=== PATIENT | male | born 1995 | race Caucasian/White ===

== ENCOUNTER 2021-12-22 12:35 | Emergency (ER) | payer OTHER, SELFPAY ==
--- NOTE | 2021-12-22 | CRLHL7_ITS ---
For Patients: As a result of the Cures Act, medical imaging exams and procedure reports are released immediately into your electronic medical record. You may view this report before your referring provider. If you have questions, please contact your health care provider. Indication: Foreign body localization Technique: Three views left thumb Comparison: Left hand films earlier today Findings: 1.8 cm linear radiodense foreign body in the radial soft tissues adjacent to the osseous structures. No fracture. Impression: Radiodense foreign body appears to not be located within the bony structures, lying adjacent to the base of the 1st metacarpal Dictated by Hair Mathew MD @ 12/22/2021 3:39:23 PM (Electronically Signed)
[2021-12-22 12:45] VITALS: BP 123/77; PULSE 82; RESP 18; TEMP 36; O2SAT 98
--- NOTE | 2021-12-22 12:52 | CRLHL7_ITS ---
For Patients: As a result of the Century Cures Act, medical imaging exams and procedure reports are released immediately into your electronic medical record. You may view this report before your referring provider. If you have questions, please contact your health care provider. Indication: Nail in hand 5 Comparison: None available. Technique: AP, lateral, and oblique views left hand were obtained. Findings: There is no displaced fracture or dislocation. The joint spaces are grossly preserved. There is demonstration of a linear metallic fragment projecting over the 1st carpometacarpal joint. Impression: Demonstration of a linear metallic fragment projecting over the 1st carpometacarpal joint likely lodged within the base of the 1st metacarpal. No evidence of displaced fracture. Dictated by David Gray MD @ 12/22/2021 1:56:01 PM (Electronically Signed)
--- NOTE | 2021-12-22 14:34 | ED_ITS ---
HPI - Wound/Laceration General Time Seen by Provider: 14:34 Date Seen: 12/22/21 Chief Complaint: Skin/Abscess/Foreign Body Stated Complaint: nail in left hand Time Seen by Provider: 12/22/21 14:17 Source: patient, family, RN notes reviewed and old records reviewed Mode of arrival: ambulatory Limitations: no limitations History of Present Illness HPI narrative: [place] is a very pleasant 26-year-old male who is healthy who notes that this morning at 0730 hours he was using a nail gun in order to put base on a wall. These nails are approximately 1 in and do not have heads on them. Unfortunately the nail gun went off and this went into his dorsal hand at the base of the thumb. He notes that there is some discomfort that increases with movement of the thumb. He denies any numbness or tingling at this time. He last ate at 1000 hours. He has not noticed excessive bleeding. Related Data Home Medications Medication Instructions Recorded Confirmed pantoprazole 40 mg tablet,delayed mg PO 12/22/21 release Allergies Allergy/AdvReac Type Severity Reaction Status Date / Time codeine Allergy Verified 12/22/21 12:48 penicillin G Allergy Verified 12/22/21 12:48 Review of Systems Status of ROS: Reports: 6 or more systems reviewed and unremarkable except as noted in History and below Const: Denies: fever or chills ENMT: Denies: throat pain or difficulty swallowing Cardio: Denies: chest pain or shortness of breath with exertion Resp: Denies: shortness of breath or cough GI: Denies: difficulty swallowing PFSH PFSH Social History Smoking Status: Never smoker Do you use any of these nicotine containing products: None Second hand tobacco smoke exposure: No How often do you have a drink containing alcohol: monthly or less How often do you have six or more drinks on one occasion: Never AUDIT-C Alcohol total score: 1 Non-prescribed substance use: denies use service: No Exam Const: Vital Signs, click to edit/add: Vital Signs - 24 hr 12/22/21 12:45 Temperature 96.8 F L Pulse Rate [Left P ulse Oximeter] 82 Respiratory Rate 18 Blood Pressure [Ri ght Upper Arm] 123/77 Pulse Oximetry 98 Oxygen Delivery Me thod Room Air Documenting provider has reviewed patient's vital signs: yes Common normals: no apparent distress, oriented x3, no limitations and healthy appearing General appearance: cooperative, comfortable and well kempt HENMT: Common normals: head/scalp atraumatic Head and scalp: atraumatic Eye: Common normals: PERRL General eye: normal appearance of both eyes Pupil: PERRL Neck & C-Spine: Common normals: full ROM Resp: Common normals: normal respiratory effort Extremity: Other: Small entrance wound at the base of the 1st metacarpal. Patient is able to move thumb distally but increases discomfort. Sensation is fully intact. I am unable to palpate head of the nail or the nail itself. Neuro: Common normals: oriented x3 Psych: Appearance: well kempt Course Course Hospital Course: At this time I suspect patient will need procedure for foreign body removal. I have spoken with the orthopedic PA. Currently awaiting call back for direction. Vital Signs Vital signs: Initial Vital Signs Temperature 96.8 F L 12/22/21 12:45 Temperature Source Tympanic 12/22/21 12:45 Pulse Rate 82 12/22/21 12:45 Pulse Rhythm 12/22/21 12:45 Pulse Strength 3+ Normal 12/22/21 12:45 Respiratory Rate 18 12/22/21 12:45 Blood Pressure 123/77 12/22/21 12:45 Blood Pressure Mean 92 12/22/21 12:45 Blood Pressure Position Sitting 12/22/21 12:45 Pulse Oximetry 98 12/22/21 12:45 Oxygen Delivery Method 12/22/21 12:45 Vital Signs Temperature 96.8 F L 12/22/21 12:45 Pulse Rate 82 12/22/21 12:45 Respiratory Rate 18 12/22/21 12:45 Blood Pressure 123/77 12/22/21 12:45 Pulse Oximetry 98 12/22/21 12:45 Oxygen Delivery Method 12/22/21 12:45 Temperature 96.8 F L 12/22/21 12:45 Pulse Rate 82 12/22/21 12:45 Respiratory Rate 18 12/22/21 12:45 Blood Pressure 123/77 12/22/21 12:45 Pulse Oximetry 98 12/22/21 12:45 Oxygen Delivery Method 12/22/21 12:45 MDM - Wound/Laceration MDM Narrative Medical decision making narrative: 1. Foreign body-patient appears to have headless nail in the soft tissue of the left wrist at the base of the 1st metacarpal. Patient will return tomorrow morning at 0930 for surgery. He is advised to be NPO after midnight. I did place a splint on him to limit movement. He will also start on Keflex 500 mg p.o. b.i.d. x7 days for prevention of infection. He did state that he and his sister who is here with him both have penicillin all allergies and he thought that maybe he became itchy but it was when he was a child that he had the allergy. He has had other antibiotics but he does not know what they are. His reaction does not sound like anaphylaxis and I feel that Keflex is the appropriate antibiotic for him. If he has any itching, shortness of breath he will seek medical attention immediately. 2. Disposition-patient is discharged home. Confirmed coming to the ED tomorrow morning 0930 for orthopedic surgery. Medical Records Attestation: I reviewed the patient's medical records. Lab Data Attestation: I reviewed the patient's lab results. Labs: Lab Results 12/22/21 Range/Units 15:30 SARS-CoV-2 (PCR) Negative SARS-CoV-2 (Negative) Influenza Type A (PCR) Negative PCR FLU A (Negative) Influenza Type B (PCR) Negative PCR FLU B (Negative) Imaging Data Hand x-ray: My impression: Foreign body noted over the base of the 1st metacarpal joint. Radiologist's impression: Findings: There is no displaced fracture or dislocation. The joint spaces are grossly preserved. There is demonstration of a linear metallic fragment projecting over the 1st carpometacarpal joint. Impression: Demonstration of a linear metallic fragment projecting over the 1st carpometac arpal joint likely lodged within the base of the 1st metacarpal. No evidence of displaced fracture. Discharge Plan Discharge Clinical Impression: Foreign body (FB) in soft tissue Patient Disposition: Home, Self-Care Condition: Improved Additional Instructions: Return at 930 tomorrow morning for surgery. Do not eat or drink after midnight Ibuprofen or Tylenol as needed for discomfort. Keep splint in place. Await COVID results. Keflex as directed for antibiotics. Prescriptions: No Action pantoprazole 40 mg tablet,delayed release (DR/EC) PO Label Comments: TAKE 1 TABLET BY MOUTH TWO TIMES A DAY Stand Alone Forms: MyHealth Info Instructions
[2021-12-22 16:11] LABS: PCR FLU A Negative PCR FLU A (Negative); PCR FLU B Negative PCR FLU B (Negative)
[2021-12-22 16:13] LABS: SARS PCR* Negative SARS-CoV-2 (Negative)
== END 2021-12-22 15:41 | disposition home or self-care (01) ==
PROVIDERS: Emergency Provider Family Medicine
DX: S61.042A Puncture wound with foreign body of left thumb without damage to nail, initial encounter (principal); W29.4XXA Contact with nail gun, initial encounter
CPT/HCPCS: 29125; 73130; 73140; 87631; 99283

== ENCOUNTER 2021-12-23 09:00 | Day surgery (SDC) | payer OTHER, SELFPAY ==
[2021-12-23] VITALS (12 sets, daily range): BP systolic 117–135; BP diastolic 86–102; PULSE 75–92; RESP 12–99; TEMP 36.1–36.9; O2SAT 94–99
--- NOTE | 2021-12-23 11:01 | CRLHL7_ITS ---
For Patients: As a result of the Cures Act, medical imaging exams and procedure reports are released immediately into your electronic medical record. You may view this report before your referring provider. If you have questions, please contact your health care provider. Indication: INTRAOP XRAY, FOREIGN BODY REMOVAL Technique: Two fluoroscopic images of the left hand. Fluoroscopic time 2.3 seconds. IMPRESSION: Fluoroscopic guidance for removal of foreign body. Dictated by Hair Mathew MD @ 12/25/2021 8:47:16 AM (Electronically Signed)
[2021-12-23] MEDS: LACTATED RINGERS 1000 ML 1,000 ML 100 ML IV (11:14)
[2021-12-23] MEDS: CEFAZOLIN 2 GM INJ IVP (11:21)
--- NOTE | 2021-12-23 11:26 | PC.NURSE ---
Shift Note pre-surgery: Patient pleasant and cooperative. Patient independent in room. Patient vitally stable, lungs clear, BS WNL, IV inserted in right AC 20 gauge, patent and intact. Patient changed into gown. Signed belongings sheet and contact sheet. Patient's left hand wrapped with perfecto bandage. Patient has left for surgery, and will have a new RN post-surgery.
--- NOTE | 2021-12-23 11:42 | PM.ORCN ---
History of Present Illness HPI Date Seen: 12/23/21 Requesting physician: Teodora Goodrich Chief complaint: Same Day Surgery Narrative: Dr. Candelaria is requested orthopedic consultation for left hand retained foreign body. Patient is a 26-year-old atwyd-snnp-ekydalyu gentleman. Yesterday while trimming a house he put a finishing nail into his left hand. This happened at 7:30 a.m. in the morning. He reported to the emergency department in the early afternoon. He has had this happen previously and pulled the nail out himself. Since this nail had no head he was unable to grasp it. He had eaten late in the morning. Therefore, we would not have been able to remove the foreign body in the operating room under anesthesia until early in the evening. Rather than do that, we elected to wait and do it the following morning. Review of Systems Narrative: The patient denies: Fever, night sweats, shaking chills, nausea, vomiting, diarrhea, chest pain, chest pressure, shortness of breath, no rash, no change in hearing or vision, no issues with bleeding or clotting PFSH PFS Social History Smoking Status: Never smoker Do you use any of these nicotine containing products: None Second hand tobacco smoke exposure: No How often do you have a drink containing alcohol: monthly or less How often do you have six or more drinks on one occasion: Never AUDIT-C Alcohol total score: 1 Non-prescribed substance use: denies use service: No Meds Home Medications and Allergies Home Medications Medication Instructions Recorded Confirmed Type pantoprazole 40 mg tablet,delayed mg PO 12/22/21 History release Allergies Allergy/AdvReac Type Severity Reaction Status Date / Time codeine Allergy Verified 12/22/21 12:48 penicillin G Allergy Verified 12/22/21 12:48 Ortho Exam Narrative Exam Narrative: Examination of the left hand shows a tiny puncture wound over the dorsum of the base of the thumb metacarpal. There are no signs of infection. There is no obvious palpable foreign body. CMS appears normal. Results Diagnostic results Additional Comments: Three views of the hand and three views of the thumb show a metallic foreign body over the soft tissues of the dorsum of the base of the thumb metacarpal. It does not appear to be within the bone or any of the surrounding joints. It is a very small, headless appearing nail approximally 1 or 2 mm in diameter and 15-20 mm in length. Assessment and Plan Assessment and plan (1) Foreign body (FB) in soft tissue: Status: Acute Plan Assessment: Retained metallic foreign body left hand Plan: He has been NPO since prior to midnight. He has been medically cleared for surgery. Therefore, we will plan to take him to the operating room now.
[2021-12-23] MEDS: BUPIVACAINE 0.5% 30 ML INJECTION (11:44)
--- NOTE | 2021-12-23 11:50 | P.ORPRC_ITS ---
Procedure Note Date of procedure: 12/23/21 Procedure: SURGEON: Placido Small MD GEAR AND SPLINE GRINDER: Blaise Ortega PA-C PREOPERATIVE DIAGNOSIS: Left hand retained foreign body POSTOPERATIVE DIAGNOSIS: Left hand retained foreign body NAME OF OPERATION: Left hand foreign body removal, superficial ANESTHESIA: General ESTIMATED BLOOD LOSS: 0 mL COMPLICATIONS: None SPECIMENS: None DRAINS: None PREOPERATIVE ANTIBIOTICS: Ancef 2 g INDICATIONS: The patient is a 89-vuqi-wbk-year-old male shot a nail through his left hand. Foreign body removal was recommended. The risks, benefits and expected outcomes were discussed in detail. These included but were not limited to: Infection, bleeding, injury to blood vessel or nerve, venous thromboembolism. All questions were answered to their satisfaction. PROCEDURE: The patient was placed supine on the operating room table. General anesthesia was administered. The left upper extremity was prepped and draped in the usual sterile fashion. The limb was exsanguinated with a Xiang bandage. The forearm pneumatic tourniquet was inflated to 250 mmHg. A longitudinal incision was made over the puncture site. Subcutaneous dissection was taken with tenotomy scissors to the foreign body which was only a few mm under the skin. It was removed intact. Intraoperative C-arm images were obtained which show the foreign body has been completely removed. The soft tissues were irrigated with 500 mL of normal saline via a bulb syringe. The wound was closed with a 3-0 Monocryl in a subcuticular fashion. The wound was infiltrated with several mL of 0.5% Marcaine with, without epinephrine. A Steri-Strip and soft dressing were applied. The tourniquet was released. Sponge needle counts were correct x2. The patient tolerated the procedure well. There were no apparent complications. He was awakened and extubated in the operating room, sent to the postanesthesia care unit in satisfactory condition. Plan: The patient will be discharged home. Use of the hand as tolerates. Ice, Tylenol and ibuprofen as needed for pain. He can discontinue the intraoperative dressing on postoperative day 3. He can follow-up p.r.n.
--- NOTE | 2021-12-24 21:26 | W.ANESCHARGE ---
Anesthesia Charges Start Date/Time Anesthesia Start Date: 12/23/21 Anesthesia Start Time: 11:14 Stop Date/Time Anesthesia Stop Date: 12/23/21 Anesthesia Stop Time: 12:02 Summary Emergency: Yes
== END 2021-12-23 12:35 | disposition home or self-care (01) ==
LOC: SS 09:02 → MEDSURG 10:30
PROVIDERS: Visit Provider Orthopaedic Surgery
PROC: (CPT 10120; principal; 2021-12-23 11:30)
DX: S61.442A Puncture wound with foreign body of left hand, initial encounter (principal); W45.0XXA Nail entering through skin, initial encounter; W27.8XXA Contact with other nonpowered hand tool, initial encounter; Y93.H3 Activity, building and construction; Y92.009 Unspecified place in unspecified non-institutional (private) residence as the place of occurrence of the external cause
CPT/HCPCS: 10120; 01810; 73120; 76000; 99140; J0690; J1100; J2250; J2405; J2704; J3010; J3490; J7120

== ENCOUNTER 2022-01-29 16:35 | Emergency (ER) | payer OTHER, SELFPAY ==
[2022-01-29 17:06] VITALS: BP 121/81; PULSE 96; TEMP 37.9; O2SAT 97
--- NOTE | 2022-01-29 17:58 | CRLHL7_ITS ---
For Patients: As a result of the Century Cures Act, medical imaging exams and procedure reports are released immediately into your electronic medical record. You may view this report before your referring provider. If you have questions, please contact your health care provider. INDICATION: Lower abdominal pain. TECHNIQUE: CT abdomen and pelvis acquired with 89 mL Isovue 370 IV contrast. Coronal and sagittal reformats were generated. COMPARISON: None. FINDINGS: Lower chest: Unremarkable. Liver: Unremarkable. Gallbladder and bile ducts: Unremarkable. No stones or inflammation. No biliary dilation. Spleen: Unremarkable. Pancreas: Unremarkable. Adrenal glands: Unremarkable. No nodules. Kidneys and Ureters: Unremarkable. No suspicious masses, stones, or hydronephrosis. Lymph Nodes and Retroperitoneum: Unremarkable. Vasculature: Incidentally noted retroaortic left renal vein, a normal variant. GI tract: Mucosal thickening and hyperemia of the sigmoid colon, without notable diverticula. Bowel loops are normal in caliber. The appendix is normal. Peritoneum/Abdominal Wall: Several small foci of extraluminal gas extend along the sigmoid colon. No free fluid. Pelvic Viscera: Unremarkable. Bladder: Unremarkable. Bones: Bilateral pars interarticularis defects at L5, with grade 1 anterolisthesis of L5 on S1. IMPRESSION: 1. Mucosal thickening with adjacent stranding of the sigmoid colon, without appreciable diverticula. This could be diverticulitis, but other etiologies of colitis such as infection or inflammation are also possible. 2. Small focus of extraluminal air, compatible with microperforation. No fluid collection. Please note that all CT scans at this facility use dose modulation, iterative reconstruction, and/or weight-based dosing when appropriate to reduce radiation dose to as low as reasonably achievable. Dictated by Jhonathan Angelo MD @ 01/29/2022 7:02:57 PM (Electronically Signed)
--- NOTE | 2022-01-29 17:59 | ED_ITS ---
HPI - General Adult General Chief complaint: Groin Pain Stated complaint: Groin pain Time Seen by Provider: 01/29/22 17:37 History of Present Illness HPI narrative: This 27-year-old male comes in reporting lower abdominal pain for the past couple days. He states that it is a constant pain and is worse with movement. He states that he had some constipation and did take milk of magnesia thinking this would help his symptoms. He reports pain in his rectum when attempting to have a bowel movement. He states that he has been urinating normally. He does not have any flank pain. He arrives with a temperature at 100.2? F but states that he has not felt feverish. He denies having any nausea or vomiting. Related Data Home Medications Medication Instructions Recorded Confirmed pantoprazole 40 mg tablet,delayed 40 mg PO BID 12/22/21 01/29/22 release Previous Rx's Medication Instructions Recorded amoxicillin 875 mg-potassium 1 tab PO Q12H #20 tabs 01/29/22 clavulanate 125 mg tablet ketorolac 10 mg tablet 10 mg PO TID 5 days #15 tabs 01/29/22 Allergies Allergy/AdvReac Type Severity Reaction Status Date / Time codeine Allergy Verified 01/29/22 18:35 penicillin G Allergy Verified 01/29/22 18:35 Review of Systems Status of ROS: Reports: 10 or more systems reviewed and unremarkable except as noted in History and below Narrative: Constitutional: No fevers, no weight gain or loss. Eyes: No discharge. No vision changes. HENT: No congestion, no sore throat, no ear pain. Cardiovascular: No chest pain, no palpitations. Respiratory: No shortness of breath, no wheezes, no cough. Gastrointestinal: No vomiting, no diarrhea. Abdominal pain as described above. Genitourinary: No dysuria, no hematuria. Musculoskeletal: Normal range of motion. Skin: No rashes, no pruritis. Neurological: No dizziness, weakness, sensory change, speech change. Endo/Heme/Allergies: No bruising or bleeding. No polydipsia. Pysch: no suicidality, no anxiety, no insomnia. All other systems reviewed and are negative. [facility] Social History Smoking Status: Former smoker What tobacco products do you use: cigarettes Years smoked: 10 Smoking quit date/years: <= 15 years ago Do you use any of these nicotine containing products: Other Second hand tobacco smoke exposure: No How often do you have a drink containing alcohol: monthly or less How many standard drinks containing alcohol do you have on a typical day: 5 or 6 How often do you have six or more drinks on one occasion: Never AUDIT-C Alcohol total score: 3 Non-prescribed substance use: denies use service: No Exam Narrative: Exam Narrative: Constitutional: Well-developed, well-nourished, no acute distress. HEENT: Normocephalic, atraumatic. Neck: Normal range of motion. Nontender. Supple. Heart: Regular. No murmurs. Normal rate. Intact distal pulses. Lungs: Clear to auscultation. No chest discomfort. No wheezes, rhonchi, or rales. Abdomen: Normal bowel sounds. Tenderness across the lower abdomen. Mild rebound tenderness. Genitalia: Deferred. Back: No midline tenderness. Normal range of motion. Extremities: Normal range of motion. No injury. Skin: Intact. No rash. Warm. No erythema or pallor. Neurologic: No altered sensation. No weakness. Alert and oriented. Psychiatric: No suicidality. No anxiety or depression. No insomnia. Nursing notes and vitals signs are reviewed. Const: Vital Signs, click to edit/add: Vital Signs - 24 hr 01/29/22 17:06 01/29/22 18:20 01/29/22 19:00 Temperature 100.2 F H Pulse Rate [Left P ulse Oximeter] 96 93 93 Respiratory Rate 20 Blood Pressure [Ri ght Upper Arm] 121/81 105/72 114/35 L Pulse Oximetry 97 95 95 Oxygen Delivery Me thod Room Air Room Air Room Air Course Vital Signs Vital signs: Initial Vital Signs Temperature 100.2 F H 01/29/22 17:06 Temperature Source Temporal Artery Scan 01/29/22 17:06 Pulse Rate 96 01/29/22 17:06 Blood Pressure 121/81 01/29/22 17:06 Blood Pressure Mean 94 01/29/22 17:06 Blood Pressure Position Sitting 01/29/22 17:06 Pulse Oximetry 97 01/29/22 17:06 Oxygen Delivery Method 01/29/22 17:06 Vital Signs Temperature 100.2 F H 01/29/22 17:06 Pulse Rate 96 01/29/22 17:06 Blood Pressure 121/81 01/29/22 17:06 Pulse Oximetry 97 01/29/22 17:06 Oxygen Delivery Method 01/29/22 17:06 Temperature 100.2 F H 01/29/22 17:06 Pulse Rate 93 01/29/22 19:00 Respiratory Rate 20 01/29/22 18:20 Blood Pressure 114/35 L 01/29/22 19:00 Pulse Oximetry 95 01/29/22 19:00 Oxygen Delivery Method 01/29/22 19:00 Medical Decision Making MDM Narrative Medical decision making narrative: This patient comes in with lower abdominal pain over the past couple days. His symptoms are suspicious for diverticulitis. He does have a borderline fever and white count returns slightly elevated. CT imaging of the abdomen and pelvis do not identify any particular diverticula but there are findings that are suspicious of diverticulitis. The patient received an oral dose of Augmentin. He also received an IV dose of Toradol 30 mg. Prescriptions for these 2 medicines are provided for him going forward also. Lab Data Labs: Lab Results 01/29/22 01/29/22 01/29/22 Range/Units 18:12 18:12 18:12 WBC 13.51 H (4.50-11.00) K/uL RBC 4.98 (4.30-5.90) m/uL Hgb 15.1 (13.5-17.5) gm/dL Hct 44.1 (37.0-53.0) % MCV 89 (80-100) fL MCH 30 (26-34) pg MCHC 34 (32-36) gm/dL RDW Coeff of Juma 12.4 (11.5-15.5) % Plt Count 268 (140-440) K/uL Neut % (Auto) 78.7 H (42.0-72.0) % Lymph % (Auto) 12.4 L (20-44) % Harnett % (Auto) 8.2 (0.0-11.0) % Eos % (Auto) 0.1 (0.0-7.0) % Baso % (Auto) 0.2 (0.0-3.0) % Neut # (Auto) 10.60 H (1.7-7.0) K/uL Lymph # (Auto) 1.70 (0.90-2.90) K/uL Harnett # (Auto) 1.10 H (0.00-0.90) K/UL Eos # (Auto) 0.00 (0.00-0.50) K/uL Baso # (Auto) 0.00 (0.00-0.30) K/uL Abs Immat Gran (auto) 0.06 (0.00-0.30) K/uL Sodium 137 (135-149) mmol/L Potassium 4.0 (3.6-5.1) mmol/L Chloride 100 (96-114) mmol/L Carbon Dioxide 25 (20-32) mmol/L BUN 10 (5-24) mg/dL Creatinine 0.9 (0.5-1.5) mg/dL Estimated Creat Clear 105.35 Estimated GFR 119 ml/min Glucose 112 (60-115) mg/dL Lactate 0.7 (0.5-1.9) mmol/L Calcium 9.6 (8.4-10.6) mg/dL Imaging Data CT scan - abdomen: Radiologist's impression: 1. Mucosal thickening with adjacent stranding of the sigmoid colon, without appreciable diverticula. This could be diverticulitis, but other etiologies of colitis such as infection or inflammation are also possible. 2. Small focus of extraluminal air, compatible with microperforation. No fluid collection. Discharge Plan Discharge Clinical Impression: Diverticulitis Patient Disposition: Home, Self-Care Condition: Stable Additional Instructions: Take medication as prescribed. Use stool softeners as directed. Follow up with MD or return if worsening. Prescriptions: New amoxicillin-pot clavulanate 875-125 mg tablet 1 tab PO Q12H Qty: 20 0RF ketorolac 10 mg tablet 10 mg PO TID 5 Days Qty: 15 0RF No Action pantoprazole 40 mg tablet,delayed release (DR/EC) 40 mg PO BID Label Comments: TAKE 1 TABLET BY MOUTH TWO TIMES A DAY Follow Up/Referrals: Provider,Not a Local [Primary Care Provider] - Stand Alone Forms: MyHealth Info Instructions
[2022-01-29 18:20] VITALS: BP 105/72; PULSE 93; RESP 20; O2SAT 95
[2022-01-29 18:23] LABS: Lactate* 0.7 mmol/L (0.5-1.9)
[2022-01-29 18:25] LABS: Basophils Percent Auto 0.2 % (0.0-3.0); Eosinophils Percent Auto 0.1 % (0.0-7.0); Hematocrit 44.1 % (37.0-53.0); Hemoglobin* 15.1 gm/dL (13.5-17.5); Immature Granulocytes Abs Auto 0.06 K/uL (0.00-0.30); Lymphocytes Percent Auto 12.4 % (20-44); Mean Corpuscular HGB Conc 34 gm/dL (32-36); Mean Corpuscular Hemoglobin 30 pg (26-34); Mean Corpuscular Volume 89 fL (80-100); Monocytes Percent Auto 8.2 % (0.0-11.0); Neutrophils Percent Auto 78.7 % (42.0-72.0); Platelet Count* 268 K/uL (140-440); RDW Coefficient of Variation % 12.4 % (11.5-15.5); Red Blood Count 4.98 m/uL (4.30-5.90); Slide Review Reflex No; White Blood Count* 13.51 K/uL (4.50-11.00)
[2022-01-29 18:38] LABS: Chloride* 100 mmol/L (96-114)
[2022-01-29 18:39] LABS: Sodium* 137 mmol/L (135-149)
[2022-01-29 18:41] LABS: Creatinine* 0.9 mg/dL (0.5-1.5); Est. Creatinine Clearance* 105.35; Estimated Glomerular Filt Rate 119 ml/min
[2022-01-29 18:42] LABS: Blood Urea Nitrogen* 10 mg/dL (5-24); Calcium* 9.6 mg/dL (8.4-10.6); Carbon Dioxide* 25 mmol/L (20-32); Glucose* 112 mg/dL (60-115)
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
--- OUTSIDE RECORDS SUMMARY | 2022-01-29 18:42 | XMS_ITS | Encounter Summary ---
:1995 Author Organization [facility] Address [address] [place] [address] Phone Care Team Providers Name Role Phone Pcp, No Primary Care Provider Unavailable Encounter Details Date Type Department Care Team Description 04/23/2019 Documentation Only Unspecified Departme nt Unknown, Provider [place] Social History Tobacco Use Types Packs/Day Years Used Date Smoking Tobacco: Every Day Cigarettes 0.3 Smokeless Tobacco: Never Alcohol Use Standard Drinks/Week Comments No 0 (1 standard drink = 0.6 oz pure alcoho l) Sex Assigned at Date Recorded Not on file documented as of this encounter Plan of Treatment Not on filedocumented as of this encounter Visit Diagnoses Not on filedocumented in this encounter Care Teams Cops Relationship Specialty Start Date End Date Pcp, No PCP - General 10/24/[place] [facility] [place] [address] documented as of this encounter
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
--- OUTSIDE RECORDS SUMMARY | 2022-01-29 18:42 | XMS_ITS | Encounter Summary ---
:1995 Author Organization [facility] Address [address] [place] [phone] Phone Care Team Providers Name Role Phone Pcp, No Primary Care Provider Unavailable Reason for Visit Reason Onset Date Comments Work Note 12/12/2014 Encounter Details Date Type Department Care Team Description 12/12/2014 Nurse Triage [facility] Contact Center Elana Bernal RN Work Note [facility] [address] [place] [address] [address] [place], [place] [address] Social History Tobacco Use Types Packs/Day Years Used Date Smoking Tobacco: Every Day Cigarettes 0.3 Smokeless Tobacco: Never Alcohol Use Standard Drinks/Week Comments No 0 (1 standard drink = 0.6 oz pure alcoho l) Sex Assigned at Date Recorded Not on file documented as of this encounter Miscellaneous Notes Telephone Encounter - Lisa Mathew RN - 12/13/2014 12:09 PM CDT Data: See messages below. Pt has no TBI symptoms and needs work note stating that it is okay to workfull time with no restrictions. 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 Note should be faxed to [phone] attn: Monica Mansfield. Action: Message routed to Dr Mohamud for review / RTW letter. Appt canceled on 01/05/15 and rescheduled on 03/04/15. Plan: Pending review. Telephone Encounter - Ed Barcenas RN - 12/13/2014 9:47 AM CDT Message will be routed to Dr. Mohamud of TBI as Neurosurgery has discharged pt. See last note by Bella Kim NP. Ed Barcenas, RN, 12/13/2014 9:48 AM Telephone Encounter - Elana Bernal RN - 12/12/2014 9:42 AM CDT D: Telephone call received from pt requesting a letter be faxed to his Employer [employer] stated that it is ok for him to reschedule his 01/05/2015 appointment in TBI clinic and itis safe for him to travel for the next 2 months. Fax number . A: Spoke with pt and advised him a message would be sent to the clinic on his behalf. R/P: Pending Message from Jose Antonio Saldaña sent at 12/12/2014 9:31 AM CDT ----- Regarding: questions about being able to travel after a tbi JOSE ANTONIO ASHLEY 12/12/2014 09:31 AM Is returning a call from needs to talk to neurosurgery about getting a letter to be able to travel, that is if he is safe to for his job Best number to call patient [phone] Best time of day to reach patient: anytime documented in this encounter Plan of Treatment Not on filedocumented as of this encounter Visit Diagnoses Not on filedocumented in this encounter Care Teams Director Data Relationship Specialty Start Date End Date Pcp, No PCP - General 10/24/14 [facility] [place] [address] documented as of this encounter
--- OUTSIDE RECORDS SUMMARY | 2022-01-29 18:42 | XMS_ITS | Encounter Summary ---
:1995 Author Organization [facility] Address [address] [place] [address] Phone Care Team Providers Name Role Phone Pcp, No Primary Care Provider Unavailable Reason for Visit Reason Onset Date Comments Letter for Work 12/14/2014 Needing a note to sel[place] rede the state... Encounter Details Date Type Department Care Team Description 12/14/2014 Telephone [facility] Surgery Clinic Debbie Dodson Letter for Work [address] Nik[address] Gonzales RN (Needing a note to .[phone]ANDA leave the state...) [place], [place] [address] [address] [place], [place] [phone] Social History Tobacco Use Types Packs/Day Years Used Date Smoking Tobacco: Every Day Cigarettes 0.3 Smokeless Tobacco: Never Alcohol Use Standard Drinks/Week Comments No 0 (1 standard drink = 0.6 oz pure alcoho l) Sex Assigned at Date Recorded Not on file documented as of this encounter Miscellaneous Notes Telephone Encounter - Lisa Mathew RN - 12/15/2014 9:19 AM CDT RTW letter written and faxed on 12/13/14. Pt's employer never received fax. Faxed RTW letter to Monica Mansfield @ [phone] and to pt's mother Clementine @ [phone] per pt's request. Received confirmation page that fax was received. Lisa Mathew RN, 12/15/2014 9:21 AM Telephone Encounter - Olman Espino RN - 12/15/2014 9:00 AM CDT D: Patient's mother called the Neurosurgery Clinic requesting a letter for work, and for a nurse to call the patient. Patient seen in Neurosurgery Clinic on 11/19/14, with a plan for follow up in TBI Clinic. Patient seen in TBI Clinic on 11/19/14, and a return to work letter written by Dr. Mohamud on 12/13/14 states that patient can return to work without restrictions, and may travel for the next two months for work. AR: Attempted to contact patient on the telephone. Patient does not have a mail box to leave a message. Called patient's mother Clementine. Nnamdi states that the patient's employer never received return to work letter. Faxed return to work letter to patient's mother. P: Route to [facility] for follow up. Olman Espino RN, 12/15/2014 9:06 AM . Telephone Encounter - Debbie Dodson RN - 12/14/2014 10:09 AM CDT Pt. States also needs a rtw letter. RTW Chanel Hennessy MA Sent: SatDecember 14, 2014 8:38 AM To: P Surgery Cl Staff/Refill Pool [facility] [place] Ho[place] : 1995 Pt Home: Entered: [phone] Message TELEPHONE MESSAGE Taken by: Chanel Hennessy MA, 12/14/2014 8:39 AM Direct to: Neurosurgery Problem: RTW Pt. Name: [place] Hoang : 1995 (home) Mobile Insurance: PCP: No PCP Comment: LM stating he needs a RTW slip SERA Expects Return Call at: [phone] Debbie oDdson RN, 12/14/2014 10:09 AM Telephone Encounter - Debbie Dodson RN - 12/14/2014 10:02 AM CDT Called pt back to see what kind of note requested. Received a message that pt requesting a note to leave the state. Called pt with no answer and no voicemail set up to leave message to call back. Routing message forward for note. Will call back with results. Debbie Dodson, RN, 12/14/2014 10:03 AM documented in this encounter Plan of Treatment Not on filedocumented as of this encounter Visit Diagnoses Not on filedocumented in this encounter Care Teams Spinning Operator Relationship Specialty Start Date End Date Pcp, No PCP - General 10/24/14 [facility] [place] [address] documented as of this encounter
--- OUTSIDE RECORDS SUMMARY | 2022-01-29 18:42 | XMS_ITS | Encounter Summary ---
:1995 Author Organization [facility] Address [address] [facility] [place] [address] Phone Care Team Providers Name Role Phone Pcp, No Primary Care Provider Unavailable Encounter Details Date Type Department Care Team Description 12/13/2014 Telephone [facility] [place] TBI Phys Med/Rehab Sandra Douglas CMA Clinic [address] [place] [address] [place], [place] [address] Social History Tobacco Use Types Packs/Day Years Used Date Smoking Tobacco: Every Day Cigarettes 0.3 Smokeless Tobacco: Never Alcohol Use Standard Drinks/Week Comments No 0 (1 standard drink = 0.6 oz pure alcoho l) Sex Assigned at Date Recorded Not on file documented as of this encounter Miscellaneous Notes Telephone Encounter - Miladys Douglas CMA - 12/13/2014 2:27 PM CDT Patient's work letter was faxed to Monica Mansfield using fax number [phone]. Miladys Douglas CMA, 12/13/2014 2:28 PM documented in this encounter Plan of Treatment Not on filedocumented as of this encounter Visit Diagnoses Not on filedocumented in this encounter Care Teams Bridal Gown Fitter Relationship Specialty Start Date End Date Pcp, No PCP - General 10/24/14 [facility] [place] [place] [address] documented as of this encounter
--- OUTSIDE RECORDS SUMMARY | 2022-01-29 18:42 | XMS_ITS | Encounter Summary ---
:1995 Author Organization [facility] Address [address] [place] [address] Phone Care Team Providers Name Role Phone Pcp, No Primary Care Provider Unavailable Encounter Details Date Type Department Care Team Description 12/22/2021 Travel Social History Tobacco Use Types Packs/Day Years Used Date Smoking Tobacco: Former Cigarettes 0.3 Smokeless Tobacco: Never Alcohol Use Standard Drinks/Week Comments Not Currently 0 (1 standard drink = 0.6 oz pure alcoho l) Sex Assigned at Date Recorded Not on file COVID-19 Exposure Response Date Recorded In the last 10 days, have you been in contact with No / Unsu re 12/22/2021 8:06 AM CDT someone who was confirmed or suspected to have Coronavirus/COVID-19? documented as of this encounter Plan of Treatment Not on filedocumented as of this encounter Visit Diagnoses Not on filedocumented in this encounter Care Teams Cylinder Worker Relationship Specialty Start Date End Date Pcp, Radha PCP - General 10/24/14 [facility] [place] [address] documented as of this encounter
--- OUTSIDE RECORDS SUMMARY | 2022-01-29 18:42 | XMS_ITS | Encounter Summary ---
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 athologist Signature Potassium 4.5 3.5 - 5.3 [facility] mEq/L Specimen Anatomical Collection Method Collection Time Receive d Time (Source) Location / / Volume Laterality Blood 04/24/2019 7:10 AM 0 7:22 [employer] AM [employer] Hakan Floyd MD LABORATORY Performing Organization Address City/State/ZIP Code Phon e Number [facility] [place] [place] [address] [address] [facility] [address] HEAD NO IV CONTRAST (04/23/2019 10:54 PM [employer]) Anatomical Region Laterality Modality Skull Computed Tomography Specimen (Source) Anatomical Collection Method Collection Time Re ceived Time Location / / Volume Laterality 04/23/2019 10:57 PM [employer] Impressions 04/24/2019 11:36 AM [employer] Impression: 1. Small volume subdural hemorrhage trina g the cerebral convexities, appearing relatively stable on the left and slightly decreased on the right. 2. No substantial change in appearance o f the small hemorrhagic contusions of the bilateral frontal and temporal lobes; no substantial change in associated vasogenic edema. 3. No substantial change in the mild bif rontal subarachnoid hemorrhage. [facility] Radiology offers CT scanning with t he latest innovations, including personalized dose modulation, iterative and model-based reconstructions, and spectral CT, all of which work to reduce radiation d ose to as low as reasonably achievable , and afford significant reductions in contrast media dose. I have personally reviewed the image(s) and initial interpretation, and I agree with the findings as documented by the resident/fellow. Reading Radiologist: Taqueria Nails Reading Resident: Jonathan Garber Narrative 04/24/2019 11:36 AM [employer] Head CT without contrast, 04/23/2019 Indication: Follow-up intracranial hemor rhages. Comparison: Head CT examinations from [facility] today (most recently from approximately 13.5 hours earlier) and from 10/25/2014. Technique: Thin-section CT images throug h the brain were obtained from the base of the skull through the vertex without intravenous contrast, reconstructed in axial, coronal, and sagittal planes, and reviewed in brain, bone and subdural windows. Dose: Total DLP = 1228.2 mGy*cm. ?? Findings: Persistent thin bilateral cere bral convexity subdural hemorrhage, slightly greater on the right and measuring 3-4 mm in thickness bilaterally; the component along the right frontoparietal conv exity appears decreased. Minimally incre ased conspicuity of a trace amount of subdural hemorrhage along the right mid to posterior falx. No substantial change in appearance of small anteroinferior front al hemorrhagic contusions, superimposed upon chronic gliosis/encephalomalacia and of small hemorrhagic contusions in the temporal lobes; associated vasogenic edema appears similar to prior. Mildly incre ased hypoattenuation in the left mild sc attered left greater than right bifrontal subarachnoid hemorrhage has not substantially changed. No ventriculomegaly, midline shift, or herniation. No definite ac qawalangin loss of coffman-white differentiation. Stable small foci of gliosis/encephalomalacia in the right superior temporal gyrus, the sequela of prior trauma. Unchanged right frontal calvarial fractu re with involvement of the anterior and posterior edgar of the right frontal sinus as well as extension posterior superiorly into the sagittal suture. Associated soft tissue swelling of the scalp is rel atively similar to prior. Trace hemorrhage in the right frontal sinus. Mild fluid and scattered ethmoid air cells. The remaining paranasal sinuses are relatively clear. No mastoid air cell effusion. The orbits are unremarkable. Trace atherosclerotic calcification of the supraclinoid internal carotid arteries. The residential living assistant topogram reviewed and is noncontributory. Procedure Note Taqueria Nails, DO - 04/24/2019Form atting of this note might be different from the original. Head CT without contrast, 04/23/2019 Indication: Follow-up intracranial hemor rhages. Comparison: Head CT examinations from [facility] today (most recently from approximately 13.5 hours earlier) and from 10/25/2014. Technique: Thin-section CT images throug h the brain were obtained from the base of the skull through the vertex without intravenous contrast, reconstructed in axial, coronal, and sagittal planes, and reviewed in brain, bone and subdural windows. Dose: Total DLP = 1228.2 mGy*cm. Findings: Persistent thin bilateral cere bral convexity subdural hemorrhage, slightly greater on the right and measuring 3-4 mm in thickness bilaterally; the component along the right frontoparietal convexity appears decreased. Minimally i ncreased conspicuity of a trace amount of subdural hemorrhage along the right mid to posterior falx. No substantial change in appearance of small anteroinferior frontal hemorrhagic contusions, superimposed upo n chronic gliosis/encephalomalacia and of small hemorrhagic contusions in the temporal lobes; associated vasogenic edema appears similar to prior. Mildly increased hypoattenuation in the left mild scattered left greater than right bifrontal subarachnoid hemorrhage has not substantially changed. No ventriculomegaly, midline shift, or herniation. No definite acute loss of coffman-white differentiation. Stable small foci of gl iosis/encephalomalacia in the right superior temporal gyrus, the sequela of prior trauma. Unchanged right frontal calvarial fractu re with involvement of the anterior and posterior edgar of the right frontal sinus as well as extension posterior superiorly into the sagittal suture. Associated soft tissue swelling of the scalp is relative ly similar to prior. Trace hemorrhage in the right frontal sinus. Mild fluid and scattered ethmoid air cells. The remaining paranasal sinuses are relatively clear. No mastoid air cell effusion. The orbits ar e unremarkable. Trace atherosclerotic calcification of the supraclinoid internal carotid arteries. The residential living assistant topogram reviewed and is noncontributory. IMPRESSION Impression: 1. Small volume subdural hemorrhage trina g the cerebral convexities, appearing relatively stable on the left and slightly decreased on the right. 2. No substantial change in appearance o f the small hemorrhagic contusions of the bilateral frontal and temporal lobes; no substantial change in associated vasogenic edema. 3. No substantial change in the mild bif rontal subarachnoid hemorrhage. [facility] Radiology offers CT scanning with t he latest innovations, including personalized dose modulation, iterative and model-based reconstructions, and spectral CT, all of which work to reduce radiation dose to as low as reasonably achievable, and afford signi ficant reductions in contrast media dose. I have personally reviewed the image(s) and initial interpretation, and I agree with the findings as documented by the resident/fellow. Reading Radiologist: Taqueria Nails Resident: Jonathan Garber Hakan Floyd MD CT NEURO XR ELBOW LEFT 3/4 VIEWS* (04/23/2019 9:43 AM [employer]) Anatomical Region Laterality Modality Lower Arm Computed Radiography Specimen (Source) Anatomical Collection Method Collection Time Re ceived Time Location / / Volume Laterality 04/23/2019 9:45 AM [employer] Impressions 04/23/2019 9:46 AM [employer] Impression: No fracture. Reading Radiologist: Holger Nunez Narrative 04/23/2019 9:46 AM [employer] Indication: ??trauma, pain ?? Findings: The alignment is normal. No fr acture or dislocation is seen. No other abnormality is noted. Procedure Note Holger Nunez MD - 04/23/2019Formatti ng of this note might be different from the original. Indication: trauma, pain Findings: The alignment is normal. No fr acture or dislocation is seen. No other abnormality is noted. IMPRESSION Impression: No fracture. Reading Radiologist: Holger Nunez Basia SUNSHINE-Lor X-RAY XR PELVIS AP* (04/23/2019 9:41 AM [employer]) Anatomical Region Laterality Modality Pelvis Computed Radiography Specimen (Source) Anatomical Collection Method Collection Time Re ceived Time Location / / Volume Laterality 04/23/2019 9:43 AM [employer] Impressions 04/23/2019 9:44 AM [employer] Impression: No acute findings. Reading Radiologist: Holger Nunez Narrative 04/23/2019 9:44 AM [employer] Indication: ??trauma ?? Comparison: None Findings: There is contrast within the u reters and urinary bladder. The bones and joint spaces are intact. There is no fracture or dislocation. No other abnormality is seen. Procedure Note Holger Nunez MD - 04/23/2019Formatti ng of this note might be different from the original. Indication: trauma Comparison: None Findings: There is contrast within the u reters and urinary bladder. The bones and joint spaces are intact. There is no fracture or dislocation. No other abnormality is seen. IMPRESSION Impression: No acute findings. Reading Radiologist: Holger Nunez Basia Alfonso PA-C X-RAY XR CHEST 1 VIEW AP OR PA* (04/23/2019 9:40 AM [employer]) Anatomical Region Laterality Modality Chest Computed Radiography Specimen (Source) Anatomical Collection Method Collection Time Re ceived Time Location / / Volume Laterality 04/23/2019 9:42 AM [employer] Impressions 04/23/2019 9:43 AM [employer] Impression: No acute findings. Reading Radiologist: Holger Nunez Narrative 04/23/2019 9:43 AM [employer] Indication: ??trauma ?? Findings: ??The heart and pulmonary vasc ulature are normal. ??The lungs are clear. ??There is no pleural effusion or pneumothorax. Postoperative changes are seen in the left scapula. No other abnormality is seen. Procedure Note Holger Nunez MD - 04/23/2019Formatti ng of this note might be different from the original. Indication: trauma Findings: The heart and pulmonary vascul ature are normal. The lungs are clear. There is no pleural effusion or pneumothorax. Postoperative changes are seen in the left scapula. No other abnormality is seen. IMPRESSION Impression: No acute findings. Reading Radiologist: Holger Nunez Basia Alfonso PA-C X-RAY CT HEAD - VENOGRAM-W/IV CON (04/23/2019 9:19 AM [employer]) Anatomical Region Laterality Modality Skull Computed Tomography Specimen (Source) Anatomical Collection Method Collection Time Re ceived Time Location / / Volume Laterality 04/23/2019 9:19 AM [employer] Impressions 04/23/2019 4:46 PM [employer] Impression: 1. No evidence of ??thrombus intracrania lly within the major intracranial venous sinuses and the deep and superficial cerebral veins. Mild extrinsic compression of the superior sagittal sinus near the v ertex from thin epidural hemorrhages und erlying the midline frontal bone and sagittal suture Gtz. 2. Subdural hemorrhage overlying the ant erior frontal lobes with possible small amount of bifrontal intraparenchymal hemorrhagic contusions that are slightly more pronounced from prior exam. There is al so small amount of subarachnoid hemorrha ge most pronounced within the left frontal lobe that is not significantly changed from prior exam. [facility] Rad[facility] offers CT scanning with t he latest innovations, including personalized dose modulation, iterative and model-based reconstructions, and spectral CT, all of which work to reduce radiation d ose to as low as reasonably achievable , and afford significant reductions in contrast media dose. I have personally reviewed the image(s) and initial interpretation, and I agree with the findings as documented by the resident/fellow. Reading Radiologist: Abisai Walker Resident: Connor Ellis 04/23/2019 4:46 PM [employer] Indication: ??known subdural, subarachnoid ??known subdural, subarachnoid ??. Comparison: ??none Technique: Head CT: Noncontrast thin section CT kristal ges were obtained from the skull base through the vertex and reviewed in brain, bone and subdural windows. CTV Head: Following intravenous bolus in jection of nonionic iodinated contrast medium and a delay of approximately 20-25 seconds, axial ??CT imaging with 1 mm collimation was obtained through the brain. Image data were sent to the [employer] sualization workstation and postprocessed by the radiologist using maximum intensity pixel (MIP), multiplanar and volume rendered 3D reconstruction programs. DOSE: ?Total DLP = 1803.8 mGy.cm. ?? Contrast Media: IOHEXOL 350 MG/ML IV SPEEDY UTION ??Dose: 80 mL ??Route: IV Push Findings: On the noncontrast images of the head, t here is redemonstration of the subdural hemorrhage overlying the bifrontal lobes with a small amount of bifrontal intraparenchymal hemorrhagic contusion that is s lightly more pronounced than prior. Smal l amount of subarachnoid hemorrhage is also present most prominent within the left frontal lobe. No mass effect, or midline shift. The ventricles are not enlarged . Coffman-white matter differentiation of b oth cerebral hemispheres is preserved. Unchanged fracture extending from the ri ght frontal sinus posteriorly and extending along the sagittal suture. Stable soft tissue hematoma overlying the fracture. Head CTV demonstrates no evident occlusi on or thrombus within the major intracranial dural venous sinuses and the major superficial and deep cerebral veins. There is thin epidural hemorrhage along the m idline frontal fracture near the vertex measuring 2 to 3 mm in thickness. Mild extrinsic compression of the superior sagittal sinus near the vertex. The major intracranial arteries are dimple sly patent without evidence of aneurysm or stenosis. Procedure Note Abisai Walker MD - 04/23/2019Formattin g of this note might be different from the original. Indication: known subdural, subarachnoid known subdural, subarachnoid . Comparison: none Technique: Head CT: Noncontrast thin section CT kristal ges were obtained from the skull base through the vertex and reviewed in brain, bone and subdural windows. CTV Head: Following intravenous bolus in jection of nonionic iodinated contrast medium and a delay of approximately 20-25 seconds, axial CT imaging with 1 mm collimation was obtained through the brain. Image data were sent to the advanced visualization workstation and postprocessed by the radiologist using maximum intensity pixel (MIP), multiplanar and volume rendered 3D reconstruction programs. DOSE: Total DLP = 1803.8 mGy.cm. Contrast Media: IOHEXOL 350 MG/ML IV SPEEDY UTION Dose: 80 mL Route: IV Push Findings: On the noncontrast images of the head, t here is redemonstration of the subdural hemorrhage overlying the bifrontal lobes with a small amount of bifrontal intraparenchymal hemorrhagic contusion that is slightly more pronounced than prior. Small amount of s ubarachnoid hemorrhage is also present most prominent within the left frontal lobe. No mass effect, or midline shift. The ventricles are not enlarged. Coffman-white matter differentiation of both cerebral hemisph eres is preserved. Unchanged fracture extending from the ri ght frontal sinus posteriorly and extending along the sagittal suture. Stable soft tissue hematoma overlying the fracture. Head CTV demonstrates no evident occlusi on or thrombus within the major intracranial dural venous sinuses and the major superficial and deep cerebral veins. There is thin epidural hemorrhage along the midline frontal fracture near the vertex measuri ng 2 to 3 mm in thickness. Mild extrinsic compression of the superior sagittal sinus near the vertex. The major intracranial arteries are dimple sly patent without evidence of aneurysm or stenosis. IMPRESSION Impression: 1. No evidence of thrombus intracraniall y within the major intracranial venous sinuses and the deep and superficial cerebral veins. Mild extrinsic compression of the superior sagittal sinus near the vertex from thin epidural hemorrhages underlying the midl ine frontal bone and sagittal suture Gtz. 2. Subdural hemorrhage overlying the ant erior frontal lobes with possible small amount of bifrontal intraparenchymal hemorrhagic contusions that are slightly more pronounced from prior exam. There is also small amount of subarachnoid hemorrhage most pronounced within the left frontal lobe that is not significantly changed from prior exam. [facility] offers CT scanning with t he latest innovations, including personalized dose modulation, iterative and model-based reconstructions, and spectral CT, all of which work to reduce radiation dose to as low as reasonably achievable, and afford signi ficant reductions in contrast media dose. I have personally reviewed the image(s) and initial interpretation, and I agree with the findings as documented by the resident/fellow. Reading Radiologist: Abisai Walker Resident: Connor Ellis Basia SUNSHINE-C CT NEURO CT SPINE CERVICAL NO IV CON (04/23/2019 9:19 AM [employer]) Anatomical Region Laterality Modality Cervical Spine Computed Tomography Specimen (Source) Anatomical Collection Method Collection Time Re ceived Time Location / / Volume Laterality 04/23/2019 9:11 AM [employer] Impressions 04/23/2019 9:26 AM [employer] Impression: ?? 1. No fracture or subluxation of the cer vical vertebrae. 2. No significant spinal canal or neural foraminal stenosis. [facility] offers CT scanning with t he latest innovations, including personalized dose modulation, iterative and model-based reconstructions, and spectral CT, all of which work to reduce radiation d ose to as low as reasonably achievable , and afford significant reductions in contrast media dose. I have personally reviewed the image(s) and initial interpretation, and I agree with the findings as documented by the resident/fellow. Reading Radiologist: Adelso James Resident: Connor Ellis 04/23/2019 9:26 AM [employer] Indication: trauma, known scalp fx ??. Comparison: ??none Technique: Using multidetector thin becky imation helical acquisition technique, axial, coronal and sagittal reconstructed CT images were obtained through the cervical spine without intravenous contrast. Images were reviewed in bone and soft ti ssue windows. Dose: Total DLP = 574.1 mGy.cm. ?? Findings: ??The lateral masses of C1 liana ear normally aligned on C2. Slight kyphotic curvature of the cervical spine, nonspecific. Alignment of the cervical spine otherwise appears intact. There is no ev idence of fracture or significant prever tebral soft tissue swelling. There is no significant disc space narrowing at any level. Findings on a level by level basis are a s follows: C2-3: ??The spinal canal and neural fora kay bilaterally are normal. C3-4: ??The spinal canal and neural fora kay bilaterally are normal. C4-5: ??The spinal canal and neural fora kay bilaterally are normal. C5-6: ??The spinal canal and neural fora kay bilaterally are normal. C6-7: ??The spinal canal and neural fora kay bilaterally are normal. C7-T1: The spinal canal and neural kailee alejandrina bilaterally are normal. No abnormality of the visualized paraspi nous tissues is noted. Procedure Note Adelso James MD - 04/23/2019Fo rmatting of this note might be different from the original. Indication: trauma, known scalp fx . Comparison: none Technique: Using multidetector thin becky imation helical acquisition technique, axial, coronal and sagittal reconstructed CT images were obtained through the cervical spine without intravenous contrast. Images were reviewed in bone and soft tissue wi ndows. Dose: Total DLP = 574.1 mGy.cm. Findings: The lateral masses of C1 appea r normally aligned on C2. Slight kyphotic curvature of the cervical spine, nonspecific. Alignment of the cervical spine otherwise appears intact. There is no evidence of fracture or significant prevertebral soft tissue swelling. There is no significant disc space narrowing at any level. Findings on a level by level basis are a s follows: C2-3: The spinal canal and neural forami na bilaterally are normal. C3-4: The spinal canal and neural forami na bilaterally are normal. C4-5: The spinal canal and neural forami na bilaterally are normal. C5-6: The spinal canal and neural forami na bilaterally are normal. C6-7: The spinal canal and neural forami na bilaterally are normal. C7-T1: The spinal canal and neural kailee alejandrina bilaterally are normal. No abnormality of the visualized paraspi nous tissues is noted. IMPRESSION Impression: 1. No fracture or subluxation of the cer vical vertebrae. 2. No significant spinal canal or neural foraminal stenosis. [facility] offers CT scanning with t he latest innovations, including personalized dose modulation, iterative and model-based reconstructions, and spectral CT, all of which work to reduce radiation dose to as low as reasonably achievable, and afford signi ficant reductions in contrast media dose. I have personally reviewed the image(s) and initial interpretation, and I agree with the findings as documented by the resident/fellow. Reading Radiologist: Adelso James Reading Resident: Connor Ellis Basia Alfonso PA-C CT NEURO (ABNORMAL) ED CHEMISTRY LABS(NA,K,CL,CO2,GLU,CREAT,CA-IONIZED,ANION GAP) (04/23/2019 8:49 AM [employer]) athologist Signature Sodium 137 135 - 148 [facility] mEq/L Chloride 110 (H) 92 - 108 [facility] mEq/L AnGap 1 (L) 8 - 16 [facility] mEq/L Glucose 99 70 - 100 [facility] mg/dL ICA, Actual 4.58 4.40 - [facility] 5.20 mg/dL ICA, pH 4.41 4.40 - [facility] Corrected 5.20 mg/dL Creatinine 0.88 0.70 - [facility] 1.25 mg/dL BICARB 25 22 - 26 [facility] mEq/L eGFR, High >120 >=60 [facility] ml/min/1.7 3m2 Comment: Calculated using CKD-EPI equati on eGFR, Low 119 >=60 ml/min/1.73m2 [facility] Comment: Calculated using CKD-EPI equati on Potassium 3.8 3.5 - 5.3 mEq/L [facility] Specimen Anatomical Collection Method Collection Time Receive d Time (Source) Location / / Volume Laterality Blood 04/23/2019 8:49 AM 0 8:52 [employer] AM [employer] Basia Alfonso PA-C LABORATORY Performing Organization Address City/State/ZIP Code Phon e Number [facility] [place] [address] (ABNORMAL) CBC WITH PLTS/AUTO DIFF (04/23/2019 8:49 AM [employer]) Patholo gist Method Time Signature WBC 17.72 (H) 4.00 - [facility] 10.00 k/cmm RBC 5.10 4.60 - [facility] 6.00 m/cmm Hgb 15.6 13.1 - [facility] 17.5 g/dL Hematocrit 44.8 40.0 - [facility] 51.0 % MCV 87.8 80.0 - [facility] 100.0 fL MCH 30.6 25.0 - [facility] 32.0 pg MCHC 34.8 31.0 - [facility] 36.0 g/dL RDW 12.1 11.5 - [facility] LAB 14.5 % Plt 266 150 - 400 [facility] k/cmm MPV 9.3 6.5 - 12.5 [facility] fL Automated Abs 15.53 (H) 1.70 - [facility] Neutrophil 6.50 k/cmm Comment: Preliminary ANC, final result t o follow. NRBC 0.0 0.0 - 0.0 % [facility] Abs Immature Granulocyte 0.12 (H) 0.00 - 0.09 k/cmm [facility] Comment: The Immature Granulocyte Absolu te count contains metamyelocytes and myelocytes. Abs Neutrophil 15.53 (H) 1.70 - 6.50 k/cmm [facility] B Abs Lymphocyte 1.20 0.80 - 4.00 k/cmm [facility] B Abs Monocyte 0.79 0.20 - 1.00 k/cmm [facility] Abs Eosinophil 0.02 0.00 - 0.60 k/cmm [facility] B Abs Basophil 0.06 0.00 - 0.20 k/cmm [facility] Specimen Anatomical Collection Method Collection Time Receive d Time (Source) Location / / Volume Laterality Blood 04/23/2019 8:49 AM 0 8:56 [employer] AM [employer] Basia Alfonso PA-C LABORATORY Performing Organization Address City/State/ZIP Code Phon e Number [facility] [place] [address] EXTRA TUBE - SST (04/23/2019 8:49 AM SL[employer] BASKET TOP MAKER) P athologist Signature SST TUBE Stored [facility] Comment: SST tubes (Serum Separator) are stored in the lab for 3 days from the collection date. Specimen Anatomical Collection Method Collection Time Receive d Time (Source) Location / / Volume Laterality Blood 04/23/2019 8:49 AM 0 8:50 [employer]KER AM [employer]ET TOP MAKER Andry Fuller MD LABORATORY Performing Organization Address [facility] Phon e Number [facility] [place] [address] EXTRA TUBE - BLUE (04/23/2019 8:49 AM [employer]ASKET TOP MAKER) P athologist Signature BLUE TUBE [facility] Comment: Blue top(Sodium citrate) tubes are kept for 3 days from the collection date. Specimen Anatomical Collection Method Collection Time Receive d Time (Source) Location / / Volume Laterality Blood 04/23/2019 8:49 AM 0 8:50 [employer]KER AM [employer] BASKET TOP MAKER Andry Fuller MD LABORATORY Performing Organization Address [facility] Phon e Number [facility] [place] [address] EXTRA TUBE - DARK GREEN (04/23/2019 8:49 AM [employer]ET [employer] MAKER) P athologist Signature DARK GREEN TUBE Stored [facility] Comment: Dark Green tubes (Lavaca Hepar in) are stored in the lab for 1 day from the collection date. Specimen Anatomical Collection Method Collection Time Receive d Time (Source) Location / / Volume Laterality Blood 04/23/2019 8:49 AM 0 8:50 [employer]KER AM [employer]ET [employer] MAKER Andry Fuller MD LABORATORY Performing Organization Address City/[facility] Code Phon e Number [facility] [place] [address] EXTRA TUBE - LIGHT GREEN (04/23/2019 8:49 AM SL[employer] BASKET TOP MAKER) P athologist Signature LIGHT GREEN Stored [facility] TUBE Comment: Green tubes (Lavaca Heparin) a re stored in the lab for 3 days from the collection date. Specimen Anatomical Collection Method Collection Time Receive d Time (Source) Location / / Volume Laterality Blood 04/23/2019 8:49 AM 0 8:50 [employer]KER AM SL[employer] BASKET TOP MAKER nAdry Fuller MD LABORATORY Performing Organization Address [facility] Phon e Number [facility] [place] [address] PRECAUTIONARY TUBE (04/23/2019 8:45 AM SL[employer]ET [employer]KER) [facility] gist Method Time Signature Prec Tube Precautionary [facility] blood bank specimen received. Typenex# [id number] Specimen Anatomical Collection Method Collection Time Receive d Time (Source) Location / / Volume Laterality Blood 04/23/2019 8:45 AM 0 9:21 [employer]KER AM [employer] BASKET TOP MAKER Basia Alfonso PA-C LAB TRANSFUSION SERVICES Performing Organization Address City/State/ZIP Code Phon e Number [facility] [place] [address] documented in this encounter Visit Diagnoses Diagnosis Nondisplaced right frontal skull fractur e, open, initial encounter () - Primary Nondisplaced right frontal skull fractur e, open, initial encounter () Subdural hematoma Subdural hemorrhage Subarachnoid hemorrhage () Subarachnoid hemorrhage Traumatic intracranial hemorrhage withou t loss of consciousness, initial encounter () Traumatic brain injury, without loss of consciousness, initial encounter () Closed fracture of frontal bone, initial encounter () TBI (traumatic brain injury) Intracranial injury of other and unspeci fied nature, without mention of open intracranial wound, unspecified state of consciousness Traumatic intraparenchymal hemorrhage Other and unspecified intracranial hemor rhage following injury, without mention of open intracranial wound, unspecified sta te of consciousness Skull fractures () Other closed skull fracture without ment ion of intracranial injury, unspecified state of consciousness Subarachnoid hemorrhage () Subarachnoid hemorrhage Subdural hematoma Subdural hemorrhage documented in this encounter Admitting Diagnoses Diagnosis Subdural hematoma Subdural hemorrhage Nondisplaced right frontal skull fractur e, open, initial encounter () documented in this encounter Administered Medications Inactive Administered Medications - up to 3 most recent administrations Medication Order MAR Action Action Date Dose Rate Site acetaminophen tablet 975 mg Given 04/24/2019 7:45 AM [employer]ET [employer] MAKER 975 mg 975 mg, Oral, TID, First dose on Dimple 04/23/19 at 1055, Until Discontinued Given 04/23/2019 7:59 PM [employer] MAKER 975 mg Given 04/23/2019 1:42 PM [employer]ET TOP MAKER 975 mg IA MED REC REVIEW BY PHARMACY Discharge Date: 04/24/2019, Discharge Loc ation: Home, Anticipated Discharge Time: 10 am - 2 pm, Discharge Medication Orders: DC Med Orders In Progress (meds to be added), Does not apply, PROTOCOL, Starti ng on Dimple 04/23/19 at 2203, Until Sat04/24/19 at 1700 dexamethasone (DECADRON) 20 mg/ 5mL injection Given 10:36 PM [employer]KER 10 mg 10 mg 10 mg, IV Push, ONE TIME, 1 dose, On Sat04/23/19 at 2105 divalproex sodium (DEPAKOTE SPRINKLES) Given 04/24/2019 7:44 AM [employer]ASKET TOP MAKER 500 mg capsule 500 mg 500 mg, Oral, BID, First dose on Sat04/24/19 at 0800, Until Discontinued hydrALAZINE (APRESOLINE) 20 mg/mL inject ion 10 mg 10 mg, IV Push, Q6H PRN, Starting on Dimple 04/23/19 at 1054, Until Sat04/24/19 at 1700, SBP greater than 140 mmHg HYDROmorphone PF (DILAUDID) 1 mg/mL injection 1 Given 04/23/2019 9:05 AM [employer]ET [employer] MAKER 1 mg mg 1 mg, IV Push, ONE TIME, 1 dose, On Sat04/23/19 at 0820 HYDROmorphone PF (DILAUDID) 1 mg/mL injection Given 10:28 AM [employer]ET [employer]KER 1 mg 1 mg 1 mg, IV Push, ONE TIME, 1 dose, On Sat04/23/19 at 1000 ibuprofen (MOTRIN;ADVIL) tablet Self Administered 04/24/2019 1:35 P M [employer]ET [employer] MAKER 600 mg 600 mg 600 mg, Oral, TID WM, First dose on Sat04/24/19 at 0800, Until Discontinued Given 04/24/2019 7:45 AM [employer]ET TOP MAKER 600 mg Given 04/23/2019 6:00 PM [employer]KER 600 mg iohexol (OMNIPAQUE) 350 mg/mL injection Given 04/23/2019 9:13 AM SL[employer] BASKET TOP MAKER 80 mL Left Arm IV Push, RAD ONE TIME AUTO ACKNOWLEDGE, 1 dose, On Sat04/23/19 at 0915 levetiracetam in NaCl (KEPPRA) 1000 New Bag 04/23/2019 9:36 AM [employer] BASKET TOP MAKER 2,000 mg mg/100 mL IVPB 2,000 mg 2,000 mg, Intravenous, ONE TIME, Administer over 15 Minutes, On Sat04/23/19 at 0910 nicotine (NICOTROL) 21 mg/ Patch applied 04/23/2019 9:59 AM [employer]ET TOP MAKER 1 pat ch Left Arm 24hr daily 1 patch 1 patch, Transdermal, ONE TIME, 1 dose, On Sat04/23/19 at 0950 nicotine (NICOTROL) 21 mg/ 24hr daily 1 patch 1 patch, Transdermal, DAILY, First dose on Sat04/23/19 at 1055, Until Discontinued ondansetron (ZOFRAN) tablet 4 mg Given 04/23/2019 10:44 PM [employer]ET [employer] MAKER 4 mg 4 mg, Oral, Q6H PRN, Starting on Sat04/23/19 at 1054, Until Sat04/24/19 at 1700, Nausea/Vomiting (Use First), Use if patient able to tolerate oral tablet oxyCODONE (ROXICODONE) tablet 10 mg Given 04/23/2019 11:45 PM [employer]ET [employer] MAKER 10 mg 10 mg, Oral, ONE TIME, 1 dose, On Sat04/23/19 at 2315 oxyCODONE (ROXICODONE) tablet 10 mg Given 04/24/2019 6:23 AM SL[employer]ASKET TOP MAKER 10 mg 10 mg, Oral, ONE TIME, 1 dose, On Sat04/24/19 at 0620 oxyCODONE (ROXICODONE) tablet 5 mg Given 04/24/2019 11:26 AM [employer]ET TOP MAKER 5 mg 5 mg, Oral, Q4H PRN, Starting on Sat04/23/19 at 1054, Until Sat04/24/19 at 1700, Moderate Pain (Use First) Given 04/24/2019 5:30 AM [employer]ET [employer] MAKER 5 mg Given 04/23/2019 7:59 PM [employer]ET TOP MAKER 5 mg VTE prophylaxis contraindicated Contraindication Reason: Intracranial Bl eeding, Does not apply, PROTOCOL, Starting on Sat04/23/19 at 1054, Until Sat04/24/19 at 1700 documented in this encounter Active and Recently Administered Medications Times are shown in [employer]ASKET [employer]KER. Scheduled Medication Order 04/22/2019 04/23/2019 04/24/2019 acetaminophen tablet 975 mg 1200 (Not Gi rebecca (removes Due time) - Provider: Enid Card RN - Reason: Patient sleeping)2138 (Given - Provider: Enid Card RN)1959 (Given - Provider: Ricci Jackman RN) 0745 (Given - Provider: Sidra Perdomo RN)1400 (Due) 975 mg, Oral, TID, First dose on Dimple 04/23/19 at 1055, Until Disco ntinued DC MED REC REVIEW BY PHARMACY(Linked Group 1) Discharge Date: 04/24/2019, Discharge Loc ation: Home, Anticipated Discharge Time: 10 am - 2 pm, Discharge Medication Orders: DC Med Orders In Progress (meds to be added), Does not apply, PROTOCOL, Starting Dimple 04/23/19 at 2203, Until Sat04/24/19 at 1700 dexamethasone (DECADRON) 20 mg/ 5mL injection 10 mg (COMPLET ED) 2236 (Given - Provider: Ricci Jackman RN) 10 mg, IV Push, ONE TIME, 1 dose, Dimple 04/23/19 at 2105 divalproex sodium (DEPAKOTE SPRINKLES) capsule 500 mg 0744 (Given - Provider: Sidra Perdomo RN) 500 mg, Oral, BID, First dose on Sat04/24/19 at 0800, Until Disc ontinued docusate sodium (COLACE) capsule 100 mg 1200 (Not Given (removes Due time) - Provider: Enid Card RN - Reason: Patient sleeping)1800 (Not Given (removes Due time) - Provider: Enid Card RN - Reason: Patient refused) 0746 (Not Given (removes Due time) - Provider: Sidra Perdomo RN - Reason: Patient refused) 100 mg, Oral, BID, First dose on Dimple 04/23/19 at 1055, Until Disco ntinued HYDROmorphone PF (DILAUDID) 1 mg/mL injection 1 mg (COMPLETE D) 0905 (Given - Provider: Melody Jain, ZENA) 1 mg, IV Push, ONE TIME, 1 dose, Dimple 04/23/19 at 0820 HYDROmorphone PF (DILAUDID) 1 mg/mL injection 1 mg (COMPLETE D) 1028 (Given - Provider: Melody Jain, ZENA) 1 mg, IV Push, ONE TIME, 1 dose, Dimple 04/23/19 at 1000 ibuprofen (MOTRIN;ADVIL) tablet 600 mg 1 800 (Given - Provider: Enid Card RN) 0745 (Given - Provider: Sidra Perdomo, ZENA)1335 (Self Administered - Provider: Sidra Perdomo RN) 600 mg, Oral, TID WM, First dose on Sat04/24/19 at 0800, Until D iscontinued iohexol (OMNIPAQUE) 350 mg/mL injection (COMPLETED) 09 (Given - Provider: Susi Ho, RT - Comment: lot#[id number]) IV Push, RAD ONE TIME AUTO ACKNOWLEDGE, 1 dose, Dimple 04/23/19 at 09 15 levetiracetam in NaCl (KEPPRA) 1000 mg/100 mL IVPB 2,000 mg (COMPLETED) 0936 (New Bag - Provider: Adelso Montes De Oca, ZENA)0951 (Due: Infusion completed - Provider: Adelso Montes De Oca, ZENA) 2,000 mg, Intravenous, ONE TIME, Administer over 15 Mi nutes, Sat04/23/19 at 0910 nicotine (NICOTROL) 21 mg/ 24hr daily 1 patch (CANCELED) 0959 (Patch applied - Provider: Adelso Montes De Oca, ZENA) 0959 (Patch removed - Provider: Sidra Perdomo RN) 1 patch, Transdermal, ONE TIME, 1 dose, On Sat04/23/19 at 0950 nicotine (NICOTROL) 21 mg/ 24hr daily 1 patch 1343 (Not Given (removes Due time) - Provider: Enid Card RN - Reason: Patient refused) 0746 (Not Given (removes Due time) - Provider: Sidra Perdomo RN - Reason: Patient refused) 1 patch, Transdermal, DAILY, First dose on Sat04/23/19 at 1055, Until Discontinued oxyCODONE (ROXICODONE) tablet 10 mg (COMPLETED) 2345 (Given - Provider: Ricci Jackman RN) 10 mg, Oral, ONE TIME, 1 dose, Sat04/23/19 at 2315 oxyCODONE (ROXICODONE) tablet 10 mg (COMPLETED) 0623 (Given - Provider: Ricci Jackman RN) 10 mg, Oral, ONE TIME, 1 dose, Sat04/24/19 at 0620 polyethylene glycol 3350 (MIRALAX;GLYCOLAX) packet 17 g 1200 (Not Given (removes Due time) - Provider: Enid Card RN - Reason: Patient sleeping) 0746 (Not Given (removes Due time) - Provider: Sidra Perdomo RN - Reason: Patient refused) 17 g, Oral, DAILY, First dose on Dimple 04/23/19 at 1055, Until Disco ntinued sennosides (SENOKOT) tablet 8.6 mg 1200 (Not Given (removes Due time) - Provider: Enid Card RN - Reason: Patient sleeping)1800 (Not Given (removes Due time) - Provider: Enid Card RN - Reason: Patient refused) 0746 (Not Given (removes Due time) - Provider: Sidra Perdomo RN - Reason: Patient refused) 8.6 mg, Oral, BID, First dose on Dimple 04/23/19 at 1055, Until Disco ntinued VTE prophylaxis contraindicated(Linked Group 2) Contraindication Reason: Intracranial Bl eeding, Does not apply, PROTOCOL, Starting Dimple 04/23/19 at 1054, Until Sat04/24/19 at 1700 PRN Medication Order 04/22/2019 04/23/2019 04/24/2019 hydrALAZINE (APRESOLINE) 20 mg/mL injection 10 mg 10 mg, IV Push, Q6H PRN, Starting Dimple 04/23/19 at 1054, Until Sat04/24/19 at 1700, SBP greater than 140 mmHg ondansetron (ZOFRAN) tablet 4 mg 2244 (Given - P rovider: Ricci Jackman RN) 4 mg, Oral, Q6H PRN, Starting Dimple 04/23/19 at 1054, Until Sat04/24/19 at 1700, Nausea/Vomiting (Use First), Use if patient able to tolerate oral tablet oxyCODONE (ROXICODONE) tablet 5 mg 1602 (Given - Provider: Enid Card RN)1959 (Given - Provider: Ricci Jackman RN) 0530 (Given - Provider: Ricci Jackman RN)1126 (Given - Provider: Sidra Perdomo RN) 5 mg, Oral, Q4H PRN, Starting Dimple 04/23/19 at 1054, Until Sat04/24/19 at 1700, Moderate Pain (Use First) Linked Groups Order Group 1: DC MED REC REVIEW BY PHARMACYJump to med Discharge Date: 04/24/2019
Discharge L ocation: Home
Anticipated Discharge Time: 10 am - 2 pm
Discharge Medication Orders: DC Med Orders In Progress (meds to be added)
Does not apply, PROTOCOL, Starting Dimple at 2203, Until Sat04/24/19 at 1700 And Discharge Med Rec Final Review by Pharmacy (COMPLETED) Routine, Order to be placed by provider after medications have been entered for discharge and are ready for review by Pharmacist. This order can be placed multiple times if changes or additions have bee n made to medications for discharge. Cho ose the Preliminary DC Med Rec review when placing orders prior to the day of discharge. Choose Final DC Med Rec when all medication changes have been entered. If DC Med Rec needed now, please page the Pharmacist covering the patient to inform them.
Discharge Date: 04/24/2019
Discharge Location: Home
Anticipated Discharge Time: 10 am - 2 pm Group 2: VTE prophylaxis contraindicatedJump to med Contraindication Reason: Intracranial Bl eeding
Does not apply, PROTOCOL, Starting Dimple 04/23/19 at 1054, Until Sat04/24/19 at 1700 And VTE - Prophylaxis Contraindication Communication (COMPLETED) Contraindication Reason: Intracranial Bl eeding documented in this encounter Care Teams Adaptive Physical Education Specialist Relationship Specialty Start Date End Date Pcp, No PCP - General 10/24/14 [facility] [place] [place] [address] documented as of this encounter
--- OUTSIDE RECORDS SUMMARY | 2022-01-29 18:42 | XMS_ITS | Encounter Summary ---
:1995 Author Organization [facility] Address [address] [place] [address] Phone Care Team Providers Name Role Phone Pcp, No Primary Care Provider Unavailable Reason for Visit Reason Comments Hand Injury Encounter Details Date Type Department Care Team Description 12/22/2021 Emergency [facility] Emergency Depar tmeJalil Zhou MD [address] [facility] [id number] [place] [address] [place], [place] [address] [phone] Social History Tobacco Use Types Packs/Day Years [...] have Coronavirus/COVID-19? documented as of this encounter Last Filed Vital Signs Vital Sign Reading Time Taken Comments Blood Pressure 129/78 12/22/2021 7:59 AM CDT Pulse 80 12/22/2021 7:59 AM CDT Temperature 36.3 ??C (97.3 ??F) 12/22/2021 7:59 AM CDT Respiratory Rate 18 12/22/2021 7:59 AM CDT Oxygen Saturation 98% 12/22/2021 7:59 AM CDT Inhaled Oxygen Concentration - - Weight - - Height - - Body Mass Index - - documented in this encounter Medications at Time of Discharge Medication Sig Dispensed Refills Start Date End Date ibuprofen (MOTRIN;ADVIL) Take 1 tablet (600 300 tablet 0 01/2020 600 mg oral tablet mg) by mouth three times daily with meals. acetaminophen 325 mg oral Take 3 tablets (975 300 tablet 0 0 04/24/2019 tablet mg) by mouth three times daily. documented as of this encounter ED Notes Obie Greenberg RN - 12/22/2021 8:07 AM CDT PT presents to the ED after he was at work when he shot himself in the hand with an automatic nailer. Pt states that there is a 22 gauge nail in his hand, but was not able to take it out. CMS is intact. documented in this encounter Miscellaneous Notes ED Faculty Note - Jalil Valdez MD - 12/22/2021 3:56 PM CDT ED Faculty Note [place] Hoang : 1995 Sex: male Patient Arrival Date and Time: 12/22/2021 7:55 AM Pt eloped. Not seen by MD. documented in this encounter Plan of Treatment Not on filedocumented as of this encounter Procedures Procedure Name Priority Date/Time Associated Diagnosis Comme nts XR HAND LEFT 3 V Routine 12/22/2021 8:18 AM Resul ts for this PA/OBL/LAT* CDT procedure are i n the results section. documented in this encounter Results XR HAND LEFT 3 V PA/OBL/LAT* (12/22/2021 8:18 AM CDT) Anatomical Region Laterality Modality Hand Computed Radiography Specimen (Source) Anatomical Collection Method Collection Time Re ceived Time Location / / Volume Laterality 12/22/2021 8:45 AM CDT Impressions 12/22/2021 8:48 AM CDT Impression: Radiopaque foreign body may be penetrati ng the proximal first metacarpal. Recommend additional views to better evaluate this finding. Reading Radiologist: Delmar Still Narrative 12/22/2021 8:48 AM CDT Indication: Nail gun injury ?? Comparison: None Findings: Images through the left hand o btained. Linear radiopaque foreign body noted within the soft tissues of the hand overlying the proximal first metacarpal. Based on the images provided of the alli l might be entering the distal metacarpa l bone. Consider additional oblique views to better delineate this finding. Procedure Note Delmar Still, MBBS - 12/22/2021Forma tting of this note might be different from the original. Indication: Nail gun injury Comparison: None Findings: Images through the left hand o btained. Linear radiopaque foreign body noted within the soft tissues of the hand overlying the proximal first metacarpal. Based on the images provided of the nail might be entering the distal metacarpal bone. Con production painter additional oblique views to better delineate this finding. IMPRESSION Impression: Radiopaque foreign body may be penetrati ng the proximal first metacarpal. Recommend additional views to better evaluate this finding. Reading Radiologist: Delmar Still Ed Richardson MD X-RAY documented in this encounter Visit Diagnoses Diagnosis Patient left before treatment completed - Primary Personal history of noncompliance with m edical treatment, presenting hazards to health documented in this encounter Care Teams Fretted String Instrument Repairer Relationship Specialty Start Date End Date Pcp, No PCP - General 10/24/14 [facility] [place] [address] documented as of this encounter
--- OUTSIDE RECORDS SUMMARY | 2022-01-29 18:42 | XMS_ITS | Encounter Summary ---
:1995 Author Organization [facility] Address [address] [place] [place] [address] Phone Care Team Providers Name Role Phone Pcp, No Primary Care Provider Unavailable Encounter Details Date Type Department Care Team Description 04/23/2019 Orders Only [facility] Film Room Provider, Outside Referral of patient [facility] OUTSIDE PROVIDER (Primary Dx) [place], [place] Radiology Department [id number] [facility] [address] [address] Social History Tobacco Use Types Packs/Day Years Used Date Smoking Tobacco: Every Day Cigarettes 0.3 Smokeless Tobacco: Never Alcohol Use Standard Drinks/Week Comments No 0 (1 standard drink = 0.6 oz pure alcoho l) Sex Assigned at Date Recorded Not on file documented as of this encounter Plan of Treatment Not on filedocumented as of this encounter Results CT HEAD OUTSIDE FILMS (04/23/2019 5:40 AM STOGY ROLLER) Specimen (Source) Anatomical Location Collection Method / Collectio n Time Received Time / Laterality Volume Narrative Dummy, [id number] - 0 7:27 AM STOGY ROLLER Outside Film Only Outside Provider OUTSIDE FILMS documented in this encounter Visit Diagnoses Diagnosis Referral of patient - Primary Referral of patient without examination or treatment documented in this encounter Care Teams Assistant Program Director Relationship Specialty Start Date End Date Pcp, No PCP - General 10/24/14 [facility] [place] [address] documented as of this encounter
--- OUTSIDE RECORDS SUMMARY | 2022-01-29 18:42 | XMS_ITS | Clinical Summary ---
:1995 Author Organization [facility] Address [address] [place] [address] Phone Care Team Providers Name Role Phone Pcp, No Primary Care Provider Unavailable Source Comments [employer] is fully rolled out on [employer]. Last update 09/17/08.[facility] Allergies Active Allergy Reactions Severity Noted Date Comments Codeine Unknown 10/24/2014 Penicillins Other (see comments) 05/20/2017 unknown Family members have had reaction, but p atient never had penicillin Medications Be aware that medications may not be up to date as of this document. Always verify current medications with patient. Medication Sig Dispensed Refills Start Date End Date Status ibuprofen Take 1 tablet 300 tablet 0 04/24/2019 Acti ve (MOTRIN;ADVIL) 600 mg (600 mg) by oral tablet mouth three times daily with meals. acetaminophen 325 mg Take 3 tablets 300 tablet 0 04/24/2019 Active oral tablet (975 mg) by mouth three times daily. Active Problems Problem Noted Date Subdural hematoma 04/23/2019 Nondisplaced right frontal skull fracture, open, initi al encounter 04/23/2019 TBI (traumatic brain injury) 11/19/2014 Traumatic intraparenchymal hemorrhage 11/08/2014 Overview: Bilateral inferior frontal lobes with in creased surrounding vasogenic edema. Horizontally oriented fracture involving the right parietal bone extending posteriorly into the right lambdoid suture. Skull fractures 11/08/2014 Overview: right parietal bone extending into the right lambdoid suture Subarachnoid hemorrhage 10/24/2014 Encounters Date Type Specialty Care Team Description 12/22/2021 Emergency EMERGENCY MEDICINE HoJalil MD 12/22/2021 Travel from Last 3 Months Social History Tobacco Use Types Packs/Day Years Used Date Smoking Tobacco: Former Cigarettes 0.3 Smokeless Tobacco: Never Alcohol Use Standard Drinks/Week Comments Not Currently 0 (1 standard drink = 0.6 oz pure alcoho l) Sex Assigned at Date Recorded Not on file Last Filed Vital Signs Vital Sign Reading Time Taken Comments Blood Pressure 129/78 12/22/2021 7:59 AM CDT Pulse 80 12/22/2021 7:59 AM CDT Temperature 36.3 ??C (97.3 ??F) 12/22/2021 7:59 AM CDT Respiratory Rate 18 12/22/2021 7:59 AM CDT Oxygen Saturation 98% 12/22/2021 7:59 AM CDT Inhaled Oxygen Concentration - - Weight 83.9 kg (185 lb) 05/04/2019 8:22 AM CONTROL AND RECOVERY COMBAT RESCUE Height 165.1 cm (5' 5) 11/19/2014 2:48 PM CDT Body Mass Index 30.79 11/19/2014 2:48 PM CDT Plan of Treatment Health Maintenance Due Date Last Done Comments Dental Oral Exam 1993 Dental Prophylaxis 1993 Dental X-Ray: Bitewings 1993 COVID-19 Vaccine (#1) 1993 Periodontal Maintenance 2007 HIV Screening 01/02/2008 PREVENTATIVE VISIT 2011 HEALTH MAINTENANCE PROTOCOL 01/02/2012 INFLUENZA VACCINE 12/14/2021 TD/TDAP ADULTS 09/03/2024 09/03/2014, 11/06/2005, 07/25/1998, Additional history exists HIB Completed 03/13/1994, 1993, 1993, Additional history exists HPV Aged Out No longer eligib le based on patient 's age to complete this topic Procedures Procedure Name Priority Date/Time Associated Diagnosis Comme nts XR HAND LEFT 3 V Routine 12/22/2021 8:18 AM Resul ts for this PA/OBL/LAT* CDT procedure are i n the results section. from Last 3 Months Results XR HAND LEFT 3 V PA/OBL/LAT* [...] be entering the distal metacarpal bone. Con vat overhauler additional oblique views to better delineate this finding. IMPRESSION Impression: Radiopaque foreign body may be penetrati ng the proximal first metacarpal. Recommend additional views to better evaluate this finding. Reading Radiologist: Delmar Still Ed Richardson MD X-RAY from Last 3 Months Advance Directives For more information, please contact: [phone] Latest Code Status on File Code Status Date Activated Date Inactivated Comments Full Code 04/23/2019 10:54 AM 04/24/2019 5:00 PM Question Answer Comments Does the Patient have preferences regarding life sustaining No measures (these options only apply when the patient has a pulse): Discussed Code Status With Whom? Not discussed Health Care Directive and/or Previous Code/End of Life Pref No Reviewed? Code Status History Code Status Date Activated Date Inactivated Comments Full Code 10/24/2014 1:19 PM 10/26/2014 6:15 PM Question Answer Comments Discussed Code Status With Whom? Not discussed Care Teams Outcomes Analyst Relationship Specialty Start Date End Date Pcp, No PCP - General 10/24/14 [facility] [place] [address]
--- OUTSIDE RECORDS SUMMARY | 2022-01-29 18:43 | XMS_ITS | Encounter Summary ---
:1995 Author Organization [facility] Address [address] [place] [address] Care Team Providers Name Role Phone Catracho Suh MD Primary Care Provider Reason for Visit Reason Onset Date Comments Refill Request 09/07/2008 Adderall Encounter Details Date Type Department Care Team Description 09/07/2008 Refill [facility] Catracho Suh MD Refill Request [address] (Adderall) [id number] [place] [address] [phone] Social History Tobacco Use Types Packs/Day Years Used Date Smoking Tobacco: Never Alcohol Use Standard Drinks/Week Comments Not Asked 0 (1 standard drink = 0.6 oz pure alcoho l) Sex Assigned at Date Recorded Not on file documented as of this encounter Miscellaneous Notes Telephone Encounter - Tati Osborne - 09/09/2008 2:27 PM CDT Rx completed and signed. LMOM for mom to come brass pickler at receptionist scheduler. Deepa Osborne LPN Telephone Encounter - Ирина Saxena - 09/07/2008 12:41 PM CDT Patient's mother called back. Rx was approved when was at ; rx probably printed there as well. Please reprint. Then we need to contact his mother. Ирина Saxena CMA Telephone Encounter - Ирина Saxena - 09/07/2008 12:26 PM CDT Staff Message copied by ИРИНА SAXENA on SatSeptember 07, 2008 12:26 PM ------ Message from: VEDA KING Created: SatSeptember 07, 2008 11:35 AM Regarding: -Adderal refill First and Last name of caller: Clementine Hoang Relationship to patient: mother Reason for call: pts mom requesting Adderal refill Is it in regards to a medication: yes Med Name: Adderal Pharmacy name and location: mom will brass pickler Provider they see: Viaksh Phone number they can be reached at: [phone] Ok to leave a message: yes Veda Vance documented in this encounter Plan of Treatment Not on filedocumented as of this encounter Visit Diagnoses Diagnosis ADHD (attention deficit hyperactivity di sorder) - Primary Attention deficit disorder with hyperact ivity documented in this encounter Care Teams Senior Center Manager Relationship Specialty Start Date End Date Catracho Suh MD PCP - General 12/23/02 05/08/12 [address] [place] [address] documented as of this encounter
--- OUTSIDE RECORDS SUMMARY | 2022-01-29 18:43 | XMS_ITS | Encounter Summary ---
:1995 Author Organization [facility] Address [address] [place] [address] Care Team Providers Name Role Phone No Ref-Primary, Physician Primary Care Provider Encounter Details Date Type Department Care Team Description 01/09/2021 Documentation Only INTERFACED REPORT Unknown, Provider Social History Tobacco Use Types Packs/Day Years Used Date Smoking Tobacco: Every Day Smokeless Tobacco: Never Alcohol Use Standard Drinks/Week Comments Yes 0 (1 standard drink = 0.6 oz pure Alcoho lic Drinks/day: beer 1-2 a alcohol) night Sex Assigned at Date Recorded Not on file documented as of this encounter Plan of Treatment Not on filedocumented as of this encounter Visit Diagnoses Not on filedocumented in this encounter Care Teams Adult Literacy Instructor Relationship Specialty Start Date End Date No Ref-Primary, Physician PCP - General 11/03/12 documented as of this encounter
--- OUTSIDE RECORDS SUMMARY | 2022-01-29 18:43 | XMS_ITS | Encounter Summary ---
:1995 Author Organization [facility] Address [facility] [place] [address] Care Team Providers Name Role Phone Catracho Suh MD Primary Care Provider Encounter Details Date Type Department Care Team Description 10/26/2009 Orders Only [facility] Catracho Suh, DIAGNO SIS NOT YET Clinic [place] MD DEFINED (Primary Dx) [address] [facility] [address] [place] [phone] [id number] Social History Tobacco Use Types Packs/Day Years Used Date Smoking Tobacco: Never Alcohol Use Standard Drinks/Week Comments Not Asked 0 (1 standard drink = 0.6 oz pure alcoho l) Sex Assigned at Date Recorded Not on file documented as of this encounter Plan of Treatment Not on filedocumented as of this encounter Procedures Procedure Name Priority Date/Time Associated Diagnosis Comme nts ABSTRACT [facility] REPORT Routine 10/26/2009 DIAGNOSIS NOT YET DEFINED documented in this encounter Results ABSTRACT [facility] REPORT (10/26/2009) Narrative This result has an attachment that is no t available. Catracho Suh MD LABORATORY Performing Organization Address City/State/ZIP Code Phon e Number MISYS documented in this encounter Visit Diagnoses Diagnosis DIAGNOSIS NOT YET DEFINED - Primary documented in this encounter Care Teams Diesel Lube Tech Relationship Specialty Start Date End Date Catracho Suh MD PCP - General 12/23/02 05/08/12 [address] [place], [place] [id number] documented as of this encounter
--- OUTSIDE RECORDS SUMMARY | 2022-01-29 18:43 | XMS_ITS | Encounter Summary ---
:1995 Author Organization [facility] Address [address] [place] [address] Care Team Providers Name Role Phone Catracho Suh MD Primary Care Provider Reason for Visit Reason Comments Pharyngitis on and off for about a jm h Encounter Details Date Type Department Care Team Description 03/21/2009 Office Visit [facility] Jess Pharyngiti s (Primary Dx); [facility] [place] [facility] Chronic Rhinitis [facility] [address] [place], [place] [phone] Social History Tobacco Use Types Packs/Day Years Used Date Smoking Tobacco: Never Alcohol Use Standard Drinks/Week Comments Not Asked 0 (1 standard drink = 0.6 oz pure alcoho l) Sex Assigned at Date Recorded Not on file documented as of this encounter Last Filed Vital Signs Vital Sign Reading Time Taken Comments Blood Pressure 92/54 03/21/2009 1:49 PM DERMATOLOGY TEACHER Pulse 79 03/21/2009 1:49 PM DERMATOLOGY TEACHER Temperature 37.1 ??C (98.7 ??F) 03/21/2009 1:49 PM DERMATOLOGY TEACHER Respiratory Rate 12 03/21/2009 1:49 PM DERMATOLOGY TEACHER Oxygen Saturation 97% 03/21/2009 1:49 PM DERMATOLOGY TEACHER Inhaled Oxygen Concentration - - Weight 56.2 kg (124 lb) 03/21/2009 1:49 PM DERMATOLOGY TEACHER Height - - Body Mass Index - - documented in this encounter Progress Notes Jennifer Florez - 03/21/2009 2:03 PM CST SUBJECTIVE: 14 year old male with sore throat x on-and-off x 1 month. Had chest cold about a month ago. Denies sxs of symptoms: runny nose, headache, facial pressure, earache, fever and chills. Pain is primarilary in the am, ST gets better during the day. Patient snores. Denies allergeries or stuffy feeling. Tried mucinex-D and APAP/ibu. Thinks that sore throat may date back to September when family got a new cat. OBJECTIVE: BP 92/54 Pulse 79 Temp (Src) 98.7 ??F (37.1 ??C) (Oral) Resp 12 Wt 124 lb (56.246 kg) UeT261% Appears healthy and alert. Ears: normal Oropharynx: tonsillar hypertrophy and post-nasal drainage; no exudate Neck: moderate anterior cervical lymph node on left neck superior to large bruise Heart: RRR Lungs: chest clear to IPPA and clear to IPPA Rapid Strep test is negative ASSESSMENT: 89Y Pharyngitis (primary encounter diagnosis) Plan: STREP GROUP A ANTIGEN (RAPID), BETA STREP CONFIRM, FLONASE INHA 50 MCG/DOSE NA, FLONASE INHA 50 MCG/DOSE NA 472.0 Chronic Rhinitis Plan: FLONASE INHA 50 MCG/DOSE NA, FLONASE INHA 50 MCG/DOSE NA Will start daily flonase. If sxs persist, call or RTC. Reviewed and agree. Sarah Mercado, PAC ATOLOGY TEACHER documented in this encounter Nursing Notes 03/21/2009 1:45 PM CST >> IVANNA BABCOCK Mon Mar 21, 2009 1:52 PM Patient presents with: Pharyngitis - on and off for about a month Initial BP 92/54 Pulse 79 Temp (Src) 98.7 ??F (37.1 ??C) (Oral) Resp 12 Wt 124 lb (56.246 kg) SpO2 97% Estimated Body mass index is 21.12 kg/(m^2) as calculated from: Height of 5' 4.25 (1.632 m) as of 10/06/08 Weight of 124 lb (56.246 kg) as of this encounter. BP completed using cuff size: regular Ivanna Babcock MA documented in this encounter Plan of Treatment Not on filedocumented as of this encounter Procedures Procedure Name Priority Date/Time Associated Diagnosis Comme nts HCL STREP GROUP A Routine 03/21/2009 2:01 PM Pharyngitis Resu lts for this ANTIGEN (RAPID) DERMATOLOGY TEACHER procedure ar e in the results section. HCL BETA STREP Routine 03/21/2009 2:01 PM Pharyngitis Results for this CONFIRM DERMATOLOGY TEACHER procedure are i n the results section. documented in this encounter Results BETA STREP CONFIRM (03/21/2009 2:01 PM DERMATOLOGY TEACHER) Component Value Ref Test Analysis Performed At [facility] gist Range Method Time Signature Specimen Throat [facility] Culture Micro No Beta [place] Streptococcus [facility] Report status FINAL 03/23/2009 [facility] Specimen Anatomical Collection Method Collection Time Receive d Time (Source) Location / / Volume Laterality 03/21/2009 2:01 PM 9 2:03 DERMATOLOGY TEACHER PM DERMATOLOGY TEACHER Authorizing Provider Result Kimberly Mercado PA-C LABORATORY Performing Organization Address City/[facility]/ZIP Code Phon e Number [address] [address] [facility] STREP GROUP A ANTIGEN (RAPID) (03/21/2009 2:01 PM DERMATOLOGY TEACHER) Component Value Ref Test Analysis Performed At [facility] Range Method Time Signature Specimen Throat [facility] Rapid Strep A NEGATIVE: No Group A strepto coccal antigen detected by immunoassay, await [place] Screen culture report. [facility] Report status FINAL 03/21/2009 [facility] Specimen Anatomical Collection Method Collection Time Receive d Time (Source) Location / / Volume Laterality 03/21/2009 2:01 PM 9 2:03 DERMATOLOGY TEACHER PM DERMATOLOGY TEACHER Sarah Mercado PA-C LABORATORY Performing Organization Address City/[facility]/ZIP Code Phon e Number [address] [address] [facility] documented in this encounter Visit Diagnoses Diagnosis Pharyngitis - Primary Acute pharyngitis Chronic rhinitis documented in this encounter Care Teams Actuarial Mathematician Relationship Specialty Start Date End Date Catracho Suh MD PCP - General 12/23/02 05/08/12 [address] [place] [address] documented as of this encounter
--- OUTSIDE RECORDS SUMMARY | 2022-01-29 18:43 | XMS_ITS | Encounter Summary ---
:1995 Author Organization [facility] Address [address] [facility] [place] [address] Care Team Providers Name Role Phone Catracho Suh MD Primary Care Provider Reason for Visit Reason Comments Pharyngitis Symptoms started last week: sore throat. Encounter Details Date Type Department Care Team Description 10/06/2008 Office Visit [facility] Bridget Garcia MD Pharyngitis (Primary Clinic [place] [address] Dx) [address] [place], [place] [address] [address] [place], [place] [phone] (Work) [phone] Social History Tobacco Use Types Packs/Day Years Used Date Smoking Tobacco: Never Alcohol Use Standard Drinks/Week Comments Not Asked 0 (1 standard drink = 0.6 oz pure alcoho l) Sex Assigned at Date Recorded Not on file documented as of this encounter Last Filed Vital Signs Vital Sign Reading Time Taken Comments Blood Pressure 120/88 10/06/2008 1:34 PM CDT Pulse 91 10/06/2008 1:34 PM CDT Temperature 36.8 ??C (98.3 ??F) 10/06/2008 1:34 PM CDT Respiratory Rate - - Oxygen Saturation 98% 10/06/2008 1:34 PM CDT Inhaled Oxygen Concentration - - Weight 59.1 kg (130 lb 6.4 oz) 10/06/2008 1:34 PM CDT Height 163.2 cm (5' 4.25) 10/06/2008 1:34 PM CDT Body Mass Index 22.21 10/06/2008 1:34 PM CDT Body Mass Index Percentile 72.28 % 10/06/2008 1:34 PM CD T Growth Chart: [facility] (Boys, 2-20 Years) documented in this encounter Progress Notes Bridget Garcia - 10/06/2008 2:49 PM CDT SUBJECTIVE:patient is a 13 yo boy came with sore throat,difficulty swallowing, headache for 7 days. No history of rheumatic fever. Other symptoms: cough. Past Medical History Diagnosis Date ??? Attention Deficit Disorder without Mention of Hyperactivity OBJECTIVE: Vitals as noted above. Appears healthy and alert. Ears: normal Oropharynx: tonsillar hypertrophy, marked erythema and exudates present Neck: few small anterior cervical nodes CVS:RRR, no murmur. Lungs: chest clear to IPPA, no tachypnea, retractions or cyanosis, S1, S2 normal, no murmur, no gallop, rate regular and clear to IPPA Abdomen ; soft, benign, no HSM Rapid Strep test is negative ASSESSMENT: Pharyngitis.exudative tonsillitis. PLAN: Per orders. Gargle, use acetaminophen or other OTC analgesic, Call or return to the clinic if the symptoms fail to improve or worsen. documented in this encounter Nursing Notes 10/06/2008 1:30 PM CDT >> MAYRA CUELLAR SatOct 06, 2008 1:38 PM Patient presents with: Pharyngitis - Symptoms started last week: sore throat. Initial BP 120/88 Pulse 91 Temp (Src) 98.3 ??F (36.8 ??C) (Oral) Ht 5' 4.25 (1.632 m) Wt 130 lb 6.4 oz (59.149 kg) SpO2 98% Body mass index is 22.21 kg/(m^2). BP completed using cuff size regular right arm. Mayra Cuellar CMA documented in this encounter Plan of Treatment Not on filedocumented as of this encounter Procedures Procedure Name Priority Date/Time Associated Diagnosis Comme nts HCL MONO TEST Routine 10/06/2008 2:01 PM Pharyngitis Results for this CDT procedure are i n the results section. HCL STREP GROUP A Routine 10/06/2008 1:43 PM Pharyngitis Resu lts for this ANTIGEN (RAPID) CDT procedure ar e in the results section. HCL BETA STREP Routine 10/06/2008 1:43 PM Pharyngitis Results for this CONFIRM CDT procedure are i n the results section. documented in this encounter Results MONO HETEROPHILE (10/06/2008 2:01 PM CDT) [facility] Method Time Signature Mononucleosis Negative NEG [place] Screen [facility] Specimen Anatomical Collection Method Collection Time Receive d Time (Source) Location / / Volume Laterality 10/06/2008 2:01 PM 9 2:03 CDT PM CDT Bridget Garcia MD LABORATORY Performing Organization Address City/[facility]/ZIP Code Phon e Number [address] [address] [facility] BETA STREP CONFIRM (10/06/2008 1:43 PM CDT) Component Value Ref Test Analysis Performed At [facility] Method Time Signature Specimen Throat [facility] Culture Micro No Beta [place] Streptococcus [facility] Report status FINAL 10/08/2008 [facility] Specimen Anatomical Collection Method Collection Time Receive d Time (Source) Location / / Volume Laterality 10/06/2008 1:43 PM 9 1:48 CDT PM CDT Bridget Garcia MD LABORATORY Performing Organization Address City/[facility]/ZIP Code Phon e Number [address] [address] [facility] STREP GROUP A ANTIGEN (RAPID) (10/06/2008 1:43 PM CDT) Component Value Ref Test Analysis Performed At [facility] Range Method Time Signature Specimen Throat [facility] Rapid Strep A NEGATIVE: No Group A strepto coccal antigen detected by immunoassay, await [facility] culture report. [facility] Report status FINAL 10/06/2008 [facility] Specimen Anatomical Collection Method Collection Time Receive d Time (Source) Location / / Volume Laterality 10/06/2008 1:43 PM 9 1:48 CDT PM CDT Bridget Garcia MD LABORATORY Performing Organization Address City/State/ZIP Code Phon e Number [facility] [place] [address] [facility] documented in this encounter Visit Diagnoses Diagnosis Pharyngitis - Primary Acute pharyngitis documented in this encounter Care Teams Recreation Leader Relationship Specialty Start Date End Date Catracho Suh MD PCP - General 12/23/02 05/08/12 [address] [place] [address] documented as of this encounter
--- OUTSIDE RECORDS SUMMARY | 2022-01-29 18:43 | XMS_ITS | Encounter Summary ---
:1995 Author Organization [facility] Address [address] [facility] [place] [address] Care Team Providers Name Role Phone Catracho Suh MD Primary Care Provider Reason for Visit Reason Onset Date Comments Refill Request 01/05/2009 adderall Encounter Details Date Type Department Care Team Description 01/05/2009 Refill [facility] Catracho Suh MD Refill Request [place] [id number] [place] [address] (adderall) [address] [place] [phone] Social History Tobacco Use Types Packs/Day Years Used Date Smoking Tobacco: Never Alcohol Use Standard Drinks/Week Comments Not Asked 0 (1 standard drink = 0.6 oz pure alcoho l) Sex Assigned at Date Recorded Not on file documented as of this encounter Miscellaneous Notes Telephone Encounter - Mayra Hutson - 01/05/2009 9:53 AM CDT Pt's Mom, Clementine, informed rx at front worker and that pt is overdue for med check. Clementine states pt will be seeing psychiatrist in the near future so will get refills through that doctor. Mayra Hutson RN Telephone Encounter - Kris Rascon - 01/05/2009 9:31 AM CDT Staff Message copied by KRIS RASCON on SatJan 05, 2009 9:31 AM ------ Message from: MARCELLE CHRISTIANSEN Created: SatJan 05, 2009 8:14 AM Regarding: - waiting for call back Contact: First and Last name of caller: Clementine Relationship to patient: Mother Reason for call: Called in for refill on Adderall meds pt is all out need today Is it in regards to a medication: Yes Med Name: Adderall Pharmacy name and location: [facility] Provider they see: Phone number they can be reached at: [phone] Ok to leave a message: Yes Marcelle documented in this encounter Plan of Treatment Not on filedocumented as of this encounter Visit Diagnoses Diagnosis ADHD (attention deficit hyperactivity di sorder) - Primary Attention deficit disorder with hyperact ivity documented in this encounter Care Teams Air Conditioning Technician Relationship Specialty Start Date End Date Catracho Suh MD PCP - General 12/23/02 05/08/12 [address] [place] [address] documented as of this encounter
--- OUTSIDE RECORDS SUMMARY | 2022-01-29 18:43 | XMS_ITS | Encounter Summary ---
:1995 Author Organization [facility] Address [address] [place] [address] Phone Care Team Providers Name Role Phone Pcp, No Primary Care Provider Unavailable Encounter Details Date Type Department Care Team Description 10/29/2014 Documentation Only [facility] Neuro[facility] Cl Magno Fink MD [address] [place] [address] Non Billable [address] [facility], Forms - Neurosurg [address] [phone] [place], [place] [address] Social History Tobacco Use Types Packs/Day Years Used Date Smoking Tobacco: Never Assessed Alcohol Use Standard Drinks/Week Comments Yes 0 (1 standard drink = 0.6 oz pure alcoho l) Sex Assigned at Date Recorded Not on file documented as of this encounter Progress Notes Mike Herman - 11/03/2014 9:36 AM CDT Date Completed: 11/03/2014 Forms completed & delivered per request as documented. Mike Herman, 11/03/2014 9:36 AM 11/03/2014 Mike Herman - 10/29/2014 2:22 PM CDT Form: [employer] Provider: Magno Crowder Date Arrived: 10/29/2014 Arrival Method: Fax Contact: Relationship to Contact: Date delivered to provider: 11/05/2014 Due Date: 11/12/2014 Completed Form Instructions: Fax when completed to [place] [employer] at [phone]. documented in this encounter Plan of Treatment Not on filedocumented as of this encounter Visit Diagnoses Not on filedocumented in this encounter Care Teams Medicine Teacher Relationship Specialty Start Date End Date Pcp, No PCP - General 10/24/14 [facility] [place] [address] documented as of this encounter
--- OUTSIDE RECORDS SUMMARY | 2022-01-29 18:43 | XMS_ITS | Encounter Summary ---
:1995 Author Organization [place] Address [address] [facility] [place] [address] Care Team Providers Name Role Phone Catracho Suh MD Primary Care Provider Reason for Visit Reason Onset Date Comments Refill Request 10/13/2008 adderall Encounter Details Date Type Department Care Team Description 10/12/2008 Refill [facility] Catracho Suh MD Refill Request [facility] [id number] [place] [address] (adderall) [id number] [place] [address] [phone] Social History Tobacco Use Types Packs/Day Years Used Date Smoking Tobacco: Never Alcohol Use Standard Drinks/Week Comments Not Asked 0 (1 standard drink = 0.6 oz pure alcoho l) Sex Assigned at Date Recorded Not on file documented as of this encounter Miscellaneous Notes Telephone Encounter - Mayra Hutson - 10/13/2008 11:15 AM CDT Lmom to inform, Mom, Clementine, signed rx at [facility]. Mayra Hutson RN Telephone Encounter - Tati Osborne - 10/12/2008 4:01 PM CDT Date of last office visit 10/06/08 Reason for visit phargynitis Date last filled 09/07/08 Labs pertaining to med none Deepa Osborne LPN Telephone Encounter - Tati Osborne - 10/12/2008 4:00 PM CDT Staff Message copied by TATI OSBORNE on SatOct 12, 2008 4:00 PM ------ Message from: EDMUNDO KAY Created: SatOct 12, 2008 2:51 PM Regarding: as Aderrall Prescription First and Last name of caller: Clementine Relationship to patient: Mother Reason for call: mother calling for Adderall refill Is it in regards to a medication: yes Med Name: Adderall Pharmacy name and location: [facility] Mother will garbage pick up worker prescription Provider they see: Vikash Phone number they can be reached at: [phone] Ok to leave a message: no documented in this encounter Plan of Treatment Not on filedocumented as of this encounter Visit Diagnoses Diagnosis ADHD (attention deficit hyperactivity di sorder) - Primary Attention deficit disorder with hyperact ivity documented in this encounter Care Teams Masonry Contractor Relationship Specialty Start Date End Date Catracho Suh MD PCP - General 12/23/02 05/08/12 [id number] [place] [address] documented as of this encounter
--- OUTSIDE RECORDS SUMMARY | 2022-01-29 18:43 | XMS_ITS | Encounter Summary ---
:1995 Author Organization [place] Address [address] [place] [address] Care Team Providers Name Role Phone Catracho Suh MD Primary Care Provider Reason for Visit Reason Comments RECHECK F/U visit regarding a med ch ata. Encounter Details Date Type Department Care Team Description 04/30/2008 Office Visit [facility] Catracho Suh, ADHD ( [facility] [place] Hyperactivity Disorder) [place] [address] [facility] (Primary Dx) [facility], [address] [place] [address] [id number] Social History Tobacco Use Types Packs/Day Years Used Date Smoking Tobacco: Never Alcohol Use Standard Drinks/Week Comments Not Asked 0 (1 standard drink = 0.6 oz pure alcoho l) Sex Assigned at Date Recorded Not on file documented as of this encounter Last Filed Vital Signs Vital Sign Reading Time Taken Comments Blood Pressure 94/70 04/30/2008 3:00 PM SOCIAL SERVICES AIDE Pulse 84 04/30/2008 3:00 PM SOCIAL SERVICES AIDE Temperature 36.6 ??C (97.9 ??F) 04/30/2008 3:00 PM SOCIAL SERVICES AIDE Respiratory Rate - - Oxygen Saturation - - Inhaled Oxygen Concentration - - Weight 60.1 kg (132 lb 8 oz) 04/30/2008 3:00 PM SOCIAL SERVICES AIDE Height 161.9 cm (5' 3.75) 04/30/2008 3:00 PM SOCIAL SERVICES AIDE Body Mass Index 22.92 04/30/2008 3:00 PM SOCIAL SERVICES AIDE Body Mass Index Percentile 80.57 % 04/30/2008 3:00 PM CS T Growth Chart: [facility] (Boys, 2-20 Years) documented in this encounter Progress Notes Catracho Suh - 05/06/2008 6:44 PM CST SUBJECTIVE: Chico Hoang, a 13 year old male scheduled an appointment to discuss the following issues: ADHD (ATTENTION DEFICIT HYPERACTIVITY DISORDER) Medical, social, surgical, and family histories reviewed. ROS: C: NEGATIVE for fever, chills, change in weight I: NEGATIVE for worrisome rashes, moles or lesions E/M: NEGATIVE for ear, mouth and throat problems R: NEGATIVE for significant cough or SOB CV: NEGATIVE for chest pain, palpitations or peripheral edema GI: NEGATIVE for nausea, abdominal pain, heartburn, or change in bowel habits : NEGATIVE for frequency, dysuria, or hematuria PSYCHIATRIC: NEGATIVE for changes in mood or affect OBJECTIVE: BP 94/70 Pulse 84 Temp (Src) 97.9 ??F (36.6 ??C) (Oral) Ht 5' 3.75 (1.619 m) Wt 132 lb 8 oz(60.102 kg) EXAM: GENERAL APPEARANCE: healthy, alert and no distress EYES: EOMI, PERRL HENT: ear canals and TM's normal and nose and mouth without ulcers or lesions RESP: lungs clear to auscultation - no rales, rhonchi or wheezes CV: regular rates and rhythm, normal S1 S2, no S3 or S4 and no murmur, click or rub - ABDOMEN: soft, nontender, no HSM or masses and bowel sounds normal NEURO: Normal strength and tone, sensory exam grossly normal, mentation intact and speech normal ASSESSMENT/PLAN: 314.01M ADHD (Attention Deficit Hyperactivity Disorder) (primary encounter diagnosis) Comment: his exam is normal and he is not showing any SE of the meds. Weight stable and no chest pain. He does feel that the med does help him focus. Plan: ADDERALL XR# 30 MG OR CP24 AL SERVICES AIDE documented in this encounter Nursing Notes 04/30/2008 3:00 PM CST >> MAYRA CUELLAR Fri Apr 30, 2008 3:16 PM Patient presents with: RECHECK - F/U visit regarding a med check. Initial BP 94/70 Pulse 84 Temp (Src) 97.9 ??F (36.6 ??C) (Oral) Ht 5' 3.75 (1.619 m) Wt 132lb 8 oz (60.102 kg) Body mass index is 22.92 kg/(m^2). BP completed using cuff size regular right arm. Mayra Cuellar CMA documented in this encounter Plan of Treatment Not on filedocumented as of this encounter Visit Diagnoses Diagnosis ADHD (attention deficit hyperactivity di sorder) - Primary Attention deficit disorder with hyperact ivity documented in this encounter Care Teams Medical Geneticist Relationship Specialty Start Date End Date Catracho Suh MD PCP - General 12/23/02 05/08/12 [id number] [place] [address] documented as of this encounter
--- OUTSIDE RECORDS SUMMARY | 2022-01-29 18:43 | XMS_ITS | Encounter Summary ---
:1995 Author Organization [place] Address [address] [facility] [place] [address] Care Team Providers Name Role Phone Catracho Suh MD Primary Care Provider Reason for Visit Reason Onset Date Comments Refill Request 06/29/2008 would like to pick u p adderall rx at [facility] on SATURDAY Encounter Details Date Type Department Care Team Description 06/29/2008 Refill [facility] Catracho Suh MD Refill Request (would [place] [id number] [place] [address] S like to pickling grader adderall [id number] [place], [place] rx at [facility] on SATURDAY) [place] [address] [phone] Social History Tobacco Use Types Packs/Day Years Used Date Smoking Tobacco: Never Alcohol Use Standard Drinks/Week Comments Not Asked 0 (1 standard drink = 0.6 oz pure alcoho l) Sex Assigned at Date Recorded Not on file documented as of this encounter Miscellaneous Notes Telephone Encounter - Le Pleitez - 06/30/2008 10:54 AM CDT Notified that we will have it transported to [facility] and they can pickling grader on Saturday. (Lucero silva rx) Le Pleitez RN Telephone Encounter - Kellie Edge - 06/29/2008 11:40 AM CDT Pt's mother is asking to pick this RX: ADDERALL ON June @ [facility]. Last OV: - FAINT LAST ADHD VISIT; 04/30/2008 RTC instructions: NONE Last filled: 04/30/2008 Unable to refill pso, will route to pcp. Gayle Edge RN documented in this encounter Plan of Treatment Not on filedocumented as of this encounter Visit Diagnoses Diagnosis ADHD (attention deficit hyperactivity di sorder) Attention deficit disorder with hyperact ivity documented in this encounter Care Teams Vitreo Retinal Surgeon Relationship Specialty Start Date End Date Catracho Suh MD PCP - General 12/23/02 05/08/12 [address] [place] [address] documented as of this encounter
--- OUTSIDE RECORDS SUMMARY | 2022-01-29 18:43 | XMS_ITS | Encounter Summary ---
:1995 Author Organization [place] Address [facility] [facility] [place] [address] Care Team Providers Name Role Phone Catracho Suh MD Primary Care Provider Reason for Visit Reason Onset Date Comments Medication Request 08/02/2008 adderall refill mail to pharmacy Encounter Details Date Type Department Care Team Description 08/02/2008 Telephone [facility] Catracho Suh, Medica tion Request Clinic Alfreda Christie MD (adderall refill mail [phone] [facility] [id number] [place] [address] S to pharmacy) [place] [address] [phone] Social History Tobacco Use Types Packs/Day Years Used Date Smoking Tobacco: Never Alcohol Use Standard Drinks/Week Comments Not Asked 0 (1 standard drink = 0.6 oz pure alcoho l) Sex Assigned at Date Recorded Not on file documented as of this encounter Miscellaneous Notes Telephone Encounter - Mayra Hutson - 08/04/2008 9:16 AM CDT Signed rx mailed to pharmacy at: [id number] [address] [place] [id number] Mayra Hutson RN Telephone Encounter - Tati Osborne - 08/02/2008 1:44 PM CDT Date of last office visit 04/30/08 MAIL RX TO [facility] Reason for visit ADHD Date last filled 06/29/08 Labs pertaining to med none Deepa Osborne LPN Telephone Encounter - Tati Osborne - 08/02/2008 1:41 PM CDT Staff Message copied by TATI OSBORNE on SatAug 02, 2008 1:41 PM ------ Message from: VEDA KING Created: SatAug 02, 2008 1:05 PM Regarding: - Adderal refill First and Last name of caller: Clementine Hoang Relationship to patient: mother Reason for call: requests Adderal refill Is it in regards to a medication: yes Med Name: Adderal Pharmacy name and location: [id number] rx [facility] Provider they see: Vikash Phone number they can be reached at: [phone] Ok to leave a message: yes Veda Vance documented in this encounter Plan of Treatment Not on filedocumented as of this encounter Visit Diagnoses Diagnosis ADHD (attention deficit hyperactivity di sorder) - Primary Attention deficit disorder with hyperact ivity documented in this encounter Care Teams Complex Director Relationship Specialty Start Date End Date Catracho Suh MD PCP - General 12/23/02 05/08/12 [address] [place] [address] documented as of this encounter
--- OUTSIDE RECORDS SUMMARY | 2022-01-29 18:43 | XMS_ITS | Encounter Summary ---
:1995 Author Organization [place] Address [address] [facility] [place] [address] Care Team Providers Name Role Phone No Ref-Primary, Physician Primary Care Provider Reason for Visit Reason Onset Date Comments CD Outpatient 10/02/2018 Encounter Details Date Type Department Care Team Description 10/02/2018 Telephone [facility] Generic, Behavioral CD Outpatient [facility] [place] Elizabeth MD [address] [place] [address] Social History Tobacco Use Types Packs/Day Years Used Date Smoking Tobacco: Every Day Smokeless Tobacco: Never Alcohol Use Standard Drinks/Week Comments Yes 0 (1 standard drink = 0.6 oz pure Alcoho lic Drinks/day: beer 1-2 a alcohol) night Sex Assigned at Date Recorded Not on file documented as of this encounter Miscellaneous Notes Telephone Encounter - Samantha Noonan - 10/02/2018 10:25 AM CDT Pt called to look into 48 hour treatment option. Clarified with [place] we do not offer that here at [facility]. Explained to patient and gave options of [facility] or [facility]. [facility] referred him to us here. Pt stated he wanted to go to [facility]. Reviewed options for appts - he will call us back. [facility] requiring him to attend treatment. Pt aware we are a IOP 4 eves a week. No [address] court. PO Dhruv Umana [phone] No prior trx. Reg updated, referral not made. Pt will call back. [facility] documented in this encounter Plan of Treatment Not on filedocumented as of this encounter Visit Diagnoses Not on filedocumented in this encounter Care Teams Athletic Coordinator Relationship Specialty Start Date End Date No Ref-Primary, Physician PCP - General 11/03/12 documented as of this encounter
--- OUTSIDE RECORDS SUMMARY | 2022-01-29 18:43 | XMS_ITS | Encounter Summary ---
:1995 Author Organization [place] Address [address] [facility] [place] [address] Care Team Providers Name Role Phone No Ref-Primary, Physician Primary Care Provider Reason for Visit Reason Comments Shoulder Pain Encounter Details Date Type Department Care Team Description 11/03/2012 Emergency [facility] Andry Winters Closed dislocation of [facility] Emergency Dep shi Gonzalez MD left shoulder (Primary [address] [facility]) [place], [place] [id number] [phone] [place], [place] [address] (Wo rk) Social History Tobacco Use Types Packs/Day Years Used Date Smoking Tobacco: Every Day Alcohol Use Standard Drinks/Week Comments Yes 0 (1 standard drink = 0.6 oz pure alcoho l) Sex Assigned at Date Recorded Not on file documented as of this encounter Last Filed Vital Signs Vital Sign Reading Time Taken Comments Blood Pressure 128/80 11/03/2012 10:47 PM CDT Pulse 100 11/03/2012 10:47 PM CDT Temperature 37.1 ??C (98.7 ??F) 11/03/2012 9:28 PM CDT Respiratory Rate 18 11/03/2012 10:47 PM CDT Oxygen Saturation 98% 11/03/2012 10:47 PM CDT Inhaled Oxygen Concentration - - Weight 59 kg (130 lb) 11/03/2012 9:28 PM CDT Height 162.6 cm (5' 4) 11/03/2012 9:28 PM CDT Body Mass Index 22.31 11/03/2012 9:28 PM CDT documented in this encounter Discharge Instructions Discharge InstructionsAndry Winters MD - 11/03/2012 10:37 PM CDT Images from the original note were not included. On the x-ray there appears to be a possible fracture although may be calcified tendon. You need to see an orthopedic doctor to re-evaluate your shoulder later this week or early next week. Home Back SP DISLOCATION: SHOULDER (Reduced) Dislocation of the shoulder joint occurs when a strong force tears the ligaments holding the joint together. This allows the bones to move apart and become stuck out of place. Once the joint is alignedagain, it will take about six weeks for the ligaments to heal. Since this injury may weaken the ligaments, you are at risk of another dislocation with less force. Therefore, care should be taken to avoid a similar injury in the future. Shoulder dislocation is treated with a shoulder immobilizer (special type of arm sling). This keeps your arm close to your body to prevent a recurrent dislocation while the ligaments heal. After a few weeks, an exercise program may be started. This will gradually restore range of motion and strength at the shoulder and decrease the risk of another dislocation. HOME CARE: ?? Until your next doctor visit, wear your shoulder immobilizer at all times . Do not take it off atnight to sleep. It is possible to dislocate your arm again in your sleep. You may take it off to bathe or dress, but do not move your arm away from your body. Keep your arm in the same position that the sling was holding it in, until you reapply the sling again. During your next visit, ask your doctorhow long you should wear the sling. ?? Apply an ice pack (ice cubes in a plastic bag, wrapped in a towel) over the injured area for 20 minutes every 1-2 hours the first day. Continue with ice packs 3-4 times a day for the next two days, then as needed for the relief of pain and swelling. ?? You may use acetaminophen (Tylenol) or ibuprofen (Motrin, Advil) to control pain, unless another pain medicine was prescribed. [NOTE: If you have chronic liver or kidney disease or ever had a stomach ulcer or GI bleeding, talk with your doctor before using these medicines.] ?? No sports or P.E. until cleared by your doctor. FOLLOW UP with your doctor within one week or as advised by our staff. Shoulder immobilizers and slings should not be worn continuously for more than a few weeks or you may lose some [id number] atthe shoulder joint. If you have had repeated dislocations of the same shoulder, that means there hasbeen permanent ligament damage. Ask the orthopedic doctor about surgery to prevent another dislocation. GET PROMPT MEDICAL ATTENTION if any of the following occur: ?? Another dislocation of your shoulder ?? Increasing swelling or pain in the shoulder or arm ?? Fingers become cold, blue, numb or tingly ?? [id number] [facility], [address] [place] [address], [place] [address]. All rights reserved. This information is not intended as a substitute for professional medical care. Always follow your healthcare professional's instructions. documented in this encounter Medications at Time of Discharge Medication Sig Dispensed Refills Start Date End Date ADDERALL XR# 20 MG OR CP24 VIVANCE 70 mg 0 0 2008 FLONASE INHA 50 MCG/DOSE INHALE 2 SPRAYS IN 1 11 10/2008 NAIndications: Chronic EACH NOSTRIL ONCE rhinitis, Pharyngitis DAILY PROZAC 20 MG OR CAPS 40 MG ONE DAILY 0 0 03/21/2009 documented as of this encounter ED Notes Andry Winters MD - 11/03/2012 9:49 PM CDT History Chief Complaint: Left Shoulder Pain HPI [place] Hoang is a 17 year old male who presents with left shoulder pain. The patient reports having sudden onset left shoulder pain at 5 pm today after jumping off of a rope swing and landed in water. He states that he was able to get it back into place immediately after. Following this, he states that he again landed in the water and states that it was dislocated and he was unable to pop itback into place. He rates his pain as 10/10 in severity and reports worsening of his pain with movement of the extremity. The patient currently reports having numbness and tingling in the affected extremity. He states that he had one beer after work but denies having any alcohol during this episode. He denies sustaining any other injuries. Allergies: Codeine sulfate Medications: Prozac Adderall Flonase Past Medical History: Attention deficit disorder without mention of hyperactivity Past Surgical History: History reviewed. No pertinent past surgical history. Family History: History reviewed. No pertinent family history. Marital Status: Single Social History: The patient is a current everyday smoker who reports alcohol use. Review of Systems Neurological: Positive for numbness. Negative for weakness. Positive for tingling. All other systems reviewed and are negative. Physical Exam First Vitals: BP: 135/90 mmHg Pulse: 91 Temp: 98.7 ??F (37.1 ??C) Resp: 18 Height: 162.6 cm (5' 4) Weight: 58.968 kg (130 lb) SpO2: 96 % Physical Exam Constitutional: He is oriented to person, place, and time. He appears well- developed and well-nourished. Mildly distressed. Leaning to the left with obvious deformity to the shoulder. HENT: Mouth/Throat: Oropharynx is clear and moist. No obvious visible trauma No bony deformities or tenderness. No trismus, soto signs, or raccoon's eyes. Eyes: Conjunctivae normal and EOM are normal. No scleral icterus. Non injected. Neck: Normal range of motion. No tracheal deviation present. Cardiovascular: Normal rate, regular rhythm and normal heart sounds. Exam reveals no friction rub. No murmur heard. Intact bilateral radial pulses Pulmonary/Chest: Effort normal and breath sounds normal. No stridor. No respiratory distress. He hasno wheezes. He has no rales. Abdominal: Soft. Bowel sounds are normal. He exhibits no distension. There is no tenderness. There is no rebound and no guarding. Musculoskeletal: Normal range of motion. He exhibits no edema. Tender to palpation of left shoulder with obvious deformity of the glenoid region below the acromion process. Decreased range of motion of the left shoulder secondary to pain. No edema distal to this.No definitive bony deformity otherwise. Neurological: He is alert and oriented to person, place, and time. No cranial nerve deficit. Normal strength throughout left upper extremity distally; however, unable to assess elbow secondaryto pain. Claimed decreased sensation that remains throughout although not vidal numbness over the left lateral shoulder or axillary nerve distribution. Normal sensation otherwise of the left upper extre mity. Normal Speech. Skin: Skin is warm and dry. No rash noted. No erythema. No petechiae, abscess, abrasions, or cellulitis. Psychiatric: He has a normal mood and affect. Judgment normal. Emergency Department Course Imaging: Radiographic findings were communicated with the patient who voiced understanding of the findings. Left shoulder x-ray: Shoulder reduced, no dislocation, no def fx although calcified tissue just above humeral head could represent avulsed bone. ED Preliminary Report. Procedures: Joint Reduction for Left Shoulder Dislocation Site: Left Shoulder Procedure Provider: Dr. Winters Reduction Comments: Patient asking to do it now, requesting an attempt without sedation. No pre-reduction film obtained because patient wanted rapid relief by non-sedation attempt. Initial attempt using gradual abduction with traction unsuccessful. Subsequent attempt using countertraction by vacuum technician with sheet around thorax and traction in 90 abducted shoulder was successful as deformity resolved,pain improved, and audible and felt click was detected. Post reductions x-rays were obtained and showed good reduction. Post-Procedure Assessment Note: Dislocation alignment improved post procedure. Claims slight sensation loss to light touch over axillary nerve distribution to lateral shoulder pre-procedure which was unchanged post-procedure. All other sensation intact pre and post-procedure. No strength loss pre-procedure and no change post-procedure distal to right shoulder. Complications: Initial attempt unsuccessful, 2nd attempt successful. Mild pain but otherwise tolerated well. Possible avulsion fracture seen superior to humerus although no source was identifiable andappeared to be more likely calcified soft tissue. Splint Placement A shoulder immobilizer was applied to the upper left extremity and after placement I checked and adjusted the fit to ensure proper positioning. The patient was more comfortable with the splint in place. Sensation and circulation are intact after splint placement. Interventions: Toradol 30 mg IV Emergency Department Course: I performed a thorough exam of the patient. IV inserted and blood drawn. The patient was placed on continuous blood pressure monitoring and pulse oximeter. The patient experienced no complications with the above procedure. The patient was sent for a left shoulder x-ray while here in the emergency department. Rechecked the patient, findings and plan explained to the patient. Patient discharged home, status improved, with instructions regarding supportive care, medications, and reasons to return as well as the importance of close follow-up was reviewed. Impression & Plan Medical decision Making: The patient is a 17 year old male who presents today with complaint of left shoulder injury consistent with dislocation. Prior to sending x-ray, the patient tolerated and requested that I try to reduceit as quickly as possible. I did so since there did not appear to be a definite fracture. There is no definite fracture from followup x-rays; although, I do see a calcification superior to the humeral head, however, with a screen with less resolution, I did not see this calcification. Hence, I have low suspicion that this is a definite avulsion fracture. I suspect that it is calcified soft tissue. Heis neurovascularly intact except for slight decreased sensation of the left axillary nerve region. The patient was placed in an immobilizer given that during my reduction her it seemed to be reduced and then popped out on its own. I felt that this would provide more stabilization that a sling. I will recommend that he followup with orthopedics later this week or early next week. He should return for any worsening symptoms; otherwise take Ibuprofen as needed. At discharge, he felt that his pain was much reduced. I did not feel that anything stronger than Tylenol or Ibuprofen was needed. Diagnosis: 1. Closed dislocation of left shoulder s/p reductoin 2. Possible soft tissue calcification versus avulsion fracture seen on x-ray I, Alden Virk, am serving as a scribe at 9:49 PM on 11/03/2012 to document services personally performed by Dr. Winters, based on my observations and the provider's statements to me. Alden Virk 11/03/2012 [facility] EMERGENCY DEPARTMENT Andry Winters MD 11/04/122120 Lidia Tong RN - 11/03/2012 9:26 PM CDT Pt Alert and oriented x3. Airway, breathing and circulation intact. Pt says he dislocated left shoulder earlier in the day when he jumped off a rope swing, was able to get it back in place. Jumped off rope swing again landed in water and when he was resurfacing he moved his left arm and dislocated it again documented in this encounter Plan of Treatment Not on filedocumented as of this encounter Procedures Procedure Name Priority Date/Time Associated Diagnosis Comme nts XR SHOULDER LEFT STAT 11/03/2012 10:13 PM Resu lts for this G/E 3 VIEWS CDT procedure are i n the results section. documented in this encounter Results Shoulder XR, G/E 3 views, left (11/03/2012 10:13 PM CDT) Anatomical Region Laterality Modality Left Shoulder Left Other Specimen (Source) Anatomical Collection Method Collection Time Re ceived Time Location / / Volume Laterality 11/03/2012 10:13 PM CDT Impressions 11/04/2012 7:32 AM CDT IMPRESSION: Overpenetrated views, grossly negative. CAROLIN PARRISH MD Narrative 11/04/2012 7:32 AM CDT LEFT SHOULDER, 2 VIEWS - ??11/03/2012 10: 13 PM HISTORY: ??Pain. COMPARISON: None. FINDINGS: AP and scapular-Y views are ov erpenetrated and it is not possible to accurately evaluate the soft tissues or AC joint. The glenohumeral joint is intact Procedure Note Carolin Parrish MD - 11/04/2012Forma tting of this note might be different from the original. LEFT SHOULDER, 2 VIEWS - 11/03/2012 10:13 PM HISTORY: Pain. COMPARISON: None. FINDINGS: AP and scapular-Y views are ov erpenetrated and it is not possible to accurately evaluate the soft tissues or AC joint. The glenohumeral joint is intact IMPRESSION IMPRESSION: Overpenetrated views, grossl y negative. CAROLIN PARRISH MD Andry Winters MD IMG DIAGNOSTIC IMAGING ORDER LATRICE documented in this encounter Visit Diagnoses Diagnosis Closed dislocation of left shoulder - Pr imary Closed dislocation of shoulder, unspecif ied site documented in this encounter Administered Medications Inactive Administered Medications - up to 3 most recent administrations Medication Order MAR Action Action Date Dose Rate Site ketorolac (TORADOL) injection 30 mg Given 11/03/2012 9:44 PM CDT 30 mg 30 mg, Intravenous, ONCE, On 11/03/12 at 2145, For 1 dose documented in this encounter Active and Recently Administered Medications Times are shown in CDT. Scheduled Medication Order 11/01/2012 11/02/2012 11/03/2012 ketorolac (TORADOL) injection 30 mg (COMPLETED) 2143 (Given - Provider: Ivan Li RN) 30 mg, Intravenous, ONCE, 11/03/12 at 2145, For 1 dose documented in this encounter Care Teams Photograph Developer Relationship Specialty Start Date End Date No Ref-Primary, Physician PCP - General 11/03/12 documented as of this encounter
--- OUTSIDE RECORDS SUMMARY | 2022-01-29 18:43 | XMS_ITS | Encounter Summary ---
:1995 Author Organization [facility] Address [address] [place] [address]. [place] [address] Care Team Providers Name Role Phone No Ref-Primary, Physician Primary Care Provider Encounter Details Date Type Department Care Team Description [facility]/23[facility]2017 [facility] OR [address] [facility] [address] [place] [address] [place], [place] [phone] (Wo rk) [phone] Social History Tobacco Use Types Packs/Day Years Used Date Smoking Tobacco: Every Day Alcohol Use Standard Drinks/Week Comments Yes 0 (1 standard drink = 0.6 oz pure alcoho l) Sex Assigned at Date Recorded Not on file documented as of this encounter Last Filed Vital Signs Vital Sign Reading Time Taken Comments Blood Pressure - - Pulse - - Temperature - - Respiratory Rate - - Oxygen Saturation - - Inhaled Oxygen Concentration - - Weight 69.4 kg (153 lb) 05/23/2017 11:50 PM DIRECTOR VACCINE Height 166.4 cm (5' 5.5) 05/23/2017 11:50 PM DIRECTOR VACCINE Body Mass Index 25.07 05/23/2017 11:50 PM DIRECTOR VACCINE documented in this encounter Plan of Treatment Not on filedocumented as of this encounter Visit Diagnoses Not on filedocumented in this encounter Care Teams Marine Rigger Relationship Specialty Start Date End Date No Ref-Primary, Physician PCP - General 11/03/12 documented as of this encounter
--- OUTSIDE RECORDS SUMMARY | 2022-01-29 18:43 | XMS_ITS | Encounter Summary ---
:1995 Author Organization [place] Address [address] [facility] [place] [address] Care Team Providers Name Role Phone Catracho Suh MD Primary Care Provider Reason for Visit Reason Onset Date Comments Nurse Advice Line 01/04/2009 Adderall Encounter Details Date Type Department Care Team Description 01/04/2009 Telephone [facility] Catracho Suh, Nurse Advice Line Clinic Carrier Mills MD (Adderall) [address] [place] [phone] Social History Tobacco Use Types Packs/Day Years Used Date Smoking Tobacco: Never Alcohol Use Standard Drinks/Week Comments Not Asked 0 (1 standard drink = 0.6 oz pure alcoho l) Sex Assigned at Date Recorded Not on file documented as of this encounter Miscellaneous Notes Telephone Encounter - Mayra Hutson - 01/05/2009 9:54 AM CDT See [id number] encounter--Mom informed rx ready. Mayra Hutson RN Telephone Encounter - Evi Gibbs - 01/04/2009 10:23 AM CDT See message below Last OV: 10/06/08 Reason for visit: pharyngitis Date last filled: 11/08/08 Not PSO, routed, need to contact pt at number below Evi Gibbs RN Telephone Encounter - Evi Gibbs - 01/04/2009 10:21 AM CDT Staff Message copied by EVI GIBBS on SatJan 04, 2009 10:21 AM ------ Message from: BECKI MANZANO Created: SatJan 03, 2009 4:19 PM Regarding: - REFILL Contact: First and Last name of caller: CLEMENTINE JOSI Relationship to patient: MOTHER Reason for call: REFILL ADDERALL Is it in regards to a medication: YES Med Name: ADDERALL Pharmacy name and location: [facility] Provider they see: CHRIS Phone number they can be reached at: [phone] Ok to leave a message: YES Becki documented in this encounter Plan of Treatment Not on filedocumented as of this encounter Visit Diagnoses Diagnosis ADHD (attention deficit hyperactivity di sorder) - Primary Attention deficit disorder with hyperact ivity documented in this encounter Care Teams Commercial Credit Head Relationship Specialty Start Date End Date Catracho Suh MD PCP - General 12/23/02 05/08/12 [id number] [place] [address] documented as of this encounter
--- OUTSIDE RECORDS SUMMARY | 2022-01-29 18:43 | XMS_ITS | Encounter Summary ---
:1995 Author Organization [place] Address [facility] [place] [address] Care Team Providers Name Role Phone No Ref-Primary, Physician Primary Care Provider [phone] Reason for Visit Reason Comments Hand Injury Encounter Details Date Type Department Care Team Description 01/09/2021 Emergency [facility] Adarsh Pimentel MD Laceration of right [place] Emergency Dep t [facility] index finger without [address] [place] foreign body without [place], [place] [address] damage to nail, [id number] [place] [address] initial encounter [phone] (Wo rk) Social History Tobacco Use Types [...] Sign Reading Time Taken Comments Blood Pressure 118/81 01/09/2021 12:00 AM CDT Pulse 77 01/09/2021 12:00 AM CDT Temperature 36.8 ??C (98.3 ??F) 01/09/2021 12:00 AM CDT Respiratory Rate 20 01/09/2021 12:00 AM CDT Oxygen Saturation 99% 01/09/2021 12:00 AM CDT Inhaled Oxygen Concentration - - Weight - - Height - - Body Mass Index - - documented in this encounter Discharge Instructions Discharge InstructionsAdarsh Pimentel MD - 01/09/2021 12:51 AM CDT Discharge Instructions Laceration (Cut) You were seen today for a laceration (cut). Your provider examined your laceration for any problems such a buried foreign body (like glass, a splinter, or gravel), or injury to blood vessels, tendons, and nerves. Your provider may have also rinsed and/or scrubbed your laceration to help prevent an infection. It may not be possible to find all problems with your laceration on the first visit; occasionally foreign bodies or a tendon injury can go undetected. Your laceration may have been closed in one of several ways: No closure: many wounds will heal just fine without closure. Stitches: regular stitches that require removal. [place]: skin guillermina are often used in the scalp/head. Wound adhesive (glue): skin glue can be used for certain lacerations and doesn???t require removal. Wound strips (aka Butterfly bandages or steri-strips): these are bandages that help to close a wound. Absorbable stitches: ???dissolving?? stitches that go away on their own and usually don???t requireremoval. A small percentage of wounds will develop an infection regardless of how well the wound is cared for. Antibiotics are generally not indicated to prevent an infection so are only given for a small number of high-risk wounds. Some lacerations are too high risk to close, and are left open to heal becauseclosure can increase the likelihood that an infection will develop. Remember that all lacerations, no matter how expertly repaired, will cause scarring. We consider many factors, techniques, and materials, in our efforts to provide the best possible cosmetic outcome. Generally, every Emergency Department visit should have a follow-up clinic visit with either a primary or a specialty clinic/provider. Please follow-up as instructed by your emergency provider today. Return to the Emergency Department right away if: You have more redness, swelling, pain, drainage (pus), a bad smell, or red streaking from your laceration as these symptoms could indicate an infection. You have a fever of 100.4??F or more. You have bleeding that you cannot stop at home. If your cut starts to bleed, hold pressure on the bleeding area with a clean cloth or put pressure over the bandage. If the bleeding does not stop after using constant pressure for 30 minutes, you should return to the Emergency Department for further treatment. An area past the laceration is cool, pale, or blue compared with the other side, or has a slower return of color when squeezed. Your dressing seems too tight or starts to get uncomfortable or painful. For children, signs of a problem might be irritability or restlessness. You have loss of normal function or use of an area, such as being unable to straighten or bend a finger normally. You have a numb area past the laceration. Return to the Emergency Department or see your regular provider if: The laceration starts to come open. You have something coming out of the cut or a feeling that there is something in the laceration. Your wound will not heal, or keeps breaking open. There can always be glass, wood, dirt or other things in any wound. They will not always show up, even on x-rays. If a wound does not heal, this may bewhy, and it is important to follow- up with your regular provider. Home Care: Take your dressing off in 12-24 hours, or as instructed by your provider, to check your laceration. Remove the dressing sooner if it seems too tight or painful, or if it is getting numb, tingly, or pale past the dressing. Gently wash your laceration 1-2 times daily with clean water and mild soap. It is okay to shower or run clean water over the laceration, but do not let the laceration soak in water (no swimming). If your laceration was closed with wound adhesive or strips: pat it dry and leave it open to the air. For all other repairs: after you wash your laceration, or at least 2 times a day, apply antibiotic ointment (such as Neosporin?? or Bacitracin??) to the laceration, then cover it with a Band-Aid?? or gauze. Keep the laceration clean. Wear gloves or other protective clothing if you are around dirt. Follow-up for removal: If your wound was closed with guillermina or regular stitches, they need to be removed according to the instructions and timeline specified by your provider today. If your wound was closed with absorbable (???dissolving?? ) sutures, they should fall out, dissolve,or not be visible in about one week. If they are still visible, then they should be removed according to the instructions and timeline specified by your provider today. Scars: To help minimize scarring: Wear sunscreen over the healed laceration when out in the sun. Massage the area regularly once healed. You may apply Vitamin E to the healed wound. Wait. Scars improve in appearance over months and years. If you were given a prescription for medicine here today, be sure to read all of the information (including the package insert) that comes with your prescription. This will include important information about the medicine, its side effects, and any warnings that you need to know about. The pharmacist who fills the prescription can provide more information and answer questions you may have about the medicine. If you have questions or concerns that the pharmacist cannot address, please call or return to the Emergency Department. Remember that you can always come back to the Emergency Department if you are not able to see your regular provider in the amount of time listed above, if you get any new symptoms, or if there is anything that worries you. documented in this encounter Medications at Time [...] documented as of this encounter ED Notes Adarsh Pimentel MD - 01/09/2021 12:54 AM CDT Visit Date: 01/09/2021 CHIEF COMPLAINT: Finger laceration. HISTORY OF PRESENT ILLNESS: This 26-year-old male was cleaning the vida out of his smoker when he cuthis right index finger on the vida plate. He was able to apply direct pressure and stop the bleeding.His last tetanus was 4 years ago. He is right-handed. No numbness. No other complaints at this time. PAST MEDICAL HISTORY: ADD. PAST SURGICAL HISTORY: 1. Left shoulder arthroscopy. 2. Left shoulder arthrotomy. MEDICATIONS: 1. Adderall. 2. Flonase. 3. Prozac. ALLERGIES: 1. CODEINE. 2. PENICILLIN. SOCIAL HISTORY: The patient presents to the Emergency Department by himself. He smokes. REVIEW OF SYSTEMS: A pertinent 10-point review of systems is negative except for that noted in the HPI. PHYSICAL EXAMINATION: GENERAL: The patient is sitting up comfortably in a chair. VITAL SIGNS: Blood pressure 118/81, heart rate 77, respiratory rate 20, oxygen 99% on room air, temperature 98.3 degrees. CARDIOVASCULAR: Regular rhythm, normal rate, 2+ right radial pulse. Normal perfusion in the right second finger. RESPIRATORY: Normal effort. SKIN: There is a laceration to the right finger on the palmar aspect overlying the radial side of the DIP. MUSCULOSKELETAL: Normal flexion and extension of the right finger against resistance. PSYCHIATRIC: The patient has normal mood and affect. LABORATORY EVALUATION AND DIAGNOSTIC STUDIES: None. PROCEDURE NOTE: Laceration repair. LOCATION: Right finger. DESCRIPTION: A 1.1 cm laceration. Anesthesia was obtained using 1% lidocaine with epinephrine was infiltrated. The wound was then cleaned with Shur-Clens scrubbing. The wound was repaired using 2 simple interrupted 4-0 nylon sutures. The wound was hemostatic following repair with good cosmetic outcome. No complications. EMERGENCY DEPARTMENT COURSE AND MEDICAL DECISION MAKING: This is a 26-year-old gentleman who is up to date on his tetanus who presents with a simple laceration to his right second finger. No evidence of neurologic or tendon involvement. It was repaired in a primary fashion as per the procedure. He will be discharged home with wound care instructions. DIAGNOSES: Right finger laceration. PLAN OF CARE: As above. Adarsh Pimentel MD MT: [id number] Name: CHICO PRATER MRN: [id number] Account: [id number] : 1995 Visit Date: 01/09/2021 Document: [id number] Amandeep Tobin RN - 01/08/2021 11:59 PM CDT Pt states wound to 2nd digit RUE around 1700 while cleaning smoker. ABCs intact GCS 15 documented in this encounter Plan of Treatment Not on filedocumented as of this encounter Visit Diagnoses Diagnosis Laceration of right index finger without foreign body without damage to nail, initial encounter documented in this encounter Care Teams Administrative Office Specialist Relationship Specialty Start Date End Date No Ref-Primary, Physician PCP - General 11/03/12 documented as of this encounter
--- OUTSIDE RECORDS SUMMARY | 2022-01-29 18:43 | XMS_ITS | Encounter Summary ---
:1995 Author Organization [facility] Address [address] [place] [address] Phone Care Team Providers Name Role Phone Pcp, No Primary Care Provider Unavailable Encounter Details Date Type Department Care Team Description 10/25/2014 Orders Only [facility] Film Room Provider, Outside Referral of patient [facility] OUTSIDE PROVIDER (Primary Dx) [place], [place] Radiology Department [id number] [facility] [address] [address] Social History Tobacco Use Types Packs/Day Years Used Date Smoking Tobacco: Never Assessed Alcohol Use Standard Drinks/Week Comments Yes 0 (1 standard drink = 0.6 oz pure alcoho l) Sex Assigned at Date Recorded Not on file documented as of this encounter Plan of Treatment Pending Results Name Type Priority Associated Diagnoses Date/Ti me CT HEAD OUTSIDE FILMS Imaging Routine Referral of patient 10/24/2014 7:03 AM CDT Scheduled Orders Name Type Priority Associated Diagnoses Order S chedule CT HEAD OUTSIDE FILMS Imaging Routine Referral of patient Expected: 10/25/2014, Expires: 2014 documented as of this encounter Visit Diagnoses Diagnosis Referral of patient - Primary Referral of patient without examination or treatment documented in this encounter Care Teams Litigation Services Manager Relationship Specialty Start Date End Date Pcp, No PCP - General 10/24/14 [facility] [place] [address] documented as of this encounter
--- OUTSIDE RECORDS SUMMARY | 2022-01-29 18:43 | XMS_ITS | Encounter Summary ---
:1995 Author Organization [place] Address [address] [place] [address] Care Team Providers Name Role Phone No Ref-Primary, Physician Primary Care Provider Encounter Details Date Type Department Care Team Description 05/22/2017 Anesthesia - [facility] Fritz Dixon, [facility] [place] [address] [place] [id number] [place], [place] [phone] [id number] Social History Tobacco Use Types Packs/Day Years Used Date Smoking Tobacco: Every Day Alcohol Use Standard Drinks/Week Comments Yes 0 (1 standard drink = 0.6 oz pure alcoho l) Sex Assigned at Date Recorded Not on file documented as of this encounter OR Notes Anesthesia Postprocedure Evaluation - Román Lopez APRN CONTOUR GRINDER - 05/23/2017 1:15 PM CST Patient: Chico Hoang LEFT SHOULDER DIAGNOSTIC ARTHROSCOPY, EXTENSIVE DEBRIDEMENT, CHONDROPLASTY, SYNOVECTOMY, REMPLISSAGE, OPEN GLENOID RECONSTRUCTION WITH DISTAL TIBIAL ALLOGRAFT, OPEN GENOID RECONSTRCTION WITH DISTAL TIBIA OSTEOCHONDRAL ALLOGRAFT Anesthesia type: general Patient location: PACU Last vitals: Vitals: 05/23/17 1310 BP: 112/60 Pulse: 88 Resp: 16 Temp: 36.6 ??C (97.9 ??F) SpO2: 93% Post vital signs: stable Level of consciousness: awake and responds to simple questions Post-anesthesia pain: pain controlled Post-anesthesia nausea and vomiting: no Pulmonary: unassisted, return to baseline Cardiovascular: stable and blood pressure at baseline Hydration: adequate Anesthetic events: no QCDR Measures: ASA# 11 - Agnes-op Cardiac Arrest: ASA11B - Patient did NOT experience unanticipated cardiac arrest ASA# 12 - Agnes-op Mortality Rate: ASA12B - Patient did NOT ASA# 13 - PACU Re-Intubation Rate: ASA13B - Patient did NOT require a new airway mgmt ASA# 10 - Composite Anes Safety: ASA10A - No serious adverse event Additional Notes: RAFT LANDING GEAR INSPECTOR Anesthesia Procedure Notes - Román Lopez APRN CRNA - 05/23/2017 8:00 AM AIRCRAFT LANDING GEAR INSPECTOR Peripheral Block Patient location during procedure: pre-op Start time: 05/23/2017 6:47 AM End time: 05/23/2017 6:53 AM post-op analgesia per surgeon order as noted in medical record Staffing: Performing Anesthesiologist: ROMÁN LOPEZ Preanesthetic Checklist Completed: patient identified, site marked, risks, benefits, and alternatives discussed, timeout performed, consent obtained, airway assessed, oxygen available, suction available, emergency drugs available and hand hygiene performed Peripheral Block Block type: brachial plexus, interscalene Prep: ChloraPrep Patient position: sitting Patient monitoring: color television console monitor, continuous pulse oximetry, heart rate and blood pressure Laterality: left Injection technique: ultrasound guided Ultrasound used to visualize needle placement in proximity to nerve being blocked: yes Permanent ultrasound image captured for medical record Sterile gel and probe cover used for ultrasound. lidocaine 1% local anesthesia used for local skin prep Needle Needle type: Stimuplex Needle gauge: 22 G Needle length: 2 in no peripheral nerve catheter placed Assessment Injection assessment: no difficulty with injection RAFT LANDING GEAR INSPECTOR Anesthesia Preprocedure Evaluation - Román Lopez MD - 05/23/2017 7:00 AM AIRCRAFT LANDING GEAR INSPECTOR Images from the original note were not included. Anesthesia Preprocedure Evaluation by Román Lopez MD at 05/23/2017 7:00 AM Author: Román Lopez MD Service: -- Author Type: Physician Filed: 05/23/2017 7:59 AM Date of Service: 05/23/2017 7:00 AM Status: Signed Retail Sales Associate: Román Lopez MD (Physician) Anesthesia Evaluation Patient summary reviewed No history of anesthetic complications Airway Mallampati: I Neck ROM: full Pulmonary - normal exam breath sounds clear to auscultation (+) a smoker Cardiovascular - negative ROS and normal exam Rhythm: regular Rate: normal, Neuro/Psych Endo/Other - negative ROS GI/Hepatic/Renal - negative ROS (-) GERD Other findings: ADHD Dental (+) chipped Anesthesia Plan Planned anesthetic: general endotracheal and peripheral nerve block ASA 2 Induction: intravenous Anesthetic plan and risks discussed with: patient Anesthesia plan special considerations: antiemetics, Post-op plan: routine recovery RAFT LANDING GEAR INSPECTOR documented in this encounter Miscellaneous Notes Anesthesia Care Transfer Note - Be Clay APRN CRNA - 05/23/2017 12:21 PM CST Last vitals: Vitals: 05/23/17 1219 BP: 128/81 Pulse: 99 Resp: 16 Temp: 36.6 ??C (97.9 ??F) SpO2: 100% Patient's level of consciousness is drowsy Spontaneous respirations: yes Maintains airway independently: yes Dentition unchanged: yes Oropharynx: oropharynx clear of all foreign objects QCDR Measures: ASA# 20 - Surgical Safety Checklist: WHO surgical safety checklist completed prior to induction PQRS# 430 - Adult PONV Prevention: 4558F - Pt received => 2 anti-emetic agents (different classes) preop & intraop ASA# 8 - Peds PONV Prevention: NA - Not pediatric patient, not GA or 2 or more risk factors NOT present PQRS# 424 - Agnes-op Temp Management: 4559F - At least one body temp DOCUMENTED => 35.5C or 95.9F within required timeframe PQRS# 426 - PACU Transfer Protocol:G9655 - Transfer of care checklist used ASA# 14 - Acute Post-op Pain: ASA14B - Patient did NOT experience pain >= 7 out of 10 RAFT LANDING GEAR INSPECTOR documented in this encounter Plan of Treatment Not on filedocumented as of this encounter Visit Diagnoses Not on filedocumented in this encounter Care Teams Airplane Refueler Relationship Specialty Start Date End Date No Ref-Primary, Physician PCP - General 11/03/12 documented as of this encounter
--- OUTSIDE RECORDS SUMMARY | 2022-01-29 18:43 | XMS_ITS | Encounter Summary ---
:1995 Author Organization [place] Address [address] [facility] [place] [address] Care Team Providers Name Role Phone Catracho Suh MD Primary Care Provider Reason for Visit Reason Onset Date Comments Refill Request 09/02/2008 adderall Encounter Details Date Type Department Care Team Description 09/02/2008 Refill [facility] Catracho Suh MD Refill Request [place] [id number] [place] [address] (adderall) [id number] [place] [phone] Social History Tobacco Use Types Packs/Day Years Used Date Smoking Tobacco: Never Alcohol Use Standard Drinks/Week Comments Not Asked 0 (1 standard drink = 0.6 oz pure alcoho l) Sex Assigned at Date Recorded Not on file documented as of this encounter Miscellaneous Notes Telephone Encounter - Georgie Erazo - 09/02/2008 5:17 PM CDT Date of last OV: 06/02/08 Reason for visit: fainting Date last filled: 08/02/08 Labs pertaining to med: none Alejandro Erazo CMA Telephone Encounter - Joyce Vargas - 09/02/2008 2:45 PM CDT Staff Message copied by JOYCE VARGAS on SatSeptember 02, 2008 2:45 PM ------ Message from: VEDA KING Created: Dimple September 02, 2008 1:57 PM Regarding: -Adderal refill First and Last name of caller: Clementine Hoang Relationship to patient: mom Reason for call: Adderal refill request Is it in regards to a medication: yes Med Name: Adderal Pharmacy name and location: Pts mom will nut picker Provider they see: Vikash Phone number they can be reached at: [phone] Ok to leave a message: yes Veda Vance documented in this encounter Plan of Treatment Not on filedocumented as of this encounter Visit Diagnoses Diagnosis ADHD (attention deficit hyperactivity di sorder) Attention deficit disorder with hyperact ivity documented in this encounter Care Teams Template Layout Worker Relationship Specialty Start Date End Date Catracho Suh MD PCP - General 12/23/02 05/08/12 [id number] [place] [address] documented as of this encounter
--- OUTSIDE RECORDS SUMMARY | 2022-01-29 18:43 | XMS_ITS | Encounter Summary ---
:1995 Author Organization [facility] Address [address] [place] [address]. [place] [address] Care Team Providers Name Role Phone No Ref-Primary, Physician Primary Care Provider Encounter Details Date Type Department Care Team Description 05/23/2017 - Hospital Encounter [facility] Tran Strauss MD S/P shoulder 05/24/2017 [facility] [place] [facility] [address] [place] [address] [address] [place] [id number] [phone] Social History Tobacco Use Types Packs/Day Years [...] 69.4 kg (153 lb) 05/23/2017 11:50 PM EQUIPMENT PLANNER Height 166.4 cm (5' 5.5) 05/23/2017 11:50 PM EQUIPMENT PLANNER Body Mass Index 25.07 05/23/2017 11:50 PM EQUIPMENT PLANNER documented in this encounter Medications at Time [...] 0 03/21/2009 documented as of this encounter Progress Notes Blanche Leonardo PT - 05/24/2017 10:18 AM CST Per OT patient ambulating independently. Patient declining PT needs. Thanks for referral. Blanche Leonardo PT, DPT PMENT PLANNER Noreen Day PA-C - 05/24/2017 10:11 AM CST Orthopedic Progress Note Post-operative Day: 1 Day Post-Op S/P LEFT SHOULDER DIAGNOSTIC ARTHROSCOPY, EXTENSIVE DEBRIDEMENT, CHONDROPLASTY, SYNOVECTOMY, REMPLISSAGE, OPEN GLENOID RECONSTRUCTION WITH DISTAL TIBIAL ALLOGRAFT, OPEN GENOID RECONSTRCTION WITH DISTALTIBIA OSTEOCHONDRAL ALLOGRAFT Subjective: [place] is doing well this morning; pain is largely well-controlled, block appears to have worn off. He's ready to discharge. Pain: moderate Fever, Chills: No Chest pain, SOB: No Nausea, Vomiting: No Lightheadedness, Dizziness: No Neuro: Patient denies new onset numbness or paresthesias Objective: Vitals: 05/24/17 0815 BP: 128/72 Pulse: 92 Resp: 16 Temp: 98.6 ??F (37 ??C) SpO2: 97% Gen: A&O x 3. NAD. Appears comfortable. Wound status: Dressing overlying incision is clean, dry, and intact Circulation, motion and sensation: Full sensation of left hand, 5/5 utility person strength, radial pulse palpable Swelling: Moderate Calf tenderness: calves are soft and non-tender bilaterally Doug's Sign: negative to bilateral lower extremities Drains: none Pertinent Labs Lab Results: personally reviewed. No results found for: INR, PROTIME No results found for: WBC, HGB, HCT, MCV, PLT No results found for: NA, K, CL, CO2 Assessment: S/P LEFT SHOULDER DIAGNOSTIC ARTHROSCOPY, EXTENSIVE DEBRIDEMENT, CHONDROPLASTY, SYNOVECTOMY, REMPLISSAGE, OPEN GLENOID RECONSTRUCTION WITH DISTAL TIBIAL ALLOGRAFT, OPEN GENOID RECONSTRCTIONWITH DISTAL TIBIA OSTEOCHONDRAL ALLOGRAFT - Dr. Strauss/Dr. Browning, [facility], 05/23/17 Plan: Continue PT/OT and pain management regimen; continue to advance weight bearing as tolerated. Weightbearing status: NWB to LUE, AROM of elbow, wrist, and hand. Passive pendulums at 2-4 weeks post-op. Anticoagulation: No chemical DVT ppx in addition to SCDs, travis stockings and early ambulation. 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 MARKETING TEAM LEAD Med List Medication Sig Note Last Dose ??? ibuprofen (ADVIL,MOTRIN) 200 MG tablet Take 800-1,000 mg by mouth daily as needed for pain. 05/23/2017: Recommended patient take no more than 4 tabs at a time 05/20/2017 ??? omeprazole (PRILOSEC) 20 MG capsule Take 20 mg by mouth daily as needed. 05/21/2017 Information source(s): Patient and Clinic records Patient was asked about OTC/herbal products specifically. MARKETING TEAM LEAD med list reflects this. Based on the pharmacist???s assessment, the MARKETING TEAM LEAD med list information appears reliable Allergies were reviewed, assessed, and updated with the patient. Patient does not use any multi-dose medications prior to admission. Thank you for the opportunity to participate in the care of this patient. Marilyn Tanner PharmD 05/23/2017 7:12 AM PMENT PLANNER documented in this encounter H&P Notes Jerry Strauss MD - 05/23/2017 6:27 AM CST I have performed an assessment and examined the patient, as necessary, to update the patient's current status that may have changed since the prior History and Physical. The History & Physical has been reviewed and the patient's status is unchanged. PMENT PLANNER documented in this encounter Miscellaneous Notes Op Note - Jerry Strauss MD - 05/23/2017 4:03 PM CST Name: Chico Hoang Locations: [facility] Main OR Procedure date: 05/23/2017 PREOPERATIVE DIAGNOSIS: 1. 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 2. Left shoulder very large Hill-Sachs humeral head defect. POSTOPERATIVE DIAGNOSIS: 1. 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 2. Left shoulder very large Hill-Sachs humeral head defect. 3. Left shoulder diffuse synovitis. 4. 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 5. Left shoulder intact rotator cuff. 6. Left shoulder mild biceps tendinopathy. 7. Left shoulder low-grade degenerative tearing of the posterior and superior labrum. Near complete attritional loss of the anteroinferior capsulolabral tissues. OPERATIVE PROCEDURES: 1. Left shoulder open glenoid reconstruction with fresh distal tibia osteochondral allograft. 2. Left shoulder arthroscopic Remplissage. 3. Left shoulder arthroscopic extensive debridement. 4. Left shoulder arthroscopic glenohumeral chondroplasty. 5. Left shoulder arthroscopic synovectomy. SURGEON: Jerry Strauss M.D. CO-SURGEON: Raji Browning M.D. BUSINESS ANALYTICS MANAGER(S): Deysi Soliman PA-C Skilled assistance and 2 surgeons were necessary for this procedure due to its high degree of complexity, as well as the need for accurate sizing and positioning of the osteochondral allograft. Dr. Browning assisted both with the Remplissage as well as with preparation of the graft and its implantation on the anterior aspect of the glenoid. ANESTHESIA: General endotracheal with combined regional block ESTIMATED BLOOD LOSS: 50 mL SPECIMENS: None. DRAINS: None. COMPLICATIONS: None apparent at conclusion of the procedure. DISPOSITION: Stable on transfer to PACU. Implants: ?? Implant Name Type Inv. Item Serial No. Fast Food Shift Supervisor Lot No. LRB No. Used Action CORKSCREW COMP THREAD 4.5 [id number] - [id number] 93-Soft Tissue Attach Device CORKSCREW COMP THREAD 4.5 [id number] ?? [employer] [id number] Left 1 Implanted TIBIAL DISTAL RT FSH ? [id number] ?? Left 1 Implanted SUTURE FIBERWIRE #2 CT-1 AR-[id number] - [id number] 93-Soft Tissue Attach Device SUTURE FIBERWIRE #2 CT-1 AR-[id number] ?? [employer] XX Left 2 Implanted SUTURE FIBERWIRE #2 CT-1 AR-7206 - [id number] 93-Soft Tissue Attach Device SUTURE FIBERWIRE #2 CT-1 [id number] ?? [employer] [id number] Left 2 Implanted SUTURE ANCHOR, BIOCOMPOSITE SUTURETAK ? [employer] [id number] Left 1 Implanted SUTURE WASHER, TITANIUM ? [employer] [id number] Left 2 Implanted 3.75MM PARTIALLY THREADED CANNULATED SCREW ? [employer] N/A Left 1 Implanted 3.75MM PARTIALLY THREADED CANNULATED SCREW ? 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 He has never undergone surgery for this in the past. Despite that, he was found on imaging to have massive attritional glenoid bone loss. On 3D reconstruction CT scans, this was estimated to be nearly 40% of the glenoid articular surface. In addition, he was found to have a very large Hill-Sachs lesion which extended to the far superior surface of the humeral head. It was felt, with the extensive bipolar bone involvement, that a simple stabilization procedure would be inadequate. We therefore discussed reconstruction of the glenoid, with options including coracoid transfer and allograft reconstructions. With the extensive articular surface loss, it was felt that restoring the cartilage would be of substantial benefit especially in this young patient. Therefore, we elected to pursue the use of distal tibia osteoarticular allograft. Additionally, we discussed that there was a high likelihood for need to perform a Remplissage as well, advancing the rotator cuff into the large Hill-Sachs defect and avoiding engagement of this even despite the glenoid graft. A thorough discussion of the risks, benefits, and alternatives to surgery, as well as the expected postoperative course was had, and the patient indicated a desire to proceed. Informed consent was obtained. OPERATIVE FINDINGS: 3+ anteroinferior shoulder instability on preoperative exam. Otherwise full passive motion. Diagnostic arthroscopy confirmed a massive Hill-Sachs lesion nearly 2.5 cm in width at its posterior extent. This extended superiorly nearly to the bicipital groove, and at that location was roughly 14 mm in width. There was extensive attritional glenoid bone loss, estimated at roughly 40 o f the glenoid articular surface. The anterior 1 cm of the remnant anterior glenoid had extensive chondral wear, grade 3-4. The humeral head was also notable for a 1-2 degenerative change diffusely. There was diffuse synovitis. The rotator cuff was intact throughout. Biceps tendon was intact. There was mild degenerative fraying of the superior and posterior glenoid labrum. Anteriorly, there was attrition of the anterior capsulolabral tissues. Following arthroscopic debridement, chondroplasty, and synovectomy, anchors were placed in the Hill-Sachs lesion in a percutaneous fashion in order to complete a Remplissage and advance the infraspinatus into the midportion of the large Hill-Sachs lesion. Subsequently, through ananterior deltopectoral approach the glenoid was exposed and a 10 x 22.5 mm osteochondral allograft block harvested from a fresh distal tibia allograft was used to perform glenoid reconstruction. This was secured with 2 x 3.75 mm partially threaded cannulated screws. PROCEDURE IN DETAIL: The patient was identified in the preoperative holding area, where the surgical extremity was markedby va and operative consent was confirmed. Regional block was administered by anesthesia with the appropriate affect. The patient was then transported to the operating room and positioned supine on theOR table. General anesthesia was induced, and subsequently, the patient was inclined into beach chair position. The head was secured, and all bony and neural prominences were padded appropropriately. The shoulder was then prepped and draped in the usual, sterile fashion. I confirmed that preoperative IV antibiotics had been administered appropriately. A pre-surgical timeout was completed to confirm the correct patient, operative site, allergies, and availability of all necessary equipment, grafts, and implants. Preoperative exam under anesthesia was completed at this time. There was no evidence forposterior instability. However, on very limited abduction and external rotation of the shoulder it dislocated anteriorly consistent with high grade 3+ instability. I then began by establishing a standard posterior arthroscopic portal. A small skin incision was made with a #11 blade scalpel, and the trocar was carefully guided into the glenohumeral space. An anterior rotator interval portal was also established under spinal needle localization and a smooth cannula was placed. Thorough, routine diagnostic arthroscopy of the shoulder was then completed with findings as noted above. There was diffuse synovitis within the joint, which appeared rust colored consistent with being quite chronic. On inspection of the rotator cuff and the articular surface appeared to be completely intact. Biceps tendon was intact and well although did have some synovitic/tendon empathic change. The superior labrum was grossly intact, with some mild fraying of its insertion to the superior glenoid. This fraying extended throughout essentially the entirety of the posterior labrum. The glenoid was then inverted pear-shaped, with massive anterior inferior loss. Using a calibrated probe, we estimated that this loss was roughly 40% of the articular surface. The anterior 1 cm of cartilage adjacent to the area of bone loss had rather extensive degenerative changes well, grade 3-4. The more posterior half of the glenoid was grossly intact. Inspecting the humeral head, we found a very large Hill-Sachs lesion, which extended far superior, nearly to the level of the bicipital groove. At th is more superior extent measured about 14 mm in width. More posteriorly, this reached almost 25 mm in width. I began by performing extensive debridement, resecting frayed tissue within the rotator interval, and resecting scar and adhesion formation along the anterior aspect of the remnant glenoid. A rasp and elevator were used to mobilize this anterior inferior capsule labral tissue, of which there was fairly minimal remaining. The superior and posterior labrum were debrided. The Hill-Sachs lesion was also debrided with the shaver to create a healthy bleeding bone surface. Areas of chronic synovitis were identified, and synovectomy was completed with the shaver and the radio frequency device to eliminate this abnormal tissue. Chondroplasty of both the humeral head and the remnant glenoid was then also completed with the shaver, smoothing/stabilizing unstable chondral flaps and removing loose intra-articular chondral debris. The arthroscope was entered through the anterior cannula, a Maura cannula was placed through the posterior portal site. Looking down over the top of the humeral head, we then had a better vantage point to inspect the Hill-Sachs defect. When we estimated the amount of bone that could be reconstructed on the anterior glenoid, we felt that Hill-Sachs lesion still had a high risk for engagement, and therefore we did elect to proceed with the Remplissage. However, given the very large width of this defect, we did not feel we could safely place anchors at the medial aspect of the Hill-Sachs defect, as this would have required tenodesing a very large portion of the rotator cuff, and would also have likely required passage of sutures through the muscular cuff tissue as opposed to through the tendon. Therefore, we instead opted to place the anchors within the middle aspect of the defect, about 12-15 mm away from the rotator cuff insertion to the humeral head. Working through the posterior Maura cannula , 2 bio composite 4.5 mm corkscrew anchors were placed, one essentially as far inferior as possible and the other more superiorly about 15-20 mm. We did not wish to tenodesis the supraspinatus, and so were careful to place this anchor so that will need the more posterior cuff would be reduced down into the defect. Each of these anchors was double loaded, and pairs of sutures were shuttled through therotator cuff tendon by percutaneously passing a spinal needle and shuttling a 0 PDS suture through it, which was then used to pass the fiber wires. Each pair of FiberWire sutures were retrieved and then clamped with a hemostat for later identification. We felt that it would be case to hold off on tensioning the sutures until after the glenoid reconstruction had been completed, given the retraction ofthe humeral head be necessary to achieve that. Once the Remplissage sutures were all passed, the arthroscopic instruments were then removed from the shoulder and attention was turned anteriorly. A standard deltopectoral approach was then utilized. The cephalic vein was identified in the deltopectoral interval and retracted laterally with the deltoid. The clavipectoral fascia was incised along the lateral margin of the conjoined tendon, and then a self-retaining retractor was placed. To accessthe glenohumeral joint, we elected to take down the upper half of the subscapularis tendon, performing a tenotomy of this portion of the tendon leaving a small cuff of tissue attached to the lesser tuberosity. Two #2 FiberWire tag sutures were placed into the tendon itself to be used for traction. A Fukuda retractor was then passed across the joint and used to gently retract the humeral head posteriorly and exposed the glenoid. Visualizing it directly, again the remaining glenoid articular surface was an inverted pear shape. There was no remaining capsular or labral tissue attached to the anterior inferior glenoid until essentially the 6 o'clock position. On the deep surface subscapularis, some remnant capsular tissue was however identifiable, and seemed to be of sufficient quality to potentiallyhold sutures. With good exposure of the anterior glenoid then achieved, an arthroscopic bur was usedto prepare the anterior glenoid neck, creating a healthy bleeding bony surface that was flat and smooth. The Arthrex distal tibia allograft preparation set was used to assist in the next portion of theprocedure. We trialed several of the sizing blocks, and found that the 10 mm x 5?? block would most accurately re- create/match the normal curvature to this patient's glenoid articular surface. The Arthrex cutting guides in the set were then used to harvest a 10 mm width by 22.5 mm height x 5?? wedge trapezoidal block from the lateral aspect of a fresh distal tibia allograft. Great care was taken during preparation of the graft to keep it cooled with saline while the cuts were made. After the block was harvested, it was then extensively pulse lavaged with sterile saline to remove the marrow elementsas much as possible. The aiming guide from the congruent arc Latarjet set was then used to deliver the graft and positionit on the anterior aspect of the remnant glenoid. Just prior to positioning this graft, we elected to place a 2.4 mm bio composite suture tack anchor at the 6 o'clock position in the [place] glenoid. Sutures from this anchor were then passed through the remnant anterior inferior capsular labral tissue,which we felt would provide some soft tissue bumper inferior to the graft. The tibial allograft was then positioned properly, and two guidewires were advanced through predrilled holes in the bone block, advancing them bicortically through the glenoid neck. We felt that the graft was positioned well and was flushed to the remnant articular surface with good [place] of [place] curvature. Pleased with this, the guidewires were then overdrilled with the cannulated drill bit. 3.75 mm partially threaded cannulated screws of appropriate length with included suture washers were then advanced over the zenaida dewires to secure the osteoarticular allograft piece. Screw fixation was quite good, and the bone block appear to be securely fixed. #2 FiberWire from the suture washers were then passed with a free needle through remnant capsular tissue on the deep surface of the subscapularis. This served as the medial sided capsular closure, allowing the graft to remain in an intra- articular location. Sutures from the inferior suture tack anchorwere also tied, which did restore a bit of inferior soft tissue bumper below the graft. The intra-articular space was then extensively irrigated with sterile saline. We then proceeded to subscapularis repair. Two 4.5 mm double loaded bio composite corkscrew anchors were placed at the lesser tuberosityarticular margin, and sutures were passed through the tendon which seemed to be of excellent quality. These were tied to affect a single row repair at the articular margin. The more lateral aspect of the tendon was then sutured back to the small stump of tendon left at the lateral aspect of the lessertuberosity, passing these #2 FiberWire sutures through small bone tunnels. The lateral aspect of therotator interval was also closed with a #2 FiberWire [id number] stitch to further improve stability. The shoulder was then placed into internal rotation and a deltoid retractor was placed, which allowed for visualization and retrieval of our previously passed Remplissage sutures. To complete the Remplissage, the pairs of same colored sutures from each of the anchors were tied to each other to create a double brian bridging construct over the top of the pierced infraspinatus tendon, advancing it down into the Hill-Sachs defect as desired when the knots were tensioned/tied. The arm was then brought up into abduction and external rotation, which had been previously noted tocause immediate anteroinferior dislocation. Now, the shoulder remained stable. Very pleased with this, the incision was extensively irrigated with sterile saline. 1 g of IV vancomycin power was then sprinkled into the wound for infection prophylaxis. The deltopectoral interval was reapproximated with #2 FiberWire. The skin was closed in layers with 2-0 Vicryl and 3-0 running subcuticular Monocryl. Sterile gauze bandages were then applied. The drapes taken down and the arm was carefully placed into asling. Anesthesia was then reversed, and the patient was taken recovery in stable condition. There were no complications noted. All sponge and needle counts were correct. POSTOPERATIVE PLAN: The patient will be admitted for overnight observation and to titrate proper pain control. He will be strictly nonweightbearing for > 6 weeks in the left upper extremity. Pendulum exercises are to be avoided until 2-4 weeks. He is allowed early active motion of elbow, wrist, and hand. Shoulder motion will be advanced per provided physical therapy protocol. No chemical DVT prophylaxis is indicated for this ambulatory, upper extremity procedure in a young and healthy patient. We will utilize SCDs and TRAVIS hose while he remains in the hospital. PMENT PLANNER Brief Op Note - Jerry Strauss MD - 05/23/2017 12:00 PM CST Brief Operative Note Name: [place] Hoang Location: [facility] Main OR Procedure Date: 05/23/2017 PCP: Ben Griffin MD LEFT SHOULDER DIAGNOSTIC ARTHROSCOPY, EXTENSIVE DEBRIDEMENT, CHONDROPLASTY, SYNOVECTOMY, REMPLISSAGE, OPEN GLENOID RECONSTRUCTION WITH DISTAL TIBIAL ALLOGRAFT (Left), OPEN GENOID RECONSTRCTION WITH DISTAL TIBIA OSTEOCHONDRAL ALLOGRAFT (Left) Pre-Procedure Diagnosis: Recurrent shoulder instability with massive Hill-Sachs defect and advanced attritional glenoid bone loss. Post-Procedure Diagnosis: * No post-op diagnosis entered * Surgeon(s): MD Raji Davis MD Findings: 3+ anteroinferior shoulder instability on preoperative exam. Diagnostic arthroscopy confirmed a massive Hill-Sachs lesion greater than 2 cm in width at its posterior extent. This extended superiorly nearly to the bicipital groove, and at that location was roughly 14 mm in width. There was extensive attritional glenoid bone loss, estimated at between 40 and 45% of the glenoid articular surface. The anterior 1 cm of the remnant anterior glenoid had extensive chondral wear, grade 3-4. The humeral head was also notable for a 1-2 degenerative change diffusely. There was diffuse synovitis. The rotator cuff was intact throughout. Biceps tendon was intact. There was mild degenerative fraying of the superior and posterior glenoid labrum. Anteriorly, there was attrition of the anterior capsulolabral tissues. Following arthroscopic debridement, chondroplasty, and synovectomy, anchors were placed in the Hill-Sachs lesion in a percutaneous fashion in order to complete a Remplissage and advance the infraspinatus into the midportion of the large Hill-Sachs lesion. Subsequently, through an anterior deltopectoral approach the glenoid was exposed and a 10 x 22.5 mm osteochondral allograft block harvested from a fresh distal tibia allograft was used to perform glenoid reconstruction. This was secured with 2 x 3.5 mm partially threaded screws. Estimated Blood Loss: 50 mL from 05/23/2017 7:32 AM to 05/23/2017 12:00 PM Specimens: * No specimens in log * Drains: None Implants: Implant Name Type Inv. Item Serial No. Fast Food Shift Supervisor Lot No. LRB No. Used Action CORKSCREW COMP THREAD 4.5 [id number] - [id number] 93-Soft Tissue Attach Device CORKSCREW COMP THREAD 4.5 [id number] [employer] [id number] Left 1 Implanted TIBIAL DISTAL RT FSH [id number] Left 1 Implanted SUTURE FIBERWIRE #2 CT-1 [id number] - [id number] 93-Soft Tissue Attach Device SUTURE FIBERWIRE #2 CT-1 [id number] [employer] [id number] Left 2 Implanted SUTURE FIBERWIRE #2 CT-1 [id number] - [id number] 93-Soft Tissue Attach Device SUTURE FIBERWIRE #2 CT-1 [id number] [employer] [id number] Left 2 Implanted SUTURE ANCHOR, BIOCOMPOSITE SUTURETAK ARTHEX [id number] Left 1 Implanted SUTURE WASHER, TITANIUM [employer]HEX [id number] Left 2 Implanted 3.75MM PARTIALLY THREADED CANNULATED SCREW ARTHEX N/A Left 1 Implanted 3.75MM PARTIALLY THREADED CANNULATED SCREW ARTHEX N/A Left 1 Implanted CORKSCREW COMP THREAD 4.5 [id number] - [id number] 93-Soft Tissue Attach Device CORKSCREW COMP THREAD 4.5 [id number] [employer] [id number] Left 4 Implanted Complications: None Jerry Strauss Date: 05/23/2017 Time: 12:00 PM PMENT PLANNER documented in this encounter Plan of Treatment Not on filedocumented as of this encounter Procedures Procedure Name Priority Date/Time Associated Diagnosis Comme nts XR SHOULDER LEFT Routine 05/23/2017 1:09 PM Resul ts for this PORT G/E 2 VIEWS EQUIPMENT PLANNER procedure a re in the results section. LAB RESULT - HIM 05/23/2017 SCAN documented in this encounter Results XR Shoulder Left Port G/E 2 Views (05/23/2017 1:09 PM EQUIPMENT PLANNER) Anatomical Region Laterality Modality Shoulder, Left Shoulder Left Other Specimen (Source) Anatomical Location Collection Method / Collectio n Time Received Time / Laterality Volume Narrative 05/23/2017 4:53 PM EQUIPMENT PLANNER XR SHOULDER LEFT 2 OR MORE VWS PORTABLE 05/23/2017 1:09 PM INDICATION: Post shoulder operation. COMPARISON: Shoulder CT 04/01/2017. FINDINGS: Postop lag screw fixation acro ss the anterior glenoid. No definitive acute left shoulder fracture or dislocation. Hill-Sachs impaction fracture. Normal acromioclavicular joint. Expected postoperative soft tissue gas. Procedure Note Blaise Rowell MD - 09/20/2020 XR SHOULDER LEFT 2 OR MORE VWS PORTABLE 05/23/2017 1:09 PM INDICATION: Post shoulder operation. COMPARISON: Shoulder CT 04/01/2017. FINDINGS: Postop lag screw fixation acro ss the anterior glenoid. No definitive acute left shoulder fracture or dislocation. Hill-Sachs impaction fracture. Normal acromioclavicular joint. Expected postoperative soft tissue gas. Deysi Foster PA-C [facility] ORDER LATRICE LAB RESULT - HIM SCAN (05/23/2017) Narrative This result has an attachment that is no t available. Historical Provider MH NON-BEAKER LAB TESTING documented in this encounter Visit Diagnoses Diagnosis S/P shoulder surgery Other postprocedural status documented in this encounter Care Teams Skein Straightener Relationship Specialty Start Date End Date No Ref-Primary, Physician PCP - General 11/03/12 documented as of this encounter
--- OUTSIDE RECORDS SUMMARY | 2022-01-29 18:43 | XMS_ITS | Encounter Summary ---
:1995 Author Organization [place] Address [facility] [place] [address] Care Team Providers Name Role Phone Catracho Suh MD Primary Care Provider Reason for Visit Reason Onset Date Comments Refill Request 11/08/2008 Encounter Details Date Type Department Care Team Description 11/08/2008 Refill [facility] Catracho Suh MD Refill Request [id number] [place] [address] [phone] Social History Tobacco Use Types Packs/Day Years Used Date Smoking Tobacco: Never Alcohol Use Standard Drinks/Week Comments Not Asked 0 (1 standard drink = 0.6 oz pure alcoho l) Sex Assigned at Date Recorded Not on file documented as of this encounter Miscellaneous Notes Telephone Encounter - Kris Rascon - 11/09/2008 3:29 PM CDT Up front for pt mom to p/u. Pt mom informed. Kris Rascon CMA Telephone Encounter - Kris Rascon - 11/08/2008 4:30 PM CDT DATE OF LAST VISIT: 10/06/08 REASON FOR LAST VISIT: pharyngitis DATE OF LAST REFILL: 10/12/08 DATE OF LAST LABS: NA (pretaining to refill) Kris Rascon CMA Telephone Encounter - Kris Rascon - 11/08/2008 4:28 PM CDT Staff Message copied by KRIS RASCON on SatNov 08, 2008 4:28 PM ------ Message from: NUZHAT LEWIS Created: SatNov 08, 2008 3:07 PM Regarding: as needs written script First and Last name of caller: clementine Relationship to patient: mother Reason for call: written script Is it in regards to a medication: yes Med Name: adderall Pharmacy name and location: na Provider they see: dmitriy Phone number they can be reached at: [phone] Ok to leave a message: no documented in this encounter Plan of Treatment Not on filedocumented as of this encounter Visit Diagnoses Diagnosis ADHD (attention deficit hyperactivity di sorder) Attention deficit disorder with hyperact ivity documented in this encounter Care Teams Wastewater Treatment Plant Attendant Relationship Specialty Start Date End Date Catracho Suh MD PCP - General 12/23/02 05/08/12 [address] [place] [address] documented as of this encounter
--- OUTSIDE RECORDS SUMMARY | 2022-01-29 18:43 | XMS_ITS | Encounter Summary ---
:1995 Author Organization [place] Address [address] [facility] [place] [address] Care Team Providers Name Role Phone Catracho Suh MD Primary Care Provider Reason for Visit Reason Comments Viral Syndrome Patient fainted in school to day. Patient has been sick the last few days: weak, sore throat, and also a migraine. Encounter Details Date Type Department Care Team Description 06/02/2008 Office Visit [facility] Alejandra Garcia MD Faint (Primary Dx) [place] [address] [address] [place], [place] [address] [address] [place], [place] [phone] [phone] (Work) [phone] Social History Tobacco Use Types Packs/Day Years Used Date Smoking Tobacco: Never Alcohol Use Standard Drinks/Week Comments Not Asked 0 (1 standard drink = 0.6 oz pure alcoho l) Sex Assigned at Date Recorded Not on file documented as of this encounter Last Filed Vital Signs Vital Sign Reading Time Taken Comments Blood Pressure 92/70 06/02/2008 10:45 AM SENIOR SOFTWARE SYSTEMS ENGINEER Pulse 92 06/02/2008 10:45 AM SENIOR SOFTWARE SYSTEMS ENGINEER Temperature 36.7 ??C (98.1 ??F) 06/02/2008 10:45 AM SENIOR SOFTWARE SYSTEMS ENGINEER Respiratory Rate - - Oxygen Saturation - - Inhaled Oxygen Concentration - - Weight 57.2 kg (126 lb 3.2 oz) 06/02/2008 10:45 AM SENIOR SOFTWARE SYSTEMS ENGINEER Height 161.9 cm (5' 3.75) 06/02/2008 10:45 AM SENIOR SOFTWARE SYSTEMS ENGINEER Body Mass Index 21.83 06/02/2008 10:45 AM SENIOR SOFTWARE SYSTEMS ENGINEER Body Mass Index Percentile 71.08 % 06/02/2008 10:[address] Growth Chart: [facility] (Boys, 2-20 Years) documented in this encounter Progress Notes Bridget Garcia - 06/03/2008 9:47 AM CST HPI Comments: Pt fainted today in school, Story started about 3 to 4 days ago with headaches, runny nose, sore throat, cough, and fatigue. Today went to school when he felt lightheaded the whole day then when he was walking he felt week and fainted for seconds, no chest, no paliptaion, no seizure activity. Syncope The history is provided by the patient and parent. This is a new problem. The current episode started today. There has been headaches. There has been no chest pain, no abdominal pain and no shortness of breath. Review of Systems Constitutional: Positive for fever, chills and malaise/fatigue. Skin: Negative for rash and itching. HENT: Positive for headaches. Eyes: Negative for blurred vision. Cardiovascular: Positive for syncope. Negative for chest pain, palpitations, orthopnea and leg swelling. Respiratory: Positive for cough. Is not experiencing shortness of breath. Gastrointestinal: Negative for abdominal pain. Musculoskeletal: Positive for myalgias. Neurological: Negative for tremors, sensory change, speech change, focal weakness and seizures. Physical Exam Constitutional: He is oriented and developed, nourished, and not distressed. HENT: Head: Normocephalic and atraumatic. Right Ear: Tympanic membrane normal. Left Ear: Tympanic membrane normal. Nose: Rhinorrhea present. Erythema mild. Eyes: Conjunctivae are normal. Pupils are equal, round, and reactive to light. Neck: Normal range of motion. Neck supple. No thyromegaly present. Cardiovascular: Normal rate, regular rhythm, normal heart sounds and intact distal pulses. No murmur heard. Pulmonary/Chest: Effort normal and breath sounds normal. No respiratory distress. Abdominal: Bowel sounds are normal. He exhibits no distension. No tenderness. Musculoskeletal: He exhibits no edema. Neurological: He is alert and oriented. He has normal sensation, normal strength, normal reflexes and intact cranial nerves. Gait normal. ASSESSMENT: Syncope, mostly related to viral syndrom. Mom expressed concerns about drug use, pt is a smoker, pt denies any drugs, suggested urine drug screen, pt agreed. He couldn't go to the bathroom today, mom to bring him back after his head CT is done. PLAN: Check labs. Rest , fluids, watchful monitoring, especially for the next [address] head : negative. OR SOFTWARE SYSTEMS ENGINEER documented in this encounter Nursing Notes 06/02/2008 10:45 AM CST >> MAYRA CUELLAR Wed Jun 02, 2008 10:57 AM Patient presents with: Viral Syndrome - Patient fainted in school today. Patient has been sick the last few days: weak, sore throat, and also a migraine. Initial BP 92/70 Pulse 92 Temp (Src) 98.1 ??F (36.7 ??C) (Oral) Ht 5' 3.75 (1.619 m) Wt 126lb 3.2 oz (57.244 kg) Body mass index is 21.83 kg/(m^2). BP completed using cuff size regular right arm. Mayra Cuellar CMA documented in this encounter Plan of Treatment Not on filedocumented as of this encounter Procedures Procedure Name Priority Date/Time Associated Diagnosis Comme nts HC CT HEAD WO Routine 06/02/2008 12:53 PM Faint Results for this CONTRAST SENIOR SOFTWARE SYSTEMS ENGINEER procedure are i n the results section. CL AFF CBC WITH Routine 06/02/2008 11:41 AM Faint Resul ts for this PLATELETS, DIFF SENIOR SOFTWARE SYSTEMS ENGINEER procedure ar e in the results section. HCL BASIC METABOLIC Routine 06/02/2008 11:41 AM Faint R esults for this PANEL SENIOR SOFTWARE SYSTEMS ENGINEER procedure are i n the results section. documented in this encounter Results CT SCAN HEAD/BRAIN (06/02/2008 12:53 PM SENIOR SOFTWARE SYSTEMS ENGINEER) Anatomical Region Laterality Modality Other Specimen (Source) Anatomical Collection Method Collection Time Re ceived Time Location / / Volume Laterality 06/02/2008 12:53 PM SENIOR SOFTWARE SYSTEMS ENGINEER Impressions 06/02/2008 1:11 [address]ENIOR SOFTWARE SYSTEMS ENGINEER CT HEAD W/O CONTRAST* ?? Jun 02, 2008 12 :53:00 PM HISTORY: ??Syncope, hit his head when he fainted. ??Read and call to Dr. Garcia at [phone]. ??pt going back to clinic TECHNIQUE: ??5 mm thick axial images of the head. COMPARISON: None. FINDINGS: There is no evidence of intrac ranial hemorrhage, mass, acute infarct or anomaly. Visualized sinuses a re clear. IMPRESSION: Negative CT scan of the head . Bridget Garcia MD SPECIAL IMAGING STUDIES A.M.A. BASIC METABOLIC PANEL (06/02/2008 11:41 AM SENIOR SOFTWARE SYSTEMS ENGINEER) athologist Signature Sodium 143 133 - 143 [place] mmol/L [facility] Potassium 4.3 3.4 - 5.3 [place] mmol/L [facility] Chloride 102 98 - 110 [place] mmol/L [facility] Carbon Dioxide 25 20 - 32 [place] mmol/L [facility] Anion Gap 16 6 - 17 [place] mmol/L [facility] Glucose 90 60 - 99 [place] mg/dL [facility] Urea Nitrogen 16 5 - 24 [place] mg/dL [facility] Creatinine 0.89 0.50 - [place] 1.00 mg/dL [facility] Comment: New IDMS-traceable calibration beginning 08/14/07 GFR Estimate GFR not calculated, mL/min/1.7m2 [facility] patient <16 years old. [facility] GFR Estimate If GFR not calculated, mL/min/1.7m2 [facility] Black patient <16 years old. CLINIC LAB Calcium 9.3 8.7 - 10.8 mg/dL [place] [facility] Specimen Anatomical Collection Method Collection Time Receive d Time (Source) Location / / Volume Laterality 06/02/2008 11:41 06/02/2008 AM SENIOR SOFTWARE SYSTEMS ENGINEER 11:42 AM SENIOR SOFTWARE SYSTEMS ENGINEER Bridget Garcia MD LABORATORY Performing Organization Address City/State/ZIP Code Phon e Number [facility] [address] [place] [address] [facility] (ABNORMAL) CBC WITH PLATELETS, DIFF (06/02/2008 11:41 AM SENIOR SOFTWARE SYSTEMS ENGINEER) athologist Signature WBC 3.9 (L) 4.0 - 11.0 [place] 10e9/L [facility] RBC Count 5.48 (H) 3.7 - 5.3 [place] 10e12/L [facility] Hemoglobin 16.7 (H) 11.7 - [facility] 15.7 g/dL [facility] Hematocrit 45.6 35.0 - [facility] 47.0 % [facility] MCV 83 77 - 100 [place] [facility] MCH 30.5 26.5 - [facility] 33.0 pg [facility] MCHC 36.6 (H) 31.5 - [facility] 36.5 g/dL [facility] Comment: Results confirmed by repeat jody t RDW 12.1 10.0 - 15.0 % [facility] Platelet Count 148 (L) 150 - 450 10e9/L [facility] Comment: Results confirmed by repeat jody t Diff Method Automated Method [facility] % Neutrophils 60 32 - 64 % [facility] % Lymphocytes 22 (L) 26 - 50 % [facility] % Monocytes 18 (H) 0 - 12 % [facility] % Eosinophils 0 0 - 6 % [facility] % Basophils 0 0 - 2 % [facility] Absolute Neutrophil 2.3 1.3 - 7.0 10e9/L [facility] Absolute Lymphocytes 0.9 (L) 1.0 - 5.8 10e9/L [facility] Absolute Monocytes 0.7 0.0 - 1.3 10e9/L [facility] Absolute Eosinophils 0.0 0.0 - 0.7 10e9/L [facility] Absolute Basophils 0.0 0.0 - 0.2 10e9/L [facility] Specimen Anatomical Collection Method Collection Time Receive d Time (Source) Location / / Volume Laterality 06/02/2008 11:41 06/02/2008 AM SENIOR SOFTWARE SYSTEMS ENGINEER 11:42 AM SENIOR SOFTWARE SYSTEMS ENGINEER Bridget Garcia MD LABORATORY Performing Organization Address City/State/ZIP Code Phon e Number [facility] [place] [address] [facility] documented in this encounter Visit Diagnoses Diagnosis Faint - Primary Syncope and collapse documented in this encounter Care Teams Privacy Analyst Relationship Specialty Start Date End Date Catracho Suh MD PCP - General 12/23/02 05/08/12 [address] [place] [address] documented as of this encounter
--- OUTSIDE RECORDS SUMMARY | 2022-01-29 18:43 | XMS_ITS | Encounter Summary ---
:1995 Author Organization [place] Address [address] [facility] [address] Care Team Providers Name Role Phone Catracho Suh MD Primary Care Provider Encounter Details Date Type Department Care Team Description 08/10/2008 [facility] [place] Auth Form [address] [place] [id number] [place] [phone] [place] [address] Social History Tobacco Use Types Packs/Day Years Used Date Smoking Tobacco: Never Alcohol Use Standard Drinks/Week Comments Not Asked 0 (1 standard drink = 0.6 oz pure alcoho l) Sex Assigned at Date Recorded Not on file documented as of this encounter Plan of Treatment Not on filedocumented as of this encounter Visit Diagnoses Not on filedocumented in this encounter Care Teams Weaver Needle Loom Relationship Specialty Start Date End Date Catracho Suh MD PCP - General 12/23/02 05/08/[id number] [place] [address] documented as of this encounter
--- OUTSIDE RECORDS SUMMARY | 2022-01-29 18:43 | XMS_ITS | Encounter Summary ---
:1995 Author Organization [place] Address [address] [place] [address]. [place] [address] Care Team Providers Name Role Phone Catracho Suh MD Primary Care Provider Encounter Details Date Type Department Care Team Description 06/11/[address] [facility] Faint Laboratory [address] [place] [address] Social History Tobacco Use Types Packs/Day Years Used Date Smoking Tobacco: Never Alcohol Use Standard Drinks/Week Comments Not Asked 0 (1 standard drink = 0.6 oz pure alcoho l) Sex Assigned at Date Recorded Not on file documented as of this encounter Progress Notes Angeles Garcia - 06/11/2008 4:58 PM PHARMACIST ASSISTANT Addended by: ANGELES GARCIA on: 06/11/2008 4:58:45 PM Modules accepted: Level of Service MACIST ASSISTANT documented in this encounter Plan of Treatment Not on filedocumented as of this encounter Procedures Procedure Name Priority Date/Time Associated Diagnosis Comme nts DRUGS OF ABUSE Routine 06/11/2008 3:07 PM Faint Results for this (DAU8) PHARMACIST ASSISTANT procedure are i n the results section. CL AFF CBC WITH Routine 06/11/2008 3:04 PM Faint Result s for this PLATELETS PHARMACIST ASSISTANT procedure are i n the results section. documented in this encounter Results DRUGS OF ABUSE (DAU8) (06/11/2008 3:07 PM PHARMACIST ASSISTANT) Component Value Ref Test Analysis Performed At [facility] Range Method Time Signature Amphetamine Qual Negative NEG [facility] Urine Cutoff for a negative amphetamine is 500 ng/mL or less. [facility] Barbiturates Qual Negative NEG [facility] Ur Cutoff for a negative barbiturate is 200 ng/mL or less. [facility] Benzodiazepine Negative NEG [facility] Urine Cutoff for a negative benzodiazepine is 200 ng/mL or less. [facility] Cannabinoids Negative NEG [facility] Urine Cutoff for a negative cannabinoid is 50 ng/mL or less. [facility] Cocaine Qual Negative NEG [facility] Urine Cutoff for a negative cocaine is 300 ng/mL or less. [facility] Ethanol Qual Negative NEG [facility] Urine Cutoff for a negative urine ethanol is 50 mg/mL or less. [facility] Opiates Negative NEG [facility] Qualitative Urine Cutoff for a negative opiate is 300 ng/mL or less. [facility] PCP Qual Urine Negative NEG [facility] Cutoff for a negative PCP is 25 ng/mL or less. [facility] Specimen Anatomical Collection Method Collection Time Receive d Time (Source) Location / / Volume Laterality 06/11/2008 3:07 PM 9 3:09 PHARMACIST ASSISTANT PM PHARMACIST ASSISTANT Angeles Garcia MD LABORATORY Performing Organization Address City/State/ZIP Code Phon e Number [facility] [address] [place] [address] [facility] CBC WITH PLATELETS (06/11/2008 3:04 PM PHARMACIST ASSISTANT) P athologist Signature WBC 6.8 4.0 - 11.0 [facility] 10e9/L [facility] RBC Count 4.83 3.7 - 5.3 [facility] 10e12/L [facility] Hemoglobin 14.6 11.7 - [facility] 15.7 g/dL [facility] Hematocrit 40.3 35.0 - [facility] 47.0 % [facility] MCV 83 77 - 100 [facility] MCH 30.2 26.5 - [facility] 33.0 pg [facility] MCHC 36.2 31.5 - [facility] 36.5 g/dL [facility] RDW 11.6 10.0 - [facility] 15.0 % [facility] Platelet Count 235 150 - 450 [place] 10e9/L [facility] Specimen Anatomical Collection Method Collection Time Receive d Time (Source) Location / / Volume Laterality 06/11/2008 3:04 PM 9 3:06 PHARMACIST ASSISTANT PM PHARMACIST ASSISTANT Angeles Garcia MD LABORATORY Performing Organization Address City/State/ZIP Code Phon e Number [facility] [place] [address] [facility] documented in this encounter Visit Diagnoses Diagnosis Faint Syncope and collapse documented in this encounter Care Teams Security Guard Dispatcher Relationship Specialty Start Date End Date Catracho Suh MD PCP - General 12/23/02 05/08/12 [address] [place] [address] documented as of this encounter
--- OUTSIDE RECORDS SUMMARY | 2022-01-29 18:43 | XMS_ITS | Clinical Summary ---
:1995 Author Organization [place] Address [facility] [place] [address] Care Team Providers Name Role Phone No Ref-Primary, Physician Primary Care Provider [phone] Allergies Active Allergy Reactions Severity Noted Date Comments Codeine Sulfate 11/03/2012 Penicillins GI Disturbance 05/20/2017 Family member s have had reaction, but patient nev er had penicillin unknown Medications Medication Sig Dispensed Refills Start Date End Date Status PROZAC 20 MG OR CAPS 40 MG ONE DAILY 0 0 03/21/2009 Active ADDERALL XR# 20 MG OR VIVANCE 70 mg 0 0 03/21/2009 Active CP24 FLONASE INHA 50 INHALE 2 SPRAYS IN 1 11 03/21/2009 Active MCG/DOSE EACH NOSTRIL ONCE NAIndications: Chronic DAILY rhinitis, Pharyngitis Immunizations Name Administration Dates Next Due HepB 1993, 1993, 1993 Hib (PRP-T) 03/13/1994, 1993, 1993, 02/13 Historical DTP/aP 07/25/1998, 03/13/1994, 1993, 04/16, 1993 MMR 07/25/1998, 03/13/1994 OPV, trivalent, live 07/25/1998, 03/03/1994, 1993, Tdap (Adacel,Boostrix) 11/06/2005 Varicella 07/25/1998 Social History Tobacco Use Types Packs/Day Years [...] CDT Inhaled Oxygen Concentration - - Weight 69.4 kg (153 lb) 05/23/2017 11:50 PM MANAGED CARE ANALYST Height 166.4 cm (5' 5.5) 05/23/2017 11:50 PM MANAGED CARE ANALYST Body Mass Index 25.07 05/23/2017 11:50 PM MANAGED CARE ANALYST Plan of Treatment Health Maintenance Due Date Last Done Comments ADVANCE CARE PLANNING 1993 ANNUAL REVIEW OF HM ORDERS 1993 COVID-19 Vaccine (#1) 1993 Pneumococcal Vaccine: 1999 Pediatrics (0 to 5 Years) and At-Risk Patients (6 to 64 Years) (1 - PCV) YEARLY PREVENTIVE VISIT 11/06/2006 11/06/2005 HIV SCREENING 01/02/2008 HEPATITIS C SCREENING 2011 PHQ-2 (once per calendar 04/15/2021 year) INFLUENZA VACCINE (#1) 2021 DTAP/TDAP/TD IMMUNIZATION 09/03/2024 09/03/2014, 11/06/2005 , (5 - Td or Tdap) 07/25/1998, Additional history exists HEPATITIS B IMMUNIZATION Completed 1993, 1993, 1993 IPV IMMUNIZATION Completed 07/25/1998, 03/03/1994, 1993, Additional history exists MENINGITIS IMMUNIZATION Aged Out No longe r eligible based on patient 's age to complete this topic Medical Devices Implanted Type Area After School Program Teacher Device Shelf Model / Identifier Expiration Serial / Date Lot Corarabellacrew Comp Thread 4.5 [id number] Metallic Left: [employer] 06/12/2018 [id number] / Implanted: Qty: 4 on 05/23/2017 Hardware/An Shoulder / chor [id number] 3.75mm Partially Threaded Cannulated Screw Left: [employer] [id number] / Implanted: Qty: 1 on 05/23/2017 Shoulder / N/A Insurance Payer Benefit Plan / Subscriber ID Effective Dates Phone Addre ss Type Group [employer] [id number] 2020-Present [address] [address] [place] [address] [phone] [place] [address] (Home) RENA Mckeon [address] [facility] 1995 [phone] (Home) RENA Mckeon [phone] 1 Care Teams Brake Operator Sheet Metal Relationship Specialty Start Date End Date No Ref-Primary, Physician PCP - General 11/03/12
--- OUTSIDE RECORDS SUMMARY | 2022-01-29 18:43 | XMS_ITS | Encounter Summary ---
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 10/24/14 2200 10/24/14 2318 10/25/14 0417 BP: 121/67 126/67 108/57 133/69 Pulse: 85 57 60 62 Temp: 37 ??C (98.6 ??F) 37.5 ??C (99.5 ??F) 37.2 ??C (99 ??F) 36.2 ??C (97.2 ??F) Resp: 17 16 18 18 General: in no acute distress Resp: no increased WOB Neuro: - AO X 3 - EOMI, PERRL at 3mm and briskly reactive, CN II-XII intact - RUE: strength 5/5 in wrist flex/ext, hand md psychiatry, elbow flex/ext, shoulder abduction - LUE: strength 5/5 in wrist flex/ext, hand md psychiatry, elbow flex/ext, shoulder abduction - RLE: Strength 5/5 in hip flexion, knee flex/ext, ankle plantar/dorsiflexion, EHL - LLE: Strength 5/5 in hip flexion, knee flex/ext, ankle plantar/dorsiflexion, EHL - no pronator drift, finger to nose intact - sensation in touch to light touch Intake/Output Summary (Last 24 hours) at 10/26/14 0824 Last data filed at 10/26/14 0700 Gross per 24 hour Intake 1502.92 ml Output 0 ml Net 1502.92 ml Patient Active Problem List Diagnosis ??? Subarachnoid hemorrhage LABS/Imaging: I have reviewed the labs and imaging. Alanna Gregory MD, 10/26/2014 8:22 AM EM Resident- G2 Neurosurgery Service Magno Crowder MD - 10/26/2014 7:03 [place] [address] MEDREC#: [id number] PATIENT: CHICO HOANG : 1995 DATE DICTATED: 10/25/2014 SURGERY STAFF DAILY PROGRESS NOTE DATE OF SERVICE: 10/25/2014 I saw and evaluated the patient. I discussed management with resident and agree with documented findings and plan. This 19-year-old was apparently found outside his apartment 2 days ago by his friends and presented yesterday with a headache. I agree with the resident's history and physical as written yesterday and consultation. He is neurologically intact. He has the typical postconcussive syndrome symptoms. This was reviewed with the patient. He needs TBI followup and work with Physical Therapy and Occupational Therapy. His head CT did show some right posterior frontal and anterior bifrontal contusions. He will need to be observed closely. We are monitoring his sodium closely. He remains under close neurologic observation. We are watching him closely for delayed brain swelling. Magno Crowder MD Staff Physician Neurosurgery Service Received in [employer]ink[employer]per: 10/25/2014 22:50 M: 10/26/2014 07:03 mr GALVEZ/ Voice ID: [id number] Document ID: [id number] Kerri Malone, ZENA - 10/26/2014 5:19 AM CDT Progress Note D: Prabhjot is somnolent, oriented x4. VSS - at 0448 anne down to 38-40 with 2.2 second pause in heartbeat - notified by CARE, requested ECG strip, placed in chart for review. Neuros remain intact. Patientreported increasing FREEMAN pain at 0230. Notified Provider Dr. Aries Ribera, requested increase in PRN oxycodone to 5- 10 mg Q4H, orders received and medication administered. Patient is photophobic, and prefers room quiet. IV site lost at 0530, IV infusion stopped. New IV placed at 0645, new rate begun at 0655. A: Scheduled medications administered per JUN. PRN medications administered per JUN and patient request. Routine nursing cares and assessments. Ice pack provided for headache pain. R: Sleeping between cares. P: Continue to closely monitor and follow POC. Alma Candelaria RN - 10/25/2014 1:53 PM CDT Nursing Note D: Pt is A/O x 4. Having c/o head pain of a 6/10. Light sensitivity. Pt sleeping between cares. Up independently with no s/sx dizziness or impaired gait. Neurologically stable. LS clear. BS present. Ptvoiding without difficulty. A: Pt receiving oxycodone and tylenol for pain management R: Pt sleeping between cares P: Continue with POC Alma Candelaria, ZENA, 10/25/2014 1:55 PM July Stephens OTR/L - 10/25/2014 10:04 AM CDT OT Progress Note OT evaluation orders received. Chart review completed. Attempted cognitive screen this AM X3 howeverpt was complaining of significant headache and could not participate, though he tried. Patient's pain increasing substantially with sitting EOB. Will reschedule OT evaluation for later this afternoon or tomorrow as scheduling allows. Pt does not appear safe for d/c home independently at this time. July Stephens OTR/Sergio 10/25/2014 Pager: [phone] Teodora Dove RN - 10/25/2014 8:32 AM CDT Problem: Discharge Planning Goal: Discharge planning for a safe and timely discharge Safe and timely discharge with patient/family/guardian participation in planning. Outcome: In Progress Clinical Coordinator Screening: No Case Management Needs Identified After review of the patient's electronic health record and discussion with the treatment team, no triggers for case management have been identified at this time. The patient's plan of care and progress towards discharge will be followed by the Clinical Coordinator. Please contact the service Clinical Coordinator if new issues or barriers to discharge arise. Patient will likely dc to home following OT cog screen. Follow up in TBI clinic as ordered on dc. Recommend TBI guidelines; no work, no school, no driving, no exercise until cleared by TBI physicians; no alcohol for 6 months. Teodora Dove RN, 10/25/2014 8:32 AM Rachana Mcintyre CHW - 10/25/2014 7:33 AM CDT This patients chart has been reviewed for SMRT. This patient has private health insurance and it maynot be in the patients best interest to start a State Medical Review Team application this patient will only be assessed for SMRT at the patients or other clinical staffs request. Rachana Mcintyre [facility] [id number] Alanna Gregory MD - 10/25/2014 6:35 AM CDT NEUROSURGERY PROGRESS NOTE - G2 Chico Hoang : 1995 Sex: male Date of Service: 10/25/2014 06:35 ASSESSMENT: 19 y.o. male with traumatic right posterior frontal and anterior bifrontal contusions with blossoming cerebral edema. Patient doing well. PLAN: - Frequent neuro checks - Repeat HCT stable - SBP < 160 - Keep Na > 145, Na 139 yesterday so will start 2% 50 cc/hr - Continue salt tabs 2g TID - Up ad nikos - PT/OT cog screen Dispo: likely discharge to home tomorrow SUBJECTIVE: No acute events overnight. Minimal headache. PHYSICAL EXAM: Filed Vitals: 10/24/14 1442 10/24/14 2200 10/24/14 2318 10/25/14 0417 BP: 121/67 126/67 108/57 133/69 Pulse: 85 57 60 62 Temp: 37 ??C (98.6 ??F) 37.5 ??C (99.5 ??F) 37.2 ??C (99 ??F) 36.2 ??C (97.2 ??F) Resp: 17 16 18 18 General: in no acute distress Resp: no increased WOB Neuro: - AO X 3 - EOMI, PERRL at 3mm and briskly reactive, CN II-XII intact - RUE: strength 5/5 in wrist flex/ext, hand md psychiatry, elbow flex/ext, shoulder abduction - LUE: strength 5/5 in wrist flex/ext, hand md psychiatry, elbow flex/ext, shoulder abduction - RLE: Strength 5/5 in hip flexion, knee flex/ext, ankle plantar/dorsiflexion, EHL - LLE: Strength 5/5 in hip flexion, knee flex/ext, ankle plantar/dorsiflexion, EHL - no pronator drift - sensation in touch to light touch Intake/Output Summary (Last 24 hours) at 10/25/14 0635 Last data filed at 10/24/14 2200 Gross per 24 hour Intake 700 ml Output 0 ml Net 700 ml Patient Active Problem List Diagnosis ??? Subarachnoid hemorrhage LABS/Imaging: I have reviewed the labs and imaging. Alanna Gregory MD, 10/25/2014 6:35 AM EM Resident- G2 Neurosurgery Service Lisa Regalado RN - 10/25/2014 4:02 AM CDT Problem: Pain, Acute (Adult, Obstetrics) Goal: Identify Signs and Symptoms and Related Risk Factors Signs and symptoms and related risk factors are identified upon initiation of Human Response Clinical Practice Guideline (CPG) D/ Pt appears to be sleeping well between checks. Pt continues to report headache. Taking tylenol for pain along with Roxicodone, 5 mg po. Neuro checks WNL. A/ Medicated with tylenol and Roxicodone for pain. P/ continue medical POC. Continue to assess. Medicate for pain as needed. Encourage rest and sleep. July Stephens OTR/L - 10/24/2014 4:36 PM CDT OT evaluation orders received. Pt currently on bedrest. Will see for evaluation when activity ordersare upgraded. YAW Ellis 10/24/2014 Pager: [phone] Eyad Singletary RN - 10/24/2014 2:00 PM CDT Progress Note D/A: Pt arrives from ED with c/o severe headache after fall two days ago while intoxicated. A&Ox4, PERRLA. VSS. PRN tylenol given (see MAR). Cardiac monitoring initiated. Abrasions BLE. K+ protocolinitiated. R: Pt resting quietly between cares. P: Continue to monitor and assess closely. Update POC as needed. BP 114/64 mmHg Pulse 69 Temp(Src) 36.9 ??C (98.4 ??F) (Tympanic) Resp 16 Ht 1.651 m (5' 5) Wt 61.236 kg (135 lb) BMI 22.47 kg/m2 SpO2 95% Eyad Singletary, 10/24/2014 2:01 PM documented in this encounter H&P Notes Peter Elizalde MD - 10/24/2014 12:53 PM CDT NEUROSURGERY ADMISSION HISTORY AND PHYSICAL Chcio Hoang : 1995 Sex: male Date of Service: 10/24/2014 12:54 ASSESSMENT: Chico Hoang is a 19 y.o. with traumatic right posterior frontal and anterior bifrontal contusions with blossoming cerebral edema. PLAN: - Frequent neuro checks - Repeat HCT in AM, unless declines - SBP <160 - keep Na >145 - start salt tabs 2g TID - 2% hypertonic saline - regular diet - up ad nikos - PT/OT - cog screen Code Status: full Dispo: Likely tomorrow CHIEF COMPLAINT: headache HISTORY OF PRESENT ILLNESS: Patient is a 19yo male with no medical history who was found by friends unconscious by his apartmentafter a night of drinking on 10/22. They were able to get him up and get him to his apartment, where he did regain consciousness. On 10/23, he complained of continuing headache and 2 episodes of vomiting. HE awoke on 10/24 early am with excruciating headache and came to ED for eval. In ED, HCT showed contusions blossoming in right post frontal lobe and bifrontal anterior lobes. Denies any nausea at thispoint, vision changes, dizzienss, imbalance, bowel.bladder changes, weakness or sensation changes. Past Medical History: Past Medical History Diagnosis Date ??? Adult ADHD Past Surgical History: None Medications Prior to Admission: none Allergies: Allergies Allergen Reactions ??? 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 Review of Systems: 10 point ROS reviewed and negative except as noted above OBJECTIVE: Physical Exam: BP 110/79 mmHg Pulse 90 Temp(Src) 36.7 ??C (98.1 ??F) Resp 18 SpO2 97% General: Alert, non-toxic appearing HEENT: Head with some abrasion on left occiput. Left temporal birthmark Neurologic: Awake, alert, and oriented. PERRL, EOMI. Vision grossly intact. Face symmetric. Sensation intact, tongue midline, shoulder shrug 5/5 b/l. Strength normal 5/5 in all extremities proximally and distally. Sensation intact to light touch throughout. No drift. Gait not assessed. Labs: Results for orders placed or performed during the hospital encounter of 10/24/14 (from the past 24 hour(s)) CBC WITH PLATELET Result Value Ref Range WBC 11.98 (H) 4.00 - 10.00 k/cmm RBC 4.91 4.60 - 6.00 m/cmm Hgb 15.0 13.1 - 17.5 g/dL Hematocrit 43.6 40.0 - 51.0 % MCV 88.8 80.0 - 100.0 fL MCH 30.5 25.0 - 32.0 pg MCHC 34.4 31.0 - 36.0 g/dL RDW 12.4 11.5 - 14.5 % Plt 217 150 - 400 k/cmm MPV 9.2 6.5 - 12.5 fL NRBC 0.0 0.0 - 0.0 % CBC Plt Performed at: [facility] CHEMISTRY LABS(NA,K,CL,CO2,GLU,CREAT,CA-IONIZED,ANION GAP) Result Value Ref Range Sodium 139 135 - 148 mEq/L Potassium 3.7 3.5 - 5.3 mEq/L Chloride 103 100 - 108 mEq/L CO2 26 22 - 30 mEq/L AnGap 10 7 - 14 mEq/L Glucose 97 70 - 100 mg/dL ICA, Actual 4.82 4.40 - 5.20 mg/dL ICA, pH Corrected 4.79 4.40 - 5.20 mg/dL Creatinine 0.78 0.70 - 1.25 mg/dL GFR, 162 ml/min/1.73m2 GFR, Non- 134 ml/min/1.73m2 PROTHROMBIN (PT) & INR Result Value Ref Range INR 1.1 0.8 - 1.2 PT 11.3 9.0 - 12.5 sec PTT (APTT) Result Value Ref Range APTT 30.8 25.0 - 37.0 sec Imaging: HCT: With R posterior frontal and anterior bifrontal contusions with blossoming cerebral edema. Peter Elizalde Neurosurgery, PGY3 documented in this encounter Consult Notes Lenny Pool PharmD - 10/26/2014 12:02 PM CDTAssociated Order(s): DISCHARGE MED REC FINAL REVIEW BY PHARMACY Images from the original note were not included. PHARMACY DISCHARGE NOTE Chico Hoang : 1995 Sex: male Date of Service: 10/26/2014 12:02 Pharmacy service was consulted for review of patient's discharge medications. Planned discharge medications are: Chico Hoang Discharge Medications BUNNY:[id number] Printed on:10/26/14 1202 Medication acetaminophen (TYLENOL) 325 mg oral tablet Take 650 mg by mouth every six hours as needed. Amphetamine-Dextroamphetamine (ADDERALL ORAL) Take 10 mg by mouth daily. divalproex (DEPAKOTE ER) 500 mg oral 24 HR tablet Take 1 tablet (500 mg) by mouth at bedtime. levETIRAcetam (KEPPRA) 1000 mg oral tablet Take 1 tablet (1,000 mg) by mouth twice daily for 6 days. oxyCODONE (ROXICODONE) 5 mg oral tablet Take 1-2 tablets (5-10 mg) by mouth every four hours as needed. sennosides (SENOKOT) 8.6 mg oral tablet Take 2 tablets (17.2 mg) by mouth at bedtime. Assessment: I have reviewed the patient's medications for discharge and have discussed the necessary changes with the provider. Changes have been made and medication list updated and complete. Please call with any questions. Lenny Pool PharmD, 10/26/2014 12:02 PM Pager: [phone] Pushpa Brown OTR/Sergio - 10/26/2014 8:45 AM CDT OCCUPATIONAL THERAPY FUNCTIONAL COGNITIVE ASSESSMENT Chico Hoang : 1995 AGE: 19 y.o. TODAY'S DATE: 10/26/2014 DIAGNOSIS: Patient Active Problem List Diagnosis ??? Subarachnoid hemorrhage Treatment Diagnosis: TBI Restrictions/Precautions: Full code; H2H precautions Activity: up with assistance Hospital Course: Per Neurosurgery progress note (10/25/14): 19 y.o. male with traumatic right posterior frontal and anterior bifrontal contusions with blossoming cerebral edema. Patient doing well. PLAN: - Frequent neuro checks - Repeat HCT stable - SBP < 160 - Keep Na > 145, Na 139 yesterday so will start 2% 50 cc/hr - Continue salt tabs 2g TID - Up ad nikos - PT/OT cog screen Dispo: likely discharge to home tomorrow Per MD H&P (10/25/14): Patient is a 19yo male with no medical history who was found by friends unconscious by his apartmentafter a night of drinking on 10/22. They were able to get him up and get him to his apartment, where he did regain consciousness. On 10/23, he complained of continuing headache and 2 episodes of vomiting. HE awoke on 10/24 early am with excruciating headache and came to ED for eval. In ED, HCT showed contusions blossoming in right post frontal lobe and bifrontal anterior lobes. Denies any nausea at thispoint, vision changes, dizzienss, imbalance, bowel.bladder changes, weakness or sensation changes. Past Medical History: Past Medical History Diagnosis Date ??? 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 Patient reported he only drives to work and back; occupational license. Pain Before Session: 0/10 Action: No action needed Appearance: Pt supine in bed upon arrival, agreeable to OT evaluation. In no apparent distress, appeared tired Portable Telemetry PIV Mental Status and Orientation: Alert and cooperative Oriented x 4 Affect appeared flat and mood appeared congruent Follows 1-2 step directions accurately. Asking appropriate questions, completes routine problem solving without difficulties. Visual/Perceptual: Self Report: Yes Glasses: No Acuity Changes: No c/o blurriness or diplopia this date. Denied photophobia with light on in room. Tracking: WFL Visual Scanning/Cancellation Task: + 18 Pt demonstrated organized, horizontal scanning pattern from L > R. Pt's attention and concentration noted to be WFL. Attention: Short Blessed Test Screens STM, Attention Span, and Concentration The patient scored: 0 Norms are as follows: 0 - 8 normal = minimal impairment 9 -19 = moderate impairment 20 - 28 = severe impairment Pt was able to recall 5 / 5 items after apx 3 minutes. Pt completed reverse numerical sequencing andreverse sequencing of the months of the year without difficulty. Pt's attention and concentration was noted to be WNL this date. Memory: Contextual Memory Test (visual) Version used: ADL Immediate recall: . Delayed recall: after 15 minutes by verbalizing Pt. states using the following strategies: categorizing Recall scores converted to standard scores - Immediate recall: 164 Delayed recall: 172 Math/Money: C.A.M. Simple Money Assessment (Addition/Calculation of money <$1.00) Calculation: +3 / 3 trials accurate Pt demonstrated processing skills WFL during task; completed mental manipulation of coins accuratelyand quickly. Safety Knows 911: Yes Hand Dominance: Right Motor: BUE AROM: WFL BUE Strength: WFL Senior Physical Therapist Strength: WFL and grossly equal bilaterally Coordination: NT formally this date, however no overt functional BUE coordination deficits noted during ADLs. Sensation: Light touch intact. No c/o paresthesia in BUEs this date. ADLs: Eating: Complete [place] (7) Grooming: Complete [place] (7) Lower body dressing: Complete [place] (7) Toileting: Complete [place] (7) Functional Mobility: Supine (HOB raised) > EOB: independent Sit <> stand from EOB: independent Sit <> stand from toilet: independent EOB <> BR with: independent Pt's functional mobility appeared steady and no LOB were noted this date. Patient returned supine at end of evaluation to sleep. All needs were within reach. RN present to administer AM medications. Interdisciplinary communication - RN: okay to see patient, d/c recs Additional Treatment: The information below was taught to the patient and/or caregiver(s) and added to the after visit summary: GOAL: Pt will verbalize understanding of energy conservation techniques to utilize after discharge with both physical and cognitive tasks. GOAL MET 10/26/14 Pt educated re: energy conservation principles such as scheduling rest breaks for both cognitive andphysical tasks throughout the day, saving needed energy, not over scheduling your day, being self-aware re: amount of energy you have, recording/monitoring your own energy reserves and what specific activites are fatiguing, reducing stress, asking for assistance. Pt instructed that cognitive rest breaks need to be in a quiet low stimulation environment. Pt educated on sitting vs standing at the sink to engage in g/h tasks if patient too fatigued or in too much pain to stand to assist with energy conservation. Pt verbalized understanding. Educated on energy conservation strategies for home environment: ?? utilizing and planning rest breaks throughout day (ie 10 minutes every hour) ?? planning out day/week according to exertion level, spacing out high exertion activities ?? sitting vs standing for ADLs to conserve energy (ie chair at sink for grooming, EOB for dressing,shower chair for bathing, etc) ?? completing high exertion ADLs (ie bathing routine) in morning vs evening when increased fatigue ?? placement of frequently used ADL items at waist/counter height to avoid excessive bending and reaching ?? delegating tasks and receiving assistance as needed from family & friends Pt verbalized understanding of education GOAL: Pt will verbalize understanding of +LOC/TBI recommendations and follow-up. GOAL MET 10/26/14 Pt educated at length re: post-TBI/+LOC protocol and recommendations, including follow-up in TBI clinic, and no work, school, and/or driving until cleared by TBI MD. Pt also issued written handout of post-TBI D/C recommendations and precautions, including common signs/symptoms of mild TBI. Patient verbalized understanding of both written and verbal education re: TBI and TBI follow-up. Pain After Session Session: 0/10 Action: No action needed Assessment: Pt presents to OT with traumatic right posterior frontal and anterior bifrontal contusions with blossoming cerebral edema. Patient currently demonstrates complete independence with ADLs and ADL mobility. Patient tolerating activity and functional cognitive tasks well without c/o FREEMAN pain, photophobia and/or dizziness. Pt's functional cognition appears to be at baseline as pt scored WFL - WNL in the following areas: immediate recall and delayed recall; STM, attention and concentration; processing and problem-solving skills, as well as safety awareness. Pt educated at length re: TBI and TBI follow-up,as well as energy conservation techniques to utilize after discharge. No further skilled OT interventions are indicated at this time. Will complete OT order. Barriers to Learning: N/A Recommendations: Home once medically stable for discharge. Recommend TBI clinic follow-up; no returnto work or driving until cleared by TBI MD. Plan: D/C skilled OT services as: no further interventions indicated and met goals during session Participated in goal setting and treatment planning: Patient Agrees with goals and treatment plan: Patient - Yes Evaluation time: x 25 minutes Treatment time: x 10 minutes TODAY'S DATE: 10/26/2014 Pushpa Brown OTR/L, 10/26/2014 8:22 AM Pager: [phone] Occupational Therapy Department Mickie Lopez, PT - 10/25/2014 1:36 PM CDT PHYSICAL THERAPY INPATIENT ACUTE/ICU EVALUATION Chico Hoang was seen 10/25/2014 for a Physical Therapy Evaluation. DIAGNOSIS Patient Active Problem List Diagnosis ??? Subarachnoid hemorrhage PT Treatment Diagnosis: decreased activity tolerance d/t headache pain PRECAUTIONS H2H SBP <160 ACTIVITY Up with assist Physical Therapy Orders: Orders Placed This Encounter Procedures ??? PT Evaluation and Treatment Standing Status: Standing Number of Occurrences: 1 Standing Expiration Date: Scheduling Instructions: When choosing a priority, choose [facility] only when the patient is being discharged today. Routine willbe acted upon within 24 hours. You may indicate a preferred treatment frequency in the comment section. HISTORY Pertinent History: Per H&P: Patient is a 19yo male with no medical history who was found by friends unconscious by his apartment after a night of drinking on 10/22. They were able to get him up andget him to his apartment, where he did regain consciousness. On 10/23, he complained of continuing headache and 2 episodes of vomiting. HE awoke on 10/24 early am with excruciating headache and came to ED for eval. In ED, HCT showed contusions blossoming in right post frontal lobe and bifrontal anteriorlobes. Denies any nausea at this point, vision changes, dizzienss, imbalance, bowel.bladder changes,weakness or sensation changes. Medical History Past Medical History Diagnosis Date ??? Adult ADHD SOCIAL HISTORY Prior level of function: Indep with mobility/ambulation without assistive device. Indep ADLs/IADLs Assist available at home : Yes Stairs required at home: Inside - how many? 1 flight Has 1 hand rail (s) Previous assistive device used: None. SUBJECTIVE Patient's Stated Goals: To go home, decrease headache pain Pain: Headache pain rated 10/10. Denies any other pain. Mental Status: Oriented X 4, Alert and Cooperative Follows Direction: Yes, 2 step OBJECTIVE General Appearance: In no apparent distress Braces/Splints: None Lines: Peripheral IV Portable telemetry Restraints: None Vital Signs: Pre-treatment With activity Post -Treatment Heart rate 58 Resp rate BP 116/67 O2 Sat Sensation: UE: Light touch: Within Normal Limits: Yes Sharp /Dull: Within Normal Limits: Not tested Proprioception: Within Normal Limits: Yes LE: Light touch: Within Normal Limits: Yes Sharp /Dull: Within Normal Limits: Not tested Proprioception: Within Normal Limits: Yes Motor ROM/Strength: (Deficits only) A = Active P = Passive AA = Assisted Upper Ext Right ROM Right MMT Left ROM Left MMT WFL X X Shoulder Flexion Shoulder ABDuction Shoulder EXT Rotation Shoulder INT Rotation Elbow Flexion Elbow Extension Wrist Flexion Wrist [facility] [employer] Therap[employer] Lower Ext Right ROM Right MMT Left ROM Left MMT WFL X X X X Hip Flexion with Knee Extension Hip Flexion with Knee Flexion Hip extension Hip ABDuction Knee Flexion Knee Extension Dorsiflexion Inversion Eversion Plantar Flexion Muscle Tone: WNL Coordination: BLE GMC intact Transfers & Bed Mobility: Roll Left: Complete [place] (7) Roll Right: Complete [place] (7) Supine to Sit: Complete [place] (7) Sit to Supine: Complete [place] (7) Sit to Stand: Complete [place] (7) Stand to Sit: Complete [place] (7) Gait Evaluation: Distance: 5 m- only short distance tested d/t headache pain level at this time Assistive Device: No assistive devices Assistance (Level): Complete [place]- Patient walks w/o assistive devices. Patient performs theactivity safely. Gait Deviations: None Stairs: Not tested this date d/t pain level Balance: Sitting: Unsupported: WNL Standing Unsupported: WNL Interdisciplinary Communication: RN: Notified RN pt requesting pain medication. Treatment rendered: Evaluation, Gait training, Transfer training and Bed mobility training Total treatment time: 15 minutes ASSESSMENT Pt demonstrates independent functional transfers and ambulation short distance around room today without balance or strength deficits, and without need for assistive device. Pt safe for discharge home with family when medically stable. If remains in hospital will continue PT x 1 treatment to test gaitfurther distance and stair mobility. See Care Plan for goals. PLAN PT daily x 1 more treatment to complete gait and stair training. Anticipated Discharge: Home __ The patient does and the family is unavailable to understand the evaluation, goals and treatment plan. The patient does and the family is unavailable to agree with the evaluation, goals and treatment plan. . __ Mickie Lopez, PT License #[id number] Pager [phone] documented in this encounter ED Notes Adarsh Fregoso MD - 10/24/2014 10:12 PM CDT ED Faculty Attestation and Note [place] Hair Viktor : 1995 Sex: male Patient Arrival Date and Time: 10/24/2014 8:43 AM FACULTY ATTESTATION I Adarsh Fregoso MD, took a HPI and PE independently of the Physician Ticket Clerk. Management decisions as documented in this chart were independently approved by me. Please see my note for further detail.. CRITICAL CARE No . RN and ANCILLARY NOTES I have reviewed nursing and ancillary notes, and agree with protocol as initiated. PROCEDURES Not applicable MEDICAL DECISION MAKING The medical record discussed and medical record reviewed and interpreted plus images: young male intoxicated and reported loss of consciousness several days ago. KENED WITH HEADACHE> Vomited 2 days ago and because of persistent headache, and went to an outside hospital where traumatic SAH was foundon CAT scan. Patient transferred here for monitoring by neurosurgery. Patient alert and apopriate inno distress does state he has a mild to moderate headache. No other issues. Tammi Rivera PA-C - 10/24/2014 10:33 AM CDT ED Provider Note [place] Hoang : 1995 Sex: male Date of Service: 10/24/2014 10:33 Patient Arrival Date and Time: 10/24/2014 8:43 AM CHIEF COMPLAINT Chief Complaint Patient presents with ??? Headache HPI HPI Comments: 19 yo male - transferred from [facility] for subarachnoid head bleed. Pt fell,2 days ago, while intoxicated. States does not remember the event well but woke up the next day witha severe persiistant Freeman. States was taking Ibuprofen with no improvement, then yesterday Freeman cont andvomited. Today, went into Ed and had head CT showing R side SA and pt was transferred to [facility] for eval. Pt received Tylenol prior to transfer and states that helped freeman a little. In ED, pt cont to c/o 8/ generalized Freeman with mild nausea. No focal weakness. Pt offered stronger pain medication for freeman- declined , states is allergic to codeine , states I went blind and deaf for 15 minutes when I got years ago. Pt really doesn't know if the med he received was codeine, Oxycodone, morphine.... And states doesn't want anything stronger than tylenol Patient is a 19 y.o. male presenting with headaches. Headache Pertinent negatives include no fever and no shortness of breath. PAST MEDICAL HISTORY Past Medical History Diagnosis Date ??? Adult ADHD SOCIAL HISTORY Social History Occupational History ??? Not on file. Social History Main Topics ??? Smoking status: Not on file ??? Smokeless tobacco: Not on file ??? Alcohol Use: Yes ??? Drug Use: Not on file ??? Sexual Activity: Not on file FAMILY HISTORY No family history on file. CURRENT MEDICATIONS Patient's Medications No medications on file ALLERGIES Allergies Allergen Reactions ??? Codeine Unknown REVIEW OF SYSTEMS Review of Systems Constitutional: Negative for fever and chills. HENT: Negative for hearing loss and tinnitus. Eyes: Positive for photophobia. Negative for pain and visual disturbance. Respiratory: Negative for shortness of breath. Cardiovascular: Negative for chest pain. Gastrointestinal: Negative for abdominal pain. Musculoskeletal: Negative for back pain and neck pain. Neurological: Positive for headaches. Negative for dizziness, tremors, seizures, weakness and light-headedness. Hematological: Does not bruise/bleed easily. Psychiatric/Behavioral: Negative. PHYSICAL EXAM Vitals: BP 125/84 mmHg Pulse 90 Temp(Src) 36.7 ??C (98.1 ??F) Resp 18 SpO2 99% Physical Exam Constitutional: He is oriented to person, place, and time. He appears well- developed and well-nourished. No distress. Pt pleasant, NAD, convesant HENT: Head: Normocephalic. Eyes: EOM are normal. Pupils are equal, round, and reactive to light. Neck: Normal range of motion. Neck supple. No midline tenderness Cardiovascular: Normal rate and regular rhythm. Pulmonary/Chest: Breath sounds normal. Abdominal: Soft. There is no tenderness. Musculoskeletal: Normal range of motion. Neurological: He is alert and oriented to person, place, and time. No cranial nerve deficit. He exhibits normal muscle tone. Coordination normal. Skin: Skin is warm and dry. MEDICATIONS ORDERED (with documentation status as of note signing time, please correlate with the MAR) Medications Before Time of ED Departure - No data to display LABS Labs Resulted Before Time of ED Departure - No data to display DIFFERENTIAL DIAGNOSIS AND PLAN Closed head injury Pt was transferred from [place] for jen of subarachnoid head bleed. Pt stable in ED, VSS, afebrile. Neurosurgery consulted on pts arrival and saw pt in ED. Recommend check basic labs and admit to Neurosurgery. FINAL CLINICAL IMPRESSION Subarachnoid head bleed Tammi Rivera PA, 10/24/2014 10:33 AM Amber Ross RN - 10/24/2014 10:30 AM CDT Pt has been asleep most of the time he's been in ED, answers questions appropriately when spoken to,mom called and is in route to this facility, pt awaiting bed assignment. Amber Ross RN - 10/24/2014 8:39 AM CDT Pt fell Saturday and hit head with witnessed LOC, went to [place] ED this am transferred here for subarachnoid hemorrhage, c/o constant FREEMAN and photophobia. No vomiting or visual disturbances. documented in this encounter Miscellaneous Notes Discharge non-MD/non-ROSE MARY Summaries - Mickie Lopez, PT - 10/26/2014 10:43 AM CDT Physical Therapy Inpatient Discharge Summary [id number] [place] Hoang Diagnosis Patient Active Problem List Diagnosis ??? Subarachnoid hemorrhage Problem: Decreased Ambulatory Skills Goal: Improve gait Ambulate 100 meters using No assistive devices with (7) Complete [place] by 10/26/14 to allow progression of functional mobility towards baseline . Outcome: Met Date Met: 10/26/14 . Goal: Improve gait on stairs Ascend/descend 12 stairs using No assistive devices with (6) Modified [place] by 10/26/14 to allow progression of functional mobility towards baseline . Outcome: Met Date Met: 10/26/14 S: Agreeable to treatment, wants to go home. Denies pain today. Pain Pain Rating With Activity (Numeric): 0 Participation Significantly Limited?: No O: Mental Status: Oriented x 3;Alert;Cooperative Transfer & Bed Mobility Roll Left - FIM: Independent Roll Right - FIM: Independent Supine to/from Sit - FIM: Independent Sit to/from Stand - FIM: Independent Sit to/from Stand - Method: From standard seat height;w/o Assistive device Gait Distance (meters): 100 m Device: None Assistance: Independent Gait Quality (General): WNL Stairs Stair Rails: None Stairs : Independent Stairs Method: Ascend reciprocal pattern;Descend reciprocal pattern Assistive Devices Used: None Interventions Performed: Gait training;Transfer training A: Pt tolerated treatment very well without c/o dizziness and no unsteadiness or impairment seen in standing balance or gait. Pt indep with all functional transfers and ambulation without need of assistive device. No further PT indicated at this time, pt safe to discharge home when medically stable. PT Discharge Recommendation: Safe for discharge to home when medically ready;No further PT indicated PT Equipment Status: no equipment needed P: Discharge inpatient PT. Mickie Lopez, PT License #[id number] Pager [phone] documented in this encounter Plan of Treatment Not on filedocumented as of this encounter Procedures Procedure Name Priority Date/Time Associated Comments Diagnosis SODIUM Timed 10/26/2014 1:31 PM Results f or this CDT procedure are i n the results section. POTASSIUM Timed 10/26/2014 1:31 PM Results f or this CDT procedure are i n the results section. SODIUM Timed 10/26/2014 9:13 AM Results f or this CDT procedure are i n the results section. POTASSIUM Timed 10/26/2014 9:13 AM Results f or this CDT procedure are i n the results section. SODIUM Routine 10/25/2014 8:54 PM Results f or this CDT procedure are i n the results section. MRSA SURVEILLANCE Routine 10/25/2014 8:28 PM Resu lts for this SCREEN CDT procedure are i n the results section. SODIUM Timed 10/25/2014 4:10 PM Results f or this CDT procedure are i n the results section. POTASSIUM Timed 10/25/2014 4:10 PM Results f or this CDT procedure are i n the results section. PANEL BASIC METABOLIC Routine 10/25/2014 9:16 AM Results for this (BMP) CDT procedure are i n the results section. CT HEAD NO IV Timed 10/25/2014 5:16 AM Results for this CONTRAST CDT procedure are i n the results section. POTASSIUM Routine 10/24/2014 3:08 PM Results f or this CDT procedure are i n the results section. ED CHEMISTRY STAT 10/24/2014 12:13 Results for this LABS(NA,K,CL,CO2,GLU, PM CDT proced ure are in CREAT,CA-IONIZED,ANIO the re sults N GAP) section. PROTHROMBIN (PT) & STAT 10/24/2014 12:13 Resul ts for this INR PM CDT procedure are i n the results section. CBC WITH PLATELET STAT 10/24/2014 12:13 Result s for this PM CDT procedure are i n the results section. PTT (APTT) STAT 10/24/2014 12:13 Results for this PM CDT procedure are i n the results section. documented in this encounter Results SODIUM (10/26/2014 1:31 PM CDT) athologist Signature Sodium 138 135 - 148 [facility] mEq/L Sodium [facility] Performed at: Comment: [facility] [address] [place] [id number] Specimen Anatomical Collection Method Collection Time Receive d Time (Source) Location / / Volume Laterality Blood 10/26/2014 1:31 PM 5 1:31 CDT PM CDT Magno Crowder MD LABORATORY Performing Organization Address [facility] Phon e Number [facility] [place] [address] POTASSIUM (10/26/2014 1:31 PM CDT) athologist Signature Potassium 3.8 3.5 - 5.3 [facility] mEq/L Potassium [facility] Performed at: Comment: [facility] [address] [place] [address] Specimen Anatomical Collection Method Collection Time Receive d Time (Source) Location / / Volume Laterality Blood 10/26/2014 1:31 PM 5 2:51 CDT PM CDT Magno Crowder MD LABORATORY Performing Organization Address City/[facility]/ZIP Code Phon e Number [facility] [place] [address] SODIUM (10/26/2014 9:13 AM CDT) athologist Signature Sodium 141 135 - 148 [facility] mEq/L Sodium [facility] Performed at: Comment: [facility] [address] [place] [address] Specimen Anatomical Collection Method Collection Time Receive d Time (Source) Location / / Volume Laterality Blood 10/26/2014 9:13 AM 5 9:38 CDT AM CDT Magno Crowder MD LABORATORY Performing Organization Address City/[facility] Code Phon e Number [facility] [place] [address] POTASSIUM (10/26/2014 9:13 AM CDT) athologist Signature Potassium 3.8 3.5 - 5.3 [facility] mEq/L Potassium [facility] Performed at: Comment: [facility] [address] [place] [address] Specimen Anatomical Collection Method Collection Time Receive d Time (Source) Location / / Volume Laterality Blood 10/26/2014 9:13 AM 5 9:38 CDT AM CDT Magno Crowder MD LABORATORY Performing Organization Address City/[facility] Code Phon e Number [facility] [place] [address] SODIUM (10/25/2014 8:54 PM CDT) athologist Signature Sodium 139 135 - 148 [facility] mEq/L Sodium [facility] Performed at: Comment: [facility] [address] [place] [address] Specimen Anatomical Collection Method Collection Time Receive d Time (Source) Location / / Volume Laterality Blood 10/25/2014 8:54 PM 5 9:16 CDT PM CDT Magno Crowder MD LABORATORY Performing Organization Address City/[facility] Phon e Number [facility] [place] [address] MRSA SURVEILLANCE SCREEN (10/25/2014 8:28 PM CDT) athologist Signature Final Report No MRSA [facility] isolated. Specimen Anatomical Collection Method Collection Time Receive d Time (Source) Location / / Volume Laterality Swab (Nose) 10/25/2014 8:28 PM 5 8:40 CDT PM CDT Adarsh Fregoso MD LAB MICROBIOLOGY Performing Organization Address City/[facility]/ZIP Code Phon e Number [facility] [place] [address] SODIUM (10/25/2014 4:10 PM CDT) athologist Signature Sodium 139 135 - 148 [facility] mEq/L Sodium [facility] Performed at: Comment: [facility] [address] [place] [address] Specimen Anatomical Collection Method Collection Time Receive d Time (Source) Location / / Volume Laterality Blood 10/25/2014 4:10 PM 5 4:59 CDT PM CDT Magno Crowder MD LABORATORY Performing Organization Address City/[facility]/ZIP Code Phon e Number [facility] [place] [address] POTASSIUM (10/25/2014 4:10 PM CDT) athologist Signature Potassium 4.2 3.5 - 5.3 [facility] mEq/L Potassium [facility] Performed at: Comment: [facility] [address] [place] [address] Specimen Anatomical Collection Method Collection Time Receive d Time (Source) Location / / Volume Laterality Blood 10/25/2014 4:10 PM 5 4:59 CDT PM CDT Magno Crowder MD LABORATORY Performing Organization Address City/[facility]/ZIP Code Phon e Number [facility] [place] [address] (ABNORMAL) PANEL BASIC METABOLIC (BMP) (10/25/2014 9:16 AM CDT) athologist Signature Sodium 139 135 - 148 [facility] mEq/L Potassium 3.9 3.5 - 5.3 [facility] mEq/L Chloride 101 100 - 108 [facility] mEq/L CO2 24 22 - 30 [facility] mEq/L Glucose 112 (H) 70 - 100 [facility] mg/dL BUN 8 6 - 20 [facility] mg/dL Creatinine 0.72 0.70 - [facility] 1.25 mg/dL Calcium 9.5 8.6 - 10.0 [facility] mg/dL eGFR, High 177 ml/min/1.7 [facility] 3m2 eGFR, Low 146 ml/min/1.7 [facility] 3m2 Basic Metabolic [facility] Panel Performed at: Comment: [facility] [address] [place] [id number] AnGap 14 7 - 14 mEq/L [facility] Specimen Anatomical Collection Method Collection Time Receive d Time (Source) Location / / Volume Laterality Blood 10/25/2014 9:16 AM 5 CDT 10:07 AM CDT Adarsh Fregoso MD LABORATORY Performing Organization Address City/State/ZIP Code Phon e Number [facility] [place] [address] [place] [address] (ABNORMAL) CT HEAD NO IV CONTRAST (10/25/2014 5:16 AM CDT) Anatomical Region Laterality Modality Skull Computed Tomography Specimen (Source) Anatomical Collection Method Collection Time Re ceived Time Location / / Volume Laterality 10/25/2014 5:18 AM CDT Impressions 10/25/2014 11:22 AM CDT Impression: 1. Evolving intraparenchymal contusions in the bilateral inferior frontal lobes and posterior lateral right frontal lobe with associated traumatic subarachnoid hemorrhage. Tiny hemorrhagic contusion in the right parietal cortex. 2. Small subdural hemorrhage measuring u p to 5 millimeters in maximal thickness adjacent to the right posterior lateral frontal lobe contusion. No significant midline shift or evidence of hydrocephalus. 3. Horizontally oriented fracture involv ing the right parietal bone extending posteriorly into the right lambdoid suture. This finding was added to the report by the staff radiologist at 11:00 AM. A yellow alert was sent to [facility]. [place] Traumatic Brain Injury Scale: D iffuse Injury 2 [place] DIAGNOSTIC CATEGORIES OF ABNORM ALITIES VISUALIZED ON CT SCANNING FOR TRAUMATIC BRAIN INJURY: Diffuse Injury 1: No visible intracrania l pathology seen on CT scan. Diffuse Injury 2: Cisterns are present w ith shift 0-5 mm and/or lesion densities present. No high or mixed density lesion >25ml. May include bone fragments and foreign bodies. Diffuse Injury 3 (swelling): Cisterns co mpressed or absent with shift 0-5mm. No high or mixed density lesion > 25ml. ? Diffuse Injury 4 (shift): Shift > 5mm. N o high or mixed density lesion > 25ml. Evacuated mass lesion: Any surgically ev acuated lesion. ?? Non evacuated mass lesion: High or mixed -density lesion > 25ml. Not surgically evacuated. I have personally reviewed the image(s) and initial interpretation, and I agree with the findings as documented by the resident/fellow. Reading Radiologist: Fernanda Dorman Reading Resident: Hakan Reagan 10/25/2014 11:[address] without contrast History: R frontal contusion ??. Traumat ic subarachnoid hemorrhage on outside study per chart. Comparison: Outside CT performed on 10/24 Technique: Axial thin section CT images through the brain were obtained from the base of the skull through the vertex without intravenous contrast and reviewed in brain, bone and subdural windows. Dose: CTDIvol = 65.9 ??mGy. (Total DLP) = 1470.2 mGy*cm. Findings: Evolving intraparenchymal contusions in the bilateral inferior frontal lobes with increased surrounding vasogenic edema. Associated traumatic subarachnoid hemorrhage. Additional intraparenchymal contusi on in the posterior lateral right fronta l lobe with associated subarachnoid hemorrhage and small subdural component measuring approximately 5 millimeters in thickness. There is also increased surroundin g halo of vasogenic edema. Additional fo ci of subdural hemorrhage within the interhemispheric fissure. Tiny cortical contusion in the right parietal cortex, best seen on coronal image 46. There is no si gnificant midline shift. The basilar cis terns are patent. The ventricles are not dilated out of proportion to the cerebral sulci. The valladares-white matter differentiation is maintained. Evidence of a nondisplaced right parieta l skull fracture which extends posteriorly into the right lambdoid suture. Anteriorly it does not definitely involve the coronal suture. The paranasal sinuses and mastoid air cells are clear. Procedure Note Fernanda Dorman MD - 10/25/2014Formattin g of this note might be different from the original. Head CT without contrast History: R frontal contusion . Traumatic subarachnoid hemorrhage on outside study per chart. Comparison: Outside CT performed on 10/24 Technique: Axial thin section CT images through the brain were obtained from the base of the skull through the vertex without intravenous contrast and reviewed in brain, bone and subdural windows. Dose: CTDIvol = 65.9 mGy. (Total DLP) = 1470.2 mGy*cm. Findings: Evolving intraparenchymal contusions in the bilateral inferior frontal lobes with increased surrounding vasogenic edema. Associated traumatic subarachnoid hemorrhage. Additional intraparenchymal contusion in the posterior lateral right frontal lobe wit h associated subarachnoid hemorrhage and small subdural component measuring approximately 5 millimeters in thickness. There is also increased surrounding halo of vasogenic edema. Additional foci of subd ural hemorrhage within the interhemispheric fissure. Tiny cortical contusion in the right parietal cortex, best seen on coronal image 46. There is no significant midline shift. The basilar cisterns are patent. The ventricles are not dilated out of proportion to the cerebral sulci. The valladares-white matter differentiation is maintained. Evidence of a nondisplaced right parieta l skull fracture which extends posteriorly into the right lambdoid suture. Anteriorly it does not definitely involve the coronal suture. The paranasal sinuses and mastoid air cells are clear. IMPRESSION Impression: 1. Evolving intraparenchymal contusions in the bilateral inferior frontal lobes and posterior lateral right frontal lobe with associated traumatic subarachnoid hemorrhage. Tiny hemorrhagic contusion in the right parietal cortex. 2. Small subdural hemorrhage measuring u p to 5 millimeters in maximal thickness adjacent to the right posterior lateral frontal lobe contusion. No significant midline shift or evidence of hydrocephalus. 3. Horizontally oriented fracture involv ing the right parietal bone extending posteriorly into the right lambdoid suture. This finding was added to the report by the staff radiologist at 11:00 AM. A yellow alert was sent to [facility]. [place] Traumatic Brain Injury Scale: D iffuse Injury 2 [place] DIAGNOSTIC CATEGORIES OF ABNORM ALITIES VISUALIZED ON CT SCANNING FOR TRAUMATIC BRAIN INJURY: Diffuse Injury 1: No visible intracrania l pathology seen on CT scan. Diffuse Injury 2: Cisterns are present w ith shift 0-5 mm and/or lesion densities present. No high or mixed density lesion >25ml. May include bone fragments and foreign bodies. Diffuse Injury 3 (swelling): Cisterns co mpressed or absent with shift 0-5mm. No high or mixed density lesion > 25ml. Diffuse Injury 4 (shift): Shift > 5mm. N o high or mixed density lesion > 25ml. Evacuated mass lesion: Any surgically ev acuated lesion. Non evacuated mass lesion: High or mixed -density lesion > 25ml. Not surgically evacuated. I have personally reviewed the image(s) and initial interpretation, and I agree with the findings as documented by the resident/fellow. Reading Radiologist: Fernanda Dorman Reading Resident: Hakan Reagan Adarsh Fregoso MD CT NEURO POTASSIUM (10/24/2014 3:08 PM CDT) athologist Signature Potassium 3.7 3.5 - 5.3 [facility] mEq/L Potassium [facility] Performed at: Comment: [facility] [address] [place] [id number] Specimen Anatomical Collection Method Collection Time Receive d Time (Source) Location / / Volume Laterality Blood 10/24/2014 3:08 PM 5 3:20 CDT PM CDT Magno Crowder MD LABORATORY Performing Organization Address City/[facility] [place] Phon e Number [facility] [place] [address] PTT (APTT) (10/24/2014 12:13 PM CDT) athologist Signature APTT 30.8 25.0 - 37.0 [facility] sec Specimen Anatomical Collection Method Collection Time Receive d Time (Source) Location / / Volume Laterality Blood 10/24/2014 12:13 10/24/2014 PM CDT 12:25 PM CDT Tammi Rivera PA-C LABORATORY Performing Organization Address City/[facility]/ZIP Code Phon e Number [facility] [place] [address] PROTHROMBIN (PT) & INR (10/24/2014 12:13 PM CDT) athologist Signature INR 1.1 0.8 - 1.2 [facility] PT 11.3 9.0 - 12.5 [facility] sec Specimen Anatomical Collection Method Collection Time Receive d Time (Source) Location / / Volume Laterality Blood 10/24/2014 12:13 10/24/2014 PM CDT 12:25 PM CDT Tammi Rivera PA-C LABORATORY Performing Organization Address City/[facility]/ZIP [facility] Phon e Number [facility] [place] [address] ED CHEMISTRY LABS(NA,K,CL,CO2,GLU,CREAT,CA-IONIZED,ANION GAP) (10/24/2014 12:13 PM CDT) P athologist Signature Sodium 139 135 - 148 [facility] mEq/L Potassium 3.7 3.5 - 5.3 [facility] mEq/L Chloride 103 100 - 108 [facility] mEq/L CO2 26 22 - 30 [facility] mEq/L AnGap 10 7 - 14 [facility] mEq/L Glucose 97 70 - 100 [facility] mg/dL ICA, Actual 4.82 4.40 - [facility] 5.20 mg/dL ICA, pH 4.79 4.40 - [facility] Corrected 5.20 mg/dL Creatinine 0.78 0.70 - [facility] 1.25 mg/dL eGFR, High 162 ml/min/1.7 [facility] 3m2 eGFR, Low 134 ml/min/1.7 [facility] 3m2 Specimen Anatomical Collection Method Collection Time Receive d Time (Source) Location / / Volume Laterality Blood 10/24/2014 12:13 10/24/2014 PM CDT 12:24 PM CDT Tammi Rivera PA-C LABORATORY Performing Organization Address City/State/ZIP Code Phon e Number [facility] [place] [address] [place] [address] (ABNORMAL) CBC WITH PLATELET (10/24/2014 12:13 PM CDT) Patholo gist Method Time Signature WBC 11.98 (H) 4.00 - [facility] 10.00 k/cmm RBC 4.91 4.60 - [facility] 6.00 m/cmm Hgb 15.0 13.1 - [facility] 17.5 g/dL Hematocrit 43.6 40.0 - [facility] 51.0 % MCV 88.8 80.0 - [facility] 100.0 fL MCH 30.5 25.0 - [facility] 32.0 pg MCHC 34.4 31.0 - [facility] 36.0 g/dL RDW 12.4 11.5 - [facility] 14.5 % Plt 217 150 - 400 [facility] k/cmm MPV 9.2 6.5 - 12.5 [facility] fL NRBC 0.0 0.0 - 0.0 [facility] % CBC Plt [facility] Performed at: Comment: [facility] [address] [place] [address] Specimen Anatomical Collection Method Collection Time Receive d Time (Source) Location / / Volume Laterality Blood 10/24/2014 12:13 10/24/2014 PM CDT 12:25 PM CDT Tammi Rivera PA-C LABORATORY Performing Organization Address City/State/ZIP Code Phon e Number [facility] [place] [address] [place] [address] documented in this encounter Visit Diagnoses Diagnosis Subarachnoid hemorrhage () - Primary Subarachnoid hemorrhage Subarachnoid hemorrhage () Subarachnoid hemorrhage documented in this encounter Admitting Diagnoses Diagnosis Subarachnoid hemorrhage () Subarachnoid hemorrhage documented in this encounter Administered Medications Inactive Administered Medications - up to 3 most recent administrations Medication Order MAR Action Action Date Dose Rate Site acetaminophen tablet 650 mg Given 10/26/2014 12:00 PM CDT 650 mg 650 mg, Oral, Q4H, First dose on Sat10/24/14 at 1400, Until Discontinued Given 10/26/2014 4:04 AM CDT 650 mg Given 10/26/2014 12:39 AM CDT 650 mg divalproex (DEPAKOTE ER) 24 HR tablet 50 0 mg Given 10/25/2014 9:37 PM CDT 500 mg 500 mg, Oral, BEDTIME, First dose on Sat10/25/14 at 2100, Until Discontinued levETIRAcetam (KEPPRA) 1,250 mg New Bag 10/25/2014 9:58 AM CDT 1,250 mg 450 mL/hr in NaCl 0.9% 100 mL IVPB 1,250 mg, Intravenous, ONE TIME, Administer over 15 Minutes, On Sat10/25/14 at 0610 levETIRAcetam (KEPPRA) tablet 1,000 mg Given 10/26/2014 8:19 AM CDT 1,000 mg 1,000 mg, Oral, BID, First dose on Sat10/25/14 at 2000, Until Discontinued Given 10/25/2014 8:25 PM CDT 1,000 mg NaCl 2% (HYPERTONIC) Infusing 10/26/2014 11:04 AM CDT 25 mL/hr Intravenous, CONTINUOUS, Starting on Sat10/25/14 at 0640, Until Sat10/26/14 at 1339 New Bag 10/26/2014 6:55 AM CDT 75 mL/hr New Bag 10/25/2014 9:58 AM CDT 50 mL/hr oxyCODONE (ROXICODONE) tablet 5 mg Given 10/26/2014 12:39 AM CDT 5 mg 5 mg, Oral, Q6H PRN, Starting on Sat10/24/14 at 1319, Until Sat10/26/14 at 0231, Moderate Pain Given 10/25/2014 6:07 PM CDT 5 mg Given 10/25/2014 1:40 PM CDT 5 mg oxyCODONE (ROXICODONE) tablet 5-10 mg Given 10/26/2014 2:23 PM CDT 10 mg 5-10 mg, Oral, Q4H PRN, Starting on Sat10/26/14 at 0235, Until Sat10/26/14 at 1815, Moderate Pain Given 10/26/2014 8:18 AM CDT 10 mg Given 10/26/2014 4:03 AM CDT 10 mg potassium chloride (K-CHRISTEN) 20 mEq Given 10/25/2014 12:00 PM CDT 20 mEq 20 mEq, Oral, ONE TIME, 1 dose, On Sat10/25/14 at 1130 potassium chloride 10 mEq, lidocaine 1% 1 New 2014 10:50 AM CDT 10 mEq mL in dextrose 5% IVPB 10 mEq, Intravenous, ONE TIME, 1 dose, On Sat10/26/14 at 1030 sennosides (SENOKOT) tablet 17.2 mg Given 10/25/2014 9:40 PM CDT 17.2 mg 17.2 mg, Oral, BEDTIME, First dose on Sat10/24/14 at 2100, Until Discontinued sodium chloride tablet 2 g Given 10/26/2014 2:23 PM CDT 2 g 2 g, Oral, TID, First dose on Sat10/25/14 at 0815, Until Discontinued Given 10/26/2014 8:18 AM CDT 2 g Given 10/25/2014 9:40 PM CDT 2 g documented in this encounter Active and Recently Administered Medications Times are shown in CDT. Scheduled Medication Order 10/24/2014 10/25/2014 10/26/2014 acetaminophen tablet 650 mg (CANCELED) 1321 (Given - P rovider: Eyad Singletary RN)1800 (Given - Provider: Sarah Valdez, ZENA)2200 (Due) 0236 (Given - Provider: Lisa Regalado, ZENA)0826 (Given - Provider: Alma Candelaria RN)1200 (Given - Provider: Alma Candelaria, RN)1558 (Given - Provider: Alma Candelaria RN)2025 (Given - Provider: Kerri Gomez, ZENA) 0039 (Given - Provider: Kerri Gomez, ZENA)0404 (Given - Provider: Kerri Gomez, ZENA)0819 (Not Given (removes Due time) - Provider: Alma Candelaria RN - Reason: Held per nurse - Comment: Max dose of acetaminophen reached per 24 hours) 650 mg, Oral, Q4H, First dose on Sat10/24/14 at 1400, Until Disc ontinued 1200 (Given - Provider: Alma Candelaria RN) divalproex (DEPAKOTE ER) 24 HR tablet 500 mg 2136 (Given - Provider: Kerri Gomez, ZENA) 500 mg, Oral, BEDTIME, First dose on Sat10/25/14 at 2100, Until Discontinued levETIRAcetam (KEPPRA) 1,250 mg in NaCl 0.9% 100 mL IVPB (CO MPLETED) 0958 (New Bag - Provider: Alma Candelaria RN)1013 (Infusion completed - Provider: Alma Candelaria RN) 1,250 mg, Intravenous, ONE TIME, for 15 Minutes, Sat10/25/14 at 0610 levETIRAcetam (KEPPRA) tablet 1,000 mg 2 025 (Given - Provider: Kerri Gomez, ZENA) 0819 (Given - Provider: Alma Candelaria, ZENA) 1,000 mg, Oral, BID, First dose on Sat10/25/14 at 2000, Until Di scontinued potassium chloride (K-CHRISTEN) 20 mEq (COMPLETED) 1200 (Given - Provider: Alma Candelaria RN) 20 mEq, Oral, ONE TIME, 1 dose, Sat10/25/14 at 1130 potassium chloride 10 mEq, lidocaine 1% 1 mL in dextrose 5% IVPB (COMPLETED) 1050 (New Bag - Provider: Alma Candelaria RN)1200 (Stopped - Provider: Alma Candelaria RN) 10 mEq, Intravenous, ONE TIME, 1 dose, Sat10/26/14 at 1030 sennosides (SENOKOT) tablet 17.2 mg 2226 (Not Given (r emoves Due time) - Provider: Sarah Valdez RN - Reason: Patient refused) 2140 (Given - Provider: Kerri Gomez, ZENA) 17.2 mg, Oral, BEDTIME, First dose on Sat10/24/14 at 2100, Until Discontinued sodium chloride tablet 2 g (CANCELED) 08 26 (Given - Provider: Alma Candelaria RN)1400 (Given - Provider: Alma Candelaria RN)2140 (Given - Provider: Kerri Gomez, ZENA) 0818 (Given - Provider: Alma Candelaria RN)1423 (Given - Provider: Alma Candelaria RN) 2 g, Oral, TID, First dose on Sat10/25/14 at 0815, Until Discont inued Continuous Medication Order 10/24/2014 10/25/2014 10/26/2014 NaCl 2% (HYPERTONIC) (CANCELED) 0958 (New Bag - Provider: Alma Candelaria RN) 0530 (Stopped - Provider: Kerri Gomez RN)0654 (Canceled Entry - Provider: Alma Candelaria RN)0655 (New Bag - Provider: Kerri Gomez RN)1104 (Infusing - Provider: Alma Candelaria RN) Intravenous, CONTINUOUS, Starting Sat10/25/14 at 0640, Until Dis continued PRN Medication Order 10/24/2014 10/25/2014 10/26/2014 oxyCODONE (ROXICODONE) tablet 5 mg (CANCELED) 1721 (Gi rebecca - Provider: Sarah Valdez, RN) 0237 (Given - Provider: Lisa Regalado RN)0910 (Given - Provider: Alma Candelaria RN)0911 (Canceled Entry - Provider: Alma Candelaria RN)1339 (Canceled Entry - Provider: Alma Candelaria RN)1340 (Given - Provider: Alma Candelaria RN) 0039 (Given - Provider: Kerri lyons RN) 5 mg, Oral, Q6H PRN, Starting Sun 5 at 1319, Until Discontinued, Moderate Pain 1807 (Given - Provider: Alma Candelaria, ZENA) oxyCODONE (ROXICODONE) tablet 5-10 mg 0403 (Given - Provider: Kerri Gomez, ZENA)0818 (Given - Provider: Alma Candelaria, RN)1423 (Given - Provider: Alma Candelaria, RN) 5-10 mg, Oral, Q4H PRN, Starting Tue 10/13 07/28 at 0235, Until Discontinued, Moderate Pain documented in this encounter Care Teams Chemical Manager Relationship Specialty Start Date End Date Pcp, No PCP - General 10/24/14 [facility] [place] [address] documented as of this encounter
--- OUTSIDE RECORDS SUMMARY | 2022-01-29 18:43 | XMS_ITS | Encounter Summary ---
:1995 Author Organization [facility] Address [address] [place] [address] Phone Care Team Providers Name Role Phone Pcp, No Primary Care Provider Unavailable Reason for Visit Reason Onset Date Comments Letter for Work 10/28/2014 Airline Encounter Details Date Type Department Care Team Description 10/28/2014 Telephone [facility] NeuroSurgery Cl Lisa Mayers, Letter for Work [address] RN (Airline) P5.620 [address] [place], [place] [address] [place], [place] [phone] Social History Tobacco Use Types Packs/Day Years Used Date Smoking Tobacco: Never Assessed Alcohol Use Standard Drinks/Week Comments Yes 0 (1 standard drink = 0.6 oz pure alcoho l) Sex Assigned at Date Recorded Not on file documented as of this encounter Miscellaneous Notes Telephone Encounter - Lisa Brown RN - 10/28/2014 11:45 AM CDT Faxed ([phone]) and mailed letter for pt. Lisa Brown RN, 10/28/2014 11:45 AM Telephone Encounter - Lisa Brown RN - 10/28/2014 9:22 AM CDT D: Mother of pt is calling requesting a letter addressed to the Airline stating that the pt is unable to fly for work to [place] from now until follow up appointment due to brain injury. She states this is the only way the airlines will allow the ticket to placed in some one else's name. Pt was seen by Dr. Crowder in the ER on 10/24/14 A: Routing this request to Bella Kim CNP R: Pending P: Letter to be written Lisa Brown RN, 10/28/2014 9:27 AM documented in this encounter Plan of Treatment Not on filedocumented as of this encounter Visit Diagnoses Not on filedocumented in this encounter Care Teams Chalk Extruding Machine Operator Relationship Specialty Start Date End Date Pcp, No PCP - General 10/24/14 [facility] [place] [address] documented as of this encounter
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
--- OUTSIDE RECORDS SUMMARY | 2022-01-29 18:43 | XMS_ITS | Encounter Summary ---
:[address] [facility] Address [address] [place] [address] Phone Care Team Providers Name Role Phone Pcp, No Primary Care Provider Unavailable Encounter Details Date Type Department Care Team Description 10/26/2014 Documentation Only Unspecified Departme nt Unknown, Provider [...] Name Priority Date/Time Associated Diagnosis Comme nts EXTERNAL MED 10/28/2014 10:18 AM Results for this REC-IMAGING CDT procedure are i n the results section. documented in this encounter Results EXTERNAL MED REC-IMAGING (10/28/2014 10:18 AM CDT) Anatomical Region Laterality Modality Other Narrative 10/28/2014 10:18 AM CDT This result has an attachment that is no t available. Ordered by an unspecified provider. Provider Unknown CT BODY documented in this encounter Visit Diagnoses Not on filedocumented in this encounter Care Teams Betting Agency Counter Clerk Relationship Specialty Start Date End Date Pcp, No PCP - General 10/24/14 [facility] [place] [address] documented as of this encounter
--- OUTSIDE RECORDS SUMMARY | 2022-01-29 18:44 | XMS_ITS | Encounter Summary ---
:1995 Author Organization [facility] Address [address] [place] [address] Care Team Providers Name Role Phone Catracho Suh MD Primary Care Provider Reason for Visit Reason Comments RECHECK Med check. Encounter Details Date Type Department Care Team Description 10/06/2007 Office Visit [facility] Catracho Suh Attent ion Deficit Clinic Lynne EVERETT Disorder without Mention [address] [address] [facility] (Primary Dx) [place] [address] [id number] Social History Tobacco Use Types Packs/Day Years Used Date Smoking Tobacco: Never Alcohol Use Standard Drinks/Week Comments Not Asked 0 (1 standard drink = 0.6 oz pure alcoho l) Sex Assigned at Date Recorded Not on file documented as of this encounter Last Filed Vital Signs Vital Sign Reading Time Taken Comments Blood Pressure 100/70 10/06/2007 8:30 AM CDT Pulse 72 10/06/2007 8:30 AM CDT Temperature 36.7 ??C (98 ??F) 10/06/2007 8:30 AM CDT Respiratory Rate - - Oxygen Saturation - - Inhaled Oxygen Concentration - - Weight 57.3 kg (126 lb 6.4 oz) 10/06/2007 8:30 AM CDT Height 164.5 cm (5' 4.75) 10/06/2007 8:30 AM CDT Body Mass Index 21.2 10/06/2007 8:30 AM CDT Body Mass Index Percentile 69.66 % 10/06/2007 8:30 AM CD T Growth Chart: [facility] (Boys, 2-20 Years) documented in this encounter Progress Notes Catracho Suh - 10/06/2007 8:42 AM CDT SUBJECTIVE: Chico Hoang, a 12 year old male scheduled an appointment to discuss the following issues: ATTENTION DEFICIT DISORDER WITHOUT MENTION OF HYPERACTIVITY Medical, social, surgical, and family histories reviewed. [...] NEGATIVE for frequency, dysuria, or hematuria PSYCHIATRIC: doing well with medication OBJECTIVE: BP 100/70 Pulse 72 Temp (Src) 98 ??F (36.7 ??C) (Oral) Ht 5' 4.75 (1.645 m) Wt 126 lb 6.4 oz (57.335 kg) EXAM: GENERAL APPEARANCE: healthy, alert and [...] grossly normal, mentation intact and speech normal PSYCH: mentation appears normal. and affect normal/bright ASSESSMENT/PLAN: 314.00 Attention Deficit Disorder without Mention of Hyperactivity (primary encounter diagnosis) Comment: doing well with med, no SE. Pysical exam did appear to be normal. Plan: ADDERALL XR# 30 MG OR CP24 Rtc in 6 months. documented in this encounter Nursing Notes 10/06/2007 8:30 AM CDT >> MAYRA PUENTE SatOct 06, 2007 8:23 AM Patient presents with: RECHECK - Med check. Initial BP 100/70 Pulse 72 Temp (Src) 98 ??F (36.7 ??C) (Oral) Ht 5' 4.75 (1.645 m) Wt 126 lb 6.4 oz (57.335 kg) Body mass index is 21.20 kg/(m^2). BP completed using cuff size regular right arm. Mayra Puente-MULTIMEDIA MANAGER documented in this encounter Plan of Treatment Not on filedocumented as of this encounter Visit Diagnoses Diagnosis Attention deficit disorder without menti on of hyperactivity - Primary documented in this encounter Care Teams Urban Designer Relationship Specialty Start Date End Date Catracho Suh MD PCP - General 12/23/02 05/08/12 [address] [place] [address] documented as of this encounter
--- OUTSIDE RECORDS SUMMARY | 2022-01-29 18:44 | XMS_ITS | Encounter Summary ---
:1995 Author Organization [facility] Address [address] [place] [address] Care Team Providers Name Role Phone Catracho Suh MD Primary Care Provider Encounter Details Date Type Department Care Team Description 01/26/2005 Admission H&P Shade Reyna MD (Kids Activities Coach) [facility] [address] [place], [place] [address] (Wo rk) Social History Tobacco Use Types Packs/Day Years Used Date Smoking Tobacco: Never Assessed Sex Assigned at Date Recorded Not on file documented as of this encounter Progress Notes Shade Reyna W - 01/26/2005 11:59 PM CDT PRELIMINARY HISTORY OF PRESENT ILLNESS: The patient is a 10-year-old boy with a previous history of attention deficit disorder and depression, who was previously treated with Wellbutrin and Concerta which were discontinued in September of this year. The patient has a history of suicide attempt approximately 1 week ago where he wound a blank cord around his neck and then released it. He described this attempt to his high school principal yesterday along with thoughts of repeating attempt yesterday and today. Due to thesediscussions, his mother was called to the school where she was notified of his suicidal ideation andattempt, and the patient was transported directly to [facility] for care due to the lack of psychiatric beds available. The patient is been admitted to pediatric floor for observation until a bed can be found. The patient states no attempts or ideation of ingestion type suicidal attempts and states there is no specific precipitating event over the past week, which caused these actions and ideas. PAST MEDICAL HISTORY: As noted above. The patient has a previous history of attention deficit disorder and depression. He has been off medication since September of this year. He has no other history of hospitalizations or surgeries. MEDICATIONS: He was on no medications on admission. ALLERGIES: There is no known drug allergies. PHYSICAL EXAMINATION: GENERAL: Alert and oriented young man in no obvious distress. HEENT: Pupils equal, round and reactive to light. Tympanic membranes are clear. Throat exam is clear. NECK: No adenopathy. RESPIRATORY: Clear. HEART: Regular rate and rhythm without murmur. ABDOMEN: Soft abdomen with active bowel sounds. NEUROLOGIC: The patient is alert, oriented and talkative with normal appearing affect at this time. ASSESSMENT AND PLAN: Suicidal attempt and ideation. The patient will be admitted to [facility] Floor for observation with a sitter until a psychiatric bed can be found for appropriate mental health care follow. The seriousness and need for followup on the suicidal attempt and ideation were discussed in detail with the patient and his mother. SHADE REYNA MD MT: JUAN JOSE Name: CHICO PRATER Account: [id number] : 1995 Admitted: 01/25/2005 Document: [id number] documented in this encounter Plan of Treatment Not on filedocumented as of this encounter Visit Diagnoses Not on filedocumented in this encounter Care Teams Flamer After Lasting Relationship Specialty Start Date End Date Catracho Suh MD PCP - General 12/23/02 05/08/12 [address] [place] [address] documented as of this encounter
--- OUTSIDE RECORDS SUMMARY | 2022-01-29 18:44 | XMS_ITS | Encounter Summary ---
:1995 Author Organization [place] Address [address] [facility] [place] [address] Care Team Providers Name Role Phone Catracho Suh MD Primary Care Provider Reason for Visit Reason Comments Well Child 11 yr physical Encounter Details Date Type Department Care Team Description 11/06/2005 Office Visit [facility] Catracho Suh [facility] Alfreda Christie MD (Primary Dx) [address] [phone] Social History Tobacco Use Types Packs/Day Years Used Date Smoking Tobacco: Never Alcohol Use Standard Drinks/Week Comments Not Asked 0 (1 standard drink = 0.6 oz pure alcoho l) Sex Assigned at Date Recorded Not on file documented as of this encounter Last Filed Vital Signs Vital Sign Reading Time Taken Comments Blood Pressure 100/60 11/06/2005 12:00 PM CDT Pulse 72 11/06/2005 12:00 PM CDT Temperature - - Respiratory Rate - - Oxygen Saturation - - Inhaled Oxygen Concentration - - Weight 41.3 kg (91 lb) 11/06/2005 12:00 PM CDT Height 147.3 cm (4' 10) 11/06/2005 12:00 PM CDT Body Mass Index 19.02 11/06/2005 12:00 PM CDT Body Mass Index Percentile 60.28 % 11/06/2005 12:00 PM C DT Growth Chart: CDC (Boys, 2-20 Years) documented in this encounter Progress Notes Valencia Rice - 11/06/2005 12:18 PM CDT Ch[place] Hoang is an 10 year old male here for a routine health maintenance visit, accompanied by his mother. QUESTIONS/CONCERNS: None FAMILY/ SOCIAL HISTORY Child lives with: mother, father, sister and grandmother Recent family changes/social stressors: Grandmother moved in with family with 3 dogs Family History: No changes since last physical Language(s) spoken at home: Sami ENVIRONMENTAL RISK ASSESSMENT Is your child around anyone who smokes? YES mother Seat belt? YES Bike/sport helmet? YES TB exposure? NO Pets in the home? YES 4 dogs Guns/firearms in the home? NO Water source: [employer] CHICKEN POX HISTORY: Patient has had chicken pox DEVELOPMENTAL/ Behavioral Screening form: Form not used VISION Wears glasses? YES Glasses worn for testing: NO Right eye: 20/20 Left eye: 20/25 HEARING Normal REQUIRED VITAL SIGNS COMPLETED: yes BP 100/60 Pulse 72 Ht 4' 10 (1.47m) Wt 91 lbs (41.3kg) 16.26% of growth percentile based on pvnofem-vpz-zmt. 33.45% of growth percentile based on lpzhsk-cjj-the. 60.23% of growth percentile based on BMI-for-age. Will you need a sports physical in the next year? YES Sports Questionnaire: 1. NO - Has a doctor ever denied or restricted your participation in sports for any reason or told you to give up sports 2. NO - Do you have an ongoing medical condition (like diabetes or asthma)? 3. YES - Are you currently taking any prescription or nonprescription (ofnr-wge-krjphwc) medicines or pills? 4. NO - Do you have allergies to medicines, pollens, foods or stinging insects? 5. NO - Have you ever passed out or nearly passed out DURING exercise? 6. NO - Have you ever passed out or nearly passed out AFTER exercise? 7. NO - Have you ever had discomfort, pain, tightness, or pressure in your chest during exercise? 8. NO - Does your heart race or skip beats during exercise? 9. NO - Has a doctor ever told you that you have High Blood Pressure, a Heart Murmur, High Cholesterol, a Heart Infection, or Rheumatic Fever? 10. NO - Has a doctor ever ordered a test for your heart (for example: ECG, echocardiogram, stress test, etc.)? 11. NO - Has anyone in your family suddenly and unexpectedly for no apparent reason? 12. NO - Does anyone in your family have a heart problem? 13. NO - Has any family member or relative of heart problems or of sudden before age 50? 14. NO - Has anyone in your family less than 50 years old had unexplained drowning while swimming orany unexplained car accident? 15. NO - Does anyone in your family have Marfan Syndrome? 16. NO - Have you ever spent a night in a hospital? 17. NO - Have you ever had surgery? 18. NO - Have you ever had an injury, like a sprain, muscle or ligament tear or tendinitis, that caused you to miss a practice or game? 19. YES - Have you had any broken or fractured bones, or dislocated joints? 20. YES - Have you had a bone or joint injury that required x-rays, MRI, CT, surgery, injections, rehabilitation, physical therapy, a brace, a cast, or crutches? 21. YES - Have you every had a stress fracture? Right ankle 22. NO - Have you been told that you have or have you had an x-ray for atlantoaxial (neck) instability? 23. NO - Do you regularly use a brace or assistive device? 24. NO - Has a doctor ever told you that you have asthma or allergies? 25. NO - Do you cough, wheeze, have chest tightness, or have difficulty breathing during or after exercise? 26. NO - Is there anyone in your family who has asthma? 27. NO - Have you ever used an inhaler or taken asthma medicine? 28. NO - Do you develop a rash or hives when you exercise? 29. NO - Were you born without or are you missing a kidney, an eye, a testicle, or any other organ? 30. NO - Have you had infectious mononucleosis (mono) within the last month? 31. NO - Do you have any rashes, pressure sores, or other skin problems? 32. NO - Have you had a herpes skin infection? 33. YES - Have you ever had a head injury or concussion? AT 1 years of age 34. NO - Have you been hit in the head and been confused or lost your memory? 35. NO - Have you ever had a seizure? 36. NO - Do you have headaches with exercise? 37. NO - Have you ever had numbness, tingling or weakness in your arms or legs after being hit or falling? 38. NO - Have you ever been unable to move your arms or legs after being hit or falling? 39. NO - When exercising in the heat, do you have severe muscle cramps or become ill? 40. NO - Has a doctor told you that you or someone in your family has sickle cell trait or sickle cell disease? 41. NO - Have you had any problems with your eyes or vision? 42. YES - Do you wear glasses or contact lenses? For reading 43. NO - Do you wear protective eyewear, such as goggles or a face shield? 44. NO - Are you happy with your weight? 45. NO - Are you trying to gain or lose weight? 46. NO - Has anyone recommended you change your weight or eating habits? 47. NO - Do you limit or carefully control what you eat? 48. NO - Do you get tired more quickly than your friends do during exercise? 49. NO - Do you have any concerns that you would like to discuss with a doctor? Staff signature: Valencia Rice LPN HEALTH HISTORY SINCE LAST VISIT No surgery, major illness or injury since last physical exam Cardiac risk assessment: family hx hypercholesterolemia / hyperlipidemia (chol>300) and none There is no immunization history on file for this patient. ALLERGIES Allergies Allergen Reactions ??? No Known Drug Allergies DAILY ACTIVITIES NUTRITION: good appetite, eats variety of foods and dairy/ calcium: 2% milk, yogurt and cheese SLEEP: No concerns, sleeps well through night ELIMINATION: Normal bowel movements and Normal urination EXERCISE/ RECREATION: Organized / Team sports: football and lacrosse Recreational exercise: rides bike (helmet advised), skateboard (helmet advised), swimming, running / jogging and walking / hiking ACTIVITIES: none TV/ Media: >2 hours/ day EDUCATION / EMPLOYMENT Concerns: no School: [employer] Grade:7th School performance / Academic skills: at grade level MENTAL HEALTH Concerns: no SEXUALITY Dating: no SUBSTANCE ABUSE Smoking: no Alcohol: no Drugs: no VISION: For details see above, normal HEARING: For details see above, normal ROS GENERAL: See health history, nutrition and daily activities SKIN: No rash, hives or significant lesions HEENT: Hearing/vision: see above. No eye redness/discharge, nasal congestion, sneezing, snoring RESP: No cough, wheezing, SOB CV: No cyanosis, palpitations, syncope GI: See nutrition and elimination : See elimination MS: No swelling, arthralgia, weakness, gait problem NEURO: No headaches PSYCH: See development and behavior, or mental health EXAM GENERAL: Active, alert, in no acute distress. SKIN: Clear. No significant rash, abnormal pigmentation or lesions HEAD: Normocephalic EYES: Sharp optic discs. Pupils equal, round, reactive, Extraocular muscles intact. Normal conjunctivae. EARS: Normal canals. Tympanic membranes are normal; valladares and translucent. NOSE: Normal without discharge. MOUTH/THROAT: Clear. No oral lesions. Teeth without obvious abnormalities. NECK: Supple, no masses. No thyromegaly. LYMPH NODES: No adenopathy LUNGS: Clear. No rales, rhonchi, wheezing or retractions HEART: Regular rhythm. Normal S1/S2. No murmurs. Normal pulses. ABDOMEN: Soft, non-tender, not distended, no masses or hepatosplenomegaly. Bowel sounds normal. NEUROLOGIC: No focal findings. Cranial nerves grossly intact: DTR's normal. Normal gait, strength and tone BACK: Spine is straight, no scoliosis. EXTREMITIES: Full range of motion, no deformities -M: Normal male external genitalia. Jhon stage 4, both testes descended, no hernia. ANTICIPATORY GUIDANCE The following topics were discussed: SOCIAL/ FAMILY: Peer pressure Increased responsibility Parent/ teen communication Limits/ consequences TV/ media School/ homework Future plans/ College NUTRITION: Healthy food choices Family meals HEALTH / SAFETY: Adequate sleep/ exercise Dental care Drugs, ETOH, smoking Seat belts Sunscreen/ insect repellent Swimming/ water safety Contact sports Bike/ sport helmets Lawn mowers SEXUALITY: ASSESSMENT 1. Well teen with normal growth and development PLAN Immunizations: See orders in EpicCare. Counseling provided regarding the benefits and risks related to the vaccines ordered today. I reviewed the signs and symptoms of adverse effects and when to seek medical care if they should arise. See other orders in EpicCare Referrals/Ongoing Specialty care: No Dental visit recommended: Continue care q 6 months Cleared for sports without restriction Lifestyle, health, and safety counseling Discussed dental care and mouthguard use RTC: 12 year M visit documented in this encounter Nursing Notes 11/06/2005 12:00 PM CDT >> VALENCIA RICE 11/06/2005 12:37 pm Patient presents with: Well Child - 11 yr physical Initial BP 100/60 Pulse 72 Ht 4' 10 (1.47m) Wt 91 lbs (41.3kg) Body mass index is 19.02 kg/(m^2).. BP completed using cuff size: regular Valencia Rice JAVA USER INTERFACE DEVELOPER documented in this encounter Plan of Treatment Not on filedocumented as of this encounter Visit Diagnoses Diagnosis Routine general medical examination at a health care facility - Primary documented in this encounter Care Teams Clinical Documentation Specialist Relationship Specialty Start Date End Date Catracho Suh MD PCP - General 12/23/02 05/08/12 [address] [place] [address] documented as of this encounter
--- OUTSIDE RECORDS SUMMARY | 2022-01-29 18:44 | XMS_ITS | Encounter Summary ---
:1995 Author Organization [place] Address [address] [facility] [place] [address] Care Team Providers Name Role Phone Catracho Suh MD Primary Care Provider Encounter Details Date Type Department Care Team Description 01/26/2005 Emergency room Norah Milton MD [facility] [address] [facility] [address] [place], [place] [address] (Wo rk) Social History Tobacco Use Types Packs/Day Years Used Date Smoking Tobacco: Never Assessed Sex Assigned at Date Recorded Not on file documented as of this encounter Progress Notes Norah Milton - 01/26/2005 11:59 PM CDT PRELIMINARY CHIEF COMPLAINT: Suicidal ideation. HISTORY OF PRESENT ILLNESS: This is a 10-year-old male who was brought in by mom due to suicidal ideation. The boy said that he tried to hang himself 2 weeks ago. He said that he used a cord of the drapery and put around his neck, but then he stopped and did not do it. He said he was just mad about life and frustrated. He did not tell his parents. They found out today after he started talking about it in school and was thinking about doing it again. They had seen their family counselor last night due to some problems and he does have a psychologist. He used to be on medications until 09/2004, but they put him off of the medication and the family really did not notice a difference. He had been no Cogentin and Wellbutrin previously. He said that he has not had any real behavior difference being off of it, but may be a little bit worsened concentration. They stated that he has been diagnosed by different doctors, some say ADHD and others say ODD with anger issues. Mother seems to be somewhat frust rated. The patient denies any drug or alcohol use. He has tried smoking once. He has not taken any medications, tried to hurt himself and said he has not tried to hang himself today and said it was about 2 weeks ago. No other medical problems, cold or cough symptoms, fevers or chills, nausea or vomiting. REVIEW OF SYSTEMS: Reviewed and is negative. PAST MEDICAL HISTORY: Significant for ADHD/ODD. MEDICATIONS: None. ALLERGIES: None. SOCIAL HISTORY: No smoking, alcohol or drug use. PHYSICAL EXAMINATION: VITAL SIGNS: Pulse is 83, respirations are 14, temperature is 98.2 and pulse ox is 97% on room air.HEENT: Pupils are round, equal and reactive. Extraocular movements are intact. Nares is clear. Mouth, there is no erythema or edema to the pharynx. NECK: Supple. No lymphadenopathy. LUNGS: Equal breath sounds bilaterally. No crackles or wheezes. HEART: Regular rate and rhythm. EXTREMITIES: There are good pulses in extremities. No cyanosis or rashes. Strength is equal bilaterally. HOSPITAL COURSE: He was evaluated by the Social Work. At this point, we do feel he need to be on a 72-hour hold and we did put him on a 72-hour hold due to the suicidal ideation and risk of hanging. He did have a drug screen done here, which was negative. workers compensation claims examiner did find out that there is no psychiatric bed for Pediatrics in [place], so we did have to admit him to the hospital for monitoring until Psychiatry or a bed in psychiatric hospital is open. I did talk to [facility] and they would be admitting him for observation and we will have a sitter with him. He did not have any problems while here in the emergency department. He was quite calm and cooperative. ASSESSMENT: Suicidal ideation. He was admitted to the Peds Floor with a sitter. NORAH MILTON MD MT: JUAN JOSE Name: CHICO PRATER Account: [id number] : 1995 Visit Date: 01/25/2005 Document: [id number] documented in this encounter Plan of Treatment Not on filedocumented as of this encounter Visit Diagnoses Not on filedocumented in this encounter Care Teams Client Relation Specialist Relationship Specialty Start Date End Date Catracho Suh MD PCP - General 12/23/02 05/08/12 [address] [place] [address] documented as of this encounter
--- OUTSIDE RECORDS SUMMARY | 2022-01-29 18:44 | XMS_ITS | Encounter Summary ---
:1995 Author Organization [place] Address [facility] [place] [address] Care Team Providers Name Role Phone Catracho Suh MD Primary Care Provider Reason for Visit Reason Onset Date Comments Refill Request 06/04/2007 Encounter Details Date Type Department Care Team Description 06/04/2007 Refill [facility] Catracho Suh MD Refill Request [place] [address] [phone] Social History Tobacco Use Types Packs/Day Years Used Date Smoking Tobacco: Never Alcohol Use Standard Drinks/Week Comments Not Asked 0 (1 standard drink = 0.6 oz pure alcoho l) Sex Assigned at Date Recorded Not on file documented as of this encounter Miscellaneous Notes Telephone Encounter - Ирина Puente - 06/09/2007 5:03 PM CST Rx ordered and signed by . Patient's mother called for status; rx found and placed at front loader residential driver per her request. Ирина Puente CMA ECTOR PACKER Telephone Encounter - Salvador Marmolejo - 06/04/2007 10:36 AM INSPECTOR PACKER Staff Message copied by SALVADOR MARMOLEJO on 06/04/2007 at 10:36 AM ------ Message from: VEDA KING Created: 06/04/2007 at 10:11 AM Regarding: Adderal refill Clementine- pts mom requesting refill of Adderal. Pt only has three days of meds left. Please call mom @ work when ready for pick-up. [phone] ECTOR PACKER documented in this encounter Plan of Treatment Not on filedocumented as of this encounter Visit Diagnoses Diagnosis Attention deficit disorder without menti on of hyperactivity documented in this encounter Care Teams Silk Brusher Relationship Specialty Start Date End Date Catracho Suh MD PCP - General 12/23/02 05/08/12 [address] [place] [address] documented as of this encounter
--- OUTSIDE RECORDS SUMMARY | 2022-01-29 18:44 | XMS_ITS | Encounter Summary ---
:1995 Author Organization [place] Address [address] [facility] [place] [address] Care Team Providers Name Role Phone Catracho Suh MD Primary Care Provider Reason for Visit Reason Onset Date Comments Refill Request 07/01/2007 adderall Encounter Details Date Type Department Care Team Description 07/01/2007 Refill [facility] Catracho Suh MD Refill Request [place] [id number] [place] [address] (adderall) [id number] [place] [address] [phone] Social History Tobacco Use Types Packs/Day Years Used Date Smoking Tobacco: Never Alcohol Use Standard Drinks/Week Comments Not Asked 0 (1 standard drink = 0.6 oz pure alcoho l) Sex Assigned at Date Recorded Not on file documented as of this encounter Miscellaneous Notes Telephone Encounter - Tati Osborne - 07/01/2007 3:55 PM CDT Mom notified of rx. Rx left in receptionist doctor's office for pt merchandise pickup/receiving associate. Deepa Osborne LPN Telephone Encounter - Le Pleitez - 07/01/2007 12:39 PM CDT Clementine-mom calling for refill on adderal. Please call when ready [phone](home) last ov 04/22 Le Kirkland RN documented in this encounter Plan of Treatment Not on filedocumented as of this encounter Visit Diagnoses Diagnosis Attention deficit disorder without menti on of hyperactivity documented in this encounter Care Teams Dishwashing Machine Operator Relationship Specialty Start Date End Date Catracho Suh MD PCP - General 12/23/02 05/08/12 [address] [place] [address] documented as of this encounter
--- OUTSIDE RECORDS SUMMARY | 2022-01-29 18:44 | XMS_ITS | Encounter Summary ---
:1995 Author Organization [place] Address [address] [facility] [place] [address] Care Team Providers Name Role Phone Catracho Suh MD Primary Care Provider Encounter Details Date Type Department Care Team Description 01/16/2008 Orders Only [facility] Catracho Suh [facility] [place] Disorder without Mention [address] [facility] [id number] [place] [address] of Hyperactivity [place], [place] S (Primary Dx) [address] [place], [place] [phone] [id number] Social History Tobacco Use Types Packs/Day Years [...] Primary documented in this encounter Care Teams Compressor Station Operator Relationship Specialty Start Date End Date Catracho Suh MD PCP - General 12/23/02 05/08/[address] [place], [place] [id number] documented as of this encounter
--- OUTSIDE RECORDS SUMMARY | 2022-01-29 18:44 | XMS_ITS | Encounter Summary ---
:1995 Author Organization [place] Address [address] [facility] [place] [address] Care Team Providers Name Role Phone Catracho Suh MD Primary Care Provider Reason for Visit Reason Onset Date Comments Refill Request 11/28/2007 [id number] Encounter Details Date Type Department Care Team Description 11/28/2007 Refill [facility] Catracho Suh MD Refill Request [facility] [id number] [place] [address] ([id number]) [address] [place], [place] [phone] Social History Tobacco Use Types Packs/Day Years Used Date Smoking Tobacco: Never Alcohol Use Standard Drinks/Week Comments Not Asked 0 (1 standard drink = 0.6 oz pure alcoho l) Sex Assigned at Date Recorded Not on file documented as of this encounter Miscellaneous Notes Telephone Encounter - Radha Soler - 11/28/2007 8:19 AM CDT Last OV: 10/06/07 by Reason for visit: ADHD RTC instructions: 6 months Last filled: Not given Pt would like to picking table worker at desk assistant tomorrow morning. No need to call mother unless rx is denied or you have questions. Radha Soler RN documented in this encounter Plan of Treatment Not on filedocumented as of this encounter Visit Diagnoses Diagnosis Attention deficit disorder without menti on of hyperactivity - Primary documented in this encounter Care Teams Actuarial Trainee Relationship Specialty Start Date End Date Catracho Suh MD PCP - General 12/23/02 05/08/12 [address] [place] [address] documented as of this encounter
--- OUTSIDE RECORDS SUMMARY | 2022-01-29 18:44 | XMS_ITS | Encounter Summary ---
:1995 Author Organization [place] Address [address] [facility] [place] [address] Care Team Providers Name Role Phone Catracho Suh MD Primary Care Provider Reason for Visit Reason Onset Date Comments Refill Request 03/29/2008 adderall Encounter Details Date Type Department Care Team Description 03/29/2008 Refill [facility] Catracho Suh MD Refill Request [facility] [id number] [place] [address] (adderall) [id number] [place] [address] [phone] Social History Tobacco Use Types Packs/Day Years Used Date Smoking Tobacco: Never Alcohol Use Standard Drinks/Week Comments Not Asked 0 (1 standard drink = 0.6 oz pure alcoho l) Sex Assigned at Date Recorded Not on file documented as of this encounter Miscellaneous Notes Telephone Encounter - Adalberto Enriquez - 04/02/2008 2:29 PM CST Rx left at front services agent for parents to picking machine operator helper. Message left informing.Adalberto Enriquez MA CATION COORDINATOR Telephone Encounter - Zaira North - 03/29/2008 10:56 AM CST Last Seen:10/06/07 For:ADD *Note made at that visit for PT TO RTC IN 6 MONTHS Last Filled:02/17/08 MomClementine, calling in for refill request. Mom advised that pt is due for 6 mo f/u appt. And her call is transferred to scheduling to set this up. Unable to approve. Not a PSO medication. MOM WILL TERRY CLOTH CUTTER HAND WRITTEN SIGNED SCRIPT AT [facility] OFFICE If needed, Clementine can be reached at [phone]. Thanks, Zaira North RN CATION COORDINATOR documented in this encounter Plan of Treatment Not on filedocumented as of this encounter Visit Diagnoses Diagnosis Attention deficit disorder without menti on of hyperactivity documented in this encounter Care Teams Scrap Cutter Relationship Specialty Start Date End Date Catracho Suh MD PCP - General 12/23/02 05/08/12 [address] [place] [address] documented as of this encounter
--- OUTSIDE RECORDS SUMMARY | 2022-01-29 18:44 | XMS_ITS | Encounter Summary ---
:1995 Author Organization [place] Address [address] [facility] [place] [address] Care Team Providers Name Role Phone Catracho Suh MD Primary Care Provider Reason for Visit Reason Comments RECHECK f/u R ear infection not bett er Encounter Details Date Type Department Care Team Description 12/23/2002 Office Visit [facility] Jalil Vences INFEC OTITIS EXTERNA Clinic TroyPratik Brizuela MD NOS (Primary Dx) [address] [address] [phone] Social History Tobacco Use Types Packs/Day Years Used Date Smoking Tobacco: Never Assessed Sex Assigned at Date Recorded Not on file documented as of this encounter Last Filed Vital Signs Vital Sign Reading Time Taken Comments Blood Pressure - - Pulse - - Temperature 36.4 ??C (97.6 ??F) 12/23/2002 11:15 AM CDT Respiratory Rate - - Oxygen Saturation - - Inhaled Oxygen Concentration - - Weight 36.7 kg (81 lb) 12/23/2002 11:15 AM CDT Height - - Body Mass Index - - documented in this encounter Progress Notes 12/23/2002 11:15 AM CDT Patient complains of painful ear times 6 days and uri symptoms. No lassitude, sore throat, nausea, vo mitting. Associated congestion no cough. No history of asthma or allergy. No significant travel hisor y or water exposure. No problems with vision, hearing, productive cough, wheeze, chest pain abd pain, bowel changes, rash, or specific joint pain. HPH previous Otitis with topical therapy but limited re covery Allergies, meds and HPH reviewed. Exam shows dull red /R TM. Pharynx N, neck supple, soft ab cresencio and lungs are clear. Ear canal is/not inflamed. A-Otitis Media and URI P-fever control, deconge stants and keflex as directed.Stop the cortisporin Follow up prn . documented in this encounter Plan of Treatment Not on filedocumented as of this encounter Visit Diagnoses Diagnosis Infective otitis externa, unspecified - Primary documented in this encounter Care Teams Divider Operator Relationship Specialty Start Date End Date Catracho Suh MD PCP - General 12/23/02 05/08/12 [address] [place] [address] documented as of this encounter
--- OUTSIDE RECORDS SUMMARY | 2022-01-29 18:44 | XMS_ITS | Encounter Summary ---
:1995 Author Organization [place] Address [facility] [place] [address] Care Team Providers Name Role Phone Catracho Suh MD Primary Care Provider Reason for Visit Reason Onset Date Comments Refill Request 10/07/2007 Encounter Details Date Type Department Care Team Description 10/07/2007 Refill [facility] Catracho Suh MD Refill Request [place] [address] [phone] Social History Tobacco Use Types Packs/Day Years Used Date Smoking Tobacco: Never Alcohol Use Standard Drinks/Week Comments Not Asked 0 (1 standard drink = 0.6 oz pure alcoho l) Sex Assigned at Date Recorded Not on file documented as of this encounter Miscellaneous Notes Telephone Encounter - Loren Iraheta - 10/07/2007 9:41 AM CDT Loren Iraheta, Tooth Cutter Contact Wheel Talked to mother, [place] had an appt with Dr. Suh at [place] 10/06/07 and was given a signed prescription to take with. This Rx will be destroyed. Telephone Encounter - Loren Iraheta - 10/07/2007 9:11 AM CDT Loren Iraheta, Tooth Cutter Contact Wheel LMOM for patient's mom TCBTC. Rx is signed and ready for pickup. In an envelope at the [facility]. documented in this encounter Plan of Treatment Not on filedocumented as of this encounter Visit Diagnoses Not on filedocumented in this encounter Care Teams System Specialist Relationship Specialty Start Date End Date Catracho Suh MD PCP - General 12/23/02 05/08/12 [address] [place] [address] documented as of this encounter
--- OUTSIDE RECORDS SUMMARY | 2022-01-29 18:44 | XMS_ITS | Encounter Summary ---
:1995 Author Organization [place] Address [facility] [place] [address] Care Team Providers Name Role Phone Catracho Suh MD Primary Care Provider Reason for Visit Reason Onset Date Comments Refill Request 02/17/2008 Encounter Details Date Type Department Care Team Description 02/17/2008 Refill [facility] Catracho Suh MD Refill Request [place] [id number] [place] [address] [place] [address] [place], [place] [address] [phone] Social History Tobacco Use Types Packs/Day Years [...] hyperactivity documented in this encounter Care Teams Bench Worker Apprentice Relationship Specialty Start Date End Date Catracho Suh MD PCP - General 12/23/02 05/08/12 [address] [place] [address] documented as of this encounter
--- OUTSIDE RECORDS SUMMARY | 2022-01-29 18:44 | XMS_ITS | Encounter Summary ---
:1995 Author Organization [place] Address [address] [facility] [place] [address] Care Team Providers Name Role Phone Catracho Suh MD Primary Care Provider Reason for Visit Reason Comments Trauma right ankle injury last noc Encounter Details Date Type Department Care Team Description 02/07/2005 Office Visit [facility] Catracho Suh ATTN D EFICIT NONHYPERACT (Primary Dx); [facility] [place] [facility] [address] [place] [address] [phone] Social History Tobacco Use Types Packs/Day Years Used Date Smoking Tobacco: Never Alcohol Use Standard Drinks/Week Comments Not Asked 0 (1 standard drink = 0.6 oz pure alcoho l) Sex Assigned at Date Recorded Not on file documented as of this encounter Last Filed Vital Signs Vital Sign Reading Time Taken Comments Blood Pressure 90/60 02/07/2005 9:30 AM CDT Pulse 72 02/07/2005 9:30 AM CDT Temperature - - Respiratory Rate - - Oxygen Saturation - - Inhaled Oxygen Concentration - - Weight 43.1 kg (95 lb) 02/07/2005 9:30 AM CDT Height 142.2 cm (4' 8) 02/07/2005 9:30 AM CDT Body Mass Index 21.3 02/07/2005 9:30 AM CDT Body Mass Index Percentile 86.21 % 02/07/2005 9:30 AM CD T Growth Chart: [facility] (Boys, 2-20 Years) documented in this encounter Progress Notes Catracho Suh - 02/07/2005 9:56 AM CDT S: [place] Prater is a 10 year old male who complains of inversion injury to the right ankle 2 daysago. There is pain and swelling at the lateral aspect of that ankle. The patient was able to bear weight directly after the injury. 0: He appears well, vital signs are normal. There is swelling and tenderness over the lateral malleolus. No tenderness over the medial aspect of the ankle. The fifth metatarsal is not tender. The anklejoint is intact without excessive opening on stressing. X-Ray shows fracture to be present. The restof the foot, ankle and leg exam is normal. A: DISTAL ANKLE FIBULAR FRACTURE; SMALL AVULSION FRACTURE. THIS DOES ESTEND TO THE GROWTH PLATE. I WILL AWAIT THE READING FROM THE RADIOLOGIST. WILL PLACE IN SPLINT MAY NEED CASTING AT THIS POINT I THINK IT IS MUCH TO SWOLLEN. IF NO MORE IS NEEDED THEN WILL RECHECK IN 1 WWEK. P: Rest and elevate the injured ankle, apply ice intermittently. Use crutches without weight bearinguntil able to comfortable bear partial weight, then progress to full weight bearing as tolerated. ANA bandage applied. Dynamic ankle splint dispensed. See prn. documented in this encounter Nursing Notes 02/07/2005 9:30 AM CDT >> CAROL RICE 02/07/2005 9:37 am [place] Prater presents for right ankle injury last noc. Patient was running and twisted right foot. Foot is painful and swollen. Initial BP 90/60 Pulse 72 Ht 4' 8 (1.42m) Wt 95 lbs (43.1kg) Body Mass Index is 21.31 kg/(m^2).. BP completed using cuff size: regular documented in this encounter Plan of Treatment Not on filedocumented as of this encounter Procedures Procedure Name Priority Date/Time Associated Diagnosis Comme nts HC X-RAY ANKLE >=3 Routine 02/07/2005 10:24 AM Joint Pain-Ankl e Results for this VIEWS CDT procedure are i n the results section. documented in this encounter Results X-RAY ANKLE 3+ VW (02/07/2005 10:24 AM CDT) Anatomical Region Laterality Modality Other Impressions 02/07/2005 10:24 AM CDT REPORT OF OUTSIDE FILMS FROM [facility] ??CLINIC [place] PRATER ?: 89 THREE VIEWS RIGHT ANKLE: ??02/07/05 INDICATION FOR EXAMINATION: ??Pain. FINDINGS: ??Accessory ossicle at lateral epiphyseal surface fibula. ??No evidence of fracture. ??No osseous abnormalities are demonstrated. Jose G Pak M.D./claudia D/T: ??02/08/05 Ordering MD/Provider Initial Interpretat ion: Normal/Negative Electronically filed by Sarah Lopez ??02/07/2005 ??10:24 AM . Catracho Suh MD GENERAL IMAGING documented in this encounter Visit Diagnoses Diagnosis Attention deficit disorder without menti on of hyperactivity - Primary Pain in joint, ankle and foot documented in this encounter Care Teams Interpreter Translator Relationship Specialty Start Date End Date Catracho Suh MD PCP - General 12/23/02 05/08/12 [address] [place] [address] documented as of this encounter
--- OUTSIDE RECORDS SUMMARY | 2022-01-29 18:44 | XMS_ITS | Encounter Summary ---
:1995 Author Organization [place] Address [address] [facility] [place] [address] Care Team Providers Name Role Phone Catracho Suh MD Primary Care Provider Encounter Details Date Type Department Care Team Description 01/25/2005 Historic Results INTERFACED REPORT Paco Milton MD [facility] [address] [facility] [address] [place], [place] [address] (Wo rk) Social History Tobacco Use Types Packs/Day Years Used Date Smoking Tobacco: Never Assessed Sex Assigned at Date Recorded Not on file documented as of this encounter Plan of Treatment Not on filedocumented as of this encounter Procedures Procedure Name Priority Date/Time Associated Diagnosis Comme nts DRUGS OF ABUSE STAT 01/25/2005 3:15 PM Results for this TRIAGE METER KIT CDT procedure a re in URINE the results section. documented in this encounter Results Drugs of abuse triage meter kit urine (01/25/2005 3:15 PM CDT) [facility] Method Time Signature Amphetamine Not Detected MISYS Qual Urine Comment: Reference Range: Not Detected Barbiturates Qual Urine Not Detected MIS YS Comment: Reference Range: Not Detected Benzodiazepine Qual Urine Not Detected M ISYS Comment: Reference Range: Not Detected Cannabinoids Qual Urine Not Detected MIS YS Comment: Reference Range: Not Detected Cocaine Qual Urine Not Detected MISYS Comment: Reference Range: Not Detected Opiates Qualitative Urine Not Detected M ISYS Comment: Reference Range: Not Detected PCP Qual Urine Not Detected MISYS Comment: Reference Range: Not Detected Tricyc Anti Qual Urine Not Detected MISY S Comment: Reference Range: Not Detected Methamphetamine Qual Urine Not Detected MISYS Comment: Reference Range: Not Detected Specimen Anatomical Collection Method Collection Time Receive d Time (Source) Location / / Volume Laterality 01/25/2005 3:15 PM 5 3:39 CDT PM CDT Norah Milton MD LAB - URINE ORDERABLES Performing Organization Address City/State/ZIP Code Phon e Number MISYS documented in this encounter Visit Diagnoses Not on filedocumented in this encounter Care Teams Workers Compensation Specialist Relationship Specialty Start Date End Date Catracho Suh MD PCP - General 12/23/02 05/08/12 [address] [place] [address] documented as of this encounter
--- OUTSIDE RECORDS SUMMARY | 2022-01-29 18:44 | XMS_ITS | Encounter Summary ---
:1995 Author Organization [place] Address [facility] [place] [address] Care Team Providers Name Role Phone Catracho Suh MD Primary Care Provider Reason for Visit Reason Comments RECHECK medications check Encounter Details Date Type Department Care Team Description 05/06/2007 Office Visit [facility] Catracho Suh ATTN D EFICIT [facility] [place] MD NONHYPERACT (Primary [id number] [place] [address]) [place] [address] [phone] Social History Tobacco Use Types Packs/Day Years [...] - Inhaled Oxygen Concentration - - Weight 55.3 kg (122 lb) 05/06/2007 4:00 PM ROUNDSMAN Height 157.5 cm (5' 2) 05/06/2007 4:00 PM ROUNDSMAN Body Mass Index 22.31 05/06/2007 4:00 PM ROUNDSMAN Body Mass Index Percentile 81.56 % 05/06/2007 4:00 PM CS T Growth Chart: [facility] (Boys, 2-20 Years) documented in this encounter Progress Notes Catracho Suh - 05/06/2007 4:58 PM CST SUBJECTIVE: [place] Hoang, a 12 year old male scheduled an appointment to discuss the following issues: ATTN DEFICIT NONHYPERACT Medical, social, surgical, and family histories reviewed. [...] : NEGATIVE for frequency, dysuria, or hematuria NEURO: as mentioned above with behavioral problems OBJECTIVE: Ht 5' 2 (1.58m) Wt 122 lbs (55.3kg) EXAM: GENERAL APPEARANCE: healthy, alert and no distress EYES: EOMI, fundi benign- PERRL HENT: ear canals and TM's normal [...] normal, mentation intact and speech normal ASSESSMENT/PLAN: 314.00 ATTN DEFICIT NONHYPERACT (primary encounter diagnosis) Note: will continue at present dose. He seems to be doing well turn to clinic in six months Plan: ADDERALL XR# 30 MG OR CP24 DSMAN documented in this encounter Nursing Notes 05/06/2007 4:00 PM CST >> VALENCIA RICE 05/06/2007 3:56 pm Patient presents with: RECHECK - medications check Initial Ht 5' 2 (1.58m) Wt 122 lbs (55.3kg) Body mass index is 22.31 kg/(m^2).. BP completed using cuff size: NA (Not Taken) Valencia Rice LPN documented in this encounter Plan of Treatment Not on filedocumented as of this encounter Visit Diagnoses Diagnosis Attention deficit disorder without menti on of hyperactivity - Primary documented in this encounter Care Teams Tobacco Conditioner Relationship Specialty Start Date End Date Catracho Suh MD PCP - General 12/23/02 05/08/12 [address] [place] [address] documented as of this encounter
--- OUTSIDE RECORDS SUMMARY | 2022-01-29 18:44 | XMS_ITS | Encounter Summary ---
:1995 Author Organization [place] Address [facility] [place] [address] Care Team Providers Name Role Phone Catracho Suh MD Primary Care Provider Reason for Visit Reason Onset Date Comments Refill Request 10/29/2007 Encounter Details Date Type Department Care Team Description 10/29/2007 Refill [facility] Catracho Suh MD Refill Request [place] [address] [phone] Social History Tobacco Use Types Packs/Day Years Used Date Smoking Tobacco: Never Alcohol Use Standard Drinks/Week Comments Not Asked 0 (1 standard drink = 0.6 oz pure alcoho l) Sex Assigned at Date Recorded Not on file documented as of this encounter Miscellaneous Notes Telephone Encounter - Loren Iraheta - 10/29/2007 12:42 PM CDT Loren Iraheta, Medical Clerk Left detailed message that signed Rx is up at the toll test desk worker and ready for pickup. Telephone Encounter - Adelso Tillman - 10/29/2007 12:09 PM CDT Rx printed and in my out basket. Patient requesting 1 week early. Please call patient to pick-up. Adelso Tillman MD [facility] Telephone Encounter - Loren Iraheta - 10/29/2007 11:02 AM CDT Loren Iraheta, Medical Clerk Mother calling to request a refill on adderall Last o.v. 10/06/07 Last refill 10/06/07 documented in this encounter Plan of Treatment Not on filedocumented as of this encounter Visit Diagnoses Diagnosis Attention deficit disorder without menti on of hyperactivity - Primary documented in this encounter Care Teams Business Center Manager Relationship Specialty Start Date End Date Catracho Suh MD PCP - General 12/23/02 05/08/12 [address] [place] [address] documented as of this encounter
--- OUTSIDE RECORDS SUMMARY | 2022-01-29 18:44 | XMS_ITS | Encounter Summary ---
:1993 Author Organization [place] Address [facility] [place] [address] Care Team Providers Name Role Phone Catracho Suh MD Primary Care Provider Reason for Visit Reason Onset Date Comments Refill Request 10/02/2007 Adderall Slk Encounter Details Date Type Department Care Team Description 10/02/2007 Refill [facility] Catracho Suh MD Refill Request (Adderall [place] [address] [place] [address] S Slk) [address] [place], [place] [phone] [phone] Social History Tobacco Use Types Packs/Day Years Used Date Smoking Tobacco: Never Alcohol Use Standard Drinks/Week Comments Not Asked 0 (1 standard drink = 0.6 oz pure alcoho l) Sex Assigned at Date Recorded Not on file documented as of this encounter Miscellaneous Notes Telephone Encounter - Jessica Squires - 10/02/2007 9:02 AM CDT Pt's mom Clementine called asking for a rf on his Adderall. Please call her back at [phone] when this is ready. Unable to refill Pso, not on our list. Last Seen: 05/06/07 with for adhd Rtc instructions: 6 months, I did inform mom that he would be due for a visit next month Last Filled: 07/01/07 #30 Jessica Squires RN. documented in this encounter Plan of Treatment Not on filedocumented as of this encounter Visit Diagnoses Diagnosis Attention deficit disorder without menti on of hyperactivity documented in this encounter Care Teams Research Hydrologist Relationship Specialty Start Date End Date Catracho Suh MD PCP - General 12/23/02 05/08/12 [address] [place] [address] documented as of this encounter
--- OUTSIDE RECORDS SUMMARY | 2022-01-29 18:44 | XMS_ITS | Encounter Summary ---
:1995 Author Organization [place] Address [address] [facility] [place] [address] Care Team Providers Name Role Phone Catracho Suh MD Primary Care Provider Reason for Visit Reason Comments Ear Problem Encounter Details Date Type Department Care Team Description 12/16/2002 Office Visit [facility] Abisai Tracy MD INFEC OTITIS EXTERNA Clinic [facility] MEDICINE NOS (Primary Dx) [address] [place] [address] [address] [place], [place] [phone] (Wo rk) Social History Tobacco Use Types Packs/Day Years Used Date Smoking Tobacco: Never Assessed Sex Assigned at Date Recorded Not on file documented as of this encounter Last Filed Vital Signs Vital Sign Reading Time Taken Comments Blood Pressure - - Pulse - - Temperature 36.6 ??C (97.9 ??F) 12/16/2002 4:30 PM CDT Respiratory Rate - - Oxygen Saturation - - Inhaled Oxygen Concentration - - Weight 37.2 kg (82 lb) 12/16/2002 4:30 PM CDT Height - - Body Mass Index - - documented in this encounter Progress Notes 12/16/2002 4:30 PM CDT SUBJECTIVE: [place] Hoang is a 7 year old male brought by mother with 1 days history of pain at right ear, and none. Temperature not elevated at home. OBJECTIVE: Temp (Src) 97.9 (Oral) Wt 82 lbs (37 .2kg) General appearance: healthy, alert, cooperative and smiling. Ears: abnormal: R TM ear canal i s red and swollen; L TM normal Nose: normal Oropharynx: normal Neck: supple and no adenopathy Lungs: clear to IPPA and chest clear to IPPA ASSESSMENT: Otitis Externa PLAN: 1) Antibiotic drops per [facility] Care orders. 2) Symptomatic therapy suggested: use acetaminophen, ibuprofen prn. 3) Call or return t o clinic prn if these symptoms worsen or fail to improve as anticipated. documented in this encounter Nursing Notes 12/16/2002 4:30 PM CDT >> KERRY PULIDO 12/16/2002 4:31 pm Right sided ear pain since this morning. No fevers. Feeling ok otherwise. Advil at 2:15pm Kerry Hillman LPN documented in this encounter Plan of Treatment Not on filedocumented as of this encounter Visit Diagnoses Diagnosis Infective otitis externa, unspecified - Primary documented in this encounter Care Teams Crtts Relationship Specialty Start Date End Date Catracho Suh MD PCP - General 12/23/02 05/08/12 [address] [place] [address] documented as of this encounter
--- OUTSIDE RECORDS SUMMARY | 2022-01-29 18:44 | XMS_ITS | Encounter Summary ---
:1995 Author Organization [place] Address [facility] [place] [address] Care Team Providers Name Role Phone Catracho Suh MD Primary Care Provider Reason for Visit Reason Onset Date Comments Patient Request 04/23/2007 Encounter Details Date Type Department Care Team Description 04/23/2007 Telephone [facility] Catracho Suh MD Patient Request [address] [phone] (Wo rk) Social History Tobacco Use Types Packs/Day Years Used Date Smoking Tobacco: Never Alcohol Use Standard Drinks/Week Comments Not Asked 0 (1 standard drink = 0.6 oz pure alcoho l) Sex Assigned at Date Recorded Not on file documented as of this encounter Miscellaneous Notes Telephone Encounter - Dolores Longo - 04/25/2007 9:57 AM CST Done. Dolores Longo CMA TED CIRCUIT BOARDS PLASMA ETCHER Telephone Encounter - Supriya Wang - 04/23/2007 2:51 PM CST Mom requesting a medical records release form be faxed to her at [phone]. If questions please call her at [phone]. Supriya Wang RN TED CIRCUIT BOARDS PLASMA ETCHER documented in this encounter Plan of Treatment Not on filedocumented as of this encounter Visit Diagnoses Not on filedocumented in this encounter Care Teams Pressure Tank Operator Relationship Specialty Start Date End Date Catracho Suh MD PCP - General 12/23/02 05/08/12 [address] [place] [address] documented as of this encounter
--- OUTSIDE RECORDS SUMMARY | 2022-01-29 18:44 | XMS_ITS | Encounter Summary ---
:1995 Author Organization [place] Address [address] [facility] [place] [address] Care Team Providers Name Role Phone Catracho Suh MD Primary Care Provider Reason for Referral - Closed Specialty Diagnoses / Procedures Referred By Contact Refer red To Contact Diagnoses DIAGNOSIS [place] [address] [place], [place] [address] Referral ID Status Reason Start Date Expiration Date Visits Requ ested Visits Authorized [id number] Closed 07/13/2008 04/14/2011 1 1 Encounter Details Date Type Department Care Team Description 04/28/2006 Orders Only [facility] Catracho Suh, THOMASO SIS NOT YET Clinic [place] DEFINED (Primary Dx) [address] [address] [phone] Social History Tobacco Use Types Packs/Day Years Used Date Smoking Tobacco: Never Alcohol Use Standard Drinks/Week Comments Not Asked 0 (1 standard drink = 0.6 oz pure alcoho l) Sex Assigned at Date Recorded Not on file documented as of this encounter Plan of Treatment Not on filedocumented as of this encounter Procedures Procedure Name Priority Date/Time Associated Diagnosis Comme nts ZNeelima CONSULT MENTAL HEALTH Routine 04/28/2006 DIAGNOSIS NOT YET DEFINED documented in this encounter Results CONSULT MENTAL HEALTH (04/28/2006) Specimen (Source) Anatomical Location Collection Method / Collectio n Time Received Time / Laterality Volume 04/28/2006 Narrative This result has an attachment that is no t available. Catracho Suh MD REFERRAL documented in this encounter Visit Diagnoses Diagnosis DIAGNOSIS NOT YET DEFINED - Primary documented in this encounter Care Teams Skull Grinder Relationship Specialty Start Date End Date Catracho Suh MD PCP - General 12/23/02 05/08/12 [address] [place] [address] documented as of this encounter
--- OUTSIDE RECORDS SUMMARY | 2022-01-29 18:44 | XMS_ITS | Encounter Summary ---
:1995 Author Organization [place] Address [address] [place] [address] Care Team Providers Name Role Phone Catracho Suh MD Primary Care Provider Reason for Visit Reason Comments Pharyngitis Symptoms started New Years: sore throat. Encounter Details Date Type Department Care Team Description 04/21/2008 Office Visit [facility] Adelso Tillman ore Throat (Viral) Clinic [place] Ludwin Allison MD (Primary Dx) [facility], [address] [place], [place] [address] [address] [facility] [phone] [place], [place] [address] (Wo rk) Social History Tobacco Use Types Packs/Day Years Used Date Smoking Tobacco: Never Alcohol Use Standard Drinks/Week Comments Not Asked 0 (1 standard drink = 0.6 oz pure alcoho l) Sex Assigned at Date Recorded Not on file documented as of this encounter Last Filed Vital Signs Vital Sign Reading Time Taken Comments Blood Pressure 100/70 04/21/2008 11:15 AM PROGRAMS ASSISTANT Pulse 80 04/21/2008 11:15 AM PROGRAMS ASSISTANT Temperature 36.7 ??C (98 ??F) 04/21/2008 11:15 AM PROGRAMS ASSISTANT Respiratory Rate - - Oxygen Saturation - - Inhaled Oxygen Concentration - - Weight 58.1 kg (128 lb) 04/21/2008 11:15 AM PROGRAMS ASSISTANT Height 161.9 cm (5' 3.75) 04/21/2008 11:15 AM PROGRAMS ASSISTANT Body Mass Index 22.14 04/21/2008 11:15 AM PROGRAMS ASSISTANT Body Mass Index Percentile 74.73 % 04/21/2008 11:[address] Growth Chart: [facility] (Boys, 2-20 Years) documented in this encounter Progress Notes Adelso Tillman - 04/21/2008 11:20 AM CST SUBJECTIVE: Chico Hoang is a 13 year old male who is here today with: CC:Sore Throat and symptoms of no fever and no chills. Serious symptoms include: none applicable. Onset of symptoms was 1 week ago. Course of illness is same. none applicable exposures. Treatment measures tried include OTC meds. All Medications, Allergies and Histories reviewed and current as of todays visit. OBJECTIVE: BP 100/70 Pulse 80 Temp (Src) 98 ??F (36.7 ??C) (Oral) Ht 5' 3.75 (1.619 m) Wt 128 lb (58.06 kg) GENERAL: healthy, alert, no distress and cooperative EYES:Lids and Conjunctival normal EAR: CANAL and Left TM is normal: no effusions, no erythema, and normal landmarks, CANAL and Right TM is normal: no effusions, no erythema, and normal landmarks. NOSE: clear rhinorrhea, mucosal erythema and mucosal edema OROPHARYNX:mild erythema and post nasal drainage. NECK: supple and small, benign anterior cervical nodes bilaterally LUNGS:normal HEART :regular rate and rhythm and no murmurs, clicks, or gallops STREP GROUP A AG (RAPID): negative ASSESSMENT/PLAN: 462U Sore Throat (Viral) (primary encounter diagnosis) Comment: secondary to post-nasal drainage Plan: Mucinex-D q 12hours and saline nasal spray Q4 hours for congestion. Adelso Tillman MD [facility] RAMS ASSISTANT documented in this encounter Nursing Notes 04/21/2008 11:15 AM CST >> MAYRA CUELLAR Wed Apr 21, 2008 11:15 AM Patient presents with: Pharyngitis - Symptoms started New Years: sore throat. Initial BP 100/70 Pulse 80 Temp (Src) 98 ??F (36.7 ??C) (Oral) Ht 5' 3.75 (1.619 m) Wt 128 lb (58.06 kg) Body mass index is 22.14 kg/(m^2). BP completed using cuff size regular right arm. Mayra Cuellar CMA documented in this encounter Plan of Treatment Not on filedocumented as of this encounter Procedures Procedure Name Priority Date/Time Associated Diagnosis Comme nts HCL BETA STREP Routine 04/21/2008 11:26 AM Sore Throat (Viral) Results for this CONFIRM PROGRAMS ASSISTANT procedure are i n the results section. HCL STREP GROUP A Routine 04/21/2008 11:26 AM Sore Throat (Vir al) Results for this AG (RAPID) PROGRAMS ASSISTANT procedure are i n the results section. documented in this encounter Results BETA STREP CONFIRM (04/21/2008 11:26 AM PROGRAMS ASSISTANT) Component Value Ref Test Analysis Performed At [facility] gist Range Method Time Signature Specimen Throat [facility] Culture Micro No Beta [place] Streptococcus [facility] Report status FINAL 04/22/2008 [facility] Specimen Anatomical Collection Method Collection Time Receive d Time (Source) Location / / Volume Laterality 04/21/2008 11:26 04/21/2008 AM PROGRAMS ASSISTANT 11:28 AM PROGRAMS ASSISTANT Adelso Tillman MD LABORATORY Performing Organization Address City/[facility]/ZIP Code Phon e Number [address] [address] [facility] STREP GROUP A AG (RAPID) (04/21/2008 11:26 AM PROGRAMS ASSISTANT) Component Value Ref Test Analysis Performed At [facility] gist Range Method Time Signature Specimen Throat [facility] Rapid Strep A NEGATIVE: No Group A strepto coccal antigen detected by immunoassay, await [place] Screen culture report. [facility] Report status FINAL 04/21/2008 [facility] Specimen Anatomical Collection Method Collection Time Receive d Time (Source) Location / / Volume Laterality 04/21/2008 11:26 04/21/2008 AM PROGRAMS ASSISTANT 11:28 AM PROGRAMS ASSISTANT Adelso Tillman MD LABORATORY Performing Organization Address City/[facility]/ZIP Code Phon e Number [address] [address] [facility] documented in this encounter Visit Diagnoses Diagnosis Sore throat (viral) - Primary Acute pharyngitis documented in this encounter Care Teams Clipper And Turner Relationship Specialty Start Date End Date Catracho Suh MD PCP - General 12/23/02 05/08/12 [address] [place] [address] documented as of this encounter
--- OUTSIDE RECORDS SUMMARY | 2022-01-29 18:44 | XMS_ITS | Encounter Summary ---
:1995 Author Organization [place] Address [facility] [place] [address] Care Team Providers Name Role Phone Catracho Suh MD Primary Care Provider Reason for Visit Reason Onset Date Comments Refill Request 2008 Encounter Details Date Type Department Care Team Description 12/31/2007 Refill [facility] Catracho Suh MD Refill Request [place] [id number] [place] [address] [address] [address] [phone] Social History Tobacco Use Types Packs/Day Years Used Date Smoking Tobacco: Never Alcohol Use Standard Drinks/Week Comments Not Asked 0 (1 standard drink = 0.6 oz pure alcoho l) Sex Assigned at Date Recorded Not on file documented as of this encounter Miscellaneous Notes Telephone Encounter - July Carr - 2008 8:07 AM CDT Pt mom notified and will p/u [facility] front attendant July Carr/PERRY Telephone Encounter - Candie Villaseñor - 12/31/2007 4:13 PM CDT Candie Villaseñor, Box Office Attendant Patient requesting refill on adderall Last refill 12/04/07 Last o.v. 10/06/07 for ADD Telephone Encounter - Candie Villaseñor - 12/31/2007 4:08 PM CDT Staff Message copied by CANDIE VILLASEÑOR on SatDec 31, 2007 4:08 PM ------ Message from: KATIE MANZANO Created: SatDec 31, 2007 4:02 PM Regarding: - adderall refill Contact: Clementine calling for refill on her son's adderall. 30 mg documented in this encounter Plan of Treatment Not on filedocumented as of this encounter Visit Diagnoses Diagnosis Attention deficit disorder without menti on of hyperactivity - Primary documented in this encounter Care Teams Manager Radio Relationship Specialty Start Date End Date Catracho Suh MD PCP - General 12/23/02 05/08/12 [address] [place] [address] documented as of this encounter
--- OUTSIDE RECORDS SUMMARY | 2022-01-29 18:44 | XMS_ITS | Encounter Summary ---
:1995 Author Organization [place] Address [address] [facility] [place] [address] Care Team Providers Name Role Phone Catracho Suh MD Primary Care Provider Encounter Details Date Type Department Care Team Description 12/04/2007 Orders Only [facility] Catracho Suh Attens[facility] ion Deficit [facility] [place] Disorder without Mention [address] [facility] [id number] [place] [address] of Hyperactivity [place], [place] S (Primary Dx) [address] [place], [place] [phone] Social History Tobacco Use Types Packs/Day Years [...] Primary documented in this encounter Care Teams Video Machines Mechanic Relationship Specialty Start Date End Date Catracho Suh MD PCP - General 12/23/02 05/08/[address] [place], [place] [phone] documented as of this encounter
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
--- OUTSIDE RECORDS SUMMARY | 2022-01-29 18:44 | XMS_ITS | Encounter Summary ---
:1995 Author Organization [place] Address [address] [facility] [place] [address] Care Team Providers Name Role Phone Catracho Suh MD Primary Care Provider Reason for Visit Reason Comments Patient Request For another med? Encounter Details Date Type Department Care Team Description 12/23/2002 Telephone [facility] Cata Weiss MD Patient Request (For Clinic [facility] another med?) [phone] [place] [address] [facility] [address] [address] [address] [place], [place] [phone] (Wo rk) Social History Tobacco Use Types Packs/Day Years Used Date Smoking Tobacco: Never Assessed Sex Assigned at Date Recorded Not on file documented as of this encounter Miscellaneous Notes Telephone Encounter - 12/23/2002 11:59 PM CDT >> NUZHAT LARA Wed Dec 23, 2002 10:57 AM Appt made for today with Nuzhat SHARIF RN >> CATA WEISS SatDec 23, 2002 10:08 AM needs to be seen >> NUZHAT LARA SatDec 23, 2002 9:14 AM >> CALL RECEIVED. Contact: Was seen 12/16 for ear infection, got gtts and is not gettng better- pain is the same, no drainage c rusting or fever. Is on day 7 of 10 of the gtts. Mom wondering if there is another medication he cou ld take or other treatment for him. would like a call back at home #. Nuzhat Lara RN documented in this encounter Plan of Treatment Not on filedocumented as of this encounter Visit Diagnoses Not on filedocumented in this encounter Care Teams Lamination Builder Relationship Specialty Start Date End Date Catracho Suh MD PCP - General 12/23/02 05/08/12 [address] [place] [address] documented as of this encounter
--- OUTSIDE RECORDS SUMMARY | 2022-01-29 18:44 | XMS_ITS | Encounter Summary ---
:1995 Author Organization [place] Address [address] [facility] [place] [address] Care Team Providers Name Role Phone Catracho Suh MD Primary Care Provider Encounter Details Date Type Department Care Team Description 08/11/2007 Orders Only [facility] Catracho Suh ATTN D EFICIT Clinic Alfreda Christie MD NONHYPERACT (Primary [phone] [facility] [address] [facility] Dx) [place] [address] [phone] Social History Tobacco Use Types Packs/Day Years [...] Primary documented in this encounter Care Teams Call Centre Supervisor Relationship Specialty Start Date End Date Catracho Suh MD PCP - General 12/23/02 05/08/[address] [place], [place] [phone] documented as of this encounter
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
--- OUTSIDE RECORDS SUMMARY | 2022-01-29 18:45 | XMS_ITS | Clinical Summary ---
:1995 Author Organization [employer] [facility] [place] [address] Care Team Providers Name Role Phone Nonstaff, Doctor Primary Care Provider Unavailable Catracho Suh Unavailable Allergies Active Allergy Reactions Severity Noted Date Comments Codeine Syncope 09/03/2014 Medications Medication Sig Dispensed Refills Start Date End Date Status FLUOXETINE HCL (PROZAC Take 20 mg by 0 Active ORAL) mouth. Take 2 tablets by mouth in the am. BUSPIRONE HCL (BUSPAR Take by mouth. 0 Active ORAL) AMPHET Take by mouth. 0 Activ e ASP/AMPHET/D-AMPHET (ADDERALL ORAL) lisdexamfetamine Take 1 capsule 0 09/03/2014 Active (VYVANSE) 70 mg capsule by mouth every morning. Dx: 314.01 ADHD dextroamphetamine-ampheta Take 1 tablet 0 09/03/2014 Active mine (ADDERALL) 10 mg by mouth. tablet Active Problems Not on file Immunizations Name Administration Dates Next Due Tdap 09/03/2014 Social History Tobacco Use Types Packs/Day Years Used Date Current Every Day Smoker Cigarettes 0.5 Smokeless Tobacco: Never Used Alcohol Use Standard Drinks/Week Comments Yes 0 (1 standard drink = 0.6 oz pure alcoho l) on the weekends Alcohol Habits Answer Date Recorded How often do you have a drink containing alcohol? Not asked How many drinks containing alcohol do you have on a Not aske d typical day when you are drinking? How often do you have six or more drinks on one Not asked occasion? Comment: on the weekends 09/03/2014 Sex Assigned at Date Recorded Not on file Obstetrics History Last Filed Vital Signs Vital Sign Reading Time Taken Comments Blood Pressure 108/62 09/03/2014 11:47 AM CDT Pulse 84 09/03/2014 11:47 AM CDT Temperature 37.1 ??C (98.8 ??F) 09/03/2014 11:47 AM CDT Respiratory Rate 20 09/03/2014 11:47 AM CDT Oxygen Saturation 97% 10/26/2009 4:41 PM CDT Inhaled Oxygen Concentration - - Weight 64.4 kg (142 lb) 09/03/2014 11:47 AM CDT Height 166.4 cm (5' 5.5) 09/03/2014 11:47 AM CDT Body Mass Index 23.27 09/03/2014 11:47 AM CDT Plan of Treatment Health Maintenance Due Date Last Done Comments COVID-19 vaccine series (#1) 1993 Depression screening for age 12+ 2005 BMI (ht and wt on same day) for age 18+ 2011 Hepatitis C screening for age 18-79 2011 Influenza for age 9-49 12/14/2021 Tetanus booster 09/03/2024 09/03/2014 Tdap Completed 09/03/2014 Results Not on filefrom Last 3 Months Insurance Payer Benefit Plan Subscriber ID Effective Dates Phone Address Type / Group WC WORKERS WC WORKERS [id number] 2014-Prese [phone] [address] [place] [address] MEDICA [place] MEDICA CHOICE [id number] 2009-[place] [address] [address] [place] [address] (Work) [id number] [employer] Workers Comp Self [phone] (Home) [place] [address] [place] Personal/Family Self [address] (Home) [place] [address] Advance Directives Latest Code Status on File Code Status Date Activated Date Inactivated Comments Full Code 01/27/2005 6:54 PM 02/02/2005 9:00 PM Care Teams Supply Chain Business Analyst Relationship Specialty Start Date End Date Nonstaff, Doctor PCP - General 09/03/14 NON STAFF DOCTOR Catracho Suh 09/03/14
[2022-01-29 19:00] VITALS: BP 114/35; PULSE 93; O2SAT 95
[2022-01-29 19:27] LABS: Appearance Urine Clear (Clear); Bilirubin Urine Negative (Negative); Blood Urine Negative (Negative); Color Urine Yellow (Yellow); Glucose Urine Negative (Negative); Ketones Urine Negative (Negative); Leukocyte Esterase Urine Negative (Negative); Nitrite Urine Negative (Negative); Protein Urine 2+ (Negative); Urobilinogen Urine 0.2 (0.2-1.0); pH Urine 7.5 (5.0-8.5)
[2022-01-29 19:30] VITALS: BP 103/78; PULSE 92; O2SAT 95
[2022-01-29 20:00] VITALS: BP 110/69; PULSE 94; O2SAT 94
[2022-01-29] MEDS: AMOXICILLIN/CLAVULANATE 875 mg/125 mg TABLET PO (20:26)
[2022-01-29] MEDS: KETOROLAC 30 MG/ML inj IVP (20:26)
[2022-01-29 20:40] LABS: RBC Urine 0-2 (0-2); WBC Urine 0-2 (0-5)
== END 2022-01-29 20:34 | disposition home or self-care (01) ==
PROVIDERS: Emergency Provider Emergency Medicine Emergency Medical Services
DX: K57.90 Diverticulosis of intestine, part unspecified, without perforation or abscess without bleeding (principal)
CPT/HCPCS: 36415; 74177; 80048; 81001; 83605; 85025; 87040; 96374; 99284; 99285; A9270; J1885; Q9967

== ENCOUNTER 2022-02-02 20:45 | Emergency (ER) | payer OTHER, SELFPAY ==
[2022-02-02 20:53] VITALS: BP 145/106; PULSE 102; RESP 16; TEMP 36.6; O2SAT 93
[2022-02-02 21:12] LABS: Basophils Percent Auto 0.3 % (0.0-3.0); Eosinophils Percent Auto 0.7 % (0.0-7.0); Hematocrit 41.8 % (37.0-53.0); Hemoglobin* 14.4 gm/dL (13.5-17.5); Immature Granulocytes Abs Auto 0.04 K/uL (0.00-0.30); Lymphocytes Percent Auto 11.1 % (20-44); Mean Corpuscular HGB Conc 34 gm/dL (32-36); Mean Corpuscular Hemoglobin 30 pg (26-34); Mean Corpuscular Volume 88 fL (80-100); Monocytes Percent Auto 6.2 % (0.0-11.0); Neutrophils Percent Auto 81.4 % (42.0-72.0); Platelet Count* 301 K/uL (140-440); RDW Coefficient of Variation % 11.9 % (11.5-15.5); Red Blood Count 4.76 m/uL (4.30-5.90); White Blood Count* 11.49 K/uL (4.50-11.00)
--- OUTSIDE RECORDS SUMMARY | 2022-02-02 21:14 | XMS_ITS | Clinical Summary ---
:1995 Author Organization [facility] Address [address] [place] [id number] Phone Care Team Providers Name Role Phone Pcp, No Primary Care Provider Unavailable Source Comments [employer] is fully rolled out on [employer]. 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 Con sprayer auto parts additional oblique views to better delineate this finding. IMPRESSION Impression: Radiopaque foreign body may be penetrati ng the proximal first metacarpal. Recommend additional views to better evaluate this finding. Reading Radiologist: Delmar Still Ed Richardson MD X-RAY from Last 3 Months Advance Directives For more information, please contact: [phone] Latest Code Status on File Code Status [...] Status With Whom? Not discussed Care Teams Automobile Racer Relationship Specialty Start Date End Date Pcp, No PCP - General 10/24/14 [facility] [place] [address]
--- OUTSIDE RECORDS SUMMARY | 2022-02-02 21:14 | XMS_ITS | Encounter Summary ---
:1995 Author Organization [facility] Address [address] [place] [address] Phone Care Team Providers Name Role Phone [...] on filedocumented in this encounter Care Teams Waffle Machine Operator Relationship Specialty Start Date End Date Pcp, Radha PCP - General 10/24/14 [facility] [place] [address] documented as of this encounter
[2022-02-02 21:15] LABS: Slide Review Reflex No
--- OUTSIDE RECORDS SUMMARY | 2022-02-02 21:15 | XMS_ITS | Encounter Summary ---
:1995 Author Organization [facility] Address [address] [place] [address] Phone Care Team Providers Name Role Phone [...] on filedocumented in this encounter Care Teams Rn Imcu Relationship Specialty Start Date End Date Pcp, No PCP - General 10/24/14 [facility] [place] [address] documented as of this encounter
--- OUTSIDE RECORDS SUMMARY | 2022-02-02 21:15 | XMS_ITS | Encounter Summary ---
:1995 Author Organization [facility] Address [address] [facility] [place] [address] Phone Care Team Providers Name Role Phone Pcp, No Primary Care Provider Unavailable Reason for Visit Reason Onset Date Comments Letter for Work 10/28/2014 Airline Encounter Details Date Type Department Care Team Description 10/28/2014 Telephone [facility] [place] NeuroSurgery Cl Lisa Mayers, Letter for Work [address] Xavier RN (Airline) [phone] [place], [place] [address] [place], [place] [phone] Social History Tobacco Use Types Packs/Day Years Used Date Smoking Tobacco: Never Assessed Alcohol Use Standard Drinks/Week Comments Yes 0 (1 standard drink = 0.6 oz pure alcoho l) Sex Assigned at Date Recorded Not on file documented as of this encounter Miscellaneous Notes Telephone Encounter - Lisa Brown RN - 10/28/2014 11:45 AM CDT Faxed ([phone]) and mailed letter for pt. Lisa Brown RN, 10/28/2014 11:45 AM Telephone Encounter - Lisa Brown RN - 10/28/2014 9:22 AM CDT D: Mother of pt is calling requesting a letter addressed to the Airline stating that the pt is unable to fly for work to [place] from now until follow up appointment due to brain injury. She states this is the only way the airlines will allow the ticket to placed in some one else's name. Pt was seen by Dr. rCowder in the ER on 10/24/14 A: Routing this request to Bella Kim CNP R: Pending P: Letter to be written Lisa Brown RN, 10/28/2014 9:27 AM documented in this encounter Plan of Treatment Not on filedocumented as of this encounter Visit Diagnoses Not on filedocumented in this encounter Care Teams Chess Instructor Relationship Specialty Start Date End Date Pcp, No PCP - General 10/24/14 [facility] [place] [address] documented as of this encounter
--- OUTSIDE RECORDS SUMMARY | 2022-02-02 21:15 | XMS_ITS | Encounter Summary ---
:1995 Author Organization [facility] Address [address] [facility] [place] [address] Phone Care Team Providers Name Role Phone Pcp, No Primary Care Provider Unavailable Encounter Details Date Type Department Care Team Description 10/29/2014 Documentation Only [facility] [place] NeuroSurgery Cl Magno Fink MD [address] [place] [address] Non Billable [address] [facility], Forms - Neurosurg [phone] [place], [place] [address] Social History Tobacco Use Types [...] Herman - 10/29/2014 2:22 PM CDT Form: [employer] Provider: Magno Crowder Date Arrived: 10/29/2014 Arrival Method: Fax Contact: Relationship to Contact: Date delivered to provider: 11/05/2014 Due Date: 11/12/2014 Completed Form Instructions: Fax when completed to [place] [employer] at [phone]. documented in this encounter Plan of Treatment Not on filedocumented as of this encounter Visit Diagnoses Not on filedocumented in this encounter Care Teams Controller Instructor Relationship Specialty Start Date End Date Pcp, No PCP - General 10/24/14 [facility] [place] [address] documented as of this encounter
--- OUTSIDE RECORDS SUMMARY | 2022-02-02 21:15 | XMS_ITS | Encounter Summary ---
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 TANBARK LABORER 10 mg 10 mg 10 mg, IV Push, ONE TIME, 1 dose, On Sat04/23/19 at 2105 divalproex sodium (DEPAKOTE SPRINKLES) Given 04/24/2019 7:44 AM TANBARK LABORER 500 mg capsule 500 mg 500 mg, Oral, BID, First dose on Sat04/24/19 at 0800, Until Discontinued hydrALAZINE (APRESOLINE) 20 mg/mL inject ion 10 mg 10 mg, IV Push, Q6H PRN, Starting on Dimple 04/23/19 at 1054, Until Sat04/24/19 at 1700, SBP greater than 140 mmHg HYDROmorphone PF (DILAUDID) 1 mg/mL injection 1 Given 04/23/2019 9:05 AM TANBARK LABORER 1 mg mg 1 mg, IV Push, ONE TIME, 1 dose, On Sat04/23/19 at 0820 HYDROmorphone PF (DILAUDID) 1 mg/mL injection Given 10:28 AM TANBARK LABORER 1 mg 1 mg 1 mg, IV Push, ONE TIME, 1 dose, On Sat04/23/19 at 1000 ibuprofen (MOTRIN;ADVIL) tablet Self Administered 04/24/2019 1:35 P M TANBARK LABORER 600 mg 600 mg 600 mg, Oral, TID WM, First dose on Sat04/24/19 at 0800, Until Discontinued Given 04/24/2019 7:45 AM TANBARK LABORER 600 mg Given 04/23/2019 6:00 PM TANBARK LABORER 600 mg iohexol (OMNIPAQUE) 350 mg/mL injection Given 04/23/2019 9:13 AM TANBARK LABORER 80 mL Left Arm IV Push, RAD ONE TIME AUTO ACKNOWLEDGE, 1 dose, On Sat04/23/19 at 0915 levetiracetam in NaCl (KEPPRA) 1000 New Bag 04/23/2019 9:36 AM TANBARK LABORER 2,000 mg mg/100 mL IVPB 2,000 mg 2,000 mg, Intravenous, ONE TIME, Administer over 15 Minutes, On Sat04/23/19 at 0910 nicotine (NICOTROL) 21 mg/ Patch applied 04/23/2019 9:59 AM TANBARK LABORER 1 pat ch Left Arm 24hr daily 1 patch 1 patch, Transdermal, ONE TIME, 1 dose, On Sat04/23/19 at 0950 nicotine (NICOTROL) 21 mg/ 24hr daily 1 patch 1 patch, Transdermal, DAILY, First dose on Sat04/23/19 at 1055, Until Discontinued ondansetron (ZOFRAN) tablet 4 mg Given 04/23/2019 10:44 PM TANBARK LABORER 4 mg 4 mg, Oral, Q6H PRN, Starting on Sat04/23/19 at 1054, Until Sat04/24/19 at 1700, Nausea/Vomiting (Use First), Use if patient able to tolerate oral tablet oxyCODONE (ROXICODONE) tablet 10 mg Given 04/23/2019 11:45 PM TANBARK LABORER 10 mg 10 mg, Oral, ONE TIME, 1 dose, On Sat04/23/19 at 2315 oxyCODONE (ROXICODONE) tablet 10 mg Given 04/24/2019 6:23 AM TANBARK LABORER 10 mg 10 mg, Oral, ONE TIME, 1 dose, On Sat04/24/19 at 0620 oxyCODONE (ROXICODONE) tablet 5 mg Given 04/24/2019 11:26 AM TANBARK LABORER 5 mg 5 mg, Oral, Q4H PRN, Starting on Sat04/23/19 at 1054, Until Sat04/24/19 at 1700, Moderate Pain (Use First) Given 04/24/2019 5:30 AM TANBARK LABORER 5 mg Given 04/23/2019 7:59 PM TANBARK LABORER 5 mg VTE prophylaxis contraindicated Contraindication Reason: Intracranial Bl eeding, Does not apply, PROTOCOL, Starting on Sat04/23/19 at 1054, Until Sat04/24/19 at 1700 documented in this encounter Active and Recently Administered Medications Times are shown in TANBARK LABORER. Scheduled Medication Order 04/22/2019 04/23/2019 04/24/2019 acetaminophen tablet 975 mg 1200 (Not Gi rebecca (removes Due time) - Provider: Enid Card RN - Reason: Patient sleeping)2674 (Given - Provider: Enid Card RN)1959 (Given [...] - Provider: Susi Ho, RT - Comment: lot#[id number]) IV Push, RAD ONE TIME AUTO ACKNOWLEDGE, [...] eeding documented in this encounter Care Teams Pump Stitcher Relationship Specialty Start Date End Date Pcp, No PCP - General 10/24/14 [facility] [place] [address] documented as of this encounter
--- OUTSIDE RECORDS SUMMARY | 2022-02-02 21:15 | XMS_ITS | Encounter Summary ---
:1995 Author Organization [place] Address [facility] [place] [address] Care Team Providers Name Role Phone No Ref-Primary, Physician Primary Care Provider [phone] Reason for Visit Reason Comments Hand Injury Encounter Details Date Type Department Care Team Description 01/09/2021 Emergency [facility] Adarsh Pimentel MD Laceration of right [facility] Emergency [facility] t [facility] index finger without [address] [place] foreign body without [place], [place] [address] damage to nail, [address] [place] [address] initial encounter [phone] (Wo rk) Social History Tobacco Use Types [...] closure. Stitches: regular stitches that require removal. Mellott: skin guillermina are often used in the [...] GHMT1 Name: CHICO PRATER MRN: [id number] Account: [id number] : 1995 Visit Date: 01/09/2021 Document: [id number] Amandeep Tobin RN - 01/08/2021 11:59 PM CDT Pt states wound to 2nd digit RUE around 1700 while cleaning smoker. ABCs intact GCS 15 documented in this encounter Plan of Treatment Not on filedocumented as of this encounter Visit Diagnoses Diagnosis Laceration of right index finger without foreign body without damage to nail, initial encounter documented in this encounter Care Teams Head Wood Grinder Relationship Specialty Start Date End Date No Ref-Primary, Physician PCP - General 11/03/12 documented as of this encounter
--- OUTSIDE RECORDS SUMMARY | 2022-02-02 21:15 | XMS_ITS | Encounter Summary ---
:1995 Author Organization [facility] Address [address] [place] [address] Phone Care Team Providers Name Role Phone Pcp, No Primary Care Provider Unavailable Encounter Details Date Type Department Care Team Description 10/25/2014 Orders Only [facility] Film Room Provider, Outside Referral of patient [facility] OUTSIDE PROVIDER (Primary Dx) [place], [place] Radiology Department [address] [facility] [address] [address] Social History Tobacco Use Types [...] treatment documented in this encounter Care Teams Photographic Lithographer Relationship Specialty Start Date End Date Pcp, No PCP - General 10/24/14 [facility] [place] [address] documented as of this encounter
--- OUTSIDE RECORDS SUMMARY | 2022-02-02 21:15 | XMS_ITS | Encounter Summary ---
:1995 Author Organization [facility] Address [address] [facility] [place] [address] Phone Care Team Providers Name Role Phone Pcp, No Primary Care Provider Unavailable Reason for Visit Reason Comments Hand Injury Encounter Details Date Type Department Care Team Description 12/22/2021 Emergency [facility] Emergency Depar tmeJalil Zhou MD [address] [facility] [address] [place] [address] [place], [place] [address] [phone] Social History Tobacco Use Types Packs/Day Years [...] be entering the distal metacarpal bone. Con elder assistant additional oblique views to better delineate this [...] health documented in this encounter Care Teams Granulator Relationship Specialty Start Date End Date Pcp, No PCP - General 10/24/14 [facility] [place] [address] documented as of this encounter
--- OUTSIDE RECORDS SUMMARY | 2022-02-02 21:15 | XMS_ITS | Encounter Summary ---
:1995 Author Organization [place] Address [address] [place] [address] Care Team Providers Name Role Phone No Ref-Primary, Physician Primary Care Provider [phone] Encounter Details Date Type Department Care Team [...] on filedocumented in this encounter Care Teams Casing Wringer Operator Relationship Specialty Start Date End Date No Ref-Primary, Physician PCP - General 11/03/12 documented as of this encounter
--- OUTSIDE RECORDS SUMMARY | 2022-02-02 21:15 | XMS_ITS | Encounter Summary ---
:1995 Author Organization [place] Address [address] [place] [address]. [place] [address] Care Team Providers Name Role Phone No Ref-Primary, Physician Primary Care Provider [phone] Encounter Details Date Type Department Care Team Description 05/23/2017 - Hospital Encounter [facility] Tran Strauss MD S/P shoulder 05/24/2017 [facility] surgery [place] [address] [facility] [address] [place] [address] [address] [place] [address] [phone] Social History Tobacco Use Types Packs/Day Years [...] 69.4 kg (153 lb) 05/23/2017 11:50 PM IMPORT CUSTOMER SERVICE MANAGER Height 166.4 cm (5' 5.5) 05/23/2017 11:50 PM IMPORT CUSTOMER SERVICE MANAGER Body Mass Index 25.07 05/23/2017 11:50 PM IMPORT CUSTOMER SERVICE MANAGER documented in this encounter Medications at Time [...] Thanks for referral. Blanche Leonardo PT, DPT RT CUSTOMER SERVICE MANAGER Noreen Day PA-C - 05/24/2017 10:11 AM [...] sensation: Full sensation of left hand, 5/5 antique furniture reproducer strength, radial pulse palpable Swelling: Moderate Calf [...] TIBIA OSTEOCHONDRAL ALLOGRAFT - Dr. Strauss/Dr. Browning, [facility], 05/23/17 Plan: Continue PT/OT and pain [...] History Pertinent Provider Information: Prior To Admission (LEATHER LEVELER) med list completed and updated in EMR. LEATHER LEVELER Med List Medication Sig Note Last Dose [...] Patient was asked about OTC/herbal products specifically. LEATHER LEVELER med list reflects this. Based on the pharmacist???s assessment, the LEATHER LEVELER med list information appears reliable Allergies were reviewed, assessed, and updated with the patient. Patient does not use any multi-dose medications prior to admission. Thank you for the opportunity to participate in the care of this patient. Marilyn Tanner PharmD 05/23/2017 7:12 AM RT CUSTOMER SERVICE MANAGER documented in this encounter H&P Notes Jerry Strauss MD - 05/23/2017 6:27 AM CST I have performed an assessment and examined the patient, as necessary, to update the patient's current status that may have changed since the prior History and Physical. The History & Physical has been reviewed and the patient's status is unchanged. RT CUSTOMER SERVICE MANAGER documented in this encounter Miscellaneous Notes Op Note - Jerry Strauss MD - 05/23/2017 4:03 PM CST Name: Chico Hoang Locations: [facility] Main OR Procedure date: 05/23/2017 PREOPERATIVE DIAGNOSIS: [...] Jerry Strauss M.D. CO-SURGEON: Raji Browning M.D. CUFF CUTTER(S): Deysi Soliman PA-C Skilled assistance and 2 [...] Implant Name Type Inv. Item Serial No. Pay Clerk Lot No. LRB No. Used Action CORKSCREW COMP THREAD 4.5 [id number] - [id number] 93-Soft Tissue Attach Device CORKSCREW COMP THREAD 4.5 [id number] ?? [employer] [id number] Left 1 Implanted TIBIAL DISTAL RT FSH ? [id number] ?? Left 1 Implanted SUTURE FIBERWIRE #2 CT-1 AR-7206 - [id number] 93-Soft Tissue Attach Device SUTURE FIBERWIRE #2 CT-1 AR-7206 ?? [employer] XX Left 2 Implanted SUTURE FIBERWIRE #2 CT-1 AR-7206 - [id number] 93-Soft Tissue Attach Device SUTURE FIBERWIRE #2 CT-1 AR-7206 ?? [employer] [id number] Left 2 Implanted SUTURE ANCHOR, BIOCOMPOSITE SUTURETAK ? [employer]HEX [id number] Left 1 Implanted SUTURE WASHER, TITANIUM ? [employer] [id number] Left 2 Implanted 3.75MM PARTIALLY THREADED CANNULATED SCREW ? [employer]X N/A Left 1 Implanted 3.75MM PARTIALLY THREADED CANNULATED SCREW ? [employer] N/A Left 1 Implanted CORKSCREW COMP THREAD 4.5 [id number] - [id number] 93-Soft Tissue Attach Device CORKSCREW COMP THREAD 4.5 [id number] INDICATIONS FOR PROCEDURE: This patient is a [...] area, where the surgical extremity was markedby mt and operative consent was confirmed. Regional block [...] at the 6 o'clock position in the [place] glenoid. Sutures from this anchor were then [...] to the remnant articular surface with good temple of [place] curvature. Pleased with this, the guidewires were [...] was also closed with a #2 FiberWire iflgyv-kj-vufaa stitch to further improve stability. The shoulder [...] hose while he remains in the hospital. RT CUSTOMER SERVICE MANAGER Brief Op Note - Jerry Strauss MD - 05/23/2017 12:00 PM CST Brief Operative Note Name: Chico Hoang Location: [facility] Main OR Procedure Date: 05/23/2017 PCP: Ben [...] Implant Name Type Inv. Item Serial No. Pay Clerk Lot No. LRB No. Used Action CORKSCREW COMP THREAD 4.5 [id number] - [id number] 93-Soft Tissue Attach Device CORKSCREW COMP THREAD 4.5 [id number] [employer] [id number] Left 1 Implanted TIBIAL DISTAL RT FSH [id number] Left 1 Implanted SUTURE FIBERWIRE #2 CT-1 AR-7206 - [id number] 93-Soft Tissue Attach Device SUTURE FIBERWIRE #2 CT-1 AR-7206 [employer] XX Left 2 Implanted SUTURE FIBERWIRE #2 CT-1 AR-7206 - [id number] 93-Soft Tissue Attach Device SUTURE FIBERWIRE #2 CT-1 AR-7206 [employer] [id number] Left 2 Implanted SUTURE ANCHOR, BIOCOMPOSITE SUTURETAK ARTHEX [id number] Left 1 Implanted SUTURE WASHER, TITANIUM [employer]X [id number] Left 2 Implanted 3.75MM PARTIALLY THREADED CANNULATED SCREW [employer]HEX N/A Left 1 Implanted 3.75MM PARTIALLY THREADED CANNULATED SCREW [employer]HEX N/A Left 1 Implanted CORKSCREW COMP THREAD 4.5 [id number] - [id number] 93-Soft Tissue Attach Device CORKSCREW COMP THREAD 4.5 [id number] [employer] [id number] Left 4 Implanted Complications: None Jerry Strauss Date: 05/23/2017 Time: 12:00 PM RT CUSTOMER SERVICE MANAGER documented in this encounter Plan of Treatment Not on filedocumented as of this encounter Procedures Procedure Name Priority Date/Time Associated Diagnosis Comme nts XR SHOULDER LEFT Routine 05/23/2017 1:09 PM Resul ts for this PORT G/E 2 VIEWS IMPORT CUSTOMER SERVICE MANAGER procedure a re in the results section. LAB RESULT - HIM 05/23/2017 SCAN documented in this encounter Results XR Shoulder Left Port G/E 2 Views (05/23/2017 1:09 PM IMPORT CUSTOMER SERVICE MANAGER) Anatomical Region Laterality Modality Shoulder, Left Shoulder Left Other Specimen (Source) Anatomical Location Collection Method / Collectio n Time Received Time / Laterality Volume Narrative 05/23/2017 4:53 PM IMPORT CUSTOMER SERVICE MANAGER XR SHOULDER LEFT 2 OR MORE VWS [...] status documented in this encounter Care Teams Tire Builder Operator Relationship Specialty Start Date End Date No Ref-Primary, Physician PCP - General 11/03/12 documented as of this encounter
--- OUTSIDE RECORDS SUMMARY | 2022-02-02 21:15 | XMS_ITS | Clinical Summary ---
:1995 Author Organization [place] Address [facility] [place] [address] Care Team Providers Name Role Phone No Ref-Primary, Physician Primary Care Provider [phone] Allergies Active Allergy Reactions Severity Noted [...] 69.4 kg (153 lb) 05/23/2017 11:50 PM RN RADIATION Height 166.4 cm (5' 5.5) 05/23/2017 11:50 PM RN RADIATION Body Mass Index 25.07 05/23/2017 11:50 PM RN RADIATION Plan of Treatment Health Maintenance Due Date [...] this topic Medical Devices Implanted Type Area Ruby On Rails Engineer Device Shelf Model / Identifier Expiration Serial / Date Lot Corarabellacrew Comp Thread 4.5 [id number] Metallic Left: ARTHREX 06/12/2018 [id number] / Implanted: Qty: 4 on 05/23/2017 Hardware/An Shoulder / chor [id number] 3.75mm Partially Threaded Cannulated Screw Left: ARTHREX AR-7000-34 / Implanted: Qty: 1 on 05/23/2017 Shoulder / N/A Insurance Payer Benefit Plan / Subscriber ID Effective Dates Phone Addre ss Type Group [employer] [id number] 2020-Present [address] [address] [place] [address] [phone] (Home) RENA Mckeon 12 1 [place] Hoang [facility] Self 1995 [phone] (Home) RENA Mckeon 5306 1 Care Teams Magazine Keeper Relationship Specialty Start Date End Date No Ref-Primary, Physician PCP - General 11/03/12
--- OUTSIDE RECORDS SUMMARY | 2022-02-02 21:15 | XMS_ITS | Encounter Summary ---
:1995 Author Organization [facility] Address [address] [place] [address] Phone Care Team Providers Name Role Phone Pcp, No Primary Care Provider Unavailable Encounter Details Date Type Department Care Team Description 04/23/2019 Orders Only [facility] Film Room Provider, Outside Referral of patient [facility] OUTSIDE PROVIDER (Primary Dx) [place], [place] Radiology Department [address] [facility] [address] [address] Social History Tobacco Use Types [...] CT HEAD OUTSIDE FILMS (04/23/2019 5:40 AM SHEATHER) Specimen (Source) Anatomical Location Collection Method / Collectio n Time Received Time / Laterality Volume Narrative Dummy, Gsol-Ecuwct-Ltgtdhsye - 0 7:27 AM SHEATHER Outside Film Only Outside Provider OUTSIDE FILMS documented in this encounter Visit Diagnoses Diagnosis Referral of patient - Primary Referral of patient without examination or treatment documented in this encounter Care Teams Aircraft Maintenance Technician Relationship Specialty Start Date End Date Pcp, No PCP - General 10/24/14 [facility] [place] [address] documented as of this encounter
--- OUTSIDE RECORDS SUMMARY | 2022-02-02 21:15 | XMS_ITS | Encounter Summary ---
:1995 Author Organization [facility] Address [address] [place] [address] Phone Care Team Providers Name Role Phone [...] on filedocumented in this encounter Care Teams Potato Chip Fryer Relationship Specialty Start Date End Date Pcp, No PCP - General 10/24/14 [facility] [place] [address] documented as of this encounter
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
--- OUTSIDE RECORDS SUMMARY | 2022-02-02 21:15 | XMS_ITS | Encounter Summary ---
:1995 Author Organization [facility] Address [address] [facility] [place] [address] Care Team Providers Name Role Phone No Ref-Primary, Physician Primary Care Provider [phone] Reason for Visit Reason Onset Date Comments CD Outpatient 10/02/2018 Encounter Details Date Type Department Care Team Description 10/02/2018 Telephone [facility] Generic, Behavioral CD Outpatient Behavioral Health In kimmy Elizabeth MD [address] [place] [address] Social History Tobacco Use Types [...] we do not offer that here at [facility]. Explained to patient and gave options of [facility] or [facility]. [facility] referred him to us here. Pt stated he wanted to go to [facility]. Reviewed options for appts - he will call us back. [facility] requiring him to attend treatment. Pt aware we are a IOP 4 eves a week. No upcoming court. PO Dhruv Umana [phone] No prior trx. Reg updated, referral not made. Pt will call back. [facility] documented in this encounter Plan of Treatment Not on filedocumented as of this encounter Visit Diagnoses Not on filedocumented in this encounter Care Teams Mechanical Design Engineer Facilities Relationship Specialty Start Date End Date No Ref-Primary, Physician PCP - General 11/03/12 documented as of this encounter
--- OUTSIDE RECORDS SUMMARY | 2022-02-02 21:15 | XMS_ITS | Encounter Summary ---
:1995 Author Organization [place] Address [address] [facility] [place] [address] Care Team Providers Name Role Phone No Ref-Primary, Physician Primary Care Provider Reason for Visit Reason Comments Shoulder Pain Encounter Details Date Type Department Care Team Description 11/03/2012 Emergency [facility] Andry Winters Closed dislocation of [facility] Emergency Dep shi Gonzalez MD left shoulder (Primary [address] [facility] EMERGENCY PHYSICIANS Dx) [place] [address] [phone] [place], [place] [address] (Wo rk) Social History [...] few weeks or you may lose some jkeba-is-mvacpr atthe shoulder joint. If you have had [...] become cold, blue, numb or tingly ?? [phone] [facility], [address] [place] [address], [place] [address]. All rights reserved. This information is not [...] traction unsuccessful. Subsequent attempt using countertraction by mechanical service technician with sheet around thorax and traction [...] provider's statements to me. Alden Virk 11/03/2012 [facility] EMERGENCY DEPARTMENT Andry Winters MD 11/04/122120 Lidia [...] dose documented in this encounter Care Teams Load Manager Relationship Specialty Start Date End Date No Ref-Primary, Physician PCP - General 11/03/12 documented as of this encounter
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
--- OUTSIDE RECORDS SUMMARY | 2022-02-02 21:15 | XMS_ITS | Encounter Summary ---
:1995 Author Organization [facility] Address [facility] [place] [address] Care Team Providers Name Role Phone Catracho Suh MD Primary Care Provider Encounter Details Date Type Department Care Team Description 10/26/2009 Orders Only [employer] Catracho Suh, DIAGNO SIS NOT YET Clinic [place] MD DEFINED (Primary Dx) [address] [facility] [id number] [place] [id number] Social History Tobacco Use Types Packs/Day Years [...] Primary documented in this encounter Care Teams Forming Department End Finder Relationship Specialty Start Date End Date Catracho Suh MD PCP - General 12/23/02 05/08/12 [address] [place], [place] [id number] documented as of this encounter
--- OUTSIDE RECORDS SUMMARY | 2022-02-02 21:15 | XMS_ITS | Encounter Summary ---
:1995 Author Organization [facility] Address [address] [place] [address] Care Team Providers Name Role Phone Catracho Suh MD Primary Care Provider Reason for Visit Reason Comments Pharyngitis on and off for about a jm h Encounter Details Date Type Department Care Team Description 03/21/2009 Office Visit [facility] Jess Pharyngiti s (Primary Dx); [facility] [place] GREY Smith Chronic Rhinitis [facility] [address] [place], [place] [phone] Social History Tobacco Use Types Packs/Day Years Used Date Smoking Tobacco: Never Alcohol Use Standard Drinks/Week Comments Not Asked 0 (1 standard drink = 0.6 oz pure alcoho l) Sex Assigned at Date Recorded Not on file documented as of this encounter Last Filed Vital Signs Vital Sign Reading Time Taken Comments Blood Pressure 92/54 03/21/2009 1:49 PM WAREHOUSE INCENTIVE SELECTOR Pulse 79 03/21/2009 1:49 PM WAREHOUSE INCENTIVE SELECTOR Temperature 37.1 ??C (98.7 ??F) 03/21/2009 1:49 PM WAREHOUSE INCENTIVE SELECTOR Respiratory Rate 12 03/21/2009 1:49 PM WAREHOUSE INCENTIVE SELECTOR Oxygen Saturation 97% 03/21/2009 1:49 PM WAREHOUSE INCENTIVE SELECTOR Inhaled Oxygen Concentration - - Weight 56.2 kg (124 lb) 03/21/2009 1:49 PM WAREHOUSE INCENTIVE SELECTOR Height - - Body Mass Index - [...] Resp 12 Wt 124 lb (56.246 kg) [id number]% Appears healthy and alert. Ears: normal Oropharynx: [...] RTC. Reviewed and agree. Sarah Mercado, PAC HOUSE INCENTIVE SELECTOR documented in this encounter Nursing Notes 03/21/2009 [...] Pharyngitis Resu lts for this ANTIGEN (RAPID) WAREHOUSE INCENTIVE SELECTOR procedure ar e in the results section. HCL BETA STREP Routine 03/21/2009 2:01 PM Pharyngitis Results for this CONFIRM WAREHOUSE INCENTIVE SELECTOR procedure are i n the results section. documented in this encounter Results BETA STREP CONFIRM (03/21/2009 2:01 PM WAREHOUSE INCENTIVE SELECTOR) Component Value Ref Test Analysis Performed At [facility] gist Range Method Time Signature Specimen Throat [facility] Culture Micro No Beta MEDINA Streptococcus [facility] Report status FINAL 03/23/2009 [facility] Specimen Anatomical Collection Method Collection Time Receive d Time (Source) Location / / Volume Laterality 03/21/2009 2:01 PM 9 2:03 [employer]HOU[employer] INCENTIVE SELECTOR PM WAREHOUSE INCENTIVE SELECTOR Authorizing Provider Result Kimberly Mercado PA-C LABORATORY Performing Organization Address City/[facility]/ZIP Code Phon e Number [address] [address] [facility] STREP GROUP A ANTIGEN (RAPID) (03/21/2009 2:01 PM WAREHOUSE INCENTIVE SELECTOR) Component Value Ref Test Analysis Performed At [facility] Range Method Time Signature Specimen Throat [facility] Rapid Strep A NEGATIVE: No Group A strepto coccal antigen detected by immunoassay, await MEDINA Screen culture report. [facility] Report status FINAL 03/21/2009 [facility] Specimen Anatomical Collection Method Collection Time Receive d Time (Source) Location / / Volume Laterality 03/21/2009 2:01 PM 9 2:03 [employer]HOU[employer] INCENTIVE [employer]OR PM WAREHOUSE INCENTIVE SELECTOR Sarah Mercado PA-C LABORATORY Performing Organization Address City/[facility]/ZIP Code Phon e Number [address] [address] [facility] documented in this encounter Visit Diagnoses Diagnosis Pharyngitis - Primary Acute pharyngitis Chronic rhinitis documented in this encounter Care Teams Mail Censor Relationship Specialty Start Date End Date Catracho Suh MD PCP - General 12/23/02 05/08/12 [address] [place] [address] documented as of this encounter
--- OUTSIDE RECORDS SUMMARY | 2022-02-02 21:15 | XMS_ITS | Encounter Summary ---
:1995 Author Organization [facility] Address [address] [place] [address] Care Team Providers Name Role Phone Catracho Suh MD Primary Care Provider Reason for Visit Reason Onset Date Comments Refill Request 01/05/2009 adderall Encounter Details Date Type Department Care Team Description 01/05/2009 Refill [facility] Catracho Suh MD Refill Request [place] [id number] [place] [address] (adderall) [address] [place] [phone] Social History Tobacco Use Types Packs/Day Years Used Date Smoking Tobacco: Never Alcohol Use Standard Drinks/Week Comments Not Asked 0 (1 standard drink = 0.6 oz pure alcoho l) Sex Assigned at Date Recorded Not on file documented as of this encounter Miscellaneous Notes Telephone Encounter - Mayra Hutson - 01/05/2009 9:53 AM CDT Pt's Mom, Clementine, informed rx at front desk administrator and that pt is overdue for med [...] Med Name: Adderall Pharmacy name and location: [facility] Provider they see: Phone number they can be reached at: [phone] Ok to leave a message: Yes Marcelle documented in this encounter Plan of Treatment Not on filedocumented as of this encounter Visit Diagnoses Diagnosis ADHD (attention deficit hyperactivity di sorder) - Primary Attention deficit disorder with hyperact ivity documented in this encounter Care Teams Grades 1 Thru 6 Home Teacher Relationship Specialty Start Date End Date Catracho Suh MD PCP - General 12/23/02 05/08/12 [address] [place] [address] documented as of this encounter
--- OUTSIDE RECORDS SUMMARY | 2022-02-02 21:15 | XMS_ITS | Encounter Summary ---
:1995 Author Organization [facility] Address [address] [place] [address] Phone Care Team Providers Name Role Phone Pcp, No Primary Care Provider Unavailable Encounter Details Date Type Department Care Team Description 12/13/2014 Telephone [facility] TBI Phys Med/Rehab Sandra Douglas CMA Clinic [address] [place] [address] [place], [place] [address] Social History Tobacco Use Types Packs/Day Years [...] faxed to Monica Mansfield using fax number [phone]. Miladys Douglas CMA, 12/13/2014 2:28 PM documented in this encounter Plan of Treatment Not on filedocumented as of this encounter Visit Diagnoses Not on filedocumented in this encounter Care Teams Peanut Farmer Relationship Specialty Start Date End Date Pcp, No PCP - General 10/24/14 [facility] [place] [address] documented as of this encounter
--- OUTSIDE RECORDS SUMMARY | 2022-02-02 21:15 | XMS_ITS | Encounter Summary ---
:1995 Author Organization [facility] Address [address] [place] [address] Phone Care Team Providers Name Role Phone Pcp, No Primary Care Provider Unavailable Reason for Visit Reason Onset Date Comments Letter for Work 12/14/2014 Needing a note to [place] rede the state... Encounter Details Date Type Department Care Team Description 12/14/2014 Telephone [facility] Debbie Dodson Letter for Work [address] Nikko Gonzales RN (Needing a note to .[phone]ANDA leave the state...) [place], [place] [address] [place], [place] [phone] Social History Tobacco Use Types Packs/Day Years [...] Faxed RTW letter to Monica Mansfield @ [phone] and to pt's mother Clementine @ [phone] per pt's request. Received confirmation page that [...] to patient's mother. P: Route to [place] for follow up. Olman Espino RN, 12/15/2014 9:06 AM . Telephone Encounter - Dbebie Dodson RN - 12/14/2014 10:09 AM CDT Pt. States also needs a rtw letter. RTW Chanel Hennessy MA Sent: SatDecember 14, 2014 8:38 AM To: P Surgery Cl Staff/Refill Pool [facility] [place] Ho[place] : 1995 Pt Home: Entered: [phone] Message TELEPHONE MESSAGE Taken by: Chanel Hennessy MA, 12/14/2014 8:39 AM Direct to: Neurosurgery Problem: RTW Pt. Name: [place] Hoagn : 1995 (home) Mobile Insurance: PCP: No PCP Comment: LM stating he needs a RTW slip SERA Expects Return Call at: [phone] Debbie Dodson RN, 12/14/2014 10:09 AM Telephone Encounter - [...] on filedocumented in this encounter Care Teams Project Geologist Relationship Specialty Start Date End Date Pcp, No PCP - General 10/24/14 [facility] [place] [address] documented as of this encounter
--- OUTSIDE RECORDS SUMMARY | 2022-02-02 21:15 | XMS_ITS | Encounter Summary ---
:1995 Author Organization [facility] Address [address] [place] [address] Phone Care Team Providers Name Role Phone Pcp, No Primary Care Provider Unavailable Reason for Visit Reason Comments Headache Auth/Cert Specialty Diagnoses / Procedures Referred By Contact Refer red To Contact Diagnoses Subarachnoid hemorrhage () Referral ID Status Reason Start Date Expiration Date Visits Requ ested Visits Authorized [id number] 1 1 Encounter Details Date Type Department Care Team Description 10/24/2014 - Hospital Encounter [facility] Adarsh Fregoso MD Sub arachnoid 10/26/2014 Surgery/Trauma/Neur Magno Crowder MD [address] [place] [address] hemorrhage () o 3 [address] [place], [place] [address] Social History Tobacco Use Types Packs/Day Years [...] AM. A yellow alert was sent to [facility]. [place] Traumatic Brain Injury Scale: Diffuse Injury [...] Radiologist: Fernanda Dorman Reading Resident: Hakan Reagan [facility] COURSE: Chico Hoang is a 19 [...] None RECOMMENDATIONS OF ANY SUB-SPECIALTY CONSULTANTS: None Decorator Store Needed: no PLANNED DISCHARGE ORDERS: Chico Hoang Medications BUNNY:[id number] Printed on:11/08/14 1964 Medication acetaminophen (TYLENOL) 325 mg oral tablet [...] Reason for Visit? follow TBI Clinic: SURGERY [facility] [[id number]] Other Instructions: Schedule Appointment in TBI Clinic - Surgery Clinic Schedule Appointment in Neurosurgery Clinic - Saturday Order Notes PLEASE CALL or Page the clinic or department to set up this appointment. The clinic or department is NOT automatically notified of this request. Question Response Notes Specify time frame 2-4 Weeks Reason for Visit? follow-up TBI, b/l frontal contusions Clinic: NEUROSURGERY [facility] [[id number]] Other Instructions: Schedule Appointment in [...] Notes Please call the Stroke clinic at [phone] if: -- you are having more trouble [...] [place] Stroke Association Information Order Notes The [place] Stroke Association offers free support for you [...] stroke and brain injury -- Interpreters for non-Nepali speakers Call [phone] to sign up for this free service. 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 Ask the pharmacist if your prescription [...] of condition and treatment plan. Bella Kim APRN,BUS COMPANY MANAGER, 11/08/2014 3:42 PM Neurosurgery P/ [phone] This [...] you need to make the appointment:TBI-Surgery Clinic ([facility]) [phone] ([facility], P5.620) to be seen within 2-4 weeks for follow up. -- You asked to make your own appointment. This is the information you need to make the appointment:Neurosurgery Clinic (Surgery) [phone] ([facility], P5.620) [...] to work or school (even if you bridge ironworker) ??? No exercise or contact sports (this [...] Care Everywhere. BEHAVIOR CHANGES AFTER BRAIN INJURY (ITALIAN)WHAT IS A SUBARACHNOID HEMORRHAGE (STROKE)? (ITALIAN)documented in this encounter Medications at Time of [...] Crowder MD - 10/26/2014 11:19 [place] [address] [facility]#: [id number] PATIENT: CHICO HOANG : 1995 DATE DICTATED: [...] MD Staff Physician Neurosurgery Service Received in News Videotape Editor: 10/26/2014 16:42 M: 10/27/2014 01:29 tp WG/sc Voice ID: [id number] Document ID: [id number] Alma Candelaria RN - 10/26/2014 3:14 PM [...] using No assistive devices with (7) Complete Robertson by 10/26/14 to allow progression of functional mobility towards baseline . Outcome: Met Date Met: 10/26/14 . Goal: Improve gait on stairs Ascend/descend 12 stairs using No assistive devices with (6) Modified Robertson by 10/26/14 to allow progression of functional [...] Discharge inpatient PT. Mickie Lopez, PT License #[id number] Pager [phone] Pushpa Brown OTR/Sergio - 10/26/2014 [...] RUE: strength 5/5 in wrist flex/ext, hand health education director, elbow flex/ext, shoulder abduction - LUE: strength 5/5 in wrist flex/ext, hand health education director, elbow flex/ext, shoulder abduction - RLE: Strength [...] Crowder MD - 10/26/2014 7:03 [place] [address] [facility]#: [id number] PATIENT: CHICO HOANG : 1995 DATE DICTATED: [...] MD Staff Physician Neurosurgery Service Received in News Videotape Editor: 10/25/2014 22:50 M: 10/26/2014 07:03 mr GALVEZ/ Voice ID: [id number] Document ID: [id number] Kerri Malone, ZENA - 10/26/2014 5:19 AM [...] this time. July Stephens OTR/Sergio 10/25/2014 Pager: [phone] Teodora Dove RN - 10/25/2014 8:32 AM [...] or other clinical staffs request. Rachana Mcintyre Frontend Engineer [facility] [id number] Alanna Gregory MD - 10/25/2014 6:35 AM [...] RUE: strength 5/5 in wrist flex/ext, hand health education director, elbow flex/ext, shoulder abduction - LUE: strength 5/5 in wrist flex/ext, hand health education director, elbow flex/ext, shoulder abduction - RLE: Strength [...] activity ordersare upgraded. YAW Ellis 10/24/2014 Pager: [phone] Eyad Singletary RN - 10/24/2014 2:00 PM [...] PM CDT NEUROSURGERY ADMISSION HISTORY AND PHYSICAL Chico Hoang : 1995 Sex: male Date [...] discharge medications are: [place] Hoang Discharge Medications BUNNY:[id number] Printed on:10/26/14 1202 Medication acetaminophen (TYLENOL) 325 [...] Lenny Pool PharmD, 10/26/2014 12:02 PM Pager: [phone] Pushpa Brown OTR/Sergio - 10/26/2014 8:45 AM [...] Motor: BUE AROM: WFL BUE Strength: WFL Circuit Board Inspector Strength: WFL and grossly equal bilaterally Coordination: NT formally this date, however no overt functional BUE coordination deficits noted during ADLs. Sensation: Light touch intact. No c/o paresthesia in BUEs this date. ADLs: Eating: Complete Robertson (7) Grooming: Complete Robertson (7) Lower body dressing: Complete Robertson (7) Toileting: Complete Robertson (7) Functional Mobility: Supine (HOB raised) > [...] Pushpa Brown OTR/L, 10/26/2014 8:22 AM Pager: [phone] Occupational Therapy Department Mickie Lopez, PT - [...] Flexion Elbow Extension Wrist Flexion Wrist Extension Circuit Board Inspector Lower Ext Right ROM Right MMT Left ROM Left MMT WFL X X X X Hip Flexion with Knee Extension Hip Flexion with Knee Flexion Hip extension Hip ABDuction Knee Flexion Knee Extension Dorsiflexion Inversion Eversion Plantar Flexion Muscle Tone: WNL Coordination: BLE GMC intact Transfers & Bed Mobility: Roll Left: Complete Robertson (7) Roll Right: Complete Robertson (7) Supine to Sit: Complete Robertson (7) Sit to Supine: Complete Robertson (7) Sit to Stand: Complete Robertson (7) Stand to Sit: Complete Robertson (7) Gait Evaluation: Distance: 5 m- only short distance tested d/t headache pain level at this time Assistive Device: No assistive devices Assistance (Level): Complete Robertson- Patient walks w/o assistive devices. Patient performs [...] plan. . __ Mickie Lopez, PT License #[id number] Pager [phone] documented in this encounter ED Notes Adarsh Fregoso MD - 10/24/2014 10:12 PM CDT ED Faculty Attestation and Note Chico Hair Viktor : 1995 Sex: male Patient Arrival Date and Time: 10/24/2014 8:43 AM FACULTY ATTESTATION I Adarsh Fregoso MD, took a HPI and PE independently of the Physician Marble Carver. Management decisions as documented in this chart [...] Comments: 19 yo male - transferred from [facility] for subarachnoid head bleed. Pt fell,2 days [...] Closed head injury Pt was transferred from [place] for jen of subarachnoid head bleed. Pt [...] hit head with witnessed LOC, went to [place] ED this am transferred here for subarachnoid hemorrhage, c/o constant FREEMAN and photophobia. No vomiting or visual disturbances. documented in this encounter Miscellaneous Notes Discharge non-MD/non-ROSE MARY Summaries - Mickie Lopez, PT - 10/26/2014 10:43 AM CDT Physical Therapy Inpatient Discharge Summary [id number] Chico Hoang Diagnosis Patient Active Problem List Diagnosis ??? Subarachnoid hemorrhage Problem: Decreased Ambulatory Skills Goal: Improve gait Ambulate 100 meters using No assistive devices with (7) Complete Robertson by 10/26/14 to allow progression of functional mobility towards baseline . Outcome: Met Date Met: 10/26/14 . Goal: Improve gait on stairs Ascend/descend 12 stairs using No assistive devices with (6) Modified Robertson by 10/26/14 to allow progression of functional [...] Discharge inpatient PT. Mickie Lopez, PT License #[id number] Pager [phone] documented in this encounter Plan of Treatment [...] [facility] mEq/L Sodium [facility] Performed at: Comment: [facility] [address] [place] [address] Specimen Anatomical Collection Method Collection Time Receive d Time (Source) Location / / Volume Laterality Blood 10/26/2014 1:31 PM 5 1:31 CDT PM CDT Magno Crowder MD LABORATORY Performing Organization Address [facility] Phon e Number [facility] [place] [address] POTASSIUM (10/26/2014 1:31 PM CDT) athologist Signature Potassium 3.8 3.5 - 5.3 [facility] mEq/L Potassium [facility] Performed at: Comment: [facility] [address] [place] [address] Specimen Anatomical Collection Method Collection Time Receive d Time (Source) Location / / Volume Laterality Blood 10/26/2014 1:31 PM 5 2:51 CDT PM CDT Magno Crowder MD LABORATORY Performing Organization Address City/[facility]/ZIP Code Phon e Number [facility] [place] [address] SODIUM (10/26/2014 9:13 AM CDT) athologist Signature Sodium 141 135 - 148 [facility] mEq/L Sodium [facility] Performed at: Comment: [facility] [address] [place] [address] Specimen Anatomical Collection Method Collection Time Receive d Time (Source) Location / / Volume Laterality Blood 10/26/2014 9:13 AM 5 9:38 CDT AM CDT Magno Crowder MD LABORATORY Performing Organization Address City/[facility]/RUST Code Phon e Number [facility] [place] [address] POTASSIUM (10/26/2014 9:13 AM CDT) athologist Signature Potassium 3.8 3.5 - 5.3 [facility] mEq/L Potassium [facility] Performed at: Comment: [facility] [address] [place] [address] Specimen Anatomical Collection Method Collection Time Receive d Time (Source) Location / / Volume Laterality Blood 10/26/2014 9:13 AM 5 9:38 CDT AM CDT Magno Crowder MD LABORATORY Performing Organization Address City/[facility]/RUST Code Phon e Number [facility] [place] [address] SODIUM (10/25/2014 8:54 PM CDT) athologist Signature Sodium 139 135 - 148 [facility] mEq/L Sodium [facility] Performed at: Comment: [facility] [address] [place] [address] Specimen Anatomical Collection Method Collection Time Receive d Time (Source) Location / / Volume Laterality Blood 10/25/2014 8:54 PM 5 9:16 CDT PM CDT Magno Crowder MD LABORATORY Performing Organization Address City/[facility] Phon e Number [facility] [place] [address] MRSA SURVEILLANCE SCREEN (10/25/2014 8:28 PM CDT) athologist Signature Final Report No MRSA [facility] isolated. Specimen Anatomical Collection Method Collection Time Receive d Time (Source) Location / / Volume Laterality Swab (Nose) 10/25/2014 8:28 PM 5 8:40 CDT PM CDT Adarsh Fregoso MD LAB MICROBIOLOGY Performing Organization Address City/[facility]/ZIP Code Phon e Number [facility] [place] [address] SODIUM (10/25/2014 4:10 PM CDT) athologist Signature Sodium 139 135 - 148 [facility] mEq/L Sodium [facility] Performed at: Comment: [facility] [address] [place] [address] Specimen Anatomical Collection Method Collection Time Receive d Time (Source) Location / / Volume Laterality Blood 10/25/2014 4:10 PM 5 4:59 CDT PM CDT Magno Crowder MD LABORATORY Performing Organization Address City/[facility]/ZIP Code Phon e Number [facility] [place] [address] POTASSIUM (10/25/2014 4:10 PM CDT) athologist Signature Potassium 4.2 3.5 - 5.3 [facility] mEq/L Potassium [facility] Performed at: Comment: [facility] [address] [place] [address] Specimen Anatomical Collection Method Collection Time Receive d Time (Source) Location / / Volume Laterality Blood 10/25/2014 4:10 PM 5 4:59 CDT PM CDT Magno Crowder MD LABORATORY Performing Organization Address City/[facility]/ZIP Code Phon e Number [facility] [place] [address] (ABNORMAL) PANEL BASIC METABOLIC (BMP) (10/25/2014 [...] mEq/L Glucose 112 (H) 70 - 100 [facility] mg/dL BUN 8 6 - 20 [facility] mg/dL Creatinine 0.72 0.70 - [facility] 1.25 mg/dL Calcium 9.5 8.6 - 10.0 [facility] mg/dL eGFR, High 177 ml/min/1.7 [facility] 3m2 eGFR, Low 146 ml/min/1.7 [facility] 3m2 Basic Metabolic [facility] Panel Performed at: Comment: [facility] [address] [place] [address] AnGap 14 7 - 14 mEq/L [facility] Specimen Anatomical Collection Method Collection Time Receive d Time (Source) Location / / Volume Laterality Blood 10/25/2014 9:16 AM 5 CDT 10:07 AM CDT Adarsh Fregoso MD LABORATORY Performing Organization Address City/State/ZIP Code Phon e Number [facility] [place] [address] [place] [address] (ABNORMAL) CT HEAD NO IV CONTRAST (10/25/2014 [...] AM. A yellow alert was sent to [facility]. [place] Traumatic Brain Injury Scale: D iffuse [...] AM. A yellow alert was sent to [facility]. [place] Traumatic Brain Injury Scale: D iffuse [...] [facility] mEq/L Potassium [facility] Performed at: Comment: [facility] [address] [place] [address] Specimen Anatomical Collection Method Collection Time Receive d Time (Source) Location / / Volume Laterality Blood 10/24/2014 3:08 PM 5 3:20 CDT PM CDT Magno Crowder MD LABORATORY Performing Organization Address City/[facility] Phon e Number [facility] [place] [address] PTT (APTT) (10/24/2014 12:13 PM CDT) athologist Signature APTT 30.8 25.0 - 37.0 [facility] sec Specimen Anatomical Collection Method Collection Time Receive d Time (Source) Location / / Volume Laterality Blood 10/24/2014 12:13 10/24/2014 PM CDT 12:25 PM CDT Tammi Rivera PA-C LABORATORY Performing Organization Address City/[facility]/ZIP Code Phon e Number [facility] [place] [address] PROTHROMBIN (PT) & INR (10/24/2014 12:13 [...] Tammi Rivera PA-C LABORATORY Performing Organization Address City/[facility]/ZIP [facility] Phon e Number [facility] [place] [address] ED CHEMISTRY LABS(NA,K,CL,CO2,GLU,CREAT,CA-IONIZED,ANION GAP) (10/24/2014 12:13 [...] Number [facility] [place] [address] [place] [address] (ABNORMAL) CBC WITH PLATELET (10/24/2014 12:13 PM [...] [facility] % CBC Plt [facility] Performed at: Comment: [facility] [address] [place] [address] Specimen Anatomical Collection Method Collection Time Receive d Time (Source) Location / / Volume Laterality Blood 10/24/2014 12:13 10/24/2014 PM CDT 12:25 PM CDT Tammi Rivera PA-C LABORATORY Performing Organization Address City/State/ZIP Code Phon e Number [facility] [place] [address] [place] [address] documented in this encounter Visit Diagnoses Diagnosis [...] Reason: Patient refused) 2140 (Given - Provider: eKrri Gomez, ZENA) 17.2 mg, Oral, BEDTIME, First [...] Pain documented in this encounter Care Teams Radio Station Audio Engineer Relationship Specialty Start Date End Date Pcp, No PCP - General 10/24/14 [facility] [place] [address] documented as of this encounter
--- OUTSIDE RECORDS SUMMARY | 2022-02-02 21:15 | XMS_ITS | Encounter Summary ---
:1995 Author Organization [place] Address [address] [place] [address]. [place] [address] Care Team Providers Name Role Phone No Ref-Primary, Physician Primary Care Provider [phone] Encounter Details Date Type Department Care Team Description 05/23/2017 [facility]ED [facility] OR [address] [facility] [address] [place] [address] [place], [place] [phone] (Wo rk) [phone] [phone] Social History Tobacco Use Types Packs/Day Years [...] 69.4 kg (153 lb) 05/23/2017 11:50 PM RE DYE HAND Height 166.4 cm (5' 5.5) 05/23/2017 11:50 PM RE DYE HAND Body Mass Index 25.07 05/23/2017 11:50 PM RE DYE HAND documented in this encounter Plan of Treatment Not on filedocumented as of this encounter Visit Diagnoses Not on filedocumented in this encounter Care Teams Clinical Support Associate Relationship Specialty Start Date End Date No Ref-Primary, Physician PCP - General 11/03/12 documented as of this encounter
--- OUTSIDE RECORDS SUMMARY | 2022-02-02 21:15 | XMS_ITS | Encounter Summary ---
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 Note should be faxed to [phone] attn: Monica Mansfield. Action: Message routed to [...] a letter be faxed to his Employer [employer] stated that it is ok for him [...] his job Best number to call patient [phone] Best time of day to reach patient: anytime documented in this encounter Plan of Treatment Not on filedocumented as of this encounter Visit Diagnoses Not on filedocumented in this encounter Care Teams Alcohol Law Enforcement Agent Relationship Specialty Start Date End Date Pcp, No PCP - General 10/24/14 [facility] [place] [address] documented as of this encounter
--- OUTSIDE RECORDS SUMMARY | 2022-02-02 21:15 | XMS_ITS | Encounter Summary ---
:1995 Author Organization [place] Address [address] [facility] [place] [address] Care Team Providers Name Role Phone No Ref-Primary, Physician Primary Care Provider Encounter Details Date Type Department Care Team Description 05/22/2017 Anesthesia - [facility] Fritz Dixon, [facility] [place] [address] [place] [phone] [place], [place] [phone] [id number] Social History Tobacco Use Types Packs/Day Years Used Date Smoking Tobacco: Every Day Alcohol Use Standard Drinks/Week Comments Yes 0 (1 standard drink = 0.6 oz pure alcoho l) Sex Assigned at Date Recorded Not on file documented as of this encounter OR Notes Anesthesia Postprocedure Evaluation - Román Lopez APRN FIRER AUTOMATIC STOKER - 05/23/2017 1:15 PM CST Patient: Chico [...] - No serious adverse event Additional Notes: H ENGINEER Anesthesia Procedure Notes - Román Lopez APRN CRNA - 05/23/2017 8:00 AM WATCH ENGINEER Peripheral Block Patient location during procedure: pre-op [...] Prep: ChloraPrep Patient position: sitting Patient monitoring: party coordinator, continuous pulse oximetry, heart rate and blood [...] Assessment Injection assessment: no difficulty with injection H ENGINEER Anesthesia Preprocedure Evaluation - Román Lopez MD - 05/23/2017 7:00 AM WATCH ENGINEER Images from the original note were not included. Anesthesia Preprocedure Evaluation by Román Lopez MD at 05/23/2017 7:00 AM Author: Román Lopez MD Service: -- Author Type: Physician Filed: 05/23/2017 7:59 AM Date of Service: 05/23/2017 7:00 AM Status: Signed Assistant Professor Of Forestry: Román Lopez MD (Physician) Anesthesia Evaluation Patient [...] special considerations: antiemetics, Post-op plan: routine recovery H ENGINEER documented in this encounter Miscellaneous Notes Anesthesia [...] experience pain >= 7 out of 10 H ENGINEER documented in this encounter Plan of Treatment Not on filedocumented as of this encounter Visit Diagnoses Not on filedocumented in this encounter Care Teams Media Reporter Relationship Specialty Start Date End Date No Ref-Primary, Physician PCP - General 11/03/12 documented as of this encounter
--- OUTSIDE RECORDS SUMMARY | 2022-02-02 21:15 | XMS_ITS | Encounter Summary ---
:1995 Author Organization [facility] Address [address] [place] [address] Phone Care Team Providers Name Role Phone Pcp, No Primary Care Provider Unavailable Reason for Visit Reason Comments TBI Encounter Details Date Type Department Care Team Description 11/19/2014 Office Visit [facility] TBI Surgery Nik Bernal TBI ([facility] brain Clinic P, MBBS injury) () (Primary [address] [facility] Dx) P5.620 P5 [place], [place] [address] [place], [place] [phone] [address] Social History Tobacco Use Types Packs/Day Years [...] they are not working for you at [phone]. documented in this encounter Progress Notes Nik Mohamud MBBS - 11/20/2014 3:08 [place] [address] MEDREC#: [id number] PATIENT: CHICO PRATER : 1995 DATE: 11/19/2014 [...] and bifrontal anterior lobes. Has transferred to [facility] for evaluation. The patient received Tylenol prior to transfer and states that helped headache a little. In the ED, patient continued to complain of 8/10 generalized headache with mild nausea. No focal weakness. There is no [place] Coma Scale score recorded in the ED. [...] noncontributory. SOCIAL HISTORY: The patient lives in [facility] with roommate. Employment history as stated [...] 6 digit span backwards. Extraocular movement intact. Fklzcd-vq-oosl intact. Rapid hand alternating movement was intact. 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 Also a form for the medical leave was filled out. The copy will be entered in the system. 2. Posttraumatic headache. The patient will be started on Naprosyn 500 mg 2 times a day. The patient was told not to take hpri-tny-aqpblwn medication more than 3 doses per week to avoid rebound headache. 3. Followup. The patient will return to clinic in 4 weeks. We will see if he is managing well at work and also his headache is getting better. A total of 30 minutes was spent in uguy-xu-yymx contact with this patient, greater than 50% of which was spent in patient counseling, coordination of care, and education as stated in the assessment and plan. ADRIÁN Galan Staff Physician Physical Medicine & Rehabilitation Service Received in Loan Examiner: 11/19/2014 16:48 M: 11/20/2014 15:49 gf NEAL/yuridia Voice ID: [id number] Document ID: [id number] Nik Mohamud MBBS - 11/19/2014 4:04 PM CDT This office note has been dictated. documented in this encounter Plan of Treatment Not on filedocumented as of this encounter Visit Diagnoses Diagnosis TBI (traumatic brain injury) - Primary Intracranial injury of other and unspeci fied nature, without mention of open intracranial wound, unspecified state of consciousness documented in this encounter Care Teams Dialysis Social Worker Relationship Specialty Start Date End Date Pcp, No PCP - General 10/24/14 [facility] [place] [address] documented as of this encounter
--- OUTSIDE RECORDS SUMMARY | 2022-02-02 21:16 | XMS_ITS | Encounter Summary ---
:1995 Author Organization [place] Address [address] [facility] [place] [address] Care Team Providers Name Role Phone Catracho Suh MD Primary Care Provider Encounter Details Date Type Department Care Team Description 12/04/2007 Orders Only [facility] Catracho Suh Attenshi ion Deficit Clinic [place] Disorder without Mention [address] [facility] [id number] [place] [address] of Hyperactivity [place], [place] S (Primary Dx) [address] [place], [place] [phone] [id number] Social History Tobacco Use Types Packs/Day Years [...] Primary documented in this encounter Care Teams Plant Physiology Teacher Relationship Specialty Start Date End Date Catracho Suh MD PCP - General 12/23/02 05/08/[address] [place], [place] [id number] documented as of this encounter
--- OUTSIDE RECORDS SUMMARY | 2022-02-02 21:16 | XMS_ITS | Encounter Summary ---
:1995 Author Organization [place] Address [address] [place] [address] Care Team Providers Name Role Phone Catracho Suh MD Primary Care Provider Encounter Details Date Type Department Care Team Description 01/26/2005 Consultation [place] [address] Social History Tobacco Use Types Packs/Day Years Used Date Smoking Tobacco: Never Assessed Sex Assigned at Date Recorded Not on file documented as of this encounter Progress Notes Umesh Rojas (Delia) - 01/26/2005 11:59 PM CDT PRELIMINARY REASON FOR CONSULT: Depression, suicidal gesture. IDENTIFYING DATA: A 10-year-old white male who was at home in [place], [place] with his parents and 6-year-old sister. He is in sixth grade in [employer]. HISTORY OF PRESENT ILLNESS: [place] [...] grade. He is in sixth grade at [employer]. The teachers apparently are frustrated with his acting out behaviors, which consisting of talking often or being off desk. He has a history of ADHD and depression and sees Beto Lindsay MD at [place] and he had last seen her on [...] reports on. They are seeing somebody at [facility] and [facility]. This cannot be [...] He reports he has been sent to [facility] (he calls it [facility]) for being off to beating off desks in school and talking out of place. PAST MEDICAL HISTORY: Good general health according to the patient. This could not be substantiatedby discussion with his mother. MEDICATIONS: None. ALLERGIES: None. PAST PSYCHIATRIC HISTORY: Reportedly is seeing Beto Lindsay MD, as well as obtains family psychotherapy through [facility], both according to the chart in the past. He has not seen them currently. PSYCHOSOCIAL HISTORY: He is the first of 2 childrens. Parents live together. Mom works as a farm loan representative and was working as a steel engraver although, he does not think she works as a steel engraver anymore. Father is a biofuels plant construction worker. He feels very close to his mother [...] have lived in their own home in [place] for 1 year. Prior to that, they have lived in [facility] and in fact, he was born in [place], but moved to this locality by the time he was 1 or 1. He is currently in sixth grade in [employer] (see details above). MENTAL STATUS [...] MT: JUAN JOSE Name: CHICO HOANG Account: [id number] : 1995 Consult Date: 01/25/2005 Document: [id number] documented in this encounter Plan of Treatment Not on filedocumented as of this encounter Visit Diagnoses Not on filedocumented in this encounter Care Teams Assistant Chief Engineer Relationship Specialty Start Date End Date Catracho Suh MD PCP - General 12/23/02 05/08/12 [address] [place] [address] documented as of this encounter
--- OUTSIDE RECORDS SUMMARY | 2022-02-02 21:16 | XMS_ITS | Encounter Summary ---
:1995 Author Organization [place] Address [address] [place] [address] Care Team Providers Name Role Phone Catracho Suh MD Primary Care Provider Encounter Details Date Type Department Care Team Description 01/16/2008 Orders Only [facility] Catracho Suh Attenshi ion Deficit Clinic [place] Disorder without Mention [address] [facility] [id number] [place] [address] of Hyperactivity [place], [place] S (Primary Dx) [address] [place], [place] [phone] Social History Tobacco Use Types Packs/Day Years [...] Primary documented in this encounter Care Teams Social Service Technician Relationship Specialty Start Date End Date Catracho Suh MD PCP - General 12/23/02 05/08/[address] [place], [place] [id number] documented as of this encounter
--- OUTSIDE RECORDS SUMMARY | 2022-02-02 21:16 | XMS_ITS | Encounter Summary ---
:1995 Author Organization [place] Address [address] [facility] [place] [address] Care Team Providers Name Role Phone Catracho Suh MD Primary Care Provider Reason for Visit Reason Comments Ear Problem Encounter Details Date Type Department Care Team Description 12/16/2002 Office Visit [facility] Abisai Tracy MD INFEC OTITIS EXTERNA Clinic [facility] MEDICINE NOS (Primary Dx) [address] [place] [address] [address] [place], [place] [phone] (Wo rk) Social History Tobacco Use Types [...] Otitis Externa PLAN: 1) Antibiotic drops per [facility] Care orders. 2) Symptomatic therapy suggested: use [...] Primary documented in this encounter Care Teams Snailer Relationship Specialty Start Date End Date Catracho Suh MD PCP - General 12/23/02 05/08/12 [address] [place] [address] documented as of this encounter
--- OUTSIDE RECORDS SUMMARY | 2022-02-02 21:16 | XMS_ITS | Encounter Summary ---
:1995 Author Organization [place] Address [address] [facility] [address] Care Team Providers Name Role Phone Catracho Suh MD Primary Care Provider Reason for Visit Reason Comments Patient Request For another med? Encounter Details Date Type Department Care Team Description 12/23/2002 Telephone [facility] Cata Weiss MD Patient Request (For Clinic [facility] another med?) [id number] [place] [address] [address] [place] [address] [place], [place] [phone] (Wo rk) Social History Tobacco Use Types [...] on filedocumented in this encounter Care Teams Human Resources Representative Relationship Specialty Start Date End Date Catracho Suh MD PCP - General 12/23/02 05/08/12 [address] [place] [address] documented as of this encounter
--- OUTSIDE RECORDS SUMMARY | 2022-02-02 21:16 | XMS_ITS | Encounter Summary ---
:1995 Author Organization [place] Address [address] [facility] [place] [address] Care Team Providers Name Role Phone Catracho Suh MD Primary Care Provider Reason for Visit Reason Onset Date Comments Refill Request 07/01/2007 adderall Encounter Details Date Type Department Care Team Description 07/01/2007 Refill [facility] Catracho Suh MD Refill Request [facility] [phone] [place] [address] (adderall) [id number] [place] [phone] Social History Tobacco Use Types Packs/Day Years Used Date Smoking Tobacco: Never Alcohol Use Standard Drinks/Week Comments Not Asked 0 (1 standard drink = 0.6 oz pure alcoho l) Sex Assigned at Date Recorded Not on file documented as of this encounter Miscellaneous Notes Telephone Encounter - Tati Osborne - 07/01/2007 3:55 PM CDT Mom notified of rx. 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 Deepa Osborne LPN Telephone Encounter - Le Pleitez - 07/01/2007 12:39 PM CDT Clementine-mom calling for refill on adderal. Please call when ready [phone](home) last ov 04/22 Le Kirkland RN documented in this encounter Plan of Treatment Not on filedocumented as of this encounter Visit Diagnoses Diagnosis Attention deficit disorder without menti on of hyperactivity documented in this encounter Care Teams Pants Closer Relationship Specialty Start Date End Date Catracho Suh MD PCP - General 12/23/02 05/08/12 [address] [place] [address] documented as of this encounter
--- OUTSIDE RECORDS SUMMARY | 2022-02-02 21:16 | XMS_ITS | Encounter Summary ---
:1995 Author Organization [place] Address [facility] [place] [address] Care Team Providers Name Role Phone Catracho Suh MD Primary Care Provider Reason for Visit Reason Onset Date Comments Medication Request 08/02/2008 adderall refill mail to pharmacy Encounter Details Date Type Department Care Team Description 08/02/2008 Telephone [facility] Catracho Suh, Medica tion Request Clinic Alfreda Christie MD (adderall refill mail [address] [facility] [id number] [place] [address] S to pharmacy) [place] [address] [phone] Social History Tobacco Use Types Packs/Day Years Used Date Smoking Tobacco: Never Alcohol Use Standard Drinks/Week Comments Not Asked 0 (1 standard drink = 0.6 oz pure alcoho l) Sex Assigned at Date Recorded Not on file documented as of this encounter Miscellaneous Notes Telephone Encounter - Mayra Hutson - 08/04/2008 9:16 AM CDT Signed rx mailed to pharmacy at: [address] [place] [place] [address] Mayra Hutson RN Telephone Encounter - Tati Osborne - 08/02/2008 1:44 PM CDT Date of last office visit 04/30/08 MAIL RX TO [facility] Reason for visit ADHD Date last filled [...] Med Name: Adderal Pharmacy name and location: [facility] mail rx to the medical center Provider they see: Vikash Phone number they can be reached at: [phone] Ok to leave a message: yes Veda Vance documented in this encounter Plan of Treatment Not on filedocumented as of this encounter Visit Diagnoses Diagnosis ADHD (attention deficit hyperactivity di sorder) - Primary Attention deficit disorder with hyperact ivity documented in this encounter Care Teams Medical Or Surgical Instrument Maker Relationship Specialty Start Date End Date Catracho Suh MD PCP - General 12/23/02 05/08/12 [address] [place] [address] documented as of this encounter
--- OUTSIDE RECORDS SUMMARY | 2022-02-02 21:16 | XMS_ITS | Encounter Summary ---
:1995 Author Organization [place] Address [address] [facility] [place] [address] Care Team Providers Name Role Phone Catracho Suh MD Primary Care Provider Reason for Visit Reason Onset Date Comments Refill Request 11/28/2007 [id number] Encounter Details Date Type Department Care Team Description 11/28/2007 Refill [facility] Catracho Suh MD Refill Request [place] [phone] [place] [address] ([id number]) [address] [place], [place] [phone] [phone] Social History Tobacco Use Types Packs/Day Years Used Date Smoking Tobacco: Never Alcohol Use Standard Drinks/Week Comments Not Asked 0 (1 standard drink = 0.6 oz pure alcoho l) Sex Assigned at Date Recorded Not on file documented as of this encounter Miscellaneous Notes Telephone Encounter - Rahda Soler - 11/28/2007 8:19 AM CDT Last OV: 10/06/07 by Reason for visit: ADHD RTC instructions: 6 months Last filled: Not given Pt would like to package pick up at front office secretary tomorrow morning. No need to call mother unless rx is denied or you have questions. Radha Soler RN documented in this encounter Plan of Treatment Not on filedocumented as of this encounter Visit Diagnoses Diagnosis Attention deficit disorder without menti on of hyperactivity - Primary documented in this encounter Care Teams Director Of Food And Nutrition Services Relationship Specialty Start Date End Date Catracho Suh MD PCP - General 12/23/02 05/08/12 [address] [place] [address] documented as of this encounter
--- OUTSIDE RECORDS SUMMARY | 2022-02-02 21:16 | XMS_ITS | Encounter Summary ---
:1995 Author Organization [place] Address [address] [facility] [place] [address] Care Team Providers Name Role Phone Catracho Suh MD Primary Care Provider Reason for Visit Reason Comments RECHECK F/U visit regarding a med ch ata. Encounter Details Date Type Department Care Team Description 04/30/2008 Office Visit [facility] Catracho Suh, ADHD ( Attention Deficit Clinic [place] Hyperactivity Disorder) [place] [address] [facility] (Primary Dx) [facility], [address] [place] [address] [phone] Social History Tobacco Use Types Packs/Day Years Used Date Smoking Tobacco: Never Alcohol Use Standard Drinks/Week Comments Not Asked 0 (1 standard drink = 0.6 oz pure alcoho l) Sex Assigned at Date Recorded Not on file documented as of this encounter Last Filed Vital Signs Vital Sign Reading Time Taken Comments Blood Pressure 94/70 04/30/2008 3:00 PM ASSOCIATE PROFESSOR OF LITERACY Pulse 84 04/30/2008 3:00 PM ASSOCIATE PROFESSOR OF LITERACY Temperature 36.6 ??C (97.9 ??F) 04/30/2008 3:00 PM ASSOCIATE PROFESSOR OF LITERACY Respiratory Rate - - Oxygen Saturation - - Inhaled Oxygen Concentration - - Weight 60.1 kg (132 lb 8 oz) 04/30/2008 3:00 PM ASSOCIATE PROFESSOR OF LITERACY Height 161.9 cm (5' 3.75) 04/30/2008 3:00 PM ASSOCIATE PROFESSOR OF LITERACY Body Mass Index 22.92 04/30/2008 3:00 PM ASSOCIATE PROFESSOR OF LITERACY Body Mass Index Percentile 80.57 % 04/30/2008 3:00 PM CS T Growth Chart: [facility] (Boys, 2-20 Years) documented in this encounter [...] Plan: ADDERALL XR# 30 MG OR CP24 CIATE PROFESSOR OF LITERACY documented in this encounter Nursing Notes 04/30/2008 [...] ivity documented in this encounter Care Teams Lime Trimmer Relationship Specialty Start Date End Date Catracho Suh MD PCP - General 12/23/02 05/08/12 [address] [place] [address] documented as of this encounter
--- OUTSIDE RECORDS SUMMARY | 2022-02-02 21:16 | XMS_ITS | Encounter Summary ---
:1995 Author Organization [place] Address [address] [facility] [place] [address] Care Team Providers Name Role Phone Catracho Suh MD Primary Care Provider Encounter Details Date Type Department Care Team Description 08/10/2008 [facility] Medication Clinic [place] Auth Form [address] [place] [address] [facility] [phone] [place] [address] Social History Tobacco Use Types Packs/Day Years Used Date Smoking Tobacco: Never Alcohol Use Standard Drinks/Week Comments Not Asked 0 (1 standard drink = 0.6 oz pure alcoho l) Sex Assigned at Date Recorded Not on file documented as of this encounter Plan of Treatment Not on filedocumented as of this encounter Visit Diagnoses Not on filedocumented in this encounter Care Teams Toll Ticket Clerk Relationship Specialty Start Date End Date Catracho Suh MD PCP - General 12/23/02 05/08/[id number] [place] [address] documented as of this encounter
--- OUTSIDE RECORDS SUMMARY | 2022-02-02 21:16 | XMS_ITS | Encounter Summary ---
:1995 Author Organization [place] Address [address] [facility] [place] [address] Care Team Providers Name Role Phone Catracho Suh MD Primary Care Provider Reason for Visit Reason Comments Headache football injury last week an d fell again yesterday and hit head on climing wall at school Encounter Details Date Type Department Care Team Description 12/26/[address] [facility] Catracho Suh HEAD HE (Primary Dx) Clinic [place] MD [address] [place] [address] [phone] Social History Tobacco Use Types Packs/Day Years [...] completed using cuff size: regular [place] Rice PUBLIC SAFETY DIRECTOR documented in this encounter Plan of Treatment [...] Headache documented in this encounter Care Teams Clutch Operator Relationship Specialty Start Date End Date Catracho Suh MD PCP - General 12/23/02 05/08/12 [address] [place] [address] documented as of this encounter
--- OUTSIDE RECORDS SUMMARY | 2022-02-02 21:16 | XMS_ITS | Encounter Summary ---
:1995 Author Organization [place] Address [facility] [place] [address] Care Team Providers Name Role Phone Catracho Suh MD Primary Care Provider Reason for Visit Reason Onset Date Comments Refill Request 10/07/2007 Encounter Details Date Type Department Care Team Description 10/07/[address] [facility] Catracho Suh MD Refill Request [place] [address] [phone] Social History Tobacco Use Types Packs/Day Years Used Date Smoking Tobacco: Never Alcohol Use Standard Drinks/Week Comments Not Asked 0 (1 standard drink = 0.6 oz pure alcoho l) Sex Assigned at Date Recorded Not on file documented as of this encounter Miscellaneous Notes Telephone Encounter - Loren Iraheta - 10/07/2007 9:41 AM CDT Loren Iraheta, Digital Measurement Advisor Talked to mother, [place] had an appt with Dr. Suh at [place] 10/06/07 and was given a signed prescription to take with. This Rx will be destroyed. Telephone Encounter - Loren Iraheta - 10/07/2007 9:11 AM CDT Loren Iraheta, Digital Measurement Advisor LMOM for patient's mom TCBTC. Rx is signed and ready for pickup. [facility] envelope at [facility]. documented in this encounter Plan of Treatment Not on filedocumented as of this encounter Visit Diagnoses Not on filedocumented in this encounter Care Teams Manager Trainee Relationship Specialty Start Date End Date Catracho Suh MD PCP - General 12/23/02 05/08/12 [address] [place] [address] documented as of this encounter
--- OUTSIDE RECORDS SUMMARY | 2022-02-02 21:16 | XMS_ITS | Encounter Summary ---
:1995 Author Organization [place] Address [facility] [place] [address] Care Team Providers Name Role Phone Catracho Suh MD Primary Care Provider Reason for Visit Reason Onset Date Comments Refill Request 06/04/2007 Encounter Details Date Type Department Care Team Description 06/04/2007 Refill [facility] Catracho Suh MD Refill Request [place] [address] [phone] Social History Tobacco Use Types Packs/Day Years [...] status; rx found and placed at front line leader per her request. Ирина Puente CMA TH CONSULTANT Telephone Encounter - Salvador Marmolejo - 06/04/2007 10:36 AM HEALTH CONSULTANT Staff Message copied by SALVADOR MARMOLEJO on 06/04/2007 at 10:36 AM ------ Message from: VEDA KING Created: 06/04/2007 at 10:11 AM Regarding: Adderal refill Clementine- pts mom requesting refill of Adderal. Pt only has three days of meds left. Please call mom @ work when ready for pick-up. [phone] TH CONSULTANT documented in this encounter Plan of Treatment Not on filedocumented as of this encounter Visit Diagnoses Diagnosis Attention deficit disorder without menti on of hyperactivity documented in this encounter Care Teams Fire Prevention Officer Relationship Specialty Start Date End Date Catracho Suh MD PCP - General 12/23/02 05/08/12 [address] [place] [address] documented as of this encounter
--- OUTSIDE RECORDS SUMMARY | 2022-02-02 21:16 | XMS_ITS | Encounter Summary ---
:1995 Author Organization [place] Address [facility] [place] [address] Care Team Providers Name Role Phone Catracho Suh MD Primary Care Provider Reason for Visit Reason Onset Date Comments Refill Request 10/02/2007 Adderall Slk Encounter Details Date Type Department Care Team Description 10/02/2007 Refill [facility] Catracho Suh MD Refill Request (Adderall [place] [address] [place] [address] S Slk) [address] [place], [place] [phone] [phone] Social History Tobacco Use Types Packs/Day Years [...] his Adderall. Please call her back at [phone] when this is ready. Unable to refill [...] hyperactivity documented in this encounter Care Teams University Professor Relationship Specialty Start Date End Date Catracho Suh MD PCP - General 12/23/02 05/08/12 [address] [place] [address] documented as of this encounter
--- OUTSIDE RECORDS SUMMARY | 2022-02-02 21:16 | XMS_ITS | Encounter Summary ---
:1995 Author Organization [place] Address [facility] [place] [address] Care Team Providers Name Role Phone Catracho Suh MD Primary Care Provider Reason for Visit Reason Onset Date Comments Refill Request 10/29/2007 Encounter Details Date Type Department Care Team Description 10/29/2007 Refill M [facility] Catracho Suh MD Refill Request [place] [address] [phone] Social History Tobacco Use Types Packs/Day Years Used Date Smoking Tobacco: Never Alcohol Use Standard Drinks/Week Comments Not Asked 0 (1 standard drink = 0.6 oz pure alcoho l) Sex Assigned at Date Recorded Not on file documented as of this encounter Miscellaneous Notes Telephone Encounter - Loren Iraheta - 10/29/2007 12:42 PM CDT Loren Iraheta, Machine Cloth Examiner Left detailed message that signed Rx is up at the front end specialist and ready for pickup. Telephone Encounter - Adelso Tillman - 10/29/2007 12:09 PM CDT Rx printed and in my out basket. Patient requesting 1 week early. Please call patient to pick-up. Adelso Tillman MD [facility] Telephone Encounter - Loren Iraheta - 10/29/2007 11:02 AM CDT Loren rIaheta, Machine Cloth Examiner Mother calling to request a refill on adderall Last o.v. 10/06/07 Last refill 10/06/07 documented in this encounter Plan of Treatment Not on filedocumented as of this encounter Visit Diagnoses Diagnosis Attention deficit disorder without menti on of hyperactivity - Primary documented in this encounter Care Teams Yarn Carrier Relationship Specialty Start Date End Date Catracho Suh MD PCP - General 12/23/02 05/08/12 [address] [place] [address] documented as of this encounter
--- OUTSIDE RECORDS SUMMARY | 2022-02-02 21:16 | XMS_ITS | Encounter Summary ---
:1995 Author Organization [place] Address [address] [facility] [place] [address] Care Team Providers Name Role Phone Catracho Suh MD Primary Care Provider Reason for Visit Reason Comments RECHECK Med check. Encounter Details Date Type Department Care Team Description 10/06/2007 Office Visit [facility] Catracho Suh Attent ion Deficit Clinic Lynne EVERETT Disorder without Mention [address] [place] [address] [facility] of [employer] [facility], [address] (Primary Dx) [place] [address] [id number] Social History Tobacco Use Types Packs/Day Years [...] 10/06/2007 8:30 AM CD T Growth Chart: [facility] (Boys, 2-20 Years) documented in this encounter [...] using cuff size regular right arm. Mayra Puente-GAS FITTER documented in this encounter Plan of Treatment Not on filedocumented as of this encounter Visit Diagnoses Diagnosis Attention deficit disorder without menti on of hyperactivity - Primary documented in this encounter Care Teams Campaign Management Specialist Relationship Specialty Start Date End Date Catracho Suh MD PCP - General 12/23/02 05/08/12 [address] [place] [address] documented as of this encounter
--- OUTSIDE RECORDS SUMMARY | 2022-02-02 21:16 | XMS_ITS | Encounter Summary ---
:1995 Author Organization [place] Address [address] [place] [address] Care Team Providers Name Role Phone Catracho Suh MD Primary Care Provider Encounter Details Date Type Department Care Team Description 01/26/2005 Emergency room Norah Milton MD [facility] [address] [facility] [address] [place], [place] [address] (Wo rk) Social History Tobacco Use Types [...] drug screen done here, which was negative. production staff worker did find out that there is no psychiatric bed for Pediatrics in [place], so we did have to admit him to the hospital for monitoring until Psychiatry or a bed in psychiatric hospital is open. I did talk to [facility] and they would be admitting him for observation and we will have a sitter with him. He did not have any problems while here in the emergency department. He was quite calm and cooperative. ASSESSMENT: Suicidal ideation. He was admitted to the Peds Floor with a sitter. NORAH MILTON MD MT: JUAN JOSE Name: CHICO PRATRE Account: [id number] : 1995 Visit Date: 01/25/2005 Document: [id number] documented in this encounter Plan of Treatment Not on filedocumented as of this encounter Visit Diagnoses Not on filedocumented in this encounter Care Teams Parquet Floor Layer Relationship Specialty Start Date End Date Catracho Suh MD PCP - General 12/23/02 05/08/12 [address] [place] [address] documented as of this encounter
--- OUTSIDE RECORDS SUMMARY | 2022-02-02 21:16 | XMS_ITS | Encounter Summary ---
:1995 Author Organization [place] Address [address] [facility] [place] [address] Care Team Providers Name Role Phone Catracho Suh MD Primary Care Provider Reason for Visit Reason Onset Date Comments Refill Request 06/29/2008 would like to pick u p adderall rx at [facility] on SATURDAY Encounter Details Date Type Department Care Team Description 06/29/2008 Refill [facility] Catracho Suh MD Refill Request (would [place] [id number] [place] [address] S like to sweet pickle maker adderall [address] [place], [place] rx at [facility] on SATURDAY) [place] [address] [phone] Social History Tobacco Use Types Packs/Day Years Used Date Smoking Tobacco: Never Alcohol Use Standard Drinks/Week Comments Not Asked 0 (1 standard drink = 0.6 oz pure alcoho l) Sex Assigned at Date Recorded Not on file documented as of this encounter Miscellaneous Notes Telephone Encounter - Le Pleitez - 06/30/2008 10:54 AM CDT Notified that we will have it transported to [facility] and they can sweet pickle maker on Saturday. (Lucero silva rx) Le Pleitez [...] ivity documented in this encounter Care Teams Salesforce Business Analyst Relationship Specialty Start Date End Date Catracho Suh MD PCP - General 12/23/02 05/08/12 [address] [place] [address] documented as of this encounter
--- OUTSIDE RECORDS SUMMARY | 2022-02-02 21:16 | XMS_ITS | Encounter Summary ---
:1995 Author Organization [place] Address [address] [place] [address] Care Team Providers Name Role Phone Catracho Suh MD Primary Care Provider Reason for Visit Reason Comments Pharyngitis Symptoms started New Years: sore throat. Encounter Details Date Type Department Care Team Description 04/21/2008 Office Visit [facility] Adelso Tillman ore Throat (Viral) Clinic [place] Ludwin Allison MD (Primary Dx) [facility], [address] [place], [place] [address] [address] [facility] [phone] [place], [place] [address] (Wo rk) Social History Tobacco Use Types Packs/Day Years Used Date Smoking Tobacco: Never Alcohol Use Standard Drinks/Week Comments Not Asked 0 (1 standard drink = 0.6 oz pure alcoho l) Sex Assigned at Date Recorded Not on file documented as of this encounter Last Filed Vital Signs Vital Sign Reading Time Taken Comments Blood Pressure 100/70 04/21/2008 11:15 AM ENVIRONMENTAL AID Pulse 80 04/21/2008 11:15 AM ENVIRONMENTAL AID Temperature 36.7 ??C (98 ??F) 04/21/2008 11:15 AM ENVIRONMENTAL AID Respiratory Rate - - Oxygen Saturation - - Inhaled Oxygen Concentration - - Weight 58.1 kg (128 lb) 04/21/2008 11:15 AM ENVIRONMENTAL AID Height 161.9 cm (5' 3.75) 04/21/2008 11:15 AM ENVIRONMENTAL AID Body Mass Index 22.14 04/21/2008 11:15 AM ENVIRONMENTAL AID Body Mass Index Percentile 74.73 % 04/21/2008 11:[address] Growth Chart: [facility] (Boys, 2-20 Years) documented in this [...] Q4 hours for congestion. Adelso Tillman MD [facility] RONMENTAL AID documented in this encounter Nursing Notes 04/21/2008 [...] Sore Throat (Viral) Results for this CONFIRM ENVIRONMENTAL AID procedure are i n the results section. HCL STREP GROUP A Routine 04/21/2008 11:26 AM Sore Throat (Vir al) Results for this AG (RAPID) ENVIRONMENTAL AID procedure are i n the results section. documented in this encounter Results BETA STREP CONFIRM (04/21/2008 11:26 AM ENVIRONMENTAL AID) Component Value Ref Test Analysis Performed At [facility] gist Range Method Time Signature Specimen Throat [facility] LAB Culture Micro No Beta SHARON Streptococcus [facility] LAB Report status FINAL 04/22/2008 [facility] LAB Specimen Anatomical Collection Method Collection Time Receive d Time (Source) Location / / Volume Laterality 04/21/2008 11:26 04/21/2008 AM ENVIRONMENTAL AID 11:28 AM ENVIRONMENTAL AID Adelso Tillman MD LABORATORY Performing Organization Address City/[facility]/ZIP Code Phon e Number [address] [address] [facility] LAB STREP GROUP A AG (RAPID) (04/21/2008 11:26 AM ENVIRONMENTAL AID) Component Value Ref Test Analysis Performed At [facility] gist Range Method Time Signature Specimen Throat [facility] LAB Rapid Strep A NEGATIVE: No Group A strepto coccal antigen detected by immunoassay, await SHARON Screen culture report. [facility] LAB Report status FINAL 04/21/2008 [facility] LAB Specimen Anatomical Collection Method Collection Time Receive d Time (Source) Location / / Volume Laterality 04/21/2008 11:26 04/21/2008 AM ENVIRONMENTAL AID 11:28 AM ENVIRONMENTAL AID Adelso Tillman MD LABORATORY Performing Organization Address City/[facility]/ZIP Code Phon e Number [address] [address] [facility] documented in this encounter Visit Diagnoses Diagnosis Sore throat (viral) - Primary Acute pharyngitis documented in this encounter Care Teams Sport Internship Relationship Specialty Start Date End Date Catracho Suh MD PCP - General 12/23/02 05/08/12 [address] [place] [address] documented as of this encounter
--- OUTSIDE RECORDS SUMMARY | 2022-02-02 21:16 | XMS_ITS | Encounter Summary ---
:1995 Author Organization [place] Address [address] [facility] [place] [address] Care Team Providers Name Role Phone Catracho Suh MD Primary Care Provider Reason for Visit Reason Onset Date Comments Refill Request 03/29/2008 adderall Encounter Details Date Type Department Care Team Description 03/29/2008 Refill [facility] Catracho Suh MD Refill Request [place] [address] [place] [address] (adderall) [address] [place] [phone] Social History Tobacco Use Types Packs/Day Years Used Date Smoking Tobacco: Never Alcohol Use Standard Drinks/Week Comments Not Asked 0 (1 standard drink = 0.6 oz pure alcoho l) Sex Assigned at Date Recorded Not on file documented as of this encounter Miscellaneous Notes Telephone Encounter - Adalberto Enriquez - 04/02/2008 2:29 PM CST Rx left at front end developer javascript html css for parents to poultry picker. Message left informing.Adalberto Enriquez MA ARD/STEWARDESS SECOND Telephone Encounter - Zaira North - 03/29/2008 [...] approve. Not a PSO medication. MOM WILL TANNING SOLUTION MAKER WRITTEN SIGNED SCRIPT AT GAYS OFFICE If needed, Clementine can be reached at [phone]. Thanks, Zaira North RN ARD/STEWARDESS SECOND documented in this encounter Plan of Treatment Not on filedocumented as of this encounter Visit Diagnoses Diagnosis Attention deficit disorder without menti on of hyperactivity documented in this encounter Care Teams Box Printing Machine Operator Relationship Specialty Start Date End Date Catracho Suh MD PCP - General 12/23/02 05/08/12 [address] [place] [address] documented as of this encounter
--- OUTSIDE RECORDS SUMMARY | 2022-02-02 21:16 | XMS_ITS | Encounter Summary ---
:1995 Author Organization [place] Address [address] [facility] [place] [address] Care Team Providers Name Role Phone Catracho Suh MD Primary Care Provider Reason for Visit Reason Comments Trauma right ankle injury last noc Encounter Details Date Type Department Care Team Description 02/07/2005 Office Visit [facility] Catracho Suh ATTN D EFICIT NONHYPERACT (Primary Dx); Clinic [place] [place] [address] [place] [address] [phone] Social History Tobacco Use Types Packs/Day Years [...] 02/07/2005 9:30 AM CD T Growth Chart: [facility] (Boys, 2-20 Years) documented in this encounter [...] AM CDT REPORT OF OUTSIDE FILMS FROM [facility] ??CLINIC CHICO PRATER ?: 89 THREE VIEWS [...] foot documented in this encounter Care Teams Supervisor Paint Department Relationship Specialty Start Date End Date Catracho Suh MD PCP - General 12/23/02 05/08/12 [address] [place] [address] documented as of this encounter
--- OUTSIDE RECORDS SUMMARY | 2022-02-02 21:16 | XMS_ITS | Encounter Summary ---
:1995 Author Organization [place] Address [address] [facility] [place] [address] Care Team Providers Name Role Phone Catracho Suh MD Primary Care Provider Reason for Visit Reason Comments Pharyngitis Symptoms started last week: sore throat. Encounter Details Date Type Department Care Team Description 10/06/2008 Office Visit [facility] Bridget Garcia MD Pharyngitis (Primary Clinic [place] [address] Dx) [address] [place], [place] [address] [address] [place], [place] [phone] [address] (Work) [phone] Social History Tobacco Use Types Packs/Day Years [...] 10/06/2008 1:34 PM CD T Growth Chart: [facility] (Boys, 2-20 Years) [...] Results MONO HETEROPHILE (10/06/2008 2:01 PM CDT) [facility] Method Time Signature Mononucleosis Negative NEG [place] Screen [facility] LAB Specimen Anatomical Collection Method Collection Time Receive d Time (Source) Location / / Volume Laterality 10/06/2008 2:01 PM 9 2:03 CDT PM CDT Bridget Garcia MD LABORATORY Performing Organization Address City/[facility]/ZIP Code Phon e Number [address] [address] [facility] LAB BETA STREP CONFIRM (10/06/2008 1:43 PM CDT) Component Value Ref Test Analysis Performed At [facility] Method Time Signature Specimen Throat [facility] LAB Culture Micro No Beta [place] Streptococcus [facility] LAB Report status FINAL 10/08/2008 [facility] LAB Specimen Anatomical Collection Method Collection Time Receive d Time (Source) Location / / Volume Laterality 10/06/2008 1:43 PM 9 1:48 CDT PM CDT Bridget Garcia MD LABORATORY Performing Organization Address City/[facility]/ZIP Code Phon e Number [address] [address] [facility] LAB STREP GROUP A ANTIGEN (RAPID) (10/06/2008 1:43 PM CDT) Component Value Ref Test Analysis Performed At [facility] Range Method Time Signature Specimen Throat [facility] LAB Rapid Strep A NEGATIVE: No Group A strepto coccal antigen detected by immunoassay, await [facility] culture report. [facility] LAB Report status FINAL 10/06/2008 [facility] LAB Specimen Anatomical Collection Method Collection Time Receive d Time (Source) Location / / Volume Laterality 10/06/2008 1:43 PM 9 1:48 CDT PM CDT Bridget Garcia MD LABORATORY Performing Organization Address City/State/ZIP Code Phon e Number [facility] [address] [facility] documented in this encounter Visit Diagnoses Diagnosis Pharyngitis - Primary Acute pharyngitis documented in this encounter Care Teams Systems Auditor Relationship Specialty Start Date End Date Catracho Suh MD PCP - General 12/23/02 05/08/12 [address] [place] [address] documented as of this encounter
--- OUTSIDE RECORDS SUMMARY | 2022-02-02 21:16 | XMS_ITS | Clinical Summary ---
:1995 Author Organization [facility] [employer] [facility] [place] [address] Care Team Providers Name Role Phone Nonstaff, [...] Type / Group WC WORKERS WC WORKERS [id number] 2014-Prese [phone] [address] [place] [address] MEDICA [place] MEDICA CHOICE [id number] 2009-Cholo [address] [address] [place] [address] (Work) [address] [place] Hoang Workers Comp Self [address] (Home) [place] [address] [place] Hoang Personal/Family Self [address] (Home) [place] [address] Advance Directives Latest Code Status on File Code Status Date Activated Date Inactivated Comments Full Code 01/27/2005 6:54 PM 02/02/2005 9:00 PM Care Teams Spring Assembler Supervisor Relationship Specialty Start Date End Date Nonstaff, Doctor PCP - General 09/03/14 NON STAFF DOCTOR Catracho Suh 09/03/14
--- OUTSIDE RECORDS SUMMARY | 2022-02-02 21:16 | XMS_ITS | Encounter Summary ---
:1995 Author Organization [place] Address [facility] [address] Care Team Providers Name Role Phone Catracho Suh MD Primary Care Provider Reason for Visit Reason Onset Date Comments Patient Request 04/23/2007 Encounter Details Date Type Department Care Team Description 04/23/2007 Telephone [facility] Catracho Suh MD Patient Request [address] [phone] (Wo rk) Social History Tobacco Use Types Packs/Day Years Used Date Smoking Tobacco: Never Alcohol Use Standard Drinks/Week Comments Not Asked 0 (1 standard drink = 0.6 oz pure alcoho l) Sex Assigned at Date Recorded Not on file documented as of this encounter Miscellaneous Notes Telephone Encounter - Dolores Longo - 04/25/2007 9:57 AM CST Done. Dolores Longo CMA ARED FOODS ASSOCIATE Telephone Encounter - Supriya Wang - 04/23/2007 2:51 PM CST Mom requesting a medical records release form be faxed to her at [phone]. If questions please call her at [phone]. Supriya Wang RN ARED FOODS ASSOCIATE documented in this encounter Plan of Treatment Not on filedocumented as of this encounter Visit Diagnoses Not on filedocumented in this encounter Care Teams Side Stitcher Relationship Specialty Start Date End Date Catracho Suh MD PCP - General 12/23/02 05/08/12 [address] [place] [address] documented as of this encounter
--- OUTSIDE RECORDS SUMMARY | 2022-02-02 21:16 | XMS_ITS | Encounter Summary ---
:1995 Author Organization [place] Address [facility] [place] [address] Care Team Providers Name Role Phone Catracho Suh MD Primary Care Provider Reason for Visit Reason Comments RECHECK medications check Encounter Details Date Type Department Care Team Description 05/06/2007 Office Visit [facility] Catracho Suh ATTN D EFICIT Clinic [place] MD NONHYPERACT (Primary [id number] [place] [address]) [place] [address] [phone] Social History Tobacco Use Types Packs/Day Years [...] 55.3 kg (122 lb) 05/06/2007 4:00 PM RIBBON HANKING MACHINE OPERATOR Height 157.5 cm (5' 2) 05/06/2007 4:00 PM RIBBON HANKING MACHINE OPERATOR Body Mass Index 22.31 05/06/2007 4:00 PM RIBBON HANKING MACHINE OPERATOR Body Mass Index Percentile 81.56 % 05/06/2007 [...] Plan: ADDERALL XR# 30 MG OR CP24 ON HANKING MACHINE OPERATOR documented in this encounter Nursing Notes 05/06/2007 [...] Primary documented in this encounter Care Teams Coal Cutting Machine Operator Relationship Specialty Start Date End Date Catracho Suh MD PCP - General 12/23/02 05/08/12 [address] [place] [address] documented as of this encounter
--- OUTSIDE RECORDS SUMMARY | 2022-02-02 21:16 | XMS_ITS | Encounter Summary ---
:1995 Author Organization [place] Address [address] [place] [address] Care Team Providers Name Role Phone Catracho Suh MD Primary Care Provider Reason for Visit Reason Comments Well Child 11 yr physical Encounter Details Date Type Department Care Team Description 11/06/2005 Office Visit [facility] Catracho Suh ROUTIN E MEDICAL EXAM Clinic Alfreda Christie MD (Primary Dx) [address] [address] [phone] Social History Tobacco Use Types Packs/Day Years [...] since last physical Language(s) spoken at home: Wolof ENVIRONMENTAL RISK ASSESSMENT Is your child around anyone who smokes? YES mother Seat belt? YES Bike/sport helmet? YES TB exposure? NO Pets in the home? YES 4 dogs Guns/firearms in the home? NO Water source: [employer] CHICKEN POX HISTORY: Patient has had chicken pox DEVELOPMENTAL/ Behavioral Screening form: Form not used VISION Wears glasses? YES Glasses worn for testing: NO Right eye: 20/20 Left eye: 20/25 HEARING Normal REQUIRED VITAL SIGNS COMPLETED: yes BP 100/60 Pulse 72 Ht 4' 10 (1.47m) Wt 91 lbs (41.3kg) 16.26% of growth percentile based on jylxmkv-byl-elj. 33.45% of growth percentile based on peovoq-vbd-tmu. 60.23% of growth percentile based on BMI-for-age. [...] you currently taking any prescription or nonprescription (bjpd-mxy-spmftxi) medicines or pills? 4. NO - Do [...] day EDUCATION / EMPLOYMENT Concerns: no School: [employer] Grade:7th School performance / Academic skills: at [...] completed using cuff size: regular Valencia Rice E COMMERCE PROJECT MANAGER documented in this encounter Plan of Treatment Not on filedocumented as of this encounter Visit Diagnoses Diagnosis Routine general medical examination at a health care facility - Primary documented in this encounter Care Teams Blender Laborer Relationship Specialty Start Date End Date Catracho Suh MD PCP - General 12/23/02 05/08/12 [address] [place] [address] documented as of this encounter
--- OUTSIDE RECORDS SUMMARY | 2022-02-02 21:16 | XMS_ITS | Encounter Summary ---
:1995 Author Organization [place] Address [address] [facility] [place] [address] Care Team Providers Name Role Phone Catracho Suh MD Primary Care Provider Encounter Details Date Type Department Care Team Description 01/26/2005 Admission H&P Shade Reyna MD (Doll Eye Setter) [facility] [address] [place], [place] [address] (Wo rk) Social History [...] it. He described this attempt to his school social worker yesterday along with thoughts of repeating attempt yesterday and today. Due to thesediscussions, his mother was called to the school where she was notified of his suicidal ideation andattempt, and the patient was transported directly to [facility] for care due to the [...] ideation. The patient will be [facility] for observation with a sitter until a psychiatric bed can be found for appropriate mental health care follow. The seriousness and need for followup on the suicidal attempt and ideation were discussed in detail with the patient and his mother. SHADE REYNA MD MT: JUAN JOSE Name: CHICO PRATER Account: [id number] : 1995 Admitted: 01/25/2005 Document: [id number] documented in this encounter Plan of Treatment Not on filedocumented as of this encounter Visit Diagnoses Not on filedocumented in this encounter Care Teams Welt Stitch Cleaner Relationship Specialty Start Date End Date Catracho Suh MD PCP - General 12/23/02 05/08/12 [address] [place] [address] documented as of this encounter
--- OUTSIDE RECORDS SUMMARY | 2022-02-02 21:16 | XMS_ITS | Encounter Summary ---
:1995 Author Organization [place] Address [address] [place] [address]. [place] [address] Care Team Providers Name Role Phone Catracho Suh MD Primary Care Provider Encounter Details Date Type Department Care Team Description 06/11/2008 Orders Only [facility] Faint Laboratory [address] [place] [address] Social History Tobacco Use Types Packs/Day Years Used Date Smoking Tobacco: Never Alcohol Use Standard Drinks/Week Comments Not Asked 0 (1 standard drink = 0.6 oz pure alcoho l) Sex Assigned at Date Recorded Not on file documented as of this encounter Progress Notes Angeles Garcia - 06/11/2008 4:58 PM DIRECTOR OF DIVERSITY AND INCLUSION Addended by: ANGELES GARCIA on: 06/11/2008 4:58:45 PM Modules accepted: Level of Service CTOR OF DIVERSITY AND INCLUSION documented in this encounter Plan of Treatment Not on filedocumented as of this encounter Procedures Procedure Name Priority Date/Time Associated Diagnosis Comme nts DRUGS OF ABUSE Routine 06/11/2008 3:07 PM Faint Results for this (DAU8) DIRECTOR OF DIVERSITY AND INCLUSION procedure are i n the results section. CL AFF CBC WITH Routine 06/11/2008 3:04 PM Faint Result s for this PLATELETS DIRECTOR OF DIVERSITY AND INCLUSION procedure are i n the results section. documented in this encounter Results DRUGS OF ABUSE (DAU8) (06/11/2008 3:07 PM DIRECTOR OF DIVERSITY AND INCLUSION) Component Value Ref Test Analysis Performed At [facility] Range Method Time Signature Amphetamine Qual Negative NEG [facility] Urine Cutoff for a negative amphetamine is 500 ng/mL or less. [facility] Barbiturates Qual Negative NEG [facility] Ur Cutoff for a negative barbiturate is 200 ng/mL or less. [facility] Benzodiazepine Negative NEG [facility] Urine Cutoff for a negative benzodiazepine is 200 ng/mL or less. [facility] Cannabinoids Negative NEG [facility] Urine Cutoff for a negative cannabinoid is 50 ng/mL or less. [facility] Cocaine Qual Negative NEG [facility] Urine Cutoff for a negative cocaine is 300 ng/mL or less. [facility] Ethanol Qual Negative NEG [facility] Urine Cutoff for a negative urine ethanol is 50 mg/mL or less. [facility] Opiates Negative NEG [facility] Qualitative Urine Cutoff for a negative opiate is 300 ng/mL or less. [facility] PCP Qual Urine Negative NEG [facility] Cutoff for a negative PCP is 25 ng/mL or less. [facility] Specimen Anatomical Collection Method Collection Time Receive d Time (Source) Location / / Volume Laterality 06/11/2008 3:07 PM 9 3:09 DIRECTOR OF DIVERSITY AND INCLUSION PM DIRECTOR OF DIVERSITY AND INCLUSION Angeles Garcia MD LABORATORY Performing Organization Address City/State/ZIP Code Phon e Number [facility] [address] [place] [address] [facility] CBC WITH PLATELETS (06/11/2008 3:04 PM DIRECTOR OF DIVERSITY AND INCLUSION) P athologist Signature WBC 6.8 4.0 - 11.0 [facility] 10e9/L [facility] RBC Count 4.83 3.7 - 5.3 [facility] 10e12/L [facility] Hemoglobin 14.6 11.7 - [facility] 15.7 g/dL [facility] Hematocrit 40.3 35.0 - [facility] 47.0 % [facility] MCV 83 77 - 100 [facility] MCH 30.2 26.5 - [facility] 33.0 pg [facility] MCHC 36.2 31.5 - [facility] 36.5 g/dL [facility] RDW 11.6 10.0 - [facility] 15.0 % [facility] Platelet Count 235 150 - 450 [facility] 10e9/L [facility] Specimen Anatomical Collection Method Collection Time Receive d Time (Source) Location / / Volume Laterality 06/11/2008 3:04 PM 9 3:06 DIRECTOR OF DIVERSITY AND INCLUSION PM DIRECTOR OF DIVERSITY AND INCLUSION Angeles Garcia MD LABORATORY Performing Organization Address City/State/ZIP Code Phon e Number [place] [address] [facility] documented in this encounter Visit Diagnoses Diagnosis Faint Syncope and collapse documented in this encounter Care Teams Rotoprinter Relationship Specialty Start Date End Date Catracho Suh MD PCP - General 12/23/02 05/08/12 [address] [place] [address] documented as of this encounter
--- OUTSIDE RECORDS SUMMARY | 2022-02-02 21:16 | XMS_ITS | Encounter Summary ---
:1995 Author Organization [place] Address [address] [place] [address] Care Team Providers Name Role Phone Catracho Suh MD Primary Care Provider Reason for Visit Reason Comments Viral Syndrome Patient fainted in school to day. Patient has been sick the last few days: weak, sore throat, and also a migraine. Encounter Details Date Type Department Care Team Description 06/02/2008 Office Visit [facility] Alejandra Garcia MD Faint (Primary Dx) [place] [address] [address] [place], [place] [address] [address] [place], [place] [phone] [address] (Work) [phone] Social History Tobacco Use Types Packs/Day Years Used Date Smoking Tobacco: Never Alcohol Use Standard Drinks/Week Comments Not Asked 0 (1 standard drink = 0.6 oz pure alcoho l) Sex Assigned at Date Recorded Not on file documented as of this encounter Last Filed Vital Signs Vital Sign Reading Time Taken Comments Blood Pressure 92/70 06/02/2008 10:45 AM RN BARIATRIC Pulse 92 06/02/2008 10:45 AM RN BARIATRIC Temperature 36.7 ??C (98.1 ??F) 06/02/2008 10:45 AM RN BARIATRIC Respiratory Rate - - Oxygen Saturation - - Inhaled Oxygen Concentration - - Weight 57.2 kg (126 lb 3.2 oz) 06/02/2008 10:45 AM RN BARIATRIC Height 161.9 cm (5' 3.75) 06/02/2008 10:45 AM RN BARIATRIC Body Mass Index 21.83 06/02/2008 10:45 AM RN BARIATRIC Body Mass Index Percentile 71.08 % 06/02/2008 10:[address] Growth Chart: [facility] (Boys, 2-20 Years) documented [...] next [address] head : negative. BARIATRIC documented in this encounter Nursing Notes 06/02/2008 [...] 12:53 PM Faint Results for this CONTRAST RN BARIATRIC procedure are i n the results section. CL AFF CBC WITH Routine 06/02/2008 11:41 AM Faint Resul ts for this PLATELETS, DIFF RN BARIATRIC procedure ar e in the results section. HCL BASIC METABOLIC Routine 06/02/2008 11:41 AM Faint R esults for this PANEL RN BARIATRIC procedure are i n the results section. documented in this encounter Results CT SCAN HEAD/BRAIN (06/02/2008 12:53 PM RN BARIATRIC) Anatomical Region Laterality Modality Other Specimen (Source) Anatomical Collection Method Collection Time Re ceived Time Location / / Volume Laterality 06/02/2008 12:53 PM RN BARIATRIC Impressions 06/02/2008 1:[address] HEAD W/O CONTRAST* ?? Jun 02, 2008 12 :53:00 PM HISTORY: ??Syncope, hit his head when he fainted. ??Read and call to Dr. Garcia at [phone]. ??pt going back to clinic TECHNIQUE: ??5 mm thick axial images of the head. COMPARISON: None. FINDINGS: There is no evidence of intrac ranial hemorrhage, mass, acute infarct or anomaly. Visualized sinuses a re clear. IMPRESSION: Negative CT scan of the head . Bridget Garcia MD SPECIAL IMAGING STUDIES A.M.A. BASIC METABOLIC PANEL (06/02/2008 11:41 AM RN BARIATRIC) athologist Signature Sodium 143 133 - 143 [facility] mmol/L [facility] Potassium 4.3 3.4 - 5.3 [facility] mmol/L [facility] Chloride 102 98 - 110 [facility] mmol/L [facility] Carbon Dioxide 25 20 - 32 [facility] mmol/L [facility] Anion Gap 16 6 - 17 [facility] mmol/L [facility] Glucose 90 60 - 99 [facility] mg/dL [facility] Urea Nitrogen 16 5 - 24 [facility] mg/dL [facility] Creatinine 0.89 0.50 - [facility] 1.00 mg/dL [facility]IC [facility] Comment: New IDMS-traceable calibration beginning 08/14/07 GFR Estimate GFR not calculated, mL/min/1.7m2 [facility] patient <16 years old. [facility] GFR Estimate If GFR not calculated, mL/min/1.7m2 [facility] Black patient <16 years old. [facility]IC LAB Calcium 9.3 8.7 - 10.8 mg/dL [facility] [place] [facility] Specimen Anatomical Collection Method Collection Time Receive d Time (Source) Location / / Volume Laterality 06/02/2008 11:41 06/02/2008 AM RN BARIATRIC 11:42 AM RN BARIATRIC Bridget Garcia MD LABORATORY Performing Organization Address City/State/ZIP Code Phon e Number [facility] [address] [place] [address] [facility] (ABNORMAL) CBC WITH PLATELETS, DIFF (06/02/2008 11:41 AM RN BARIATRIC) athologist Signature WBC 3.9 (L) 4.0 - 11.0 [facility] 10e9/L [facility] RBC Count 5.48 (H) 3.7 - 5.3 [facility] 10e12/L [facility] Hemoglobin 16.7 (H) 11.7 - [facility] 15.7 g/dL [facility] Hematocrit 45.6 35.0 - [facility] 47.0 % [facility] MCV 83 77 - 100 [facility] [place] [facility] MCH 30.5 26.5 - [facility] 33.0 pg [facility] MCHC 36.6 (H) 31.5 - [facility] 36.5 g/dL [facility] Comment: Results confirmed by repeat jody t RDW 12.1 10.0 - 15.0 % [facility] Platelet Count 148 (L) 150 - 450 10e9/L [facility] Comment: Results confirmed by repeat jody t Diff Method Automated Method [facility] % Neutrophils 60 32 - 64 % [facility] % Lymphocytes 22 (L) 26 - 50 % [facility] % Monocytes 18 (H) 0 - 12 % [facility] % Eosinophils 0 0 - 6 % [facility] % Basophils 0 0 - 2 % [facility] Absolute Neutrophil 2.3 1.3 - 7.0 10e9/L [facility] Absolute Lymphocytes 0.9 (L) 1.0 - 5.8 10e9/L [facility] Absolute Monocytes 0.7 0.0 - 1.3 10e9/L [facility] Absolute Eosinophils 0.0 0.0 - 0.7 10e9/L [facility] Absolute Basophils 0.0 0.0 - 0.2 10e9/L [facility] Specimen Anatomical Collection Method Collection Time Receive d Time (Source) Location / / Volume Laterality 06/02/2008 11:41 06/02/2008 AM RN BARIATRIC 11:42 AM RN BARIATRIC Bridget Garcia MD LABORATORY Performing Organization Address City/State/ZIP Code Phon e Number [facility] [place] [address] [facility] documented in this encounter Visit Diagnoses Diagnosis Faint - Primary Syncope and collapse documented in this encounter Care Teams Social Services Technician Relationship Specialty Start Date End Date Catracho Suh MD PCP - General 12/23/02 05/08/12 [address] [place] [address] documented as of this encounter
--- OUTSIDE RECORDS SUMMARY | 2022-02-02 21:16 | XMS_ITS | Encounter Summary ---
:1995 Author Organization [place] Address [facility] [place] [address] Care Team Providers Name Role Phone Catracho Suh MD Primary Care Provider Reason for Visit Reason Onset Date Comments Refill Request 11/08/2008 Encounter Details Date Type Department Care Team Description 11/08/2008 Refill [facility] Catracho Suh MD Refill Request [id number] [place] [address] [phone] Social History Tobacco Use Types Packs/Day Years [...] script First and Last name of caller: clemnetine Relationship to patient: mother Reason for call: written script Is it in regards to a medication: yes Med Name: adderall Pharmacy name and location: na Provider they see: dmitriy Phone number they can be reached at: [phone] Ok to leave a message: no documented in this encounter Plan of Treatment Not on filedocumented as of this encounter Visit Diagnoses Diagnosis ADHD (attention deficit hyperactivity di sorder) Attention deficit disorder with hyperact ivity documented in this encounter Care Teams Java Development Team Lead Relationship Specialty Start Date End Date Catracho Suh MD PCP - General 12/23/02 05/08/12 [address] [place] [address] documented as of this encounter
--- OUTSIDE RECORDS SUMMARY | 2022-02-02 21:16 | XMS_ITS | Encounter Summary ---
:1995 Author Organization [place] Address [address] [place] [address] Care Team Providers Name Role Phone Catracho Suh MD Primary Care Provider Reason for Referral - Closed Specialty Diagnoses / Procedures Referred By Contact Refer red To Contact Diagnoses DIAGNOSIS [place] [address] [place], [place] [address] Referral ID Status Reason Start Date Expiration Date Visits Requ ested Visits Authorized [id number] Closed 07/13/2008 04/14/2011 1 1 Encounter Details Date Type Department Care Team Description 04/28/2006 Orders Only [facility] Catracho Suh, THOMASO SIS NOT YET [facility] [place] DEFINED (Primary Dx) [address] [address] [phone] Social History Tobacco Use Types Packs/Day Years [...] Primary documented in this encounter Care Teams Neurophysiological Technician Relationship Specialty Start Date End Date Catracho Suh MD PCP - General 12/23/02 05/08/12 [address] [place] [address] documented as of this encounter
--- OUTSIDE RECORDS SUMMARY | 2022-02-02 21:16 | XMS_ITS | Encounter Summary ---
:1995 Author Organization [place] Address [address] [facility] [place] [address] Care Team Providers Name Role Phone Catracho Suh MD Primary Care Provider Reason for Visit Reason Onset Date Comments Refill Request 10/13/2008 adderall Encounter Details Date Type Department Care Team Description 10/12/2008 Refill [facility] Catracho Suh MD Refill Request [place] [address] [place] [address] (adderall) [address] [place] [phone] Social History Tobacco Use Types Packs/Day Years Used Date Smoking Tobacco: Never Alcohol Use Standard Drinks/Week Comments Not Asked 0 (1 standard drink = 0.6 oz pure alcoho l) Sex Assigned at Date Recorded Not on file documented as of this encounter Miscellaneous Notes Telephone Encounter - Mayra Hutson - 10/13/2008 11:15 AM CDT Lmom to inform, Mom, Clementine, signed rx at front office help. Mayra Hutson RN Telephone Encounter - Tati [...] Pharmacy name and location: [facility] Mother will order picker/assembler prescription Provider they see: Vikash Phone number they can be reached at: [phone] Ok to leave a message: no documented in this encounter Plan of Treatment Not on filedocumented as of this encounter Visit Diagnoses Diagnosis ADHD (attention deficit hyperactivity di sorder) - Primary Attention deficit disorder with hyperact ivity documented in this encounter Care Teams Postdoctoral Research Fellow Relationship Specialty Start Date End Date Catracho Suh MD PCP - General 12/23/02 05/08/12 [address] [place] [address] documented as of this encounter
--- OUTSIDE RECORDS SUMMARY | 2022-02-02 21:16 | XMS_ITS | Encounter Summary ---
:1995 Author Organization [place] Address [address] [facility] [place] [address] Care Team Providers Name Role Phone Catracho Suh MD Primary Care Provider Encounter Details Date Type Department Care Team Description 01/25/2005 Historic Results INTERFACED REPORT Paco Milton MD SKIN REJUVENATIO [facility] [address] [facility] [address] [place] [address] [place], [place] [address] (Wo rk) Social History Tobacco Use Types [...] meter kit urine (01/25/2005 3:15 PM CDT) [facility] Method Time Signature Amphetamine Not Detected MISYS [...] on filedocumented in this encounter Care Teams Cable Armorer Relationship Specialty Start Date End Date Catracho Suh MD PCP - General 12/23/02 05/08/12 [address] [place] [address] documented as of this encounter
--- OUTSIDE RECORDS SUMMARY | 2022-02-02 21:16 | XMS_ITS | Encounter Summary ---
:1995 Author Organization [place] Address [address] [facility] [place] [address] Care Team Providers Name Role Phone Catracho Suh MD Primary Care Provider Reason for Visit Reason Onset Date Comments Refill Request 09/07/2008 Adderall Encounter Details Date Type Department Care Team Description 09/07/2008 Refill [facility] Catracho Suh MD Refill Request [address] (Adderall) [address] [place] [address] [phone] Social History Tobacco Use Types Packs/Day Years Used Date Smoking Tobacco: Never Alcohol Use Standard Drinks/Week Comments Not Asked 0 (1 standard drink = 0.6 oz pure alcoho l) Sex Assigned at Date Recorded Not on file documented as of this encounter Miscellaneous Notes Telephone Encounter - Tati Osborne - 09/09/2008 2:27 PM CDT Rx completed and signed. LMOM for mom to come sweet pickle maker at sharepoint application architect. Deepa Osborne LPN Telephone Encounter - Ирина [...] Adderal Pharmacy name and location: mom will sweet pickle maker Provider they see: Vikash Phone number they can be reached at: [phone] Ok to leave a message: yes Veda Vance documented in this encounter Plan of Treatment Not on filedocumented as of this encounter Visit Diagnoses Diagnosis ADHD (attention deficit hyperactivity di sorder) - Primary Attention deficit disorder with hyperact ivity documented in this encounter Care Teams Management Coordinator Relationship Specialty Start Date End Date Catracho Suh MD PCP - General 12/23/02 05/08/12 [address] [place] [address] documented as of this encounter
[2022-02-02 21:21] LABS: Amphetamine Screen Urine Negative (Negative); Barbiturate Screen Urine Negative (Negative); Benzodiazepines Screen Urine Negative (Negative); Cocaine Screen Urine Negative (Negative); Methadone Screen Urine Negative (Negative); Methamphetamines Screen Urine Negative (Negative); Opiate Screen Urine Negative (Negative); Oxycodone Screen Urine Negative (Negative); Phencyclidine Screen Urine Negative (Negative); Tricyclic Antidepressant Urine Negative (Negative)
[2022-02-02 21:22] LABS: Cannabinoid Screen Urine POSITIVE (Negative)
[2022-02-02 21:24] LABS: Albumin* 4.8 g/dL (3.3-5.0)
[2022-02-02 21:25] LABS: Chloride* 105 mmol/L (96-114); Potassium* 4.4 mmol/L (3.6-5.1); Sodium* 141 mmol/L (135-149)
[2022-02-02 21:27] LABS: Bilirubin Total* 0.3 mg/dL (0.1-1.5); Carbon Dioxide* 23 mmol/L (20-32); Est. Creatinine Clearance* 94.81; Estimated Glomerular Filt Rate 104 ml/min
[2022-02-02 21:28] LABS: Alanine Aminotransferase* 37 U/L (4-50); Alkaline Phosphatase* 126 U/L (40-150); Aspartate Amino Transferase* 35 U/L (12-35); Blood Urea Nitrogen* 12 mg/dL (5-24); Calcium* 9.3 mg/dL (8.4-10.6); Glucose* 98 mg/dL (60-115); Total Protein* 8.1 g/dL (6.0-8.3)
[2022-02-02 21:29] LABS: Ethanol* 0.12 % (0.01-0.03)
--- NOTE | 2022-02-02 21:46 | ED.GENADULT ---
HPI - General Adult General Chief complaint: Allergic Reaction Stated complaint: ETOH, shortness of breath Time Seen by Provider: 02/02/22 20:52 History of Present Illness HPI narrative: Pt is a 27 year old gentleman who presents with mild tongue swelling now resolved. Pt was seen 3 days ago an treated for diverticulitis with augmentin. Pt does have a PCN allergy but had no trouble until today. No rashes noted. Pt felt like his tongue was mildly enlarged. No other symptoms. Abd symptoms have resolved. No fever, chills, diarrhea nausea or vomiting. Pt has been drinking alcohol and using recreational mushrooms tonight as well. Related Data Home Medications Medication Instructions Recorded Confirmed pantoprazole 40 mg tablet,delayed 40 mg PO BID 12/22/21 01/29/22 release Previous Rx's Medication Instructions Recorded amoxicillin 875 mg-potassium 1 tab PO Q12H #20 tabs 01/29/22 clavulanate 125 mg tablet ketorolac 10 mg tablet 10 mg PO TID 5 days #15 tabs 01/29/22 ciprofloxacin HCl 500 mg tablet 500 mg PO Q12H Diverrticulitis #20 02/02/22 (Cipro) tabs metronidazole 375 mg capsule 375 mg PO Q8H Diverticulitis #30 02/02/22 (Flagyl) caps Allergies Allergy/AdvReac Type Severity Reaction Status Date / Time codeine Allergy Verified 01/29/22 18:35 penicillin G Allergy Verified 01/29/22 18:35 Review of Systems Status of ROS: Reports: 10 or more systems reviewed and unremarkable except as noted in History and below PFSH PFSH Social History Smoking Status: Former smoker What tobacco products do you use: cigarettes Years smoked: 10 Smoking quit date/years: <= 15 years ago Do you use any of these nicotine containing products: Other Second hand tobacco smoke exposure: No How often do you have a drink containing alcohol: monthly or less How many standard drinks containing alcohol do you have on a typical day: 5 or 6 How often do you have six or more drinks on one occasion: Never AUDIT-C Alcohol total score: 3 Non-prescribed substance use: denies use service: No Exam Narrative: Exam Narrative: EXAM GENERAL: Patient appears comfortable although intoxicated. Tongue not noted to be swollen. EYES: No scleral icterus. ENT: Tympanic membranes and oropharynx normal. THYROID: no thyroid nodules or thyromegaly. LYMPH: No supraclavicular or cervical lymphadenopathy. SKIN: Visible skin seen during exam normal or with benign process only. The rash or signs of anaphylaxis. EXT: No dependent lower extremity pedal edema. HEART: Regular rate and rhythm with no murmurs, rubs, or gallops. LUNGS: Clear to auscultation bilaterally with no crackles or wheezes. ABD: Soft, non tender, non distended. PSYCH: Good eye contact, speech is not pressured. Const: Vital Signs, click to edit/add: Vital Signs - 24 hr 02/02/22 20:53 Temperature 97.8 F Pulse Rate [Right Pulse Oximeter] 102 H Respiratory Rate 16 Blood Pressure [Le ft Upper Arm] 145/106 H Pulse Oximetry 93 Oxygen Delivery Me thod Room Air Course Course Hospital Course: Pt seen and examined cbc, cmp, urine tox and etoh ordered Reevaluation(s) Reevaluation #1: Pt asymptomatic with the exception of intoxication. Labs are reassuring. Time: 21:59 Vital Signs Vital signs: Initial Vital Signs Temperature 97.8 F 02/02/22 20:53 Temperature Source Temporal Artery Scan 02/02/22 20:53 Pulse Rate 102 H 02/02/22 20:53 Pulse Rhythm 02/02/22 20:53 Respiratory Rate 16 02/02/22 20:53 Blood Pressure 145/106 H 02/02/22 20:53 Blood Pressure Mean 119 02/02/22 20:53 Blood Pressure Position Semi-Fowlers 02/02/22 20:53 Pulse Oximetry 93 02/02/22 20:53 Oxygen Delivery Method 02/02/22 20:53 Vital Signs Temperature 97.8 F 02/02/22 20:53 Pulse Rate 102 H 02/02/22 20:53 Respiratory Rate 16 02/02/22 20:53 Blood Pressure 145/106 H 02/02/22 20:53 Pulse Oximetry 93 02/02/22 20:53 Oxygen Delivery Method 02/02/22 20:53 Temperature 97.8 F 02/02/22 20:53 Pulse Rate 102 H 02/02/22 20:53 Respiratory Rate 16 02/02/22 20:53 Blood Pressure 145/106 H 02/02/22 20:53 Pulse Oximetry 93 02/02/22 20:53 Oxygen Delivery Method 02/02/22 20:53 Medical Decision Making MDM Narrative Medical decision making narrative: Pt is a 27 year old gentleman currently being treated with Augmentin for diverticulitis. Pt has a PCN allergy and had a brief episode of tongue swelling. Pt also is intoxicated and under the influence of hallucinogenic mushrooms. Pt now feels and looks fine. Abd pain improved. Previous CT reviewed showing question of microperforation. At this time we will treat with 5 days of prednisone for the tongue swelling and change antibiotics to Flagyl plus Cipro. Follow up with PCP Differential Diagnosis Differential Diagnosis: Allergic Reaction, Coon Ciro Syndrome, Drug Effect, Diverticulits, Lab Data Labs: Lab Results 02/02/22 02/02/22 02/02/22 Range/Units 21:01 21:06 21:06 WBC 11.49 H (4.50-11.00) K/uL RBC 4.76 (4.30-5.90) m/uL Hgb 14.4 (13.5-17.5) gm/dL Hct 41.8 (37.0-53.0) % MCV 88 (80-100) fL MCH 30 (26-34) pg MCHC 34 (32-36) gm/dL RDW Coeff of Juma 11.9 (11.5-15.5) % Plt Count 301 (140-440) K/uL Neut % (Auto) 81.4 H (42.0-72.0) % Lymph % (Auto) 11.1 L (20-44) % [place] % (Auto) 6.2 (0.0-11.0) % Eos % (Auto) 0.7 (0.0-7.0) % Baso % (Auto) 0.3 (0.0-3.0) % Neut # (Auto) 9.40 H (1.7-7.0) K/uL Lymph # (Auto) 1.30 (0.90-2.90) K/uL [place] # (Auto) 0.70 (0.00-0.90) K/UL Eos # (Auto) 0.10 (0.00-0.50) K/uL Baso # (Auto) 0.00 (0.00-0.30) K/uL Abs Immat Gran (auto) 0.04 (0.00-0.30) K/uL Sodium 141 (135-149) mmol/L Potassium 4.4 (3.6-5.1) mmol/L Chloride 105 (96-114) mmol/L Carbon Dioxide 23 (20-32) mmol/L BUN 12 (5-24) mg/dL Creatinine 1.0 (0.5-1.5) mg/dL Estimated Creat Clear 94.81 Estimated GFR 104 ml/min Glucose 98 (60-115) mg/dL Calcium 9.3 (8.4-10.6) mg/dL Total Bilirubin 0.3 (0.1-1.5) mg/dL AST 35 (12-35) U/L ALT 37 (4-50) U/L Alkaline Phosphatase 126 (40-150) U/L Total Protein 8.1 (6.0-8.3) g/dL Albumin 4.8 (3.3-5.0) g/dL Urine Opiates Screen Negative (Negative) Ur Oxycodone Screen Negative (Negative) Urine Methadone Screen Negative (Negative) Ur Propoxyphene Screen Negative (Negative) Ur Barbiturates Screen Negative (Negative) U Tricyclic Antidepress Negative (Negative) Ur Phencyclidine Scrn Negative (Negative) Ur Amphetamines Screen Negative (Negative) U Methamphetamines Scrn Negative (Negative) U Benzodiazepines Scrn Negative (Negative) Urine Cocaine Screen Negative (Negative) U Marijuana (THC) Screen POSITIVE A* (Negative) Ur Drug Screen Comment See Note Ethyl Alcohol 0.12 H (0.01-0.03) % Discharge Plan Discharge Clinical Impression: Diverticulitis, Allergic reaction Condition: Stable Instructions: Diverticulitis (ED), General Allergic Reaction (ED) Additional Instructions: Stop Augmentin Start Cipro and Flagyl tomorrow Start Prednisone tonight for 5 days Follow up with your doctor this week Activity Level: Activity as Tolerated Discharge Diet: Regular Prescriptions: New metronidazole [Flagyl] 375 mg capsule 375 mg PO Q8H Qty: 30 0RF ciprofloxacin HCl [Cipro] 500 mg tablet 500 mg PO Q12H Qty: 20 0RF No Action amoxicillin-pot clavulanate 875-125 mg tablet 1 tab PO Q12H Qty: 20 0RF ketorolac 10 mg tablet 10 mg PO TID 5 Days Qty: 15 0RF pantoprazole 40 mg tablet,delayed release (DR/EC) 40 mg PO BID Label Comments: TAKE 1 TABLET BY MOUTH TWO TIMES A DAY Follow Up/Referrals: Provider,Not a Local [Primary Care Provider] - Stand Alone Forms: MessageParty Info Instructions
== END 2022-02-02 22:36 | disposition home or self-care (01) ==
PROVIDERS: Emergency Provider Internal Medicine
DX: K14.0 Glossitis (principal); T36.0X5A Adverse effect of penicillins, initial encounter; X58.XXXA Exposure to other specified factors, initial encounter; Y92.019 Unspecified place in single-family (private) house as the place of occurrence of the external cause; K57.92 Diverticulitis of intestine, part unspecified, without perforation or abscess without bleeding
CPT/HCPCS: 36415; 80053; 80306; 82077; 85025; 99283

== ENCOUNTER 2024-01-15 09:10 | Emergency (ER) | payer OTHER, SELFPAY ==
[2024-01-15 09:12] VITALS: BP 118/89; PULSE 98; RESP 18; TEMP 36.6; O2SAT 98; BMI 25.0
--- NOTE | 2024-01-15 09:21 | CRLHL7_ITS ---
For Patients: As a result of the Cures Act, medical imaging exams and procedure reports are released immediately into your electronic medical record. You may view this report before your referring provider. If you have questions, please contact your health care provider. Indication: WRIST INJURY, FALL Technique: Left wrist 3 view Comparison: None Findings/Impression: Likely acute nondisplaced fracture of the distal radial epiphysis, only visualized along the radiocarpal articular surface on these views. Mild diffuse soft tissue swelling about the wrist. No dislocation. Dictated by Josesito Hernandez MD @ 01/15/2024 9:58:56 AM (Electronically Signed)
--- NOTE | 2024-01-15 09:21 | ED_ITS ---
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 He fell on an outstretched left wrist and hand. He has pain over his anatomic snuffbox on the left wrist and distal radius. Has some soft tissue swelling there as well. Initially could move his wrist but now it has been more tender and uncomfortable. He has no other injuries. Did not hit his neck back shoulder elbow. He has no pain in these regions on his left side no abdominal pelvic or lower extremity symptoms. He has not injured his left wrist in the past other than he did have a nail gun injury at 1 time in his distal forearm. Related Data Home Medications ?Medication ?Instructions ?Recorded ?Confirmed pantoprazole 40 mg tablet,delayed 40 mg PO BID 12/22/21 01/29/22 release dextroamphetamine-amphetamine 10 1 tab PO DAILY 01/15/24 01/15/24 mg tablet Previous Rx's ?Medication ?Instructions ?Recorded amoxicillin 875 mg-potassium 1 tab PO Q12H #20 tabs 01/29/22 clavulanate 125 mg tablet ketorolac 10 mg tablet 10 mg PO TID 5 days #15 tabs 01/29/22 ciprofloxacin HCl 500 mg tablet 500 mg PO Q12H Diverrticulitis #20 02/02/22 (Cipro) tabs metronidazole 375 mg capsule 375 mg PO Q8H Diverticulitis #30 02/02/22 (Flagyl) caps Allergies Allergy/AdvReac Type Severity Reaction Status Date / Time codeine Allergy Verified 01/29/22 18:35 penicillin G Allergy Verified 01/29/22 18:35 Review of Systems Status of ROS: Reports: 6 or more systems reviewed and unremarkable except as noted in History and below [facility] Social History Smoking Status: Former smoker What tobacco products do you use: cigarettes Year s smoked: 10 Smoking quit date/years: <= 15 years ago Do you use any of these nicotine containing products: Other Second hand tobacco smoke exposure: No How often do you have a drink containing alcohol: monthly or less How many standard drinks containing alcohol do you have on a typical day: 5 or 6 How often do you have six or more drinks on one occasion: Never AUDIT-C Alcohol total score: 3 Non-prescribed substance use: denies use service: No Exam Narrative: Exam Narrative: Objective: Vital signs are within normal limits Head neck back pelvis and lower extremities have no tenderness His left wrist shows some mild soft tissue swelling over the distal radius and dorsum of the wrist, he has some mild snuffbox tenderness on the left as well. He has pain with flexion extension of any degree to the wrist. Const: Vital Signs, click to edit/add: Vital Signs - 24 hr 01/15/24 09:12 Temperature 97.9 F Pulse Rate [Right Pulse Oximeter] 98 Respiratory Rate 18 Blood Pressure [Ri ght Upper Arm] 118/89 Pulse Oximetry 98 Oxygen Delivery Me thod Room Air Course Vital Signs Vital signs: Initial Vital Signs Temperature 97.9 F 01/15/24 09:12 Temperature Source Temporal Artery Scan 01/15/24 09:12 Pulse Rate 98 01/15/24 09:12 Respiratory Rate 18 01/15/24 09:12 Blood Pressure 118/89 01/15/24 09:12 Blood Pressure Mean 98 01/15/24 09:12 Blood Pressure Position Sitting 01/15/24 09:12 Pulse Oximetry 98 01/15/24 09:12 Oxygen Delivery Method Room Air 01/15/24 09:12 Vital Signs Temperature 97.9 F 01/15/24 09:12 Pulse Rate 98 01/15/24 09:12 Respiratory Rate 18 01/15/24 09:12 Blood Pressure 118/89 01/15/24 09:12 Pulse Oximetry 98 01/15/24 09:12 Oxygen Delivery Method Room Air 01/15/24 09:12 Temperature 97.9 F 01/15/24 09:12 Pulse Rate 98 01/15/24 09:12 Respiratory Rate 18 01/15/24 09:12 Blood Pressure 118/89 01/15/24 09:12 Pulse Oximetry 98 01/15/24 09:12 Oxygen Delivery Method Room Air 01/15/24 09:12 Medical Decision Making MDM Narrative Medical decision making narrative: [age] white male with a fall on an outstretched wrist on the left wrist with anatomic snuffbox tenderness, distal radius tenderness. Will lnidsay Addendum ck an x-ray. Patient even if his x-ray is negative will need a thumb spica splint and ortho follow-up. Disposition pending findings of the x-ray. No other sequelae of injury or other signs of injury in other parts of the body. Addendum 10:00 a.m.: The patient had an x-ray of the left wrist, he does appear to have a distal nondisplaced fracture through the radial articular surface. This is only noted on one view. This is by my read. He was placed in a thumb spica splint, follow-up with Orthopedics recommended next 3-5 days. Will make an appointment. Tylenol Advil as needed. Keep the cast material dry, elevate at night. Splint precautions given. Discharge Plan Discharge Clinical Impression: Injury of left wrist, Fracture of wrist Patient Disposition: Home, Self-Care Condition: Improved Additional Instructions: Orthopedic followup in 3-5 days, Tylenol Advil as needed, elevate at night, if the splint is too tight he can return here and will loosen it for you. Follow up appointment is scheduled at the [facility] on 01/21 with a 9:10am appointment time. Please arrive at 9am to complete paperwork. If you have any questions or need to reschedule, please call [phone]. [facility] [place] [address] Activity Level: Light activity Discharge Diet: Regular Prescriptions: No Action amoxicillin-pot clavulanate 875-125 mg tablet 1 tab PO Q12H Qty: 20 0RF ketorolac 10 mg tablet 10 mg PO TID 5 Days Qty: 15 0RF pantoprazole 40 mg tablet,delayed release (DR/EC) 40 mg PO BID Patient Comments: TAKE 1 TABLET BY MOUTH TWO TIMES A DAY metronidazole [Flagyl] 375 mg capsule 375 mg PO Q8H Qty: 30 0RF ciprofloxacin HCl [Cipro] 500 mg tablet 500 mg PO Q12H Qty: 20 0RF dextroamphetamine-amphetamine 10 mg tablet 1 tab PO DAILY Follow Up/Referrals: Provider,Not a Local [Non-Staff] - Stand Alone Forms: [facility] Info Instructions
--- OUTSIDE RECORDS SUMMARY | 2024-01-15 09:42 | XMS_ITS | Encounter Summary ---
Author Organization [facility] Address [address] [place] [address]. [place] [address] Care Team Providers Care Corrective And Manual Arts Therapist Name Role Phone No Ref-Primary, Physician Primary Care Provider Encounter Details Date Type Department Care Team (Late st Contact Info) Description 01/09/2021 Documentation Only INTERFACED REPORT Unknown, Provider Social History Tobacco Use Types Packs/Day Years Used Date Smoking Tobacco: Every Day Smokeless Tobacco: Never Alcohol Use Standard Drinks/Week Comments Yes 0 (1 standard drink = 0.6 oz pure alcohol) Alcoholic Drinks/day: beer 1-2 a night Sex and Gender Information Value Date Recorded Sex Assigned at Not on file Gender Identity Not on file Sexual Orientation Not on file documented as of this encounter Plan of Treatment Not on file documented as of this encounter Visit Diagnoses Not on filedocumented in this encounter Care Teams Corrective And Manual Arts Therapist Relationship Specialty Start Date End Date No Ref-Primary, Physician PCP - General 11/03/12 documented as of this encounter
--- OUTSIDE RECORDS SUMMARY | 2024-01-15 09:42 | XMS_ITS | Encounter Summary ---
Author Organization [facility] Address [address] [place] [address]. [place] [address] Care Team Providers Care Test Lead Name Role Phone No Ref-Primary, Physician Primary Care Provider Reason for Visit * Reason Onset Date Comments CD Outpatient 10/02/2018 Encounter Details Date Type Department Care Team ([facility] st Contact Info) Description 10/02/2018 Telephone [facility] Behavioral Health Intake [address] [place] [address] Generic, Behavioral Intake, CD Outpatient Social History Tobacco Use Types Packs/Day Years [...] documented as of this encounter Miscellaneous Notes * Telephone Encounter - Samantha Noonan - 10/02/2018 10:25 AM CDT Pt called to look into 48 hour treatment option. Clarified with Rizwana we do not offer that here at [facility]. Explained to patient and gave options of [facility] or [facility]. [facility] referred him to us here. Pt stated he wanted to go to [facility]. Reviewed options for appts - he will call us back. [facility] requiring him to attend treatment. Pt aware we are a IOP 4 eves a week. No upcoming court. PO Dhruv Umana [phone] No prior trx. Reg updated, referral not made. Pt will call back. [facility] documented in this encounter Plan of Treatment Not on file documented as of this encounter Visit Diagnoses Not on filedocumented in this encounter Care Teams Test Lead Relationship Specialty Start Date End Date No Ref-Primary, Physician PCP - General 11/03/12 documented as of this encounter
--- OUTSIDE RECORDS SUMMARY | 2024-01-15 09:42 | XMS_ITS | Clinical Summary ---
[facility] Address [address], [place] [address] Care Team Providers Care Senior Environmental Engineer Name Role Phone Romero Warren MD Primary Care Provider [phone] Source Comments You are receiving this document as you are listed as the primary care provider,follow-up provider, or the patient has been referred to you for consultation.This is in compliance with the Medicare and[facility], In[facility]aid EHR Incentive Program,which states Providers who transition their patient to another setting of careor provider of care or refers their patient to another provider of care shouldprovide summary care record for each transition of care or referral. GuestDriven Allergies Active Allergy Reactions Criticality Noted Date Comments Codeine 03/30/2013 PN: lightheaded, blindness Medications Medication Sig Dispensed Refills Start Date End Date Status HYDROcodone-acetaminop hen (NORCO) 5-325 MG tablet Take 1 Tablet by mouth every 6 hours as needed for Pain. 6 Tablet 10/30/2022 Active Immunizations Name Administration Dates Next Due Tdap 10/30/2022 Social History Tobacco Use Types Packs/Day Years Used Date Smoking Tobacco: Every Day Cigarettes Sex and Gender Information Value Date Recorded Sex Assigned at Not on file Gender Identity Not on file Sexual Orientation Not on file Last Filed Vital Signs Vital Sign Reading Time Taken Comments Blood Pressure 128/84 10/30/2022 5:00 PM CDT Pulse 96 10/30/2022 5:00 PM CDT Temperature 37.1 ??C (98.8 ??F) 10/30/2022 2:42 PM CD T Respiratory Rate 16 10/30/2022 5:00 PM CDT Oxygen Saturation 100% 10/30/2022 5:00 PM CDT Inhaled Oxygen Concentration - - Weight - - Height - - Body Mass Index - - Plan of Treatment Health Maintenance Due Date Last Done Comments Hep C Screening (Preventive Services) 1993 Pneumococcal (1 - PCV) 1999 HIV Screening (Preventive Services) 2009 Adult Preventive Visit 2011 HepB (1) 01/02/2012 COVID-19 Vaccine (1 - 2023- season) 2023 Influenza (#1) 2023 DTaP/Tdap/Td (9 - Tdap) 10/30/2032 10/31/19, 09/03/2014, 11/06/2005, Additional history exists Zoster/Shingles (1 of 2) 2043 Hib Completed 03/13/1994, 06/13, 1993, Additional history exists IPV (Polio) Completed 07/25/1998, 02/13, 1993, Additional history exists HPV Vaccine Aged Out No longer eligi ble based on patient's age to complete this topic HepA Aged Out No longer eligi ble based on patient's age to complete this topic Infant RSV Aged Out No longer eligi ble based on patient's age to complete this topic MCV4 Aged Out No longer eligi ble based on patient's age to complete this topic Care Teams Senior Environmental Engineer Relationship Specialty [place] [id number] [place] [address] PCP - General 04/01/13
--- OUTSIDE RECORDS SUMMARY | 2024-01-15 09:42 | XMS_ITS | Clinical Summary ---
Author Organization [facility] Address [address] [place] [address]. [place] [address] Care Team Providers Care Utility Hand Name Role Phone No Ref-Primary, Physician Primary Care Provider Allergies Active Allergy Reactions Criticality Noted Date Comments Codeine Sulfate 11/03/2012 Penicillins GI Disturbance 05/20/2017 Family members have had reaction, but patient never had penicillin unknown Medications Medication Sig Dispensed Refills Start Date End Date Status PROZAC 20 MG OR CAPS 40 MG ONE DAILY 0 0 03/21/2009 Active ADDERALL XR# 20 MG OR CP24 VIVANCE 70 mg 0 0 03/21/2009 Active FLONASE INHA 50 MCG/DOSE NAIndications:Chronic rhinitis,Pharyngitis INHALE 2 SPRAYS IN EACH NOSTRIL ONCE DAILY 1 11 03/21/2009 Active Immunizations Name Administration Dates Next Due HIB (PRP-T) 03/13/1994,1993,1993 ,1993 HepB 1993,1993,1993 Historical DTP/aP 07/25/1998, 4,1993,1993, 3 MMR 07/25/1998,03/13/1994 OPV, trivalent, live 07/25/1998,03/03/1994,05/04,1993 TDAP (Adacel,Boostrix) 11/06/2005 Varicella 07/25/1998 Social History Tobacco Use Types Packs/Day Years Used Date Smoking Tobacco: Every Day Smokeless Tobacco: Never Alcohol Use Standard Drinks/Week Comments Yes 0 (1 standard drink = 0.6 oz pure alcohol) Alcoholic Drinks/day: beer 1-2 a night Adolescent Education Answer Date Record ed Getting School Help Needed Not on file 01/20 Sex and Gender Information Value Date Recorded Sex Assigned at Not on file Gender Identity Not on file Sexual Orientation Not on file Last Filed Vital Signs Vital Sign Reading Time Taken Comments Blood Pressure 118/81 01/09/2021 12:00 AM CDT Pulse 77 01/09/2021 12:00 AM CDT Temperature 36.8 ??C (98.3 ??F) 01/09/2021 12:00 AM C DT Respiratory Rate 20 01/09/2021 12:00 AM CDT Oxygen Saturation 99% 01/09/2021 12:00 AM CDT Inhaled Oxygen Concentration - - Weight 69.4 kg (153 lb) 05/23/2017 11:50 PM CELLAR PACKER Height 166.4 cm (5' 5.5) 05/23/2017 11:50 PM CS T Body Mass Index 25.07 05/23/2017 11:50 PM CELLAR PACKER Plan of Treatment Health Maintenance Due Date Last Done Comments ADVANCE CARE PLANNING 1993 ANNUAL REVIEW OF HM ORDERS 1993 Pneumococcal Vaccine: Pediatrics (0 to 5 Years) and At-Risk Patients (6 to 64 Years) (1 of 2 - PCV) 1999 YEARLY PREVENTIVE VISIT 11/06/2006 11/06/2005 HIV SCREENING 01/02/2008 HEPATITIS C SCREENING 2011 PHQ-2 (once per calendar year) 2023 COVID-19 Vaccine ( - season) 2023 INFLUENZA VACCINE (#1) 2023 DTAP/TDAP/TD IMMUNIZATION (8 - Td or Tdap) 09/03/2024 09/03/2014, 11/06/2005, 07/25/1998, Additional history exists RSV VACCINE (1 - 1-dose 75+ series) 01/02/2068 HEPATITIS B IMMUNIZATION Completed 994, 1993, 1993 HPV IMMUNIZATION Aged Out No longer e ligible based on patient's age to complete this topic MENINGITIS IMMUNIZATION Aged Out No l onger eligible based on patient's age to complete this topic RSV MONOCLONAL ANTIBODY Aged Out No l onger eligible based on patient's age to complete this topic Medical Devices Implanted Type Area Automatic Drilling Machine Operator Device Identifier Shelf Expiration Date Model / Serial / Lot Corkscrew Comp Thread 4.5 [id number] Implanted:Qty: 1 on 05/23/2017 Metallic Hardware/An chor Left: Shoulder ARTHREX 03/14/2018 AR-1927BC F-45 / / [id number] Suture Fiberwire #2 Ct-1 [id number] Implanted:Qty: 2 on 05/23/2017 Metallic Hardware/An chor Left: Shoulder ARTHREX 05/23/2017 AR-7206 / / XX Suture Fiberwire #2 Ct-1 [id number] Implanted:Qty: 2 on 05/23/2017 Metallic Hardware/An chor Left: Shoulder ARTHREX 12/13/2021 AR-7206 / / [id number] Corkscrew Comp Thread 4.5 [id number] Implanted:Qty: 4 on 05/23/2017 Metallic Hardware/An chor Left: Shoulder ARTHREX 06/12/2018 AR-1927BC F-45 / / [id number] Tibial Distal Rt Fsh Implanted:Qty: 1 on 05/23/2017 Left: Shoulder 06/08/2017 TDR80 / [id number] / [id number] Suture [place], Biocomposite Suturetak Implanted:Qty: 1 on 05/23/2017 Left: Shoulder ARTHREX 09/12/2018 [id number] -24-2 / / [id number] Suture Washer, Titanium Implanted:Qty: 2 on 05/23/2017 Left: Shoulder ARTHREX 06/12/2020 AR-7000-1 8T / / [id number] 3.75mm Partially Threaded Cannulated Screw Implanted:Qty: 1 on 05/23/2017 Left: Shoulder ARTHREX AR-7000-3 2 / / N/A 3.75mm Partially Threaded Cannulated Screw Implanted:Qty: 1 on 05/23/2017 Left: Shoulder ARTHREX AR-7000-3 4 / / N/A Care Teams Utility Hand Relationship Specialty Start Date End Date No Ref-Primary, Physician PCP - General 11/03/12
--- OUTSIDE RECORDS SUMMARY | 2024-01-15 09:42 | XMS_ITS | Referral Summary ---
Author Organization [facility] Address [address] [place] [address]. [place] [address] Care Team Providers Care Flexboard Operator Name Role Phone No Ref-Primary, Physician Primary [...] 69.4 kg (153 lb) 05/23/2017 11:50 PM GLASS ENAMEL MIXER Height 166.4 cm (5' 5.5) 05/23/2017 11:50 PM CS T Body Mass Index 25.07 05/23/2017 11:50 PM GLASS ENAMEL MIXER Plan of Treatment Not on file Medical Devices Implanted Type Area Blueprint Maker Device Identifier Shelf Expiration Date Model / Serial / Lot Corkscrew Comp Thread 4.5 [id number] Implanted:Qty: 1 on 05/23/2017 Metallic Hardware/An chor Left: Shoulder ARTHREX 03/14/2018 AR-1927BC F-45 / / [id number] Suture Fiberwire #2 Ct-1 [id number] Implanted:Qty: 2 on 05/23/2017 Metallic Hardware/An chor Left: Shoulder ARTHREX 05/23/2017 AR-7206 / / XX Suture Fiberwire #2 Ct-1 [id number] Implanted:Qty: 2 on 05/23/2017 Metallic Hardware/An chor Left: Shoulder ARTHREX 12/13/2021 AR-7206 / / [id number] Corkscrew Comp Thread 4.5 [id number] Implanted:Qty: 4 on 05/23/2017 Metallic Hardware/An chor Left: Shoulder ARTHREX 06/12/2018 AR-1927BC F-45 / / [id number] Tibial Distal Rt Fsh Implanted:Qty: 1 on 05/23/2017 Left: Shoulder 06/08/2017 TDR80 / [id number] / [id number] Suture [place], Biocomposite Suturetak Implanted:Qty: 1 on 05/23/2017 Left: Shoulder ARTHREX 09/12/2018 [id number] -24-2 / / [id number] Suture Washer, Titanium Implanted:Qty: 2 on 05/23/2017 Left: Shoulder ARTHREX 06/12/2020 AR-7000-1 8T / / [id number] 3.75mm Partially Threaded Cannulated Screw Implanted:Qty: 1 on 05/23/2017 Left: Shoulder ARTHREX AR-7000-3 2 / / N/A 3.75mm Partially Threaded Cannulated Screw Implanted:Qty: 1 on 05/23/2017 Left: Shoulder ARTHREX AR-7000-3 4 / / N/A Care Teams Flexboard Operator Relationship Specialty Start Date End Date No Ref-Primary, Physician PCP - General 11/03/12
--- OUTSIDE RECORDS SUMMARY | 2024-01-15 09:43 | XMS_ITS | Clinical Summary ---
Author Organization [facility] Address [place], [place] [address] Care Team Providers Care Medical Pathologist Name Role Phone Catracho Suh Unavailable Kristian Medina MD Primary Care Provider [phone] Allergies Active Allergy Reactions Criticality Noted Date Comments Codeine Syncope 03/30/2013 PN: lightheaded, blindness Penicillins Nausea Only,Other - Describe In Comment Field,Anaphylaxis High 05/20/2017 unknown unknown Family members have had reaction, but patient never had penicillin Family members have had reaction, but patient never had penicillin unknown Medications Medication Sig Dispensed Refills Start Date End Date Status pantoprazole (PROTONIX) 40 mg delayed-release tabletIndications:G astroesophageal reflux disease with esophagitis, unspecified whether hemorrhage Take 1 Tablet (40 mg) by mouth two times daily before meals. 180 Tablet 3 01/09/2023 Active FLUoxetine (PROZAC) 10 mg capsuleIndications: Anxiety Take 1 Capsule (10 mg) by mouth once daily. 90 Capsule 3 01/09/2023 Active dextroamphetamine-a mphetamine (AdderalL) 20 mg tabletIndications:A DHD, predominantly inattentive type Take 1 Tablet (20 mg) by mouth 2 times daily at 7 AM and Noon. 60 Tablet 01/07/2024 Active dextroamphetamine-a mphetamine (Adderall XR) 20 mg Extended-Release capsuleIndications: ADHD, predominantly inattentive type Take 1 Capsule (20 mg) by mouth once daily. 30 Capsule 11/24/2023 4 dextroamphetamine-a mphetamine (Adderall XR) 20 mg Extended-Release capsuleIndications: ADHD, predominantly inattentive type Take 1 Capsule (20 mg) by mouth once daily. 30 Capsule 12/24/2023 4 Discontinued (*Medication adjustment) dextroamphetamine-a mphetamine (AdderalL) 20 mg tabletIndications:A DHD, predominantly inattentive type Take 1 Tablet (20 mg) by mouth once daily. 30 Tablet 11/24/2023 4 dextroamphetamine-a mphetamine (AdderalL) 20 mg tabletIndications:A DHD, predominantly inattentive type Take 1 Tablet (20 mg) by mouth once daily. 30 Tablet 12/24/2023 4 Discontinued (*Medication adjustment) dextroamphetamine-a mphetamine (AdderalL) 20 mg tabletIndications:A DHD, predominantly inattentive type Take 1 Tablet (20 mg) by mouth once daily. 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 Chronic pain in left shoulder 08/13/2022 History of shoulder surgery 08/13/2022 History of traumatic brain injury 08/13/2022 History of ADHD 08/13/2022 Heartburn 11/30/2019 08/13/2022 Diaphragmatic hernia 11/26/2019 08/13/2022 Gastro-esophageal reflux disease with esophagiti s 11/26/2019 08/13/2022 Resolved Problems Problem Noted Date Diagnosed Date Resolved Date Subdural hematoma 04/23/2019 08/13/2022 08/13/2022 TBI (traumatic brain injury) 11/19/2014 08/13/2022 08/13/2022 Skull fractures 11/08/2014 08/13/2022 08/13/2022 Overview (08/13/2022): right parietal bone extending into the right lambdoid suture Traumatic intraparenchymal hemorrhage 11/08/201404/202208/13/2022 Overview (08/13/2022): Bilateral inferior frontal lobes with increased surrounding vasogenic edema. Horizontally oriented fracture involving the right parietal bone extending posteriorly into the right lambdoid suture. Subarachnoid hemorrhage 10/24/2014 08/13/2022 05/0 04/2022 Encounters Date Type Department Care Team Description 01/06/[address] [facility] [address] [place] [address] Kristian Medina MD Medication Management (Adderal XR 2 mg) 10/25/2023 10:00 AM CDT Office Visit [facility] [address] [place] [address] Kristian Medina MD Medication Management 10/25/2023 Travel from Last 3 Months Immunizations Name Administration Dates Next Due Tdap 09/03/2014 Social History Tobacco Use Types Packs/Day Years Used Date Smoking Tobacco: Former Cigarettes Smokeless Tobacco: Never Tobacco Cessation:Counseling Given: Not Answered Alcohol Use Standard Drinks/Week Comments Not Currently 0 (1 standard drink = 0.6 oz pur e alcohol) on the weekends PHQ-2 Answer Date Recorded PHQ-2 TOTAL SCORE 1 10/25/2023 Social Connections Answer Date Recorded Frequency of Communication with Friends and Fami ly 0 01/09/2023 Financial Resource Strain Answer Date R ecorded Difficulty of Paying Living Expenses Not on file 01/09/2023 Difficulty of Paying Living Expenses 3 01/09/2023 Food Insecurity Answer Date Recorded Worried About Running Out of Food in the Last Ye ar 2 01/09/2023 Transportation Needs Answer Date Record ed Lack of Transportation (Medical) 1 01/09/2023 Housing Stability Answer Date Recorded Unable to Pay for Housing in the Last Year 1 01/09/2023 Sex and Gender Information Value Date Recorded Sex Assigned at Not on file Gender Identity Not on file Sexual Orientation Not on file Obstetrics History Last Filed Vital Signs Vital Sign Reading Time Taken Comments Blood Pressure 104/80 10/25/2023 10:02 AM CDT Pulse 84 10/25/2023 10:02 AM CDT Temperature 37.1 ??C (98.8 ??F) 09/03/2014 11:47 AM C DT Respiratory Rate 20 09/03/2014 11:47 AM CDT Oxygen Saturation 98% 03/22/2023 8:48 AM CORPORATE DEVELOPMENT ANALYST Inhaled Oxygen Concentration - - Weight 69.2 kg (152 lb 8 oz) 10/25/2023 10:02 AM CDT Height 165.1 cm (5' 5) 04/19/2023 8:15 AM CORPORATE DEVELOPMENT ANALYST Body Mass Index 25.38 04/19/2023 8:15 AM CORPORATE DEVELOPMENT ANALYST Plan of Treatment Health Maintenance Due Date Last Done Comments HIV for age 15-65 01/02/2008 Hepatitis C screening for age 18-79 2011 COVID-19 vaccine series ( season) 2023 Influenza for age 9-49 12/15/2023 BMI (ht and wt on same day) for age 18+ 04/19/2024 04/19/2023, 01/09/2023, 08/13/2022 Tetanus booster 09/03/2024 09/03/2014 Depression screening for age 12+ 10/24/2024 10/25/2023, 03/22/2023, 03/18/2023, Additional history exists Tdap Completed 09/03/2014 Pneumococcal series for age 6-64 Aged Out No longer eligible based on patient's age to complete this topic Advance Directives * Full Code (Latest Code Status on File) Date Activated Date Inactivated Comments 01/27/2005 6:54 PM 02/02/2005 9:00 PM Care Teams Medical Pathologist Relationship Specialty Start [place] [id number] [address] [facility] [address] PCP - General Family Practice 01/09/23 Catracho Suh 09/03/14
== END 2024-01-15 10:20 | disposition home or self-care (01) ==
PROVIDERS: Emergency Provider Family Medicine; PCP Family Medicine
DX: S52.592A Other fractures of lower end of left radius, initial encounter for closed fracture (principal); W18.30XA Fall on same level, unspecified, initial encounter
CPT/HCPCS: 73110; 99283; 99284

== ENCOUNTER 2024-03-08 11:20 | Emergency (ER) | payer OTHER, SELFPAY ==
[2024-03-08 11:23] VITALS: BP 115/69; PULSE 89; RESP 18; TEMP 36.7; O2SAT 99; BMI 25.0
--- NOTE | 2024-03-08 11:38 | CRLHL7_ITS ---
For Patients: As a result of the Century Cures Act, medical imaging exams and procedure reports are released immediately into your electronic medical record. You may view this report before your referring provider. If you have questions, please contact your health care provider. INDICATION: Abdominal pain worst in the left lower quadrant. Concerned might have swallowed glass COMPARISON: 01/29/2022 CT abdomen/pelvis TECHNIQUE: CT of the abdomen and pelvis with intravenous contrast (79 milliliters Isovue 370). FINDINGS: Lung bases: Partially imaged at least 5 millimeter solid nodule in the right middle lobe (2/1). Punctate calcified granuloma in the right middle lobe. Liver: Smooth hepatic contour. No suspicious hepatic lesions are identified. Gallbladder and biliary tree: Unremarkable CT appearance. Spleen: No splenomegaly. Pancreas: Normal. Adrenal glands: Normal. Kidneys and ureters: No hydroureteronephrosis. No suspicious renal lesions are identified. Bladder: Unremarkable CT appearance. Visualized reproductive organs: Unremarkable CT appearance. Gastrointestinal tract: Minimal colonic diverticulosis. No focal abnormally dilated loops of bowel. Normal appendix. No definite radiopaque ingested foreign body is identified. Peritoneal cavity: No free fluid or free air. Lymph nodes: No enlarged abdominal or pelvic lymph nodes by CT size criteria. Vessels: No abdominal aortic aneurysm. Retroaortic left renal vein, an anatomic variant. Abdominal and pelvic wall: Normal. Bones: No acute osseous findings. Bilateral L5 pars defect with grade 1 anterolisthesis of L5 on S1 again noted. IMPRESSION: 1. No acute findings in the abdomen or pelvis. 2. Minimal colonic diverticulosis. 3. Chronic bilateral L5 pars defect with grade 1 anterolisthesis of L5 on S1. 4. Partially imaged at least 5 millimeter solid right middle lobe pulmonary nodule. Please note that all CT scans at this facility use dose modulation, iterative reconstruction, and/or weight-based dosing when appropriate to reduce radiation dose to as low as reasonably achievable. Dictated by Adalberto Wahl MD @ 03/08/2024 1:15:45 PM (Electronically Signed)
--- NOTE | 2024-03-08 11:42 | ED_ITS ---
HPI - Abdominal Pain General Date Seen: 03/08/24 Chief Complaint: Abdominal Pain Stated Complaint: Chest & abd. pain Time Seen by Provider: 03/08/24 11:26 Source: patient Mode of arrival: ambulatory Limitations: no limitations History of Present Illness HPI narrative: Patient is a 29-year-old male presenting to the emergency department for abdominal pain. States pain started last night in evening around 19:00. This occurred about an hour or 2 after he ate. States there was a chip in his glass that he was drinking out of and unsure if he swallowed a piece a glass last night. States pain is in his epigastric initially but is normal on his lower abdomen worse in the left lower quadrant. Has had diverticulitis before this seems similar. Had a normal bowel movement this morning and did not see any blood. Did try taking a laxative and about bloating and pain afterwards. No previous abdominal surgeries. Has not had any associated nausea. Took Tylenol prior to coming with no improvement in his symptoms. Denies diarrhea, constipation, headache, lightheadedness, dizziness, weakness, numbness, vision changes, shortness of breath. Has some very mild lower chest pain this seems more epigastric in nature. No other concerns noted Related Data Home Medications ?Medication ?Instructions ?Recorded ?Confirmed pantoprazole 40 mg tablet,delayed 40 mg PO BID 12/22/21 03/08/24 release dextroamphetamine-amphetamine 10 1 tab PO DAILY 01/15/24 03/08/24 mg tablet Previous Rx's ?Medication ?Instructions ?Recorded amoxicillin 875 mg-potassium 1 tab PO Q12H #20 tabs 01/29/22 clavulanate 125 mg tablet ketorolac 10 mg tablet 10 mg PO TID 5 days #15 tabs 01/29/22 ciprofloxacin HCl 500 mg tablet 500 mg PO Q12H Diverrticulitis #20 02/02/22 (Cipro) tabs metronidazole 375 mg capsule 375 mg PO Q8H Diverticulitis #30 02/02/22 (Flagyl) caps Allergies Allergy/AdvReac Type Severity Reaction Status Date / Time codeine Allergy Verified 03/08/24 11:30 penicillin G Allergy Verified 03/08/24 11:30 Review of Systems Status of ROS Reports: 10 or more systems reviewed and unremarkable except as noted in History and below PFSH PFSH Social History Smoking Status: Former smoker What tobacco products do you use: cigarettes Years smoked: 10 Smoking quit date/years: <= 15 years ago Do you use any of these nicotine containing products: Other Second hand tobacco smoke exposure: No How often do you have a drink containing alcohol: never How many standard drinks containing alcohol do you have on a typical day: 5 or 6 How often do you have six or more drinks on one occasion: Never AUDIT-C Alcohol total score: 2 Non-prescribed substance use: denies use service: No Exam Narrative: Exam Narrative: Const: Well-nourished, Well-developed, in mild distress Eyes: PERRL, no conjunctival injection, and symmetrical lids HENT: Atraumatic external nose and ears. Moist mucous membranes. Neck: Symmetric, trachea midline, No thyromegaly. CVS: RRR, No murmurs or gallops. Peripheral pulses 2+ and equal in all extremities RESP: Unlabored respiratory effort. Clear to auscultation bilaterally. GI: Mild left lower quadrant tenderness, No rebound or guarding. MSK:Extremities w/o deformity, Normal Active ROM Skin: Warm, Dry. No rashes or lesions. Neuro: Normal Muscle tone, No focal neurological deficits. Psych: Awake, Alert, & Oriented x3. Appropriate mood and affect. Const: Vital Signs, click to edit/add: Vital Signs - 24 hr 03/08/24 11:23 Temperature 98.1 F Pulse Rate [Pulse Oximeter] 89 Respiratory Rate 18 Blood Pressure [Ri ght Upper Arm] 115/69 Pulse Oximetry 99 Oxygen Delivery Me thod Room Air Course Vital Signs Vital signs: Initial Vital Signs Temperature 98.1 F 03/08/24 11:23 Temperature Source Temporal Artery Scan 03/08/24 11:23 Pulse Rate 89 03/08/24 11:23 Respiratory Rate 18 03/08/24 11:23 Blood Pressure 115/69 03/08/24 11:23 Blood Pressure Mean 84 03/08/24 11:23 Blood Pressure Position Sitting 03/08/24 11:23 Pulse Oximetry 99 03/08/24 11:23 Oxygen Delivery Method Room Air 03/08/24 11:23 Vital Signs Temperature 98.1 F 03/08/24 11:23 Pulse Rate 89 03/08/24 11:23 Respiratory Rate 18 03/08/24 11:23 Blood Pressure 115/69 03/08/24 11:23 Pulse Oximetry 99 03/08/24 11:23 Oxygen Delivery Method Room Air 03/08/24 11:23 Temperature 98.1 F 03/08/24 11:23 Pulse Rate 89 03/08/24 11:23 Respiratory Rate 18 03/08/24 11:23 Blood Pressure 115/69 03/08/24 11:23 Pulse Oximetry 99 03/08/24 11:23 Oxygen Delivery Method Room Air 03/08/24 11:23 MDM - Abdominal Pain MDM Narrative Medical decision making narrative: Patient is a 29-year-old male presenting for abdominal pain. Differential includes diverticulitis, gastroenteritis, peptic ulcers, pancreatitis, appendicitis, gallbladder liver disease. Seems unlikely to be an SBO considering he has no previous abdominal surgeries. If he did accidentally swallowed a small piece of glass seems unlikely to be relevant as severe overall to the small these but will do a CT scan to evaluate all others. Also do a troponin an EKG due to some mild lower chest pain. Further workup of this does not seem necessary. Most of his symptoms appear to be abdominal. Also order CMP, urinalysis, CBC, lipase. Toradol given for pain. Lab work shows no concerning abnormalities. EKG shows no concerning findings. Considering how long symptoms have been going on for and how the mostly abdominal do not believe BP troponin is necessary. CT scan shows no concerning findings. There is a 5 mm the pulmonary nodule I informed him about initial is a follow-up with his primary care provider for. As he did have an episode of emesis after the CT scan but states that has happened before and is feeling well at this point. His symptoms improved with the Toradol. Symptoms seem most likely related to gastroenteritis at this time. He will be discharged. He is agreeable to this plan. Lab Data Labs: Lab Results 03/08/24 03/08/24 Range/Units 11:40 11:58 WBC 5.59 (4.50-11.00) K/uL RBC 4.74 (4.30-5.90) m/uL Hgb 14.2 (13.5-17.5) gm/dL Hct 41.8 (37.0-53.0) % MCV 88 (80-100) fL MCH 30 (26-34) pg MCHC 34 (32-36) gm/dL RDW Coeff of Juma 12.2 (11.5-15.5) % Plt Count 249 (140-440) K/uL Neut % (Auto) 57.8 (42.0-72.0) % Lymph % (Auto) 33.3 (20-44) % Payne % (Auto) 6.4 (0.0-11.0) % Eos % (Auto) 2.0 (0.0-7.0) % Baso % (Auto) 0.5 (0.0-3.0) % Neut # (Auto) 3.23 (1.7-7.0) K/uL Lymph # (Auto) 1.86 (0.90-2.90) K/uL Payne # (Auto) 0.40 (0.00-0.90) K/UL Eos # (Auto) 0.11 (0.00-0.50) K/uL Baso # (Auto) 0.03 (0.00-0.30) K/uL Abs Immat Gran (auto) 0.00 (0.00-0.30) K/uL Imm/Tot Granulo (auto) 0.0 % Sodium 138 (135-149) mmol/L Potassium 4.6 (3.6-5.1) mmol/L Chloride 104 (96-114) mmol/L Carbon Dioxide 26 (20-32) mmol/L Anion Gap 8 (7-15) mEq/L BUN 15 (5-24) mg/dL Creatinine 0.7 (0.5-1.5) mg/dL Estimated Creat Clear 133.01 Estimated GFR 126 ml/min Glucose 103 (60-115) mg/dL Calcium 9.6 (8.4-10.6) mg/dL Total Bilirubin 0.2 (0.1-1.5) mg/dL AST 23 (12-35) U/L ALT 17 (4-50) U/L Alkaline Phosphatase 67 (40-150) U/L Total Protein 7.1 (6.0-8.3) g/dL Albumin 4.6 (3.3-5.0) g/dL Lipase 40 (23-300) U/L POC Troponin I 0.00 L (0.01-0.04) ng/ml Imaging Data CT scan abdomen pelvis: Attestation: I have reviewed the pertinent imaging results. Radiologist's impression: 1. No acute findings in the abdomen or pelvis. 2. Minimal colonic diverticulosis. 3. Chronic bilateral L5 pars defect with grade 1 anterolisthesis of L5 on S1. 4. Partially imaged at least 5 millimeter solid right middle lobe pulmonary nodule. Please note that all CT scans at this facility use dose modulation, iterative reconstruction, and/or weight-based dosing when appropriate to reduce radiation dose to as low as reasonably achievable. Dictated by Adalberto Wahl MD @ 03/08/2024 1:15:45 PM ECG Data Attestation: I personally reviewed and interpreted this ECG as follows: Prior ECG tracings: not available for review Interpretation: Normal sinus rhythm with rate 75 beats per minute, normal intervals, normal axis, no ST or T-wave abnormalities. Discharge Plan Discharge Clinical Impression: Abdominal pain Qualifiers: Abdominal location: generalized Qualified Code(s): R10.84 - Generalized abdominal pain Patient Disposition: Home, Self-Care Condition: Stable Instructions: Abdominal Pain (ED) Additional Instructions: Symptoms seem related to gastroenteritis should resolve on its own in the next few days. There was a pulmonary nodule seen on your CT scan. Recommend follow- up with the primary care provider about this. Return for new or worsening symptoms Prescriptions: No Action amoxicillin-pot clavulanate 875-125 mg tablet 1 tab PO Q12H Qty: 20 0RF ketorolac 10 mg tablet 10 mg PO TID 5 Days Qty: 15 0RF pantoprazole 40 mg tablet,delayed release (DR/EC) 40 mg PO BID Patient Comments: TAKE 1 TABLET BY MOUTH TWO TIMES A DAY metronidazole [Flagyl] 375 mg capsule 375 mg PO Q8H Qty: 30 0RF ciprofloxacin HCl [Cipro] 500 mg tablet 500 mg PO Q12H Qty: 20 0RF dextroamphetamine-amphetamine 10 mg tablet 1 tab PO DAILY Follow Up/Referrals: Kristian Medina MD [Primary Care Provider] - Stand Alone Forms: [employer]th Info Instructions
[2024-03-08 12:09] LABS: Basophils Absolute Auto 0.03 K/uL (0.00-0.30); Basophils Percent Auto 0.5 % (0.0-3.0); Eosinophils Absolute Auto 0.11 K/uL (0.00-0.50); Hematocrit 41.8 % (37.0-53.0); Hemoglobin* 14.2 gm/dL (13.5-17.5); Lymphocytes Absolute Auto 1.86 K/uL (0.90-2.90); Lymphocytes Percent Auto 33.3 % (20-44); Mean Corpuscular HGB Conc 34 gm/dL (32-36); Mean Corpuscular Hemoglobin 30 pg (26-34); Mean Corpuscular Volume 88 fL (80-100); Monocytes Percent Auto 6.4 % (0.0-11.0); Neutrophils Absolute Auto 3.23 K/uL (1.7-7.0); Neutrophils Percent Auto 57.8 % (42.0-72.0); Platelet Count* 249 K/uL (140-440); RDW Coefficient of Variation % 12.2 % (11.5-15.5); Red Blood Count 4.74 m/uL (4.30-5.90); White Blood Count* 5.59 K/uL (4.50-11.00)
[2024-03-08 12:10] LABS: Slide Review Reflex No
[2024-03-08 12:22] LABS: Albumin* 4.6 g/dL (3.3-5.0); Chloride* 104 mmol/L (96-114); Sodium* 138 mmol/L (135-149)
[2024-03-08 12:23] LABS: Potassium* 4.6 mmol/L (3.6-5.1)
[2024-03-08 12:25] LABS: Alkaline Phosphatase* 67 U/L (40-150); Anion Gap 8 mEq/L (7-15); Aspartate Amino Transferase* 23 U/L (12-35); Bilirubin Total* 0.2 mg/dL (0.1-1.5); Blood Urea Nitrogen* 15 mg/dL (5-24); Carbon Dioxide* 26 mmol/L (20-32); Creatinine* 0.7 mg/dL (0.5-1.5); Est. Creatinine Clearance* 133.01; Estimated Glomerular Filt Rate 126 ml/min; Total Protein* 7.1 g/dL (6.0-8.3)
[2024-03-08 12:26] LABS: Alanine Aminotransferase* 17 U/L (4-50); Calcium* 9.6 mg/dL (8.4-10.6); Glucose* 103 mg/dL (60-115); Lipase* 40 U/L (23-300)
--- OUTSIDE RECORDS SUMMARY | 2024-03-08 12:31 | XMS_ITS | Encounter Summary ---
Author Organization [facility] Address [address] [place] [address]. [place] [address] Care Team Providers Care International Coordinator Name Role Phone No Ref-Primary, Physician Primary Care Provider Reason for Visit * Reason Onset Date Comments CD Outpatient 10/02/2018 Encounter Details Date Type Department Care Team ([facility] st Contact Info) Description 10/02/2018 Telephone [facility] Behavioral Health Intake [address] [place] [id number] Generic, Behavioral Intake, CD Outpatient Social History Tobacco Use Types Packs/Day Years Used Date Smoking Tobacco: Every Day Smokeless Tobacco: Never Alcohol Use Standard Drinks/Week Comments Yes 0 (1 standard drink = 0.6 oz pure alcohol) Alcoholic Drinks/day: beer 1-2 a night Sex and Gender Information Value Date Recorded Sex Assigned at Not on file Legal Sex 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 Clarified with [place] we do not offer that here at [facility]. Explained to patient and gave options of [facility] or [facility]. [facility] referred him to us here. Pt stated he wanted to go to [facility]. Reviewed options for appts - he will call us back. [facility] requiring him to attend treatment. Pt aware we are a IOP 4 eves a week. No upcoming court. PO Dhruv Umana [phone] No prior trx. Reg updated, referral not made. Pt will call back. [facility] documented in this encounter Plan of Treatment Not on file documented as of this encounter Visit Diagnoses Not on filedocumented in this encounter Care Teams International Coordinator Relationship Specialty Start Date End Date No Ref-Primary, Physician PCP - General 11/03/12 documented as of this encounter
--- OUTSIDE RECORDS SUMMARY | 2024-03-08 12:31 | XMS_ITS | Continuity of Care Document ---
Author Organization [facility] Address [address] [address] [place] [address] Phone Care Team Providers Care Veneer Drier Feeder Name Role Phone Pamela Morales Unavailable Unavailable Allergies, Adverse Reactions, Alerts Substance Reaction Status Criticality PENICILLIN Active No Information codeine Active No Information Medications Medication Instructions Dosage Effective Dates (start - stop) Status Comments pantoprazole 40 mg tablet,delayed release take 1 tablet by oral route 2 times every day 40 MG - Active IBUPROFEN (unknown strength) take 1 capsule by oral route every 6 hours as needed Not Available - Active pantoprazole 40 mg tablet,delayed release take 1 tablet by oral route 2 times every day 40 MG - No Longer Active Procedures Procedure Date Established Level 3 Offic/outpt E&m Estab Low-mod 0 Ugi Endo; Dx W/wo Collec Specm 20 Offic/outpt E&m New Mod Sever 0 Advance Directives Directive Yes / No Effective Date File Name No Information Encounters Encounter Description Practice Location Reason(s) For Visit Diagnoses Date Provider Providers Copied on Encounter [facility], [address] [address], [place], [id number], [place] tel:[phone] [facility] No Information [address] [facility], [place], [id number] , [place]. tel:[phone] Established Level 3 [facility], [address] [address], [place], [id number], tel:[phone] [facility] GI Symptoms or Concerns (chief complaint) Gastroesophageal reflux disease with esophagitis without hemorrhage 1 Pattich PAC Pamela. [address] [facility], [place] [address], [facility] [place], [id number] , . tel: [phone] Referring Provider: Referral Self, USE FOR SELF REFERRALS. Offic/outpt E&m Estab Low-mod [facility], [address] [address], [place], [id number], tel:[phone] [facility] GI Symptoms or Concerns (chief complaint) Gastroesophageal reflux disease with esophagitis 0 Pattich PAC Pamela. [address] [place] [address], [facility] [address], [facility] [place], [id number] , [place]. tel: [phone] Referring Provider: Referral Self, USE FOR SELF REFERRALS. [facility], [address] [address], [place], [id number], tel:[phone] [facility] Gastroesophageal reflux disease with esophagitisHiatal herniaHiatal herniaHeartburnEp igastric painDiaphragmatic hernia without obstruction or gangrene [address] [facility], [address] [place], [id number] , . tel: [phone] Referring Provider: Referral Self, USE FOR SELF REFERRALS. Offic/outpt E&m New Mod Sever [facility], [address] [address], [place], [id number], tel:[phone] [facility] GI Symptoms or Concerns (chief complaint) Gastroesophageal reflux disease, esophagitis presence not specified 0 Pattich PAC Pamela. [address] [place] [address], [address] [place], [id number] , [place]. tel:[phone] Referring Provider: Referral Self, USE FOR SELF REFERRALS. [facility], [address] [address], [place], [id number], [place] tel:[phone] [facility] No Information [address] [facility], [facility] [place], [id number] , [place]. tel:[phone] Family History Family Member Type Diagnosis Age At Onset Father Problem (finding) Heartburn Mother Problem (finding) Heartburn Immunizations Vaccine Date Status Comments tetanus toxoid, reduced diphtheria toxoid, and acellular pertussis vaccine, adsorbed administered Note: [facility] bi-direct ional interface ; Source: Other Registry tetanus toxoid, reduced diphtheria toxoid, and acellular pertussis vaccine, adsorbed administered Note: [facility] bi-direct ional interface ; Source: Other Registry Payers Payer name Insurance type Covered green party ID Authoriza tigabino(s) [employer] Of [facility] [id number] Social History Type Description Quantity Date Captured Comments Alcohol Use Details Unknown Caffeine Use Details Unknown Tobacco Use Status No Information Smoking Status No Information Sex Male Chief Complaint And Reason For Visit No Information Reason For Referral Reason For Referral No Information Plan Of Treatment Date Type Action Status Referral Ordered: EGD Appointment date/timeframe: 11/26/2019 ordered History Of Present Illness Encounter Date Complaint History Of Prese nt Illness GI Symptoms or Concerns This dino harper is a 25-year-old male who was evaluated today via televisit for followup of heartburn.He was last seen by myself in December 2019 for followup of chronic heartburn. Initially, he had been treated with aiig-ltw-[id number] Prilosec with no improvement. EGD was performed in November 2019 and revealed grade B esophagitis and a small hiatal hernia. No biopsies were obtained. Medication was changed to pantoprazole 40 mg daily, and this was helping his symptoms at that time.The patient returns today because he continues to experience heartburn despite being on the PPI. He describes heartburn and a burning sensation in his chest and throat that occurs in the evenings, particularly at bedtime. It seems to worsen with all foods, but red sauces and hot sauce make his symptoms worse. He enjoys spicy foods very much and does not want to cut them out. There is no associated nausea, vomiting, abdominal pain, GI bleeding, or unintended weight loss.The patient continues t GI Symptoms or Concerns This dino harper is a pleasant 25-year-old male who presents in clinic for followup of heartburn.The patient was initially evaluated by myself 6 weeks ago for symptoms of chronic intermittent heartburn. This had worsened significantly since quitting alcohol 2 years ago. Heartburn was occurring on a near daily basis, and was worsened by eating. He had been taking [id number] Prilosec for a few months with no improvement. EGD was performed on 11/25 and revealed grade B esophagitis and a small hiatal hernia. No biopsies were obtained.At his previous visit, he was prescribed pantoprazole 40 mg daily. He does not remember to take this daily, only as needed. He finds that it is very helpful in controlling his heartburn. His belching has also decreased. He currently denies nausea, vomiting, abdominal pain, or bowel changes. The patient has also reduced his caffeine intake and stopped taking NSAIDs and this also seems to have helped. He is happy with how his symptoms have im GI Symptoms or Concerns This dino harper is a 24-year-old male who presents as a self-referral for evaluation of heartburn.He reports symptoms of heartburn that have been present for the past few years. This has worsened significantly since quitting alcohol 2 years ago. He describes daily symptoms of heartburn, which feels like a severe burning sensation in his chest. There is associated belching and reflux. This occurs on a daily basis and is worsened by eating. Particularly, tomato sauce worsens the heartburn. Sometimes, he will wake up at night from heartburn. There is no associated nausea, vomiting, dysphagia, abdominal pain, bowel changes, rectal bleeding, or unintentional weight loss.The patient has been taking viqr-tcv-ymieufe Prilosec daily for the past few months with no improvement. He has tried this on a few occasions in the past, but did not notice a significant difference. He also uses Tums as needed, which provided only 50 minutes of relief. He does find the drinking milk is helpfu Functional Status Date Functional Assessmen t No Information Instructions Date Instruction Additional Infor mary Gastroesophageal Reflux Disease Related to Gastroesophageal reflux disease with esophagitis Gastroesophageal Reflux Disease Related to Hiatal hernia Hiatal Henia Related to Hiata l hernia Gastroesophageal Reflux Disease Related to Gastroesophageal reflux disease, esophagitis presence not specified Assessments Type Assessment Date No Information Patient Care Teams Name Effective Dates (start - stop) Status Members No Information
--- OUTSIDE RECORDS SUMMARY | 2024-03-08 12:31 | XMS_ITS | Referral Summary ---
Author Organization [facility] Address [address] [place] [address]. [place] [address] Care Team Providers Care Value Stream Manager Name Role Phone No Ref-Primary, Physician Primary Care Provider Allergies Active Allergy Reactions Criticality Noted Date Comments Codeine Sulfate 11/03/2012 Penicillins GI Disturbance 05/20/2017 Family members have had reaction, but patient never had penicillin unknown Medications PROZAC 20 MG OR CAPS 40 MG ONE DAILY 0 0 03/21/2009 Active ADDERALL XR# 20 MG OR CP24 VIVANCE 70 mg 0 0 03/21/2009 Active FLONASE INHA 50 MCG/DOSE NAIndications:C hronic rhinitis,Pharyn gitis INHALE 2 SPRAYS IN EACH NOSTRIL ONCE [...] on file Legal Sex Male 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 Gender Identity Not on file Sexual Orientation Not on file Last Filed Vital Signs Vital Sign Reading Time Taken Comments Blood Pressure 118/81 01/09/2021 12:00 AM CDT Pulse 77 01/09/2021 12:00 AM CDT Temperature 36.8 C (98.3 F) 01/09/2021 12:00 AM CDT Respiratory Rate 20 01/09/2021 12:00 AM CDT Oxygen Saturation 99% 01/09/2021 12:00 AM CDT Inhaled Oxygen Concentration - - Weight 69.4 kg (153 lb) 05/23/2017 11:50 PM OVERWEAVER Height 166.4 cm (5' 5.5) 05/23/2017 11:50 PM CS T Body Mass Index 25.07 05/23/2017 11:50 PM OVERWEAVER Plan of Treatment Not on file Medical Devices Implanted Type Area Vp Emerging Media Device Identifier Shelf Expiration Date Model / Serial / Lot Corkscrew Comp Thread 4.5 [id number] Implanted:Qty: 1 on 05/23/2017 Metallic Hardware/An chor Left: Shoulder ARTHREX 03/14/2018 [id number] F-45 / / [id number] Suture Fiberwire #2 Ct-1 [id number] Implanted:Qty: 2 on 05/23/2017 Metallic Hardware/An chor Left: Shoulder ARTHREX 05/23/2017 AR-7206 / / XX Suture Fiberwire #2 Ct-1 [id number] Implanted:Qty: 2 on 05/23/2017 Metallic Hardware/An chor Left: Shoulder ARTHREX 12/13/2021 AR-7206 / / [id number] Corkscrew Comp Thread 4.5 [id number] Implanted:Qty: 4 on 05/23/2017 Metallic Hardware/An chor Left: Shoulder ARTHREX 06/12/2018 [id number] F-45 / / [id number] Tibial Distal Rt Fsh Implanted:Qty: 1 on 05/23/2017 Left: Shoulder 06/08/2017 TDR80 / [id number] / [id number] Suture Jupiter, Biocomposite Suturetak Implanted:Qty: 1 on 05/23/2017 Left: Shoulder ARTHREX 09/12/2018 [id number] -[id number] / / [id number] Suture Washer, Titanium Implanted:Qty: 2 on 05/23/2017 Left: Shoulder ARTHREX 06/12/2020 AR-7000-1 8T / / [id number] 3.75mm Partially Threaded Cannulated Screw Implanted:Qty: 1 on 05/23/2017 Left: Shoulder ARTHREX AR-7000-3 2 / / N/A 3.75mm Partially Threaded Cannulated Screw Implanted:Qty: 1 on 05/23/2017 Left: Shoulder ARTHREX AR-7000-3 4 / / N/A Insurance [facility] CHOICE Care Teams Value Stream Manager Relationship Specialty Start Date End Date No Ref-Primary, Physician PCP - General 11/03/12
--- OUTSIDE RECORDS SUMMARY | 2024-03-08 12:31 | XMS_ITS | Encounter Summary ---
Author Organization [facility] Address [address] [place] [address]. [place] [address] Care Team Providers Care Agricultural Real Estate Agent Name Role Phone No Ref-Primary, Physician Primary [...] on file Legal Sex Male 4:01 AM GREENBELT Gender Identity Not on file Sexual Orientation Not on file documented as of this encounter Plan of Treatment Not on file documented as of this encounter Visit Diagnoses Not on filedocumented in this encounter Care Teams Agricultural Real Estate Agent Relationship Specialty Start Date End Date No Ref-Primary, Physician PCP - General 11/03/12 documented as of this encounter
--- OUTSIDE RECORDS SUMMARY | 2024-03-08 12:31 | XMS_ITS | Continuity of Care Document ---
Author Organization [facility] Address [address] [address] [place] [address] Phone Care Team Providers Care Network Systems Operator Name Role Phone Pamela Morales Unavailable Unavailable [...] Encounter [facility], [address] [address], [place], [id number], [place] tel:[phone] [facility] No Information 2 Jodi Santiago. [address] [facility], [address], [place], [id number] , [place]. tel:[phone] Established Level 3 [facility], [address] [address], [place], [id number], tel:[phone] [facility] GI Symptoms or Concerns (chief complaint) Gastroesophageal reflux disease with esophagitis without hemorrhage 1 Pattich PAC Pamela. [address] [facility], [place] [address], [facility] [place], [id number] , . tel: [phone] Referring Provider: Referral Self, USE FOR SELF REFERRALS. Offic/outpt E&m Estab Low-mod [facility], [address] [address], [place], [id number], tel:[phone] [facility] GI Symptoms or Concerns (chief complaint) Gastroesophageal reflux disease with esophagitis 0 Pattich PAC Pamela. [address] [place] [address], [facility] [address], [facility] [place], [id number] , [place]. tel: [phone] Referring Provider: Referral Self, USE FOR SELF REFERRALS. [facility], [address] [address], [place], [id number], tel:[phone] [facility] Gastroesophageal reflux disease with esophagitisHiatal herniaHiatal herniaHeartburnEp igastric painDiaphragmatic hernia without obstruction or gangrene 0 Phoenix Cheng. [address] [facility], [address] [place], [id number] , . tel: [phone] Referring Provider: Referral Self, USE FOR SELF REFERRALS. Offic/outpt E&m New Mod Sever [facility], [address] [address], [place], [id number], tel:[phone] [facility] GI Symptoms or Concerns (chief complaint) Gastroesophageal reflux disease, esophagitis presence not specified 0 Pattich PAC Pamela. [address] [place] [address], [address] [place], [id number] , [place]. tel:[phone] Referring Provider: Referral Self, USE FOR SELF REFERRALS. [facility], [address] [address], [place], [id number], [place] tel:[phone] [facility] No Information 0 Stacy Meng. [address] [facility], [address], [facility] [place], [id number] , [place]. tel:[phone] Family History Family Member Type Diagnosis Age [...] Registry Payers Payer name Insurance type Covered democrat ID Authoriza tigabino(s) [employer] [facility] [id number] Social History Type Description Quantity Date Captured [...] heartburn. Initially, he had been treated with zexy-nlr-hbmcded Prilosec with no improvement. EGD was performed [...] worsened by eating. He had been taking xxbl-wwv-btylcda Prilosec for a few months with no [...] unintentional weight loss.The patient has been taking gbad-mof-szozfob Prilosec daily for the past few months [...]
--- OUTSIDE RECORDS SUMMARY | 2024-03-08 12:31 | XMS_ITS | Clinical Summary ---
Author Organization [facility] Address [place], [place] [address] Care Team Providers Care Bias Binding Folder Name Role Phone Catracho Suh Unavailable Kristian Medina MD Primary Care Provider [phone] Allergies Active Allergy Reactions Criticality Noted Date [...] 90 Capsule 3 01/09/2023 Active dextroamphetamine-a mphetamine (ADDERALL) 20 mg tabletIndications:A DHD, predominantly inattentive type TAKE ONE TABLET BY MOUTH TWICE A DAY AT 7AM AND AT NOON 60 Tablet 02/17/2024 Active dextroamphetamine-a mphetamine (AdderalL) 20 mg tabletIndications:A DHD, predominantly inattentive type Take 1 Tablet (20 mg) by mouth 2 times daily at 7 AM and Noon. 60 Tablet 01/07/2024 Discontinued Active Problems Problem Noted Date Diagnosed Date [...] Encounters Date Type Department Care Team Description 02/17/2024 Refill [facility] [address] [place] [address] Kristian Medina MD Refill Request (Dextroamphetamine-amph etamine) 01/15/2024 Orders Only [facility] Scanner 1 scan: (1-Ord) SUNIL TOLEDO WRIST LT MIN 3V, 01/15/2024 01/06/2024 Telephone [facility] [address] [place] [address] Kristian Medina MD Medication Management (Adderal XR 2 mg) from Last 3 Months Immunizations Name Administration [...] 84 10/25/2023 10:02 AM CDT Temperature 37.1 C (98.8 F) 09/03/2014 11:47 AM CDT Respiratory Rate 20 09/03/2014 11:47 AM CDT Oxygen Saturation 98% 03/22/2023 8:48 AM BUILDING SUPERVISOR Inhaled Oxygen Concentration - - Weight 69.2 kg (152 lb 8 oz) 10/25/2023 10:02 AM CDT Height 165.1 cm (5' 5) 04/19/2023 8:15 AM BUILDING SUPERVISOR Body Mass Index 25.38 04/19/2023 8:15 AM BUILDING SUPERVISOR Plan of Treatment Health Maintenance Due Date [...] on patient's age to complete this topic Procedures Procedure Name Priority Date/Time Associated Diagnosis Comments SCAN-RADIOLOGY REPORT 01/15/2024 12:00 AM CDT from Last 3 Months Results * SCAN-RADIOLOGY REPORT (01/15/2024 12:00 AM CDT) Anatomical Region Laterality Modality Other Scanner OTHER from Last 3 Months Advance Directives * Full Code (Latest Code Status on File) Date Activated Date Inactivated Comments 01/27/2005 6:54 PM 02/02/2005 9:00 PM Care Teams Bias Binding Folder Relationship Specialty [place] [address] [place] [address] PCP - General Family Practice 01/09/23 Catracho Suh 09/03/14
--- OUTSIDE RECORDS SUMMARY | 2024-03-08 12:31 | XMS_ITS | Clinical Summary ---
Author Organization [facility] Address [address] [place] [address]. 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 Gender Identity Not on file Sexual Orientation [...] 69.4 kg (153 lb) 05/23/2017 11:50 PM CENTRAL STERILIZATION TECHNICIAN Height 166.4 cm (5' 5.5) 05/23/2017 11:50 PM CS T Body Mass Index 25.07 05/23/2017 11:50 PM CENTRAL STERILIZATION TECHNICIAN Plan of Treatment Not on file Medical Devices Implanted Type Area Soil Surveyor Device Identifier Shelf Expiration Date Model / Serial / Lot Corkscrew Comp Thread 4.5 [id number] Implanted:Qty: 1 on 05/23/2017 Metallic Hardware/An chor Left: Shoulder ARTHREX 03/14/2018 AR-[id number] F-45 / / [id number] Suture Fiberwire #2 Ct-1 [id number] Implanted:Qty: 2 on 05/23/2017 Metallic Hardware/An chor Left: Shoulder ARTHREX 05/23/2017 AR-7206 / / XX Suture Fiberwire #2 Ct-1 [id number] Implanted:Qty: 2 on 05/23/2017 Metallic Hardware/An chor Left: Shoulder ARTHREX 12/13/2021 AR-7206 / / [id number] Corkscrew Comp Thread 4.5 [id number] Implanted:Qty: 4 on 05/23/2017 Metallic Hardware/An chor Left: Shoulder ARTHREX 06/12/2018 AR-[id number] F-45 / / [id number] Tibial Distal Rt Fsh Implanted:Qty: 1 on 05/23/2017 Left: Shoulder 06/08/2017 TDR80 / [id number] / [id number] Suture [place], Biocomposite Suturetak Implanted:Qty: 1 on 05/23/2017 Left: Shoulder ARTHREX 09/12/2018 [id number] -[id number] / / [id number] Suture Washer, Titanium Implanted:Qty: 2 on 05/23/2017 Left: Shoulder ARTHREX 06/12/2020 AR-7000-1 8T / / [id number] 3.75mm Partially Threaded Cannulated Screw Implanted:Qty: 1 on 05/23/2017 Left: Shoulder ARTHREX AR-7000-3 2 / / N/A 3.75mm Partially Threaded Cannulated Screw Implanted:Qty: 1 on 05/23/2017 Left: Shoulder ARTHREX AR-7000-3 4 / / N/A Insurance [facility] CHOICE Care Teams Fraternity Adviser Relationship Specialty Start Date End Date No Ref-Primary, Physician PCP - General 11/03/12
--- OUTSIDE RECORDS SUMMARY | 2024-03-08 12:31 | XMS_ITS | Clinical Summary ---
Author Organization [facility] Address [address] [address] Care Team Providers Care Continuous Process Coffee Roaster Name Role Phone Romero Warren MD Primary Care Provider [phone] Source Comments You are receiving this document as you are listed as the primary care provider,follow-up provider, or the patient has been referred to you for consultation.This is in compliance with the Medicare and[facility] Cent[facility] EHR Incentive Program,which states Providers who transition their patient to another setting of careor provider of care or refers their patient to another provider of care shouldprovide summary care record for each transition of care or referral. [employer] Allergies Active Allergy Reactions Criticality Noted Date [...] 96 10/30/2022 5:00 PM CDT Temperature 37.1 C (98.8 F) 10/30/2022 2:42 PM CDT Respiratory Rate 16 10/30/2022 5:00 PM CDT [...] HepB (1) 01/02/2012 COVID-19 Vaccine (1 - 2023-25 season) 2023 Influenza (#1) 2023 DTaP/Tdap/Td (9 [...] age to complete this topic Care Teams Continuous Process Coffee Roaster Relationship Specialty [place] [address] [place] [address] PCP - General 04/01/13
== END 2024-03-08 13:37 | disposition home or self-care (01) ==
PROVIDERS: Emergency Provider Student in an Organized Health Care Education/Training Program; PCP Family Medicine
DX: R10.9 Unspecified abdominal pain (principal)
CPT/HCPCS: 36415; 74177; 80053; 81001; 83690; 84484; 85025; 93005; 96374; 99284; 99285; Q9967